=== PATIENT | female | born 1990 | race Caucasian/White ===

== ENCOUNTER 2018-03-27 13:14 | Emergency (ER) | payer SELFPAY ==
[2018-03-27 13:27] VITALS: BP 145/118
--- NOTE | 2018-03-27 14:13 | Emergency Department Report ---
Blank Doc - Documentation Documentation: Patient is a 27-year-old female who is presenting with chest pain. Patient states she has rheumatoid arthritis and she was on a local [employer] on a scooter and started getting some chest discomfort. Patient states is sharp pain. She does have some shortness of breath. Patient states she's had 3-4 days of cough that is productive of sputum. She denies any fever nausea vomiting. Patient states that she has no history of any cardiac issues. Patient states the pain is nonpleuritic. Patient's EKG is reviewed by me shows a sinus tachycardia but no other acute abdomen. Patient's other vital signs are within normal limits. Patient will have x-ray secondary to the productive sputum no be reassessed.
== END 2018-03-27 16:22 | disposition left against medical advice (07) ==
LOC: ED 13:14
DX: R07.9 Chest pain, unspecified (principal); R06.02 Shortness of breath; R05 Cough
CPT/HCPCS: 93005; 93010; 99281

== ENCOUNTER 2018-04-14 17:27 | Emergency (ER) | payer SELFPAY ==
[2018-04-14 17:50] VITALS: BP 155/103
--- NOTE | 2018-04-14 18:19 | Emergency Department Report ---
ED General Adult HPI - General Chief complaint: Medical Clearance Stated complaint: RA FLARE UP Time Seen by Provider: 04/14/18 18:17 Source: patient Mode of arrival: Ambulatory Limitations: No Limitations - History of Present Illness Initial comments: Patient is a 28-year-old black female who has rheumatoid arthritis who is complaining of pain all over. Patient states name of the Derek she is also prednisone pressure normally what helps with her flareups. Patient states the pain is diffuse aching and a 10 out of 10. Patient is resting comfortably in the room. - Related Data Previous Rx's Medication Instructions Recorded Last Taken Type Prednisone [predniSONE 10 mg 10 mg PO .TAPER #1 tab.ds.pk 04/14/18 Unknown Rx (6-Day Pack, 21 Tabs)] Allergies Allergy/AdvReac Type Severity Reaction Status Date / Time No Known Allergies Allergy Unverified 03/27/18 13:25 ED Review of Systems ROS: Stated complaint: RA FLARE UP Other details as noted in HPI Comment: All other systems reviewed and negative ED Past Medical Hx - Past Medical History Hx Arthritis: Yes - Social History Smoking Status: Never Smoker Substance Use Type: None - Medications Home Medications: Home Medications Medication Instructions Recorded Confirmed Last Taken Type Prednisone [predniSONE 10 mg 10 mg PO .TAPER #1 tab.ds.pk 04/14/18 Unknown Rx (6-Day Pack, 21 Tabs)] ED Physical Exam - General Limitations: No Limitations General appearance: alert, in no apparent distress - Head Head exam: Present: atraumatic, normocephalic - Eye Eye exam: Present: normal appearance - ENT ENT exam: Present: mucous membranes moist - Neck Neck exam: Present: normal inspection - Respiratory Respiratory exam: Present: normal lung sounds bilaterally. Absent: respiratory distress - Cardiovascular Cardiovascular Exam: Present: regular rate, normal rhythm. Absent: systolic murmur, diastolic murmur, rubs, gallop - GI/Abdominal GI/Abdominal exam: Present: soft, normal bowel sounds - Extremities Exam Extremities exam: Present: normal inspection - Back Exam Back exam: Present: normal inspection - Neurological Exam Neurological exam: Present: alert, oriented X3 - Psychiatric Psychiatric exam: Present: normal affect, normal mood - Skin Skin exam: Present: warm, dry, intact, normal color. Absent: rash ED Course Vital Signs 04/14/18 17:46 Temperature 99.5 F Pulse Rate 105 H Respiratory 18 Rate Blood Pressure 155/103 O2 Sat by Pulse 99 Oximetry ED Medical Decision Making - Medical Decision Making Patient was given a Decadron shot. Patient states that she is a she could be but has not had some light bleeding. Her last missed her period was exactly one month ago. Patient most likely starting her menses. Critical care attestation.: If time is entered above; I have spent that time in minutes in the direct care of this critically ill patient, excluding procedure time. ED Disposition Clinical Impression: Arthritis Disposition: DC- TO HOME OR SELFCARE Is pt being admited?: No Does the pt Need Aspirin: No Condition: Stable Prescriptions: Prednisone [predniSONE 10 mg (6-Day Pack, 21 Tabs)] 10 mg PO .TAPER #1 tab.ds.pk Referrals: PRIMARY CARE, [Primary Care Provider] - 3-5 Days
[2018-04-14] MEDS ORDERED: DECADRON IM ONE (18:20)
== END 2018-04-14 18:56 | disposition home or self-care (01) ==
LOC: ED 17:27
DX: M06.9 Rheumatoid arthritis, unspecified (principal)
CPT/HCPCS: 96372; 99282; J1100

== ENCOUNTER 2018-04-21 17:04 | Emergency (ER) | payer SELFPAY ==
[2018-04-21 17:17] VITALS: BP 175/96
[2018-04-21] MEDS ORDERED: ZOFRAN ODT PO ONE (18:32)
== END 2018-04-21 17:35 | disposition left against medical advice (07) ==
LOC: ED 17:04
DX: R05 Cough (principal); Z53.21 Procedure and treatment not carried out due to patient leaving prior to being seen by health care provider
CPT/HCPCS: Q0162

== ENCOUNTER 2018-05-09 15:09 | Emergency (ER) | payer OTHER ==
[2018-05-09 15:38] VITALS: BP 148/93
[2018-05-09] MEDS ORDERED: DECADRON IM ONE (18:02)
--- NOTE | 2018-05-09 18:06 | Emergency Department Report ---
HPI - General Chief Complaint: Pain General Time Seen by Provider: 05/09/18 17:54 - HPI HPI: 28-year-old AA female presents to the emergency department with complaint of a 2 day history of pain in the left knee, left wrist and bilateral ankles that she says is a flareup of her rheumatoid arthritis. She denies any skin color change but feels that the left knee is slightly swollen. She has tried some Aleve and some Tylenol for her symptoms without much relief. Patient does not currently have a primary care physician or delimer at her Medicaid lapsed. No recent travel or sick contacts at home. ED Past Medical Hx - Past Medical History Previous Medical History?: Yes Hx Arthritis: Yes (RA) Additional medical history: RA - Surgical History Past Surgical History?: No - Social History Smoking Status: Never Smoker Substance Use Type: None - Medications Home Medications: Home Medications Medication Instructions Recorded Confirmed Last Taken Type Prednisone [predniSONE 10 mg 10 mg PO .TAPER #1 tab.ds.pk 05/09/18 Unknown Rx (6-Day Pack, 21 Tabs)] ED Review of Systems ROS: Stated complaint: RHEUMATIOD ARTHRITIS FLARE UP Other details as noted in HPI Comment: All other systems reviewed and negative Constitutional: denies: chills, fever Eyes: denies: eye pain, eye discharge, vision change ENT: denies: ear pain, throat pain Respiratory: denies: cough, shortness of breath, wheezing Cardiovascular: denies: chest pain, palpitations Gastrointestinal: denies: abdominal pain, nausea, diarrhea Genitourinary: denies: urgency, dysuria, discharge Musculoskeletal: arthralgia, myalgia Skin: denies: rash, lesions Neurological: denies: headache, weakness, paresthesias Physical Exam - Physical Exam Vital Signs: Vital Signs 05/09/18 15:32 Temperature 98.4 F Pulse Rate 101 H Respiratory 18 Rate Blood Pressure 148/93 O2 Sat by Pulse 98 Oximetry Physical Exam: GENERAL: The patient is well-developed well-nourished. HENT: Normocephalic. Atraumatic. Patient has moist mucous membranes. EYES: Extraocular motions are intact. NECK: Supple. Trachea is midline. CHEST/LUNGS: Clear to auscultation. There is no respiratory distress noted. HEART/CARDIOVASCULAR: Regular. There is no tachycardia. There is no murmur. ABDOMEN: Abdomen is soft, nontender. Patient has normal bowel sounds. Morbidly obese habitus. SKIN: Skin is warm and dry. NEURO: The patient is awake, alert, and oriented. The patient is cooperative. The patient has no focal neurologic deficits. The patient has normal speech. MUSCULOSKELETAL: There is some reproducible tenderness to palpation to the left knee but no deformity. No laxity of the joint. There is no limitation range of motion. ED Course Vital Signs 05/09/18 15:32 Temperature 98.4 F Pulse Rate 101 H Respiratory 18 Rate Blood Pressure 148/93 O2 Sat by Pulse 98 Oximetry ED Medical Decision Making - Medical Decision Making Unable to reproduce the tenderness to the wrist, ankles but I was able to reproduce the tenderness to palpation of the left knee. It does appear to be a stable joint. Patient does have morbid obesity which may be adding to her arthralgia but does have a previous diagnosis of rheumatoid arthritis. Vital signs stable throughout her records including being afebrile. The joints appear to be red, warm or any concern for a septic joint. She was given a shot of Decadron here and will be sent home on a prednisone Dosepak. She has been given a referral for [place] until she is able to get her insurance back but has been encouraged to see a delimer as her "flareups " appear to be increasing. Vital signs stable throughout her ED course. She will return to the ER with any worsening of her symptoms or any acute distress. - Differential Diagnosis rheumatoid arthritis, osteoarthritis, gout Critical Care Time: No Critical care attestation.: If time is entered above; I have spent that time in minutes in the direct care of this critically ill patient, excluding procedure time. ED Disposition Clinical Impression: Rheumatoid arthritis flare Arthralgia Qualifiers: Joint pain location: unspecified Qualified Code(s): M25.50 - Pain in unspecified joint Disposition: DC-01 TO HOME OR SELFCARE Is pt being admited?: No Condition: Stable Instructions: Rheumatoid Arthritis (ED), Knee Pain (ED), Arthralgia (ED) Additional Instructions: Please follow up with a primary care physician and/or a delimer as soon as possible. Return to the emergency Department with any worsening of your symptoms are any acute distress. Prescriptions: Prednisone [predniSONE 10 mg (6-Day Pack, 21 Tabs)] 10 mg PO .TAPER #1 tab.ds.pk Referrals: [facility] [Outside] - 3-5 Days Time of Disposition: 18:05
== END 2018-05-09 18:17 | disposition home or self-care (01) ==
LOC: ED 15:09
DX: M06.9 Rheumatoid arthritis, unspecified (principal)
CPT/HCPCS: 96372; 99282; J1100

== ENCOUNTER 2018-05-21 17:54 | Emergency (ER) | payer SELFPAY | END 2018-05-21 19:21 | disposition left against medical advice (07) | LOC: ED 17:54 | DX: R07.9 Chest pain, unspecified (principal); Z53.21 Procedure and treatment not carried out due to patient leaving prior to being seen by health care provider ==

== ENCOUNTER 2018-06-02 19:28 | Emergency (ER) | payer SELFPAY ==
[2018-06-03] MEDS ORDERED: SOLU-Medrol IM ONE (03:21)
[2018-06-03] MEDS ORDERED: TORADOL IM ONE (03:21)
--- NOTE | 2018-06-03 03:44 | Emergency Department Report ---
ED General Adult HPI - General Chief complaint: Pain General Stated complaint: RHEUMATOID ARTHRITIS FLARE UP Time Seen by Provider: 06/03/18 03:20 Source: patient Mode of arrival: Wheelchair Limitations: No Limitations - History of Present Illness Initial comments: 28-year-old -[place] female with a past medical history of morbid obesity and rheumatoid arthritis comes in to the emergency room for complaint of chronic rheumatoid arthritis. Patient reports her pain is so bad that she is not able to move around and is now using adult diapers. Patient reports that she is uninsured and has followed up with [facility] but they did not have any rheumatology for her to follow. -: days(s) (3) Severity scale (0 -10): 10 Quality: aching, sharp Consistency: constant Improves with: none Worsens with: movement - Related Data Previous Rx's Medication Instructions Recorded Last Taken Type Cyclobenzaprine HCl [Flexeril 5 MG 5 mg PO TID PRN #18 tab 04/09/17 Unknown Rx TAB] Ondansetron [Zofran Odt] 4 mg PO TID #18 tab.rapdis 04/09/17 Unknown Rx traMADol [Ultram 50 MG tab] 50 mg PO Q4HR PRN #20 tablet 04/09/17 Unknown Rx Acyclovir [Zovirax Cap] 200 mg PO 5XD #25 cap 05/23/17 Unknown Rx Meloxicam [Mobic] 15 mg PO QDAY #30 tablet 05/23/17 Unknown Rx predniSONE [Deltasone] 10 mg PO QDAY #30 tab 05/23/17 Unknown Rx Acetaminophen/Codeine [Tylenol 2 tab PO Q12H PRN #12 tab 07/10/17 Unknown Rx /Codeine # 3 tab] Acyclovir [Zovirax Tab] 800 mg PO Q8H #21 tab 07/10/17 Unknown Rx Nitrofurantoin [place]/M-Cryst 100 mg PO Q12HR #14 capsule 10/09/17 Unknown Rx [Macrobid CAP] Vit Calc,Iron,Folic 1 each PO DAILY #30 tablet 10/09/17 Unknown Rx [ Vitamins] HYDROcodone/ACETAMINOPHEN [[place] 1 each PO Q4-6H PRN #12 tablet 11/21/17 Unknown Rx 7.5-325 Tablet] Prednisone [predniSONE 10 mg 10 mg PO .TAPER #1 tab.ds.pk 12/07/17 Unknown Rx (6-Day Pack, 21 Tabs)] traMADol [Ultram] 50 mg PO Q6HR PRN #12 tablet 12/07/17 Unknown Rx Ketorolac [Toradol] 10 mg PO Q6H PRN #20 tablet 12/09/17 Unknown Rx HYDROcodone/APAP 5-325 [[place] 1 each PO Q6HR PRN #10 tablet 12/15/17 Unknown Rx 5/325] Ibuprofen 800 mg PO Q9H PRN #30 tablet 12/31/17 Unknown Rx methylPREDNISolone [Medrol Dose 4 mg PO QAM #1 tab.ds.pk 12/31/17 Unknown Rx Juanito] Ibuprofen [Motrin 600 MG tab] 600 mg PO Q8H PRN #30 tablet 06/03/18 Unknown Rx predniSONE [Deltasone] 20 mg PO QDAY #5 tab 06/03/18 Unknown Rx Allergies Allergy/AdvReac Type Severity Reaction Status Date / Time No Known Allergies Allergy Verified 12/15/17 14:29 ED Review of Systems ROS: Stated complaint: RHEUMATOID ARTHRITIS FLARE UP Other details as noted in HPI Comment: All other systems reviewed and negative ED Past Medical Hx - Past Medical History Previous Medical History?: Yes Hx Arthritis: Yes (RA) Additional medical history: Obesity, lupus - Surgical History Past Surgical History?: Yes Additional Surgical History: Psoriasis - Social History Smoking Status: Never Smoker Substance Use Type: None - Medications Home Medications: Home Medications Medication Instructions Recorded Confirmed Last Taken Type Cyclobenzaprine HCl [Flexeril 5 MG 5 mg PO TID PRN #18 tab 04/09/17 Unknown Rx TAB] Ondansetron [Zofran Odt] 4 mg PO TID #18 tab.rapdis 04/09/17 Unknown Rx traMADol [Ultram 50 MG tab] 50 mg PO Q4HR PRN #20 tablet 04/09/17 Unknown Rx Acyclovir [Zovirax Cap] 200 mg PO 5XD #25 cap 05/23/17 Unknown Rx Meloxicam [Mobic] 15 mg PO QDAY #30 tablet 05/23/17 Unknown Rx predniSONE [Deltasone] 10 mg PO QDAY #30 tab 05/23/17 Unknown Rx Acetaminophen/Codeine [Tylenol 2 tab PO Q12H PRN #12 tab 07/10/17 Unknown Rx /Codeine # 3 tab] Acyclovir [Zovirax Tab] 800 mg PO Q8H #21 tab 07/10/17 Unknown Rx Nitrofurantoin [place]/M-Cryst 100 mg PO Q12HR #14 capsule 10/09/17 Unknown Rx [Macrobid CAP] Vit Calc,Iron,Folic 1 each PO DAILY #30 tablet 10/09/17 Unknown Rx [ Vitamins] HYDROcodone/ACETAMINOPHEN [[place] 1 each PO Q4-6H PRN #12 tablet 11/21/17 Unknown Rx 7.5-325 Tablet] Prednisone [predniSONE 10 mg 10 mg PO .TAPER #1 tab.ds.pk 12/07/17 Unknown Rx (6-Day Pack, 21 Tabs)] traMADol [Ultram] 50 mg PO Q6HR PRN #12 tablet 12/07/17 Unknown Rx Ketorolac [Toradol] 10 mg PO Q6H PRN #20 tablet 12/09/17 Unknown Rx HYDROcodone/APAP 5-325 [[place] 1 each PO Q6HR PRN #10 tablet 12/15/17 Unknown Rx 5/325] Ibuprofen 800 mg PO Q9H PRN #30 tablet 12/31/17 Unknown Rx methylPREDNISolone [Medrol Dose 4 mg PO QAM #1 tab.ds.pk 12/31/17 Unknown Rx Juanito] Ibuprofen [Motrin 600 MG tab] 600 mg PO Q8H PRN #30 tablet 06/03/18 Unknown Rx predniSONE [Deltasone] 20 mg PO QDAY #5 tab 06/03/18 Unknown Rx ED Physical Exam - General Limitations: No Limitations General appearance: alert, obese - Head Head exam: Present: atraumatic, normocephalic - Eye Eye exam: Present: EOMI - ENT ENT exam: Present: mucous membranes moist - Neck Neck exam: Present: normal inspection - Respiratory Respiratory exam: Present: normal lung sounds bilaterally. Absent: respiratory distress - Cardiovascular Cardiovascular Exam: Present: tachycardia - GI/Abdominal GI/Abdominal exam: Present: soft, normal bowel sounds - Extremities Exam Extremities exam: Present: tenderness - Back Exam Back exam: Present: tenderness - Neurological Exam Neurological exam: Present: alert, oriented X3 - Psychiatric Psychiatric exam: Present: normal affect, normal mood - Skin Skin exam: Present: warm, dry, intact, normal color. Absent: rash ED Course Vital Signs 06/02/18 19:47 Temperature 99.2 F Pulse Rate 120 H Respiratory 16 Rate Blood Pressure 145/94 O2 Sat by Pulse 99 Oximetry ED Medical Decision Making - Medical Decision Making Patient has been evaluated by this provider in fast track. Patient has been given Solu-Medrol 125 mg IM. Toradol 30 mg IM. Discharge patient on prednisone 20 mg by mouth daily for 5 days. As well as ibuprofen 600 mg by mouth daily. 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 Patient verbalizes understanding. Critical care attestation.: If time is entered above; I have spent that time in minutes in the direct care of this critically ill patient, excluding procedure time. ED Disposition Clinical Impression: Rheumatoid arthritis flare Chronic pain Qualifiers: Chronic pain type: other chronic pain Qualified Code(s): G89.29 - Other chronic pain Disposition: TO HOME OR SELFCARE Is pt being admited?: No Does the pt Need Aspirin: No Condition: Stable Instructions: Rheumatoid Arthritis (ED), Self-Care Measures with a Chronic Disease (ED) Additional Instructions: Take pain medication as prescribed. Take prednisone as prescribed. Follow up with [facility] for more resources to be followed by a evaporator operator. Prescriptions: Ibuprofen [Motrin 600 MG tab] 600 mg PO Q8H PRN #30 tablet PRN Reason: Pain predniSONE [Deltasone] 20 mg PO QDAY #5 tab Referrals: PRIMARY CARE, [Primary Care Provider] - 3-5 Days [facility] [Outside] - 3-5 Days
[2018-06-03 05:12] VITALS: BP 129/80
== END 2018-06-03 05:12 | disposition home or self-care (01) ==
LOC: ED 19:28 → MERGE 19:28 → ED 06-03 05:12
DX: M06.9 Rheumatoid arthritis, unspecified (principal); G89.29 Other chronic pain; M32.9 Systemic lupus erythematosus, unspecified
CPT/HCPCS: 93005; 93010; 96372; 99283; J1885; J2930

== ENCOUNTER 2018-06-16 09:14 | Emergency (ER) | payer SELFPAY ==
[2018-06-16 09:37] VITALS: BP 145/100
[2018-06-16] MEDS ORDERED: NORCO 5/325 PO ONE (10:52)
[2018-06-16] MEDS ORDERED: TORADOL IM ONE (10:52)
[2018-06-16] MEDS ORDERED: DECADRON IM STA (10:52)
--- NOTE | 2018-06-16 10:52 | Emergency Department Report ---
ED Extremity Problem HPI - General Chief complaint: Pain General Stated complaint: BODY PAIN Time Seen by Provider: 06/16/18 10:41 Source: patient, family Mode of arrival: Wheelchair Limitations: No Limitations - History of Present Illness Initial comments: This is a 28-year-old patient reports that she has a reported arthritis and she is having a flare. 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 Patient states she is having generalized aching to her joints with swelling to her knees which is always there. She reports pain is 10 out of 10 feels stiff and achy. Denies any nausea or vomiting. Denies any redness to joints. Denies any fever or chills. Denies any trauma. Pain is worse with walking and and better with resting. MD Complaint: joint swelling, joint paint Onset/Timin -: days(s) Location: left, right, upper extremity, lower extremity, elbow, knee History of Same: Yes -: No myalgia, Yes arthralgia, No fever, No associated dyspnea, No associated chest pain Radiation: none Severity scale (0 -10): 10 Quality: aching Consistency: constant Improves with: rest Worsens with: weight bearing, walking Associated Symptoms: arthralgias. denies: chest pain, shortness of breath, fever, myalgias, rash - Related Data Previous Rx's Medication Instructions Recorded Last Taken Type Cyclobenzaprine HCl [Flexeril 5 MG 5 mg PO TID PRN #18 tab 04/09/17 Unknown Rx TAB] Ondansetron [Zofran Odt] 4 mg PO TID #18 tab.rapdis 04/09/17 Unknown Rx traMADol [Ultram 50 MG tab] 50 mg PO Q4HR PRN #20 tablet 04/09/17 Unknown Rx Acyclovir [Zovirax Cap] 200 mg PO 5XD #25 cap 05/23/17 Unknown Rx Meloxicam [Mobic] 15 mg PO QDAY #30 tablet 05/23/17 Unknown Rx predniSONE [Deltasone] 10 mg PO QDAY #30 tab 05/23/17 Unknown Rx Acetaminophen/Codeine [Tylenol 2 tab PO Q12H PRN #12 tab 07/10/17 Unknown Rx /Codeine # 3 tab] Acyclovir [Zovirax Tab] 800 mg PO Q8H #21 tab 07/10/17 Unknown Rx Nitrofurantoin [place]/M-Cryst 100 mg PO Q12HR #14 capsule 10/09/17 Unknown Rx [Macrobid CAP] Vit Calc,Iron,Folic 1 each PO DAILY #30 tablet 10/09/17 Unknown Rx [ Vitamins] HYDROcodone/ACETAMINOPHEN [[place] 1 each PO Q4-6H PRN #12 tablet 11/21/17 Unknown Rx 7.5-325 Tablet] traMADol [Ultram] 50 mg PO Q6HR PRN #12 tablet 12/07/17 Unknown Rx Ketorolac [Toradol] 10 mg PO Q6H PRN #20 tablet 12/09/17 Unknown Rx HYDROcodone/APAP 5-325 [[place] 1 each PO Q6HR PRN #10 tablet 12/15/17 Unknown Rx 5/325] methylPREDNISolone [Medrol Dose 4 mg PO QAM #1 tab.ds.pk 12/31/17 Unknown Rx Juanito] Prednisone [predniSONE 10 mg 10 mg PO .TAPER #1 tab.ds.pk 05/09/18 Unknown Rx (6-Day Pack, 21 Tabs)] Ibuprofen [Motrin 600 MG tab] 600 mg PO Q8H PRN #30 tablet 06/03/18 Unknown Rx predniSONE [Deltasone] 20 mg PO QDAY #5 tab 06/03/18 Unknown Rx Ibuprofen 800 mg PO Q8H PRN #15 tablet 06/16/18 Unknown Rx Prednisone [predniSONE 10 mg 10 mg PO .TAPER #1 tab.ds.pk 06/16/18 Unknown Rx (6-Day Pack, 21 Tabs)] traMADol [Ultram 50 MG tab] 50 mg PO Q6HR PRN #20 tablet 06/16/18 Unknown Rx Allergies Allergy/AdvReac Type Severity Reaction Status Date / Time No Known Allergies Allergy Verified 06/16/18 09:34 ED Review of Systems ROS: Stated complaint: BODY PAIN Other details as noted in HPI Constitutional: denies: chills, fever Eyes: denies: eye discharge Respiratory: denies: cough, shortness of breath, SOB with exertion, SOB at rest , wheezing Cardiovascular: denies: chest pain, palpitations, edema, syncope Endocrine: no symptoms reported Gastrointestinal: denies: abdominal pain, nausea, vomiting, diarrhea Genitourinary: denies: urgency, dysuria, discharge Musculoskeletal: joint swelling, arthralgia. denies: back pain Skin: denies: rash, lesions Neurological: abnormal gait (she says she is in a wheelchair because of severe rheumatoid arthritis.). denies: headache, weakness, numbness, paresthesias, vertigo ED Past Medical Hx - Past Medical History Previous Medical History?: Yes Hx Arthritis: Yes (RA) Hx Seizures: Yes Additional medical history: RA. Psoriasis - Surgical History Past Surgical History?: No - Family History Family history: hypertension - Social History Smoking Status: Never Smoker Substance Use Type: None - Medications Home Medications: Home Medications Medication Instructions Recorded Confirmed Last Taken Type Cyclobenzaprine HCl [Flexeril 5 MG 5 mg PO TID PRN #18 tab 04/09/17 Unknown Rx TAB] Ondansetron [Zofran Odt] 4 mg PO TID #18 tab.rapdis 04/09/17 Unknown Rx traMADol [Ultram 50 MG tab] 50 mg PO Q4HR PRN #20 tablet 04/09/17 Unknown Rx Acyclovir [Zovirax Cap] 200 mg PO 5XD #25 cap 05/23/17 Unknown Rx Meloxicam [Mobic] 15 mg PO QDAY #30 tablet 05/23/17 Unknown Rx predniSONE [Deltasone] 10 mg PO QDAY #30 tab 05/23/17 Unknown Rx Acetaminophen/Codeine [Tylenol 2 tab PO Q12H PRN #12 tab 07/10/17 Unknown Rx /Codeine # 3 tab] Acyclovir [Zovirax Tab] 800 mg PO Q8H #21 tab 07/10/17 Unknown Rx Nitrofurantoin [place]/M-Cryst 100 mg PO Q12HR #14 capsule 10/09/17 Unknown Rx [Macrobid CAP] Vit Calc,Iron,Folic 1 each PO DAILY #30 tablet 10/09/17 Unknown Rx [ Vitamins] HYDROcodone/ACETAMINOPHEN [[place] 1 each PO Q4-6H PRN #12 tablet 11/21/17 Unknown Rx 7.5-325 Tablet] traMADol [Ultram] 50 mg PO Q6HR PRN #12 tablet 12/07/17 Unknown Rx Ketorolac [Toradol] 10 mg PO Q6H PRN #20 tablet 12/09/17 Unknown Rx HYDROcodone/APAP 5-325 [[place] 1 each PO Q6HR PRN #10 tablet 12/15/17 Unknown Rx 5/325] methylPREDNISolone [Medrol Dose 4 mg PO QAM #1 tab.ds.pk 12/31/17 Unknown Rx Juanito] Prednisone [predniSONE 10 mg 10 mg PO .TAPER #1 tab.ds.pk 05/09/18 Unknown Rx (6-Day Pack, 21 Tabs)] Ibuprofen [Motrin 600 MG tab] 600 mg PO Q8H PRN #30 tablet 06/03/18 Unknown Rx predniSONE [Deltasone] 20 mg PO QDAY #5 tab 06/03/18 Unknown Rx Ibuprofen 800 mg PO Q8H PRN #15 tablet 06/16/18 Unknown Rx Prednisone [predniSONE 10 mg 10 mg PO .TAPER #1 tab.ds.pk 06/16/18 Unknown Rx (6-Day Pack, 21 Tabs)] traMADol [Ultram 50 MG tab] 50 mg PO Q6HR PRN #20 tablet 06/16/18 Unknown Rx ED Physical Exam - General Limitations: No Limitations General appearance: alert, in no apparent distress - Head Head exam: Present: atraumatic, normocephalic, normal inspection - Eye Eye exam: Present: normal appearance, PERRL, EOMI Pupils: Present: normal accommodation - ENT ENT exam: Present: normal exam, normal orophraynx, mucous membranes moist, TM's normal bilaterally, normal external ear exam - Neck Neck exam: Present: normal inspection, full ROM. Absent: tenderness, lymphadenopathy - Respiratory Respiratory exam: Present: normal lung sounds bilaterally. Absent: respiratory distress, chest wall tenderness - Cardiovascular Cardiovascular Exam: Present: normal rhythm, tachycardia, normal heart sounds. Absent: systolic murmur, diastolic murmur - GI/Abdominal GI/Abdominal exam: Present: soft, normal bowel sounds. Absent: tenderness, rigid, organomegaly - Extremities Exam Extremities exam: Present: normal inspection, full ROM (patient has full range of motion to all her extremities but she reported pain to knee joints and elbow joints with flexion and extension. She has no restriction in movement to her joints. Patient is in a wheelchair because she said she has a flareup of her rheumatoid arthritis and it is difficult for her to walk.), tenderness (knee joints and elbow joints.), normal capillary refill, joint swelling (swelling to knee joints with some effusion.), other (my extremity physical exam except for knee joints and elbow joints with pain with range of motion and bilateral knee joint with effusion without any restriction in movement or change in color.). Absent: pedal edema, calf tenderness - Back Exam Back exam: Present: normal inspection, full ROM, other (patient able to ambulate but she says is very difficult and painful due to rheumatoid flare up.) . Absent: tenderness, paraspinal tenderness, vertebral tenderness, rash noted - Neurological Exam Neurological exam: Present: alert, oriented X3, abnormal gait (she has a normal gait she is unsteady because she said her knees are swollen and she is having a lot of pain), reflexes normal. Absent: motor sensory deficit - Psychiatric Psychiatric exam: Present: normal affect, normal mood - Skin Skin exam: Present: warm, dry, intact, normal color. Absent: rash ED Course Vital Signs 06/16/18 06/16/18 06/16/18 09:34 11:14 11:15 Temperature 97.9 F Pulse Rate 114 H Respiratory 18 20 20 Rate Blood Pressure 145/100 O2 Sat by Pulse 99 Oximetry Vital Signs 06/16/18 06/16/18 06/16/18 09:34 11:14 11:15 Temperature 97.9 F Pulse Rate 114 H Respiratory 18 20 20 Rate Blood Pressure 145/100 O2 Sat by Pulse 99 Oximetry 06/16/18 11:46 Temperature Pulse Rate 98 H Respiratory Rate Blood Pressure O2 Sat by Pulse Oximetry - Reevaluation(s) Reevaluation #1: 06/16/18 11:46 Patient was given Decadron 10 mg IM, Toradol 60 mg IM and estrogen 52 tablets by mouth for pain which she said helped her pain. ED Medical Decision Making - Medical Decision Making This is a 28-year-old female that has been here several times in the past less than was 06/03/2018 for rheumatoid flare up. She was given prednisone and ibuprofen upon discharge. She has been treated with tramadol prednisone and ibuprofen in the past also. Patient said that her insurance lapse and is to be activated in 90 days that she is not able to see a primary care or respiratory care program director and her rheumatoid arthritis as flare. Patient was seen and examined by myself and she has normal exam except bilateral knee and elbow with swelling and pain with range of motion. Bilateral knee with knee effusion left is greater than right but she is able to ambulate with limp in because she said she is having a lot of pain. Patient's urine wheelchair. Patient was given Toradol 60 mg IM, Decadron 10 mg IM and 5/ 52 tablets by mouth which relieved her pain. I discussed the patient that she needs to follow-up with outside [facility] for primary care and previous sliding scale fee until her [employer] insurance is activated and 90 days. She agrees. I discussed diagnosis and treatment plan with her and she voiced understanding. Patient surgical in stable condition, vital signs stable she is afebrile and her pain is controlled. She was given prescription for prednisone Dosepak, Motrin and tramadol and to follow-up with [facility] and orthopedic doctor in 3 days. Critical care attestation.: If time is entered above; I have spent that time in minutes in the direct care of this critically ill patient, excluding procedure time. ED Disposition Clinical Impression: Arthralgia of multiple sites, bilateral, Rheumatoid arthritis flare Knee effusion Qualifiers: Laterality: bilateral Qualified Code(s): M25.461 - Effusion, right knee; M25.462 - Effusion, left knee Disposition: DC- TO HOME OR SELFCARE Is pt being admited?: No Does the pt Need Aspirin: No Condition: Stable Instructions: Rheumatoid Arthritis (ED), Arthralgia (ED), Knee Exercises (GEN) , Knee Effusion (ED) Additional Instructions: Please follow up with [facility] primary care physician in 3 days to manage rheumatoid arthritis and also follow-up with orthopedic doctor Dr. Cintron for aspiration of joint effusion. Take prednisone Dosepak as instructed Take tramadol for moderate to severe pain the patient drive or operate heavy machinery while taking this medication If your condition worsens, return to the emergency room. Take Motrin for mild pain but please remember to take this medication with food as it can cause stomach upset Prescriptions: Ibuprofen 800 mg PO Q8H PRN #15 tablet PRN Reason: Pain, Mild (1-3) Prednisone [predniSONE 10 mg (6-Day Pack, 21 Tabs)] 10 mg PO .TAPER #1 tab.ds.pk traMADol [Ultram 50 MG tab] 50 mg PO Q6HR PRN #20 tablet PRN Reason: Pain Referrals: [facility] [Outside] - 06/19/18 MAURI CINTRON MD [Staff Physician] - 06/19/18 Forms: Work/School Release Form(ED)
== END 2018-06-16 12:08 | disposition home or self-care (01) ==
LOC: ED 09:14
DX: M25.462 Effusion, left knee (principal); M25.461 Effusion, right knee; M25.522 Pain in left elbow; M25.521 Pain in right elbow; M06.9 Rheumatoid arthritis, unspecified
CPT/HCPCS: 96372; 99282; J1100; J1885

== ENCOUNTER 2018-07-04 16:25 | Emergency (ER) | payer SELFPAY ==
[2018-07-04] MEDS ORDERED: ASPIRIN ONE (17:59)
--- NOTE | 2018-07-04 21:27 | Emergency Department Report ---
ED General Adult HPI - General Chief complaint: Pain General Stated complaint: RA FLARE Time Seen by Provider: 07/04/18 21:20 Source: patient Mode of arrival: Wheelchair Limitations: No Limitations - History of Present Illness Initial comments: This is 28-year-old female who reports that she is having rheumatoid arthritis flare. She is complaining of generalized pain to all her joints. Pain is 10/ 10 and achy all over. Patient says that she started a new job and her insurance will be kicking in July 2015. Patient said that she usually goes to [place] but she started a new job and has a new insurance that she is to wait. Patient was here on 06/24/2018 for similar problems. Pain is constant and worse with movement and no alleviating factors. She says she has not taken anything prior to coming to the emergency room. MD Complaint: rheumatoid arthritis flare Onset/Timin -: days(s) Location: back, left, right, upper extremity, lower extremity Radiation: non-radiation Severity scale (0 -10): 10 Quality: aching Consistency: constant Improves with: none Worsens with: movement Associated Symptoms: denies: confusion, chest pain, cough, diaphoresis, fever/ chills, headaches, loss of appetite, malaise, nausea/vomiting, rash, seizure, shortness of breath, syncope, weakness Treatments Prior to Arrival: none - Related Data Previous Rx's Medication Instructions Recorded Last Taken Type Cyclobenzaprine HCl [Flexeril 5 MG 5 mg PO TID PRN #18 tab 04/09/17 Unknown Rx TAB] Ondansetron [Zofran Odt] 4 mg PO TID #18 tab.rapdis 04/09/17 Unknown Rx traMADol [Ultram 50 MG tab] 50 mg PO Q4HR PRN #20 tablet 04/09/17 Unknown Rx Acyclovir [Zovirax Cap] 200 mg PO 5XD #25 cap 05/23/17 Unknown Rx Meloxicam [Mobic] 15 mg PO QDAY #30 tablet 05/23/17 Unknown Rx predniSONE [Deltasone] 10 mg PO QDAY #30 tab 05/23/17 Unknown Rx Acetaminophen/Codeine [Tylenol 2 tab PO Q12H PRN #12 tab 07/10/17 Unknown Rx /Codeine # 3 tab] Acyclovir [Zovirax Tab] 800 mg PO Q8H #21 tab 07/10/17 Unknown Rx Nitrofurantoin [place]/M-Cryst 100 mg PO Q12HR #14 capsule 10/09/17 Unknown Rx [Macrobid CAP] Vit Calc,Iron,Folic 1 each PO DAILY #30 tablet 10/09/17 Unknown Rx [ Vitamins] traMADol [Ultram] 50 mg PO Q6HR PRN #12 tablet 12/07/17 Unknown Rx Ketorolac [Toradol] 10 mg PO Q6H PRN #20 tablet 12/09/17 Unknown Rx HYDROcodone/APAP 5-325 [[place] 1 each PO Q6HR PRN #10 tablet 12/15/17 Unknown Rx 5/325] methylPREDNISolone [Medrol Dose 4 mg PO QAM #1 tab.ds.pk 12/31/17 Unknown Rx Juanito] Prednisone [predniSONE 10 mg 10 mg PO .TAPER #1 tab.ds.pk 05/09/18 Unknown Rx (6-Day Pack, 21 Tabs)] Ibuprofen [Motrin 600 MG tab] 600 mg PO Q8H PRN #30 tablet 06/03/18 Unknown Rx predniSONE [Deltasone] 20 mg PO QDAY #5 tab 06/03/18 Unknown Rx Ibuprofen 800 mg PO Q8H PRN #15 tablet 06/16/18 Unknown Rx Prednisone [predniSONE 10 mg 10 mg PO .TAPER #1 tab.ds.pk 06/16/18 Unknown Rx (6-Day Pack, 21 Tabs)] traMADol [Ultram 50 MG tab] 50 mg PO Q6HR PRN #20 tablet 06/16/18 Unknown Rx HYDROcodone/APAP 5-325 [[place] 1 each PO Q6HR PRN #15 tablet 06/24/18 Unknown Rx 5/325] Ibuprofen [Motrin] 800 mg PO Q8HR PRN #15 tablet 06/24/18 Unknown Rx Prednisone [predniSONE 10 mg 10 mg PO .TAPER #1 tab.ds.pk 06/24/18 Unknown Rx (6-Day Pack, 21 Tabs)] Ibuprofen [Motrin] 800 mg PO Q8HR PRN #21 tablet 07/04/18 Unknown Rx predniSONE [Prednisone] 10 mg PO QAM 6 Days #1 tab.ds.pk 07/04/18 Unknown Rx Allergies Allergy/AdvReac Type Severity Reaction Status Date / Time No Known Allergies Allergy Verified 06/16/18 09:34 ED Review of Systems ROS: Stated complaint: RA FLARE Other details as noted in HPI Constitutional: denies: chills, fever Eyes: denies: eye pain, eye discharge, vision change Respiratory: denies: cough, shortness of breath, SOB with exertion, SOB at rest , stridor, wheezing Cardiovascular: denies: chest pain, palpitations, edema, syncope Genitourinary: denies: discharge Musculoskeletal: back pain, joint swelling, arthralgia Skin: denies: rash, lesions Neurological: denies: headache, weakness, numbness, paresthesias, abnormal gait , vertigo ED Past Medical Hx - Past Medical History Previous Medical History?: Yes Hx Arthritis: Yes (RA) Hx Seizures: Yes Additional medical history: RA. Psoriasis - Surgical History Past Surgical History?: Yes Additional Surgical History: Psoriasis - Family History Family history: hypertension - Social History Smoking Status: Never Smoker Substance Use Type: None - Medications Home Medications: Home Medications Medication Instructions Recorded Confirmed Last Taken Type Cyclobenzaprine HCl [Flexeril 5 MG 5 mg PO TID PRN #18 tab 04/09/17 Unknown Rx TAB] Ondansetron [Zofran Odt] 4 mg PO TID #18 tab.rapdis 04/09/17 Unknown Rx traMADol [Ultram 50 MG tab] 50 mg PO Q4HR PRN #20 tablet 04/09/17 Unknown Rx Acyclovir [Zovirax Cap] 200 mg PO 5XD #25 cap 05/23/17 Unknown Rx Meloxicam [Mobic] 15 mg PO QDAY #30 tablet 05/23/17 Unknown Rx predniSONE [Deltasone] 10 mg PO QDAY #30 tab 05/23/17 Unknown Rx Acetaminophen/Codeine [Tylenol 2 tab PO Q12H PRN #12 tab 07/10/17 Unknown Rx /Codeine # 3 tab] Acyclovir [Zovirax Tab] 800 mg PO Q8H #21 tab 07/10/17 Unknown Rx Nitrofurantoin [place]/M-Cryst 100 mg PO Q12HR #14 capsule 10/09/17 Unknown Rx [Macrobid CAP] Vit Calc,Iron,Folic 1 each PO DAILY #30 tablet 10/09/17 Unknown Rx [ Vitamins] traMADol [Ultram] 50 mg PO Q6HR PRN #12 tablet 12/07/17 Unknown Rx Ketorolac [Toradol] 10 mg PO Q6H PRN #20 tablet 12/09/17 Unknown Rx HYDROcodone/APAP 5-325 [[place] 1 each PO Q6HR PRN #10 tablet 12/15/17 Unknown Rx 5/325] methylPREDNISolone [Medrol Dose 4 mg PO QAM #1 tab.ds.pk 12/31/17 Unknown Rx Juanito] Prednisone [predniSONE 10 mg 10 mg PO .TAPER #1 tab.ds.pk 05/09/18 Unknown Rx (6-Day Pack, 21 Tabs)] Ibuprofen [Motrin 600 MG tab] 600 mg PO Q8H PRN #30 tablet 06/03/18 Unknown Rx predniSONE [Deltasone] 20 mg PO QDAY #5 tab 06/03/18 Unknown Rx Ibuprofen 800 mg PO Q8H PRN #15 tablet 06/16/18 Unknown Rx Prednisone [predniSONE 10 mg 10 mg PO .TAPER #1 tab.ds.pk 06/16/18 Unknown Rx (6-Day Pack, 21 Tabs)] traMADol [Ultram 50 MG tab] 50 mg PO Q6HR PRN #20 tablet 06/16/18 Unknown Rx HYDROcodone/APAP 5-325 [[place] 1 each PO Q6HR PRN #15 tablet 06/24/18 Unknown Rx 5/325] Ibuprofen [Motrin] 800 mg PO Q8HR PRN #15 tablet 06/24/18 Unknown Rx Prednisone [predniSONE 10 mg 10 mg PO .TAPER #1 tab.ds.pk 06/24/18 Unknown Rx (6-Day Pack, 21 Tabs)] Ibuprofen [Motrin] 800 mg PO Q8HR PRN #21 tablet 07/04/18 Unknown Rx predniSONE [Prednisone] 10 mg PO QAM 6 Days #1 tab.ds.pk 07/04/18 Unknown Rx ED Physical Exam - General Limitations: No Limitations General appearance: alert, in no apparent distress - Head Head exam: Present: atraumatic, normocephalic, normal inspection - ENT ENT exam: Present: normal exam - Neck Neck exam: Present: normal inspection, full ROM, other (no C-spine tenderness). Absent: tenderness, lymphadenopathy - Respiratory Respiratory exam: Present: normal lung sounds bilaterally. Absent: respiratory distress - Cardiovascular Cardiovascular Exam: Present: regular rate, normal rhythm. Absent: systolic murmur, diastolic murmur, rubs, gallop - Extremities Exam Extremities exam: Present: normal inspection, normal capillary refill, other ( No cce. + 2 pulses in all extremities, no neurovascular compromise). Absent: full ROM (patient with limited range to major joints including shoulders, elbows , knees, hips due to her rheumatoid flare, pain.), tenderness, pedal edema, joint swelling, calf tenderness - Back Exam Back exam: Present: normal inspection, full ROM, other (patient able to ambulate but she limps due to rheumatoid arthritis.). Absent: tenderness, CVA tenderness (R), CVA tenderness (L), muscle spasm, paraspinal tenderness, vertebral tenderness, rash noted - Neurological Exam Neurological exam: Present: alert, oriented X3, abnormal gait (abnormal gait was his chronic due to her rheumatoid arthritis.), reflexes normal. Absent: motor sensory deficit - Psychiatric Psychiatric exam: Present: normal affect, normal mood - Skin Skin exam: Present: warm, dry, intact, normal color. Absent: rash ED Course Vital Signs 07/04/18 16:57 Pulse Rate 79 Respiratory 16 Rate Blood Pressure 168/100 O2 Sat by Pulse 98 Oximetry Vital Signs 07/04/18 07/04/18 07/04/18 16:57 22:37 22:46 Pulse Rate 79 77 Respiratory 16 18 Rate Blood Pressure 168/100 Blood Pressure 151/110 148/84 [Right] O2 Sat by Pulse 98 100 Oximetry - Reevaluation(s) Reevaluation #1: 07/04/18 21:35 Patient given Cruger 07/18/2025 one tablet, Toradol 60 mg IM and Decadron 10 mg IM for rheumatoid flare. After evaluation she said she was better and her pain was down to 4/10 from 07/25 ED Medical Decision Making - Medical Decision Making This is a 28-year-old female here report that she is having rheumatoid flareup and she does not have a doctor yet because her insurance kicks in 07/20/2018. She said that she is having increase in pain due to rheumatoid arthritis. Assessment/plan 1: Put arthritis flare-Decadron 10 mg IM, Toradol 60 mg IM and 10/325 mg by mouth with some relief of pain. Will be given prescription for steroids, Motrin and referral to photogrammetry airplane pilot and primary care physician. Discussed with patient that she needs to follow-up at [facility] to manage her chronic medical problem. I discussed with her that they will work with her monetary zeng until she gets her insurance and she needs to have someone to monitor her rheumatoid arthritis. She states that she will be getting a little photogrammetry airplane pilot 07/20/2018. Patient is stable she said her pain is better and discharged home with prescription for Motrin and prednisone Dosepak Critical care attestation.: If time is entered above; I have spent that time in minutes in the direct care of this critically ill patient, excluding procedure time. ED Disposition Clinical Impression: Rheumatoid arthritis flare Disposition: DC-01 TO HOME OR SELFCARE Is pt being admited?: No Does the pt Need Aspirin: No Condition: Stable Instructions: Rheumatoid Arthritis (ED) Additional Instructions: Please follow up with [facility] in 2 days for primary care visits for chronic medical problem. You will Also need to follow up with her photogrammetry airplane pilot. Please see referral and discharge instruction paperwork. Take Motrin and prednisone to manage her rheumatoid flare but please take these medications and food as Motrin can cause irritation to stomach lining. If your condition worsens, please return to the emergency room Prescriptions: Ibuprofen [Motrin] 800 mg PO Q8HR PRN #21 tablet PRN Reason: pain predniSONE [Prednisone] 10 mg PO QAM 6 Days #1 tab.ds.pk Referrals: PRIMARY CARE, [Primary Care Provider] - 07/06/18 follow-up , photogrammetry airplane pilot Dr. Ivory Butler MD [Other] - 07/06/18 [facility] [Outside] - 07/06/18 Forms: Work/School Release Form(ED)
[2018-07-04] MEDS ORDERED: DECADRON IM STA (21:52)
[2018-07-04] MEDS ORDERED: TORADOL IM ONE (21:52)
[2018-07-04] MEDS ORDERED: NORCO 10/325 PO ONE (21:53)
[2018-07-04 22:58] VITALS: BP 148/84
== END 2018-07-04 22:37 | disposition home or self-care (01) ==
LOC: ED 16:25
DX: M06.9 Rheumatoid arthritis, unspecified (principal); L40.9 Psoriasis, unspecified
CPT/HCPCS: 96372; 99282; J1100; J1885

== ENCOUNTER 2018-07-14 17:08 | Emergency (ER) | payer SELFPAY ==
[2018-07-14] MEDS ORDERED: ASPIRIN PO ONE (17:29)
[2018-07-14 18:24] LABS: Basophils # (Auto) 0.3 K/mm3 (0.0-0.1); Basophils % (Auto) 1.4 % (0.0-1.8); Eosinophils # (Auto) 0.1 K/mm3 (0.0-0.4); Eosinophils % (Auto) 0.4 % (0.0-4.3); Hemoglobin 10.7 gm/dl (10.1-14.3); Lymphocytes # (Auto) 4.5 K/mm3 (1.2-5.4); Lymphocytes % (Auto) 24.2 % (13.4-35.0); Mean Corpuscular HGB Conc 32 % (30-34); Mean Corpuscular Volume 75 fl (79-97); Monocytes # (Auto) 0.9 K/mm3 (0.0-0.8); Monocytes % (Auto) 4.7 % (0.0-7.3); Platelet Count 443 K/mm3 (140-440); Red Cell Distribution Width 18.5 % (13.2-15.2)
[2018-07-14 18:25] LABS: Mean Corpuscular Hemoglobin 24 pg (28-32)
[2018-07-14 18:33] LABS: INR 0.95 (0.87-1.13)
[2018-07-14 18:34] LABS: Partial Thromboplastin Time 23.8 Sec. (24.2-36.6)
[2018-07-14 18:44] LABS: BUN/Creatinine Ratio 26; Blood Urea Nitrogen 13 mg/dL (7-17); Calcium 9.1 mg/dL (8.4-10.2); Hemolysis Index 2
[2018-07-14] MEDS ORDERED: NACL 0.9% 1000 ML 1,000 ML IV ONE (21:04)
--- NOTE | 2018-07-14 21:08 | Emergency Department Report ---
ED Chest Pain HPI - General Chief Complaint: Chest Pain Stated Complaint: CHEST PAIN/GERD/RA FLARE UP Time Seen by Provider: 07/14/18 21:01 Source: patient Mode of arrival: Ambulatory Limitations: No Limitations - History of Present Illness Initial Comments: Henry is a 28 yo female who presents with squeezing chest pain for the past 2 weeks. She has had rapid heartbeat which has been fluctuating. No headache. Mild dyspnea. Has hx of RA. Has taken Prednisone for 2 years. Followed by [facility] Dr. Gutierrez. No longer has insurance. MD Complaint: chest pain -: Gradual, week(s) (2) Onset: during rest Pain Location: substernal Severity: mild Quality: squeezing Consistency: intermittent Improves With: nothing Worsens With: nothing - Related Data Previous Rx's Medication Instructions Recorded Last Taken Type Cyclobenzaprine HCl [Flexeril 5 MG 5 mg PO TID PRN #18 tab 04/09/17 Unknown Rx TAB] Ondansetron [Zofran Odt] 4 mg PO TID #18 tab.rapdis 04/09/17 Unknown Rx traMADol [Ultram 50 MG tab] 50 mg PO Q4HR PRN #20 tablet 04/09/17 Unknown Rx Acyclovir [Zovirax Cap] 200 mg PO 5XD #25 cap 05/23/17 Unknown Rx Meloxicam [Mobic] 15 mg PO QDAY #30 tablet 05/23/17 Unknown Rx predniSONE [Deltasone] 10 mg PO QDAY #30 tab 05/23/17 Unknown Rx Acetaminophen/Codeine [Tylenol 2 tab PO Q12H PRN #12 tab 07/10/17 Unknown Rx /Codeine # 3 tab] Acyclovir [Zovirax Tab] 800 mg PO Q8H #21 tab 07/10/17 Unknown Rx Nitrofurantoin [place]/M-Cryst 100 mg PO Q12HR #14 capsule 10/09/17 Unknown Rx [Macrobid CAP] Vit Calc,Iron,Folic 1 each PO DAILY #30 tablet 10/09/17 Unknown Rx [ Vitamins] traMADol [Ultram] 50 mg PO Q6HR PRN #12 tablet 12/07/17 Unknown Rx Ketorolac [Toradol] 10 mg PO Q6H PRN #20 tablet 12/09/17 Unknown Rx HYDROcodone/APAP 5-325 [[place] 1 each PO Q6HR PRN #10 tablet 12/15/17 Unknown Rx 5/325] methylPREDNISolone [Medrol Dose 4 mg PO QAM #1 tab.ds.pk 12/31/17 Unknown Rx Juanito] Prednisone [predniSONE 10 mg 10 mg PO .TAPER #1 tab.ds.pk 05/09/18 Unknown Rx (6-Day Pack, 21 Tabs)] Ibuprofen [Motrin 600 MG tab] 600 mg PO Q8H PRN #30 tablet 06/03/18 Unknown Rx predniSONE [Deltasone] 20 mg PO QDAY #5 tab 06/03/18 Unknown Rx Ibuprofen 800 mg PO Q8H PRN #15 tablet 06/16/18 Unknown Rx Prednisone [predniSONE 10 mg 10 mg PO .TAPER #1 tab.ds.pk 06/16/18 Unknown Rx (6-Day Pack, 21 Tabs)] traMADol [Ultram 50 MG tab] 50 mg PO Q6HR PRN #20 tablet 06/16/18 Unknown Rx HYDROcodone/APAP 5-325 [[place] 1 each PO Q6HR PRN #15 tablet 06/24/18 Unknown Rx 5/325] Ibuprofen [Motrin] 800 mg PO Q8HR PRN #15 tablet 06/24/18 Unknown Rx Prednisone [predniSONE 10 mg 10 mg PO .TAPER #1 tab.ds.pk 06/24/18 Unknown Rx (6-Day Pack, 21 Tabs)] Ibuprofen [Motrin] 800 mg PO Q8HR PRN #21 tablet 07/04/18 Unknown Rx predniSONE [Prednisone] 10 mg PO QAM 6 Days #1 tab.ds.pk 07/04/18 Unknown Rx Famotidine 20 mg PO BID 30 Days #60 tablet 07/14/18 Unknown Rx Allergies Allergy/AdvReac Type Severity Reaction Status Date / Time No Known Allergies Allergy Verified 06/16/18 09:34 Heart Score - HEART Score History: Slightly suspicious EKG: Normal Age: < 45 Risk factors: No known risk factors Troponin: < normal limit HEART Score: 0 ED Review of Systems ROS: Stated complaint: CHEST PAIN/GERD/RA FLARE UP Other details as noted in HPI Comment: All other systems reviewed and negative Constitutional: denies: fever, malaise Respiratory: denies: cough Cardiovascular: chest pain, palpitations ED Past Medical Hx - Past Medical History Hx Arthritis: Yes (RA) Hx Seizures: No Additional medical history: RA. Psoriasis - Surgical History Additional Surgical History: Psoriasis - Social History Smoking Status: Never Smoker - Medications Home Medications: Home Medications Medication Instructions Recorded Confirmed Last Taken Type Cyclobenzaprine HCl [Flexeril 5 MG 5 mg PO TID PRN #18 tab 04/09/17 Unknown Rx TAB] Ondansetron [Zofran Odt] 4 mg PO TID #18 tab.rapdis 04/09/17 Unknown Rx traMADol [Ultram 50 MG tab] 50 mg PO Q4HR PRN #20 tablet 04/09/17 Unknown Rx Acyclovir [Zovirax Cap] 200 mg PO 5XD #25 cap 05/23/17 Unknown Rx Meloxicam [Mobic] 15 mg PO QDAY #30 tablet 05/23/17 Unknown Rx predniSONE [Deltasone] 10 mg PO QDAY #30 tab 05/23/17 Unknown Rx Acetaminophen/Codeine [Tylenol 2 tab PO Q12H PRN #12 tab 07/10/17 Unknown Rx /Codeine # 3 tab] Acyclovir [Zovirax Tab] 800 mg PO Q8H #21 tab 07/10/17 Unknown Rx Nitrofurantoin [place]/M-Cryst 100 mg PO Q12HR #14 capsule 10/09/17 Unknown Rx [Macrobid CAP] Vit Calc,Iron,Folic 1 each PO DAILY #30 tablet 10/09/17 Unknown Rx [ Vitamins] traMADol [Ultram] 50 mg PO Q6HR PRN #12 tablet 12/07/17 Unknown Rx Ketorolac [Toradol] 10 mg PO Q6H PRN #20 tablet 12/09/17 Unknown Rx HYDROcodone/APAP 5-325 [[place] 1 each PO Q6HR PRN #10 tablet 12/15/17 Unknown Rx 5/325] methylPREDNISolone [Medrol Dose 4 mg PO QAM #1 tab.ds.pk 12/31/17 Unknown Rx Juanito] Prednisone [predniSONE 10 mg 10 mg PO .TAPER #1 tab.ds.pk 05/09/18 Unknown Rx (6-Day Pack, 21 Tabs)] Ibuprofen [Motrin 600 MG tab] 600 mg PO Q8H PRN #30 tablet 06/03/18 Unknown Rx predniSONE [Deltasone] 20 mg PO QDAY #5 tab 06/03/18 Unknown Rx Ibuprofen 800 mg PO Q8H PRN #15 tablet 06/16/18 Unknown Rx Prednisone [predniSONE 10 mg 10 mg PO .TAPER #1 tab.ds.pk 06/16/18 Unknown Rx (6-Day Pack, 21 Tabs)] traMADol [Ultram 50 MG tab] 50 mg PO Q6HR PRN #20 tablet 06/16/18 Unknown Rx HYDROcodone/APAP 5-325 [[place] 1 each PO Q6HR PRN #15 tablet 06/24/18 Unknown Rx 5/325] Ibuprofen [Motrin] 800 mg PO Q8HR PRN #15 tablet 06/24/18 Unknown Rx Prednisone [predniSONE 10 mg 10 mg PO .TAPER #1 tab.ds.pk 06/24/18 Unknown Rx (6-Day Pack, 21 Tabs)] Ibuprofen [Motrin] 800 mg PO Q8HR PRN #21 tablet 07/04/18 Unknown Rx predniSONE [Prednisone] 10 mg PO QAM 6 Days #1 tab.ds.pk 07/04/18 Unknown Rx Famotidine 20 mg PO BID 30 Days #60 tablet 07/14/18 Unknown Rx ED Physical Exam - General Limitations: No Limitations General appearance: alert, in no apparent distress - Head Head exam: Present: atraumatic, normocephalic - Eye Eye exam: Present: normal appearance - ENT ENT exam: Present: mucous membranes moist - Neck Neck exam: Present: normal inspection. Absent: tenderness, meningismus - Respiratory Respiratory exam: Present: normal lung sounds bilaterally. Absent: respiratory distress, wheezes, rales, rhonchi - Cardiovascular Cardiovascular Exam: Present: normal rhythm, tachycardia, normal heart sounds. Absent: systolic murmur, diastolic murmur, rubs, gallop - GI/Abdominal GI/Abdominal exam: Present: soft, normal bowel sounds. Absent: distended, tenderness, guarding, rebound - Extremities Exam Extremities exam: Present: normal inspection. Absent: pedal edema - Back Exam Back exam: Present: normal inspection. Absent: full ROM, tenderness - Neurological Exam Neurological exam: Present: alert, oriented X3 - Psychiatric Psychiatric exam: Present: normal affect, normal mood - Skin Skin exam: Present: warm, dry, intact, normal color. Absent: rash ED Course Vital Signs 07/14/18 17:25 Temperature 99.0 F Pulse Rate 135 H Blood Pressure 148/90 O2 Sat by Pulse 97 Oximetry ED Medical Decision Making - Lab Data Result diagrams: 07/14/18 18:12 07/14/18 18:12 Laboratory Results - last 24 hr 07/14/18 07/14/18 07/14/18 18:12 18:12 18:12 WBC 18.5 H RBC 4.50 Hgb 10.7 Hct 34.0 MCV 75 L MCH 24 L MCHC 32 RDW 18.5 H Plt Count 443 H Lymph % (Auto) 24.2 [place] % (Auto) 4.7 Eos % (Auto) 0.4 Baso % (Auto) 1.4 Lymph # 4.5 [place] # 0.9 H Eos # 0.1 Baso # 0.3 H Seg Neutrophils % 69.3 Seg Neutrophils # 12.9 H PT 13.1 INR 0.95 APTT 23.8 L Sodium 141 Potassium 3.8 Chloride 102.5 Carbon Dioxide 27 Anion Gap 15 BUN 13 Creatinine 0.5 L Estimated GFR > 60 BUN/Creatinine Ratio 26 Glucose 91 Calcium 9.1 Troponin T < 0.010 NT-Pro-B Natriuret Pep 07/14/18 18:12 WBC RBC Hgb Hct MCV MCH MCHC RDW Plt Count Lymph % (Auto) [place] % (Auto) Eos % (Auto) Baso % (Auto) Lymph # [place] # Eos # Baso # Seg Neutrophils % Seg Neutrophils # PT INR APTT Sodium Potassium Chloride Carbon Dioxide Anion Gap BUN Creatinine Estimated GFR BUN/Creatinine Ratio Glucose Calcium Troponin T NT-Pro-B Natriuret Pep 20.29 - EKG Data EKG shows normal: sinus rhythm, axis, intervals, QRS complexes, ST-T waves Rate: tachycardia - EKG Data 07/14/18 21:07 Time Obtained 1715 Sinus tachycardia rate 140 bpm, normal axis normal intervals no ST-T signs of ischemia no ST elevation - Medical Decision Making Ms. Byrnes presents with chest pain and tachycardia. Hx of GERD and anxiety. After observation without intervention, patient's repeat HR 88 bpm. Normal D- dimer. Do not suspect PE ACS pericarditis dissection. Recommended famotidine. She requested refill of prednisone which I explained was unsafe considering she is not followed by a PCP. Referred to clinic. Critical care attestation.: If time is entered above; I have spent that time in minutes in the direct care of this critically ill patient, excluding procedure time. ED Disposition Clinical Impression: Chest pain, GERD (gastroesophageal reflux disease) Disposition: DC-01 TO HOME OR SELFCARE Is pt being admited?: No Does the pt Need Aspirin: No Condition: Stable Instructions: Chest Pain (ED), Gastroesophageal Reflux in Children (ED) Prescriptions: Famotidine 20 mg PO BID 30 Days #60 tablet Referrals: [facility] [Outside] - 3-5 Days
[2018-07-14 22:09] VITALS: BP 150/98
== END 2018-07-14 22:33 | disposition home or self-care (01) ==
LOC: ED 17:08
DX: K21.9 Gastro-esophageal reflux disease without esophagitis (principal); M19.90 Unspecified osteoarthritis, unspecified site
CPT/HCPCS: 36415; 80048; 83880; 84443; 84484; 85025; 85379; 85610; 85730; 93005; 93010; 99284

== ENCOUNTER 2018-07-26 20:56 | Emergency (ER) | payer SELFPAY ==
[2018-07-27] MEDS ORDERED: DECADRON IM STA (00:37)
[2018-07-27] MEDS ORDERED: PERCOCET 5/325 PO ONE (00:42)
--- NOTE | 2018-07-27 01:08 | Emergency Department Report ---
ED Extremity Problem HPI - General Chief complaint: Extremity Problem,Nontraumatic Stated complaint: JOINT PAIN Time Seen by Provider: 07/27/18 00:37 Source: patient Mode of arrival: Ambulatory Limitations: No Limitations - History of Present Illness MD Complaint: joint paint (reports general lower extremity joint pain to her knees and ankles secondary to her rheumatoid arthritis. Reports being4. Bilateral knee replacement. However, the pain gets more severe rheumatoid arthritis flares up. She's been experiencing aching stiff joints due to being out of her current medications) Location: left, right History of Same: No -: Yes arthralgia Radiation: none Severity scale (0 -10): 10 Quality: aching Consistency: constant Improves with: medication Worsens with: weight bearing, walking Associated Symptoms: denies other symptoms. denies: chest pain, shortness of breath, fever, rash - Related Data Previous Rx's Medication Instructions Recorded Last Taken Type Cyclobenzaprine HCl [Flexeril 5 MG 5 mg PO TID PRN #18 tab 04/09/17 Unknown Rx TAB] Ondansetron [Zofran Odt] 4 mg PO TID #18 tab.rapdis 04/09/17 Unknown Rx traMADol [Ultram 50 MG tab] 50 mg PO Q4HR PRN #20 tablet 04/09/17 Unknown Rx Acyclovir [Zovirax Cap] 200 mg PO 5XD #25 cap 05/23/17 Unknown Rx Meloxicam [Mobic] 15 mg PO QDAY #30 tablet 05/23/17 Unknown Rx predniSONE [Deltasone] 10 mg PO QDAY #30 tab 05/23/17 Unknown Rx Acetaminophen/Codeine [Tylenol 2 tab PO Q12H PRN #12 tab 07/10/17 Unknown Rx /Codeine # 3 tab] Acyclovir [Zovirax Tab] 800 mg PO Q8H #21 tab 07/10/17 Unknown Rx Nitrofurantoin [place]/M-Cryst 100 mg PO Q12HR #14 capsule 10/09/17 Unknown Rx [Macrobid CAP] Vit Calc,Iron,Folic 1 each PO DAILY #30 tablet 10/09/17 Unknown Rx [ Vitamins] traMADol [Ultram] 50 mg PO Q6HR PRN #12 tablet 12/07/17 Unknown Rx Ketorolac [Toradol] 10 mg PO Q6H PRN #20 tablet 12/09/17 Unknown Rx HYDROcodone/APAP 5-325 [[place] 1 each PO Q6HR PRN #10 tablet 12/15/17 Unknown Rx 5/325] methylPREDNISolone [Medrol Dose 4 mg PO QAM #1 tab.ds.pk 12/31/17 Unknown Rx Juanito] Prednisone [predniSONE 10 mg 10 mg PO .TAPER #1 tab.ds.pk 05/09/18 Unknown Rx (6-Day Pack, 21 Tabs)] Ibuprofen [Motrin 600 MG tab] 600 mg PO Q8H PRN #30 tablet 06/03/18 Unknown Rx predniSONE [Deltasone] 20 mg PO QDAY #5 tab 06/03/18 Unknown Rx Ibuprofen 800 mg PO Q8H PRN #15 tablet 06/16/18 Unknown Rx Prednisone [predniSONE 10 mg 10 mg PO .TAPER #1 tab.ds.pk 06/16/18 Unknown Rx (6-Day Pack, 21 Tabs)] traMADol [Ultram 50 MG tab] 50 mg PO Q6HR PRN #20 tablet 06/16/18 Unknown Rx HYDROcodone/APAP 5-325 [[place] 1 each PO Q6HR PRN #15 tablet 06/24/18 Unknown Rx 5/325] Ibuprofen [Motrin] 800 mg PO Q8HR PRN #15 tablet 06/24/18 Unknown Rx Prednisone [predniSONE 10 mg 10 mg PO .TAPER #1 tab.ds.pk 06/24/18 Unknown Rx (6-Day Pack, 21 Tabs)] Ibuprofen [Motrin] 800 mg PO Q8HR PRN #21 tablet 07/04/18 Unknown Rx predniSONE [Prednisone] 10 mg PO QAM 6 Days #1 tab.ds.pk 07/04/18 Unknown Rx Famotidine 20 mg PO BID 30 Days #60 tablet 07/14/18 Unknown Rx predniSONE [Deltasone] 20 mg PO BID #12 tab 07/27/18 Unknown Rx Allergies Allergy/AdvReac Type Severity Reaction Status Date / Time No Known Allergies Allergy Verified 06/16/18 09:34 ED Review of Systems ROS: Stated complaint: JOINT PAIN Other details as noted in HPI Constitutional: denies: chills, fever Eyes: denies: eye pain, eye discharge, vision change ENT: denies: ear pain, throat pain Respiratory: denies: cough, shortness of breath, wheezing Cardiovascular: denies: chest pain, palpitations Endocrine: no symptoms reported Gastrointestinal: denies: abdominal pain, nausea, diarrhea Genitourinary: denies: urgency, dysuria, discharge Musculoskeletal: arthralgia. denies: back pain, joint swelling Skin: denies: rash, lesions Neurological: denies: headache, weakness, paresthesias Psychiatric: denies: anxiety, depression Hematological/Lymphatic: denies: easy bleeding, easy bruising ED Past Medical Hx - Past Medical History Hx Arthritis: Yes (RA) Hx Seizures: No Additional medical history: RA. Psoriasis - Surgical History Additional Surgical History: Psoriasis - Social History Smoking Status: Never Smoker Substance Use Type: None - Medications Home Medications: Home Medications Medication Instructions Recorded Confirmed Last Taken Type Cyclobenzaprine HCl [Flexeril 5 MG 5 mg PO TID PRN #18 tab 04/09/17 Unknown Rx TAB] Ondansetron [Zofran Odt] 4 mg PO TID #18 tab.rapdis 04/09/17 Unknown Rx traMADol [Ultram 50 MG tab] 50 mg PO Q4HR PRN #20 tablet 04/09/17 Unknown Rx Acyclovir [Zovirax Cap] 200 mg PO 5XD #25 cap 05/23/17 Unknown Rx Meloxicam [Mobic] 15 mg PO QDAY #30 tablet 05/23/17 Unknown Rx predniSONE [Deltasone] 10 mg PO QDAY #30 tab 05/23/17 Unknown Rx Acetaminophen/Codeine [Tylenol 2 tab PO Q12H PRN #12 tab 07/10/17 Unknown Rx /Codeine # 3 tab] Acyclovir [Zovirax Tab] 800 mg PO Q8H #21 tab 07/10/17 Unknown Rx Nitrofurantoin [place]/M-Cryst 100 mg PO Q12HR #14 capsule 10/09/17 Unknown Rx [Macrobid CAP] Vit Calc,Iron,Folic 1 each PO DAILY #30 tablet 10/09/17 Unknown Rx [ Vitamins] traMADol [Ultram] 50 mg PO Q6HR PRN #12 tablet 12/07/17 Unknown Rx Ketorolac [Toradol] 10 mg PO Q6H PRN #20 tablet 12/09/17 Unknown Rx HYDROcodone/APAP 5-325 [[place] 1 each PO Q6HR PRN #10 tablet 12/15/17 Unknown Rx 5/325] methylPREDNISolone [Medrol Dose 4 mg PO QAM #1 tab.ds.pk 12/31/17 Unknown Rx Juanito] Prednisone [predniSONE 10 mg 10 mg PO .TAPER #1 tab.ds.pk 05/09/18 Unknown Rx (6-Day Pack, 21 Tabs)] Ibuprofen [Motrin 600 MG tab] 600 mg PO Q8H PRN #30 tablet 06/03/18 Unknown Rx predniSONE [Deltasone] 20 mg PO QDAY #5 tab 06/03/18 Unknown Rx Ibuprofen 800 mg PO Q8H PRN #15 tablet 06/16/18 Unknown Rx Prednisone [predniSONE 10 mg 10 mg PO .TAPER #1 tab.ds.pk 06/16/18 Unknown Rx (6-Day Pack, 21 Tabs)] traMADol [Ultram 50 MG tab] 50 mg PO Q6HR PRN #20 tablet 06/16/18 Unknown Rx HYDROcodone/APAP 5-325 [[place] 1 each PO Q6HR PRN #15 tablet 06/24/18 Unknown Rx 5/325] Ibuprofen [Motrin] 800 mg PO Q8HR PRN #15 tablet 06/24/18 Unknown Rx Prednisone [predniSONE 10 mg 10 mg PO .TAPER #1 tab.ds.pk 06/24/18 Unknown Rx (6-Day Pack, 21 Tabs)] Ibuprofen [Motrin] 800 mg PO Q8HR PRN #21 tablet 07/04/18 Unknown Rx predniSONE [Prednisone] 10 mg PO QAM 6 Days #1 tab.ds.pk 07/04/18 Unknown Rx Famotidine 20 mg PO BID 30 Days #60 tablet 07/14/18 Unknown Rx predniSONE [Deltasone] 20 mg PO BID #12 tab 07/27/18 Unknown Rx ED Physical Exam - General Limitations: No Limitations General appearance: alert, in no apparent distress, other (morbidly obese) - Head Head exam: Present: atraumatic, normocephalic - Eye Eye exam: Present: normal appearance, PERRL Pupils: Present: normal accommodation - ENT ENT exam: Present: normal exam, mucous membranes moist - Neck Neck exam: Present: normal inspection, full ROM. Absent: meningismus, lymphadenopathy - Respiratory Respiratory exam: Present: normal lung sounds bilaterally. Absent: respiratory distress, wheezes, accessory muscle use, decreased breath sounds - Cardiovascular Cardiovascular Exam: Present: regular rate, normal rhythm. Absent: systolic murmur, diastolic murmur, rubs, gallop - GI/Abdominal GI/Abdominal exam: Present: soft, normal bowel sounds - Extremities Exam Extremities exam: Present: normal inspection, full ROM, tenderness (bilateral ankles and knees), normal capillary refill, other (pain to bilateral knees and ankle.negdrawer test , normal varus and valgus. ). Absent: pedal edema, joint swelling, calf tenderness - Back Exam Back exam: Present: normal inspection - Neurological Exam Neurological exam: Present: alert, oriented X3, CN II-XII intact - Psychiatric Psychiatric exam: Present: normal affect, normal mood - Skin Skin exam: Present: warm, dry, intact, normal color. Absent: rash ED Course Vital Signs 07/26/18 07/27/18 21:13 01:44 Temperature 98.9 F 98.3 F Pulse Rate 109 H 96 H Respiratory 16 20 Rate Blood Pressure 140/94 Blood Pressure 141/89 [Left] O2 Sat by Pulse 98 99 Oximetry ED Medical Decision Making - Medical Decision Making Reports significant improvement in pain after medication was provided Critical care attestation.: If time is entered above; I have spent that time in minutes in the direct care of this critically ill patient, excluding procedure time. ED Disposition Clinical Impression: Arthralgia Disposition: DC-01 TO HOME OR SELFCARE Is pt being admited?: No Does the pt Need Aspirin: No Condition: Stable Instructions: Osteoarthritis (ED) Prescriptions: predniSONE [Deltasone] 20 mg PO BID #12 tab Referrals: PRIMARY CARE, [Primary Care Provider] - 3-5 Days
[2018-07-27 01:46] VITALS: BP 141/89
== END 2018-07-27 01:44 | disposition home or self-care (01) ==
LOC: ED 20:56
DX: M25.50 Pain in unspecified joint (principal); M19.90 Unspecified osteoarthritis, unspecified site; L40.9 Psoriasis, unspecified; Z79.899 Other long term (current) drug therapy
CPT/HCPCS: 96372; 99282; J1100

== ENCOUNTER 2018-11-04 04:22 | Inpatient (IN) | payer SELFPAY ==
[2018-11-04 05:31] LABS: Basophils % (Auto) 0.2 % (0.0-1.8); Eosinophils % (Auto) 0.1 % (0.0-4.3); Hematocrit 31.4 % (30.3-42.9); Hemoglobin 9.6 gm/dl (10.1-14.3); Lymphocytes # (Auto) 2.6 K/mm3 (1.2-5.4); Lymphocytes % (Auto) 14.5 % (13.4-35.0); Mean Corpuscular HGB Conc 31 % (30-34); Mean Corpuscular Volume 75 fl (79-97); Monocytes # (Auto) 0.8 K/mm3 (0.0-0.8); Monocytes % (Auto) 4.6 % (0.0-7.3); Platelet Count 424 K/mm3 (140-440); Red Cell Distribution Width 17.8 % (13.2-15.2)
[2018-11-04 05:49] LABS: BUN/Creatinine Ratio 35; Blood Urea Nitrogen 14 mg/dL (7-17); Calcium 8.7 mg/dL (8.4-10.2); Hemolysis Index 1
--- NOTE | 2018-11-04 06:12 | Emergency Department Report ---
ED Chest Pain HPI - General Chief Complaint: Chest Pain Stated Complaint: CHEST PAIN Time Seen by Provider: 11/04/18 06:08 Source: patient, EMS Mode of arrival: Ambulatory Limitations: No Limitations - History of Present Illness Initial Comments: A 8-year-old female who I saw and admitted on 10/21/2018. She completed a workup which included a CTA and a stress test both of which negative. She returns with recurrent chest pain which she's had for more than a month. She describes it as a dull ache and sometimes a pressure in her substernal area and towards the right occasionally it does not radiate. It is not pleuritic. Last night she said she had an episode which was associated with her heart racing and rapid breathing but no paresthesias. Her previous CTA was negative but not the best technique. Her Lexiscan showed irrigated EF of 56% and no evidence of ischemia or wall motion abnormality. Patient states that she has chronic knee pain on the left. She states that she is finally obtained [employer] insurance but has not seen a primary care physician yet. She has been to this facility at least 4 times prior for chest pain at least since August. Patient has a history of persistent leukocytosis attributed to prednisone which she takes chronically. MD Complaint: chest pain -: month(s) Onset: during rest Pain Location: substernal Pain Radiation: none Severity: moderate Quality: dull, pressure Consistency: now resolved Improves With: nothing Worsens With: nothing re: dyspnea, other (anxiety). denies: nausea, vomting, diaphoresis Other Symptoms: palpitations (rapid heart rate). denies: cough, fever, syncope Treatments Prior to Arrival: none Aspirin use within the Past 7 Days: (0) No - Related Data Home Medications Medication Instructions Recorded Confirmed Last Taken Aspirin [Aspirin BABY CHEW TAB] 81 mg PO QDAY 10/21/18 10/21/18 Unknown Previous Rx's Medication Instructions Recorded Last Taken Type predniSONE [Deltasone] 50 mg PO QDAY #5 tab 09/11/18 Unknown Rx Famotidine [Pepcid] 20 mg PO BID #60 tablet 10/22/18 Unknown Rx Allergies Allergy/AdvReac Type Severity Reaction Status Date / Time No Known Allergies Allergy Verified 10/11/18 16:53 Heart Score - HEART Score History: Moderately suspicious EKG: Normal Age: < 45 Risk factors: No known risk factors Troponin: < normal limit HEART Score: 1 ED Review of Systems ROS: Stated complaint: CHEST PAIN Other details as noted in HPI Constitutional: denies: chills, fever Eyes: denies: eye pain, eye discharge, vision change ENT: denies: ear pain, throat pain Respiratory: shortness of breath. denies: cough, wheezing Cardiovascular: chest pain. denies: palpitations Endocrine: no symptoms reported Gastrointestinal: denies: abdominal pain, nausea, diarrhea Genitourinary: denies: urgency, dysuria, discharge Musculoskeletal: denies: back pain, joint swelling, arthralgia Skin: denies: rash, lesions Neurological: denies: headache, weakness, paresthesias Psychiatric: denies: anxiety, depression Hematological/Lymphatic: denies: easy bleeding, easy bruising ED Past Medical Hx - Past Medical History Hx Congestive Heart Failure: No Hx Diabetes: No Hx Arthritis: Yes Hx Seizures: No Hx Asthma: No Hx COPD: No Additional medical history: RA, Lupus. Psoriasis - Surgical History Past Surgical History?: No Additional Surgical History: Psoriasis - Social History Smoking Status: Never Smoker - Medications Home Medications: Home Medications Medication Instructions Recorded Confirmed Last Taken Type predniSONE [Deltasone] 50 mg PO QDAY #5 tab 09/11/18 10/21/18 Unknown Rx Aspirin [Aspirin BABY CHEW TAB] 81 mg PO QDAY 10/21/18 10/21/18 Unknown History Famotidine [Pepcid] 20 mg PO BID #60 tablet 10/22/18 Unknown Rx ED Physical Exam - General Limitations: No Limitations General appearance: alert, in no apparent distress - Head Head exam: Present: atraumatic, normocephalic - Eye Eye exam: Present: normal appearance. Absent: scleral icterus - ENT ENT exam: Present: mucous membranes moist - Neck Neck exam: Present: normal inspection. Absent: tenderness, meningismus - Respiratory Respiratory exam: Present: normal lung sounds bilaterally. Absent: respiratory distress - Cardiovascular Cardiovascular Exam: Present: regular rate, normal rhythm. Absent: systolic murmur, diastolic murmur, rubs, gallop - GI/Abdominal GI/Abdominal exam: Present: soft, normal bowel sounds. Absent: distended, tenderness, guarding, rebound, rigid - Extremities Exam Extremities exam: Present: normal capillary refill, other (some discomfort on range of motion of her left knee. Some crepitus.). Absent: pedal edema, calf tenderness - Back Exam Back exam: Present: normal inspection - Neurological Exam Neurological exam: Present: alert, oriented X3, CN II-XII intact. Absent: motor sensory deficit - Psychiatric Psychiatric exam: Present: normal affect, normal mood - Skin Skin exam: Present: warm, dry, intact, normal color. Absent: rash ED Course Vital Signs 11/04/18 11/04/18 11/04/18 04:36 04:42 06:11 Temperature 98.2 F 98.2 F Pulse Rate 92 H 86 80 Respiratory 18 18 16 Rate Blood Pressure 164/90 164/90 O2 Sat by Pulse 98 98 98 Oximetry 11/04/18 11/04/18 06:23 07:00 Temperature Pulse Rate Respiratory 18 Rate Blood Pressure 121/81 O2 Sat by Pulse 98 Oximetry - Reevaluation(s) Reevaluation #1: Discussed the patient with [facility] physician. I'll refer her for transfer for further care and evaluation. 11/04/18 06:35 Reevaluation #2: Apparently the patient did not tell us the truth about her [employer] insurance. [facility] has been called. The patient does not have [employer] insurance. The patient will not get out of the [facility] to get an accurate weight. I have ordered additional testing on this patient. I don't think she can be discharged under these current circumstances. She is morbidly obese with a personal hip history of lupus. Positive family history for coronary artery disease. Recurrent chest pain with shortness of breath. She did have a negative CTA within the last 2 weeks. 11/04/18 07:34 Reevaluation #3: Spoke with hospitalist Dr. Hercules. The patient will be admitted for further evaluation. 11/04/18 07:39 MARLYS score - Marlys Score Age > 65: (0) No Aspirin use within the Past 7 Days: (0) No 3 or more CAD Risk Factors: (0) No 2 or more Angina events in past 24 hrs: (0) No Known CAD with more than 50% Stenosis: (0) No Elevated Cardiac Markers: (0) No ST Deviation Greater than 0.5mm: (0) No MARLYS Score: 0 ED Medical Decision Making - Lab Data Result diagrams: 11/04/18 05:10 11/04/18 05:10 Laboratory Results - last 24 hr 11/04/18 11/04/18 11/04/18 05:10 05:10 05:10 WBC 18.0 H RBC 4.20 Hgb 9.6 L Hct 31.4 MCV 75 L MCH 23 L MCHC 31 RDW 17.8 H Plt Count 424 Lymph % (Auto) 14.5 [place] % (Auto) 4.6 Eos % (Auto) 0.1 Baso % (Auto) 0.2 Lymph # 2.6 [place] # 0.8 Eos # 0.0 Baso # 0.0 Seg Neutrophils % 80.6 H Seg Neutrophils # 14.5 H Sodium 141 Potassium 4.5 Chloride 103.6 Carbon Dioxide 26 Anion Gap 16 BUN 14 Creatinine 0.4 L Estimated GFR > 60 BUN/Creatinine Ratio 35 Glucose 88 Calcium 8.7 Troponin T < 0.010 HCG, Qual Negative Laboratory Results - last 24 hr 11/04/18 11/04/18 11/04/18 05:10 05:10 05:10 WBC 18.0 H RBC 4.20 Hgb 9.6 L Hct 31.4 MCV 75 L MCH 23 L MCHC 31 RDW 17.8 H Plt Count 424 Lymph % (Auto) 14.5 [place] % (Auto) 4.6 Eos % (Auto) 0.1 Baso % (Auto) 0.2 Lymph # 2.6 [place] # 0.8 Eos # 0.0 Baso # 0.0 Seg Neutrophils % 80.6 H Seg Neutrophils # 14.5 H Sodium 141 Potassium 4.5 Chloride 103.6 Carbon Dioxide 26 Anion Gap 16 BUN 14 Creatinine 0.4 L Estimated GFR > 60 BUN/Creatinine Ratio 35 Glucose 88 Calcium 8.7 Troponin T < 0.010 HCG, Qual Negative Laboratory Results - last 24 hr 11/04/18 11/04/18 11/04/18 05:10 05:10 05:10 WBC 18.0 H RBC 4.20 Hgb 9.6 L Hct 31.4 MCV 75 L MCH 23 L MCHC 31 RDW 17.8 H Plt Count 424 Lymph % (Auto) 14.5 [place] % (Auto) 4.6 Eos % (Auto) 0.1 Baso % (Auto) 0.2 Lymph # 2.6 [place] # 0.8 Eos # 0.0 Baso # 0.0 Seg Neutrophils % 80.6 H Seg Neutrophils # 14.5 H Sodium 141 Potassium 4.5 Chloride 103.6 Carbon Dioxide 26 Anion Gap 16 BUN 14 Creatinine 0.4 L Estimated GFR > 60 BUN/Creatinine Ratio 35 Glucose 88 Calcium 8.7 Troponin T < 0.010 HCG, Qual Negative - EKG Data -: EKG Interpreted by Me EKG shows normal: sinus rhythm, axis, intervals, QRS complexes, ST-T waves Rate: normal - EKG Data Interpretation: no acute changes - Radiology Data Radiology results: report reviewed (chest x-ray no acute process) Critical care attestation.: If time is entered above; I have spent that time in minutes in the direct care of this critically ill patient, excluding procedure time. ED Disposition Clinical Impression: History of leukocytosis, Chronic use of steroids Chest pain Qualifiers: Chest pain type: unspecified Qualified Code(s): R07.9 - Chest pain, unspecified Leukocytosis Qualifiers: Leukocytosis type: other Qualified Code(s): D72.828 - Other elevated white blood cell count Rheumatoid arthritis Qualifiers: Rheumatoid arthritis location: knee Rheumatoid factor presence: unspecified presence Laterality: left Qualified Code(s): M06.9 - Rheumatoid arthritis, unspecified Disposition: -09 OP ADMIT IP TO THIS HOSP Is pt being admited?: Yes Does the pt Need Aspirin: Yes Condition: Stable Instructions: Chest Pain (ED) Referrals: JOLENE QIU MD [Primary Care Provider] - 3-5 Days Time of Disposition: 07:38
--- NOTE | 2018-11-04 07:18 | XRay Report ---
FINAL REPORT EXAM: XR CHEST 1V AP HISTORY: cp TECHNIQUE: AP portable view(s) of the chest obtained. PRIORS: 10/21/2018 FINDINGS: No mediastinal shift. Cardiac silhouette is not enlarged. No pneumothorax, effusion, or focal pulmona ry opacity identified. No acute skeletal findings. IMPRESSION: No acute pulmonary finding identified.
[2018-11-04] MEDS ORDERED: TORADOL IM ONE (07:38)
[2018-11-04 07:58] LABS: Creatine Kinase MB 1.3 ng/mL (0.0-4.0)
[2018-11-04 08:01] LABS: Alanine Aminotransferase 12 units/L (7-56); Albumin 3.7 g/dL (3.9-5)
[2018-11-04 08:18] LABS: Bilirubin,Direct < 0.2 mg/dL (0-0.2)
[2018-11-04 08:35] LABS: Bilirubin,Urine NEG (Negative); Blood,Urine SM (Negative); Color,Urine Straw (Yellow); Mucus,Urine FEW /HPF; Protein,Urine <15 mg/dL mg/dL (Negative); Urobilinogen,Urine < 2.0 mg/dL (<2.0); WBC,Urine < 1.0 /HPF (0.0-6.0)
[2018-11-04 08:45] LABS: Amphetamine Screen,Urine PRESUMPTIVE NEGATIVE; Benzodiazepines Screen,Urine PRESUMPTIVE NEGATIVE; Cocaine Screen,Urine PRESUMPTIVE NEGATIVE; Methadone Screen,Urine PRESUMPTIVE NEGATIVE; Opiate Screen,Urine PRESUMPTIVE NEGATIVE
[2018-11-04 08:57] LABS: INR 1.02 (0.87-1.13)
[2018-11-04 08:58] LABS: Partial Thromboplastin Time 25.7 Sec. (24.2-36.6)
[2018-11-04 09:28] LABS: Cannabinoid Screen,Urine PRESUMPTIVE POSITIVE
[2018-11-04 09:57] VITALS: BP 120/74
--- NOTE | 2018-11-04 11:49 | Event Note ---
Date: 11/04/18 I was called to [facility] ED to admit Ms. Byrnes for chest pains. I introducted myself, then Dr. Munguia came to bedside to inform Ms. Byrnes that [facility] did not have her listed as a patient, so she could be admitted her. He left and then she started yelling and cursing, "I hate [facility], this shit don't make no sense, I know I got [employer] insurance, give me my papers, I'm leaving!" Then she left AMA.
--- NOTE | 2018-11-05 19:05 | Event Note ---
Date: 11/05/18 Comes in for chest pain
== END 2018-11-04 13:31 | disposition left against medical advice (07) | DRG 313 ==
LOC: ED 04:22 → 4A 08:58
PROVIDERS: ADMIT Internal Medicine; ATTEND Internal Medicine
DX: R07.9 Chest pain, unspecified (principal); Z68.43 Body mass index [BMI] 50.0-59.9, adult; M06.9 Rheumatoid arthritis, unspecified; D72.829 Elevated white blood cell count, unspecified; L40.9 Psoriasis, unspecified; M19.90 Unspecified osteoarthritis, unspecified site; E66.01 Morbid (severe) obesity due to excess calories; Z79.82 Long term (current) use of aspirin; Z79.899 Other long term (current) drug therapy; Z82.49 Family history of ischemic heart disease and other diseases of the circulatory system; Z79.52 Long term (current) use of systemic steroids
CPT/HCPCS: 36415; 71045; 80048; 80076; 80307; 80320; 81001; 82550; 82553; 83735; 83880; 84484; 84703; 85025; 85379; 85610; 85652; 85730; 86140; 93005; 93010; G0378; G0480; J1885

== ENCOUNTER 2018-11-05 16:55 | Emergency (ER) | payer SELFPAY ==
[2018-11-05] MEDS ORDERED: ASPIRIN PO ONE (17:18)
[2018-11-05 17:46] LABS: Basophils # (Auto) 0.1 K/mm3 (0.0-0.1); Basophils % (Auto) 0.7 % (0.0-1.8); Eosinophils # (Auto) 0.1 K/mm3 (0.0-0.4); Eosinophils % (Auto) 0.5 % (0.0-4.3); Hemoglobin 9.8 gm/dl (10.1-14.3); Lymphocytes # (Auto) 4.4 K/mm3 (1.2-5.4); Lymphocytes % (Auto) 23.5 % (13.4-35.0); Mean Corpuscular HGB Conc 32 % (30-34); Mean Corpuscular Volume 74 fl (79-97); Monocytes # (Auto) 0.9 K/mm3 (0.0-0.8); Platelet Count 417 K/mm3 (140-440); Red Blood Count 4.19 M/mm3 (3.65-5.03); Red Cell Distribution Width 17.3 % (13.2-15.2)
[2018-11-05 18:04] LABS: BUN/Creatinine Ratio 26; Blood Urea Nitrogen 13 mg/dL (7-17); Calcium 8.5 mg/dL (8.4-10.2); Hemolysis Index 3
--- NOTE | 2018-11-05 18:30 | Emergency Department Report ---
ED Chest Pain HPI - General Chief Complaint: Chest Pain Stated Complaint: CHEST PAIN Time Seen by Provider: 11/05/18 17:59 Source: patient Mode of arrival: Ambulatory Limitations: No Limitations - History of Present Illness Initial Comments: 28-year-old female presents to the emergency department with a recurrence of some midsternal to left-sided chest pain. The patient has been seen at this hospital multiple times for this in the past. The patient was admitted in early October for a chest workup and had a negative stress test done at that time. She came back yesterday for a recurrence of the chest pain and it appears that the patient was going to get admitted for further evaluation but something caused her to become very upset and the patient left AGAINST MEDICAL ADVICE and/or left prior to admission by the hospitalist. The patient says that she was told that she was going to have a heart cath done and that this scared her so she left. However the patient says that she was walking around her home just prior to presentation when she started having the chest pain again, felt like she was going to pass out, and decided that she needed to return to the hospital to get the procedure done. She has a past medical history of lupus, rheumatoid arthritis and is a tobacco smoker. She also has a significant family history for coronary artery disease. - Related Data Home Medications Medication Instructions Recorded Confirmed Last Taken RX: Aspirin [Aspirin BABY CHEW TAB] 81 mg PO QDAY 10/21/18 10/21/18 Unknown Previous Rx's Medication Instructions Recorded Last Taken Type RX: predniSONE [Deltasone] 50 mg PO QDAY #5 tab 09/11/18 Unknown Rx RX: Famotidine [Pepcid] 20 mg PO BID #60 tablet 10/22/18 Unknown Rx RX: Meloxicam 15 mg PO QDAY #15 tablet 11/05/18 Unknown Rx Allergies Allergy/AdvReac Type Severity Reaction Status Date / Time No Known Allergies Allergy Verified 10/11/18 16:53 Heart Score - HEART Score History: Slightly suspicious EKG: Normal Age: < 45 Risk factors: 1-2 risk factors Troponin: < normal limit HEART Score: 1 - Critical Actions Critical Actions: 0-3 pts:0.9-1.7%risk of adverse cardiac event.Candidate for discharge ED Review of Systems ROS: Stated complaint: CHEST PAIN Other details as noted in HPI Comment: All other systems reviewed and negative Constitutional: denies: chills, fever Eyes: denies: eye pain, eye discharge, vision change ENT: denies: ear pain, throat pain Respiratory: shortness of breath. denies: cough Cardiovascular: chest pain. denies: palpitations Gastrointestinal: denies: abdominal pain, vomiting Genitourinary: denies: dysuria, discharge Musculoskeletal: denies: back pain, arthralgia Skin: denies: rash, lesions Neurological: denies: headache, weakness ED Past Medical Hx - Past Medical History Hx Congestive Heart Failure: No Hx Diabetes: No Hx Arthritis: Yes Hx Seizures: No Hx Asthma: No Hx COPD: No Additional medical history: RA, Lupus. Psoriasis - Surgical History Additional Surgical History: Psoriasis - Social History Smoking Status: Current Some Day Smoker Substance Use Type: None - Medications Home Medications: Home Medications Medication Instructions Recorded Confirmed Last Taken Type RX: predniSONE [Deltasone] 50 mg PO QDAY #5 tab 09/11/18 10/21/18 Unknown Rx RX: Aspirin [Aspirin BABY CHEW TAB] 81 mg PO QDAY 10/21/18 10/21/18 Unknown History RX: Famotidine [Pepcid] 20 mg PO BID #60 tablet 10/22/18 Unknown Rx RX: Meloxicam 15 mg PO QDAY #15 tablet 11/05/18 Unknown Rx ED Physical Exam - General Limitations: No Limitations - Other Other exam information: GENERAL: The patient is well-developed well-nourished. HEENT: Normocephalic. Atraumatic. Patient has moist mucous membranes. EYES: Extraocular motions are intact. Pupils are equal and reactive to light bilaterally. NECK: Supple. Trachea is midline. CHEST/LUNGS: Clear to auscultation. There is no respiratory distress noted. HEART/CARDIOVASCULAR: Regular. There is no tachycardia. There is no obvious murmur. ABDOMEN: Abdomen is soft, nontender. Patient has normal bowel sounds. Morbidly obese habitus. SKIN: Skin is warm and dry. NEURO: The patient is awake, alert, and oriented. The patient is cooperative. The patient has no focal neurologic deficits. The patient has normal speech. MUSCULOSKELETAL: There is no tenderness or deformity. There is no limitation range of motion. There is no evidence of acute injury. ED Course Vital Signs 11/05/18 11/05/18 11/05/18 17:02 20:35 21:21 Temperature 98.2 F 98.5 F Pulse Rate 106 H 98 H Respiratory 18 20 20 Rate Blood Pressure 161/85 Blood Pressure 167/85 [Right] O2 Sat by Pulse 98 80 L Oximetry MARLYS score - Marlys Score Age > 65: (0) No Aspirin use within the Past 7 Days: (0) No 3 or more CAD Risk Factors: (0) No 2 or more Angina events in past 24 hrs: (1) Yes Known CAD with more than 50% Stenosis: (0) No Elevated Cardiac Markers: (0) No ST Deviation Greater than 0.5mm: (0) No MARLYS Score: 1 ED Medical Decision Making - Lab Data Result diagrams: 11/05/18 17:24 11/05/18 17:24 - EKG Data -: EKG Interpreted by Me EKG shows normal: sinus rhythm, axis, intervals, QRS complexes, ST-T waves Rate: tachycardia (108 bpm) - EKG Data When compared to previous EKG there are: no significant change Interpretation: unchanged when compared t (11/04/18) - Radiology Data Radiology results: image reviewed interpreted by me: Chest x-ray does not show any pneumothorax, pleural effusion, pneumonia or obvious focal consolidation. - Medical Decision Making Patient returns for an admission as she allegedly was supposed to have a heart cath done but left AGAINST MEDICAL ADVICE yesterday. EKG does not show any signs of ST elevation [place], ischemia or dysrhythmia. Labs thus far have been unremarkable including a negative troponin. Chest x-ray did not show any acute process. The patient has had a negative CTA about 2 weeks ago. The patient and case will be presented to the admitting hospitalist, Dr. Simpson, for admission and/or disposition. - Differential Diagnosis [place], costochondritis, GERD, rheumatoid arthritis, lupus Critical Care Time: No Critical care attestation.: If time is entered above; I have spent that time in minutes in the direct care of this critically ill patient, excluding procedure time. ED Disposition Clinical Impression: Chronic use of steroids, History of leukocytosis Chest pain Qualifiers: Chest pain type: unspecified Qualified Code(s): R07.9 - Chest pain, unspecified Rheumatoid arthritis Qualifiers: Rheumatoid arthritis location: unspecified site Rheumatoid factor presence: unspecified presence Qualified Code(s): M06.9 - Rheumatoid arthritis, unspecified Disposition: OP ADMIT IP TO THIS HOSP Is pt being admited?: Yes Condition: Stable Instructions: Chest Pain (ED) Referrals: PRIMARY CARE, [Primary Care Provider] - 3-5 Days Time of Disposition: 19:39
[2018-11-05] MEDS ORDERED: MORPHINE IV ONE (19:02)
[2018-11-05] MEDS ORDERED: TORADOL IV ONE (19:02)
[2018-11-05] MEDS ORDERED: DELTASONE PO ONE (19:33)
--- NOTE | 2018-11-05 20:28 | Event Note ---
Date: 11/05/18 Comes in for chest pain of 3 months duration Has Hx of RA and Lupus Family history of CAD Was admitted a few days ago and had a stress test which was normal O/e Costochondral tenderness.at L 3rd 4th and 5th costochondral junctions Dis diagnosis Costochondritis
--- NOTE | 2018-11-05 20:57 | XRay Report ---
FINAL REPORT PROCEDURE: XR CHEST 1V AP TECHNIQUE: Chest radiograph anteroposterior view. CPT 58293 HISTORY: CP COMPARISON: 11/04/2018 FINDINGS: Heart: Normal. Mediastinum/Vessels: Normal. Lungs/Pleural space: Normal. Bony thorax: No acute osseous abnormality. Life support devices: None. IMPRESSION: No acute cardiopulmonary abnormality.
[2018-11-05 21:23] VITALS: BP 167/85
== END 2018-11-05 21:21 | disposition admitted as inpatient to this hospital (09) ==
LOC: ED 16:55
DX: R07.89 Other chest pain (principal); M06.9 Rheumatoid arthritis, unspecified; F17.200 Nicotine dependence, unspecified, uncomplicated; L40.9 Psoriasis, unspecified
CPT/HCPCS: 36415; 71045; 80048; 84484; 85025; 93005; 93010; 96374; 96375; 99284; J1885; J2270; J7512

== ENCOUNTER 2018-11-17 10:15 | Emergency (ER) | payer MEDICAID, OTHER ==
[2018-11-17] MEDS ORDERED: TESSALON PERLES PO ONE (10:32)
[2018-11-17] MEDS ORDERED: NORCO 5/325 PO ONE (10:32)
[2018-11-17] MEDS ORDERED: TORADOL IM ONE (10:32)
--- NOTE | 2018-11-17 10:46 | Emergency Department Report ---
- General Chief Complaint: Upper Respiratory Infection Stated Complaint: FLU LIKE/ARTHRITIS FLARE Time Seen by Provider: 11/17/18 10:32 Source: patient, old records reviewed Mode of arrival: Ambulatory Limitations: No Limitations - History of Present Illness Initial Comments: 28-year-old female with a past medical history Lupus, rheumatoid arthritis, psoriasis, and obesity presents to the hospital complaints of cough and cold symptoms 4 days and body pain secondary to rheumatoid arthritis. Patient obtains a cough that is primarily dry and occasionally productive of yellow s putum. No complaints of fever or shortness of breath. Patient has had multiple ER visits in the last couple months for pain-related complaints. Admitted to chest pain workup in October. Patient states he still having pain secondary to rheumatoid arthritis she does not like taking meloxicam or tramadol is requesting something stronger for pain. She does not currently have a primary care doctor due to lack of insurance. - Related Data Home Medications Medication Instructions Recorded Confirmed Last Taken Aspirin [Aspirin BABY CHEW TAB] 81 mg PO QDAY 10/21/18 10/21/18 Unknown Previous Rx's Medication Instructions Recorded Last Taken Type predniSONE [Deltasone] 50 mg PO QDAY #5 tab 09/11/18 Unknown Rx Famotidine [Pepcid] 20 mg PO BID #60 tablet 10/22/18 Unknown Rx Meloxicam 15 mg PO QDAY #15 tablet 11/05/18 Unknown Rx predniSONE [Prednisone] 50 mg PO DAILY #5 tablet 11/08/18 Unknown Rx traMADol [Ultram] 50 mg PO Q6HR PRN #20 tablet 11/08/18 Unknown Rx Azithromycin [Zithromax Z-VIDA] 1 dose PO DAILY 5 Days tab 11/17/18 Unknown Rx Benzonatate [Tessalon Perles] 100 mg PO Q8HR PRN #20 capsule 11/17/18 Unknown Rx HYDROcodone/APAP 5-325 [[place] 1 each PO Q6HR PRN #10 tablet 11/17/18 Unknown Rx 5/325] Allergies Allergy/AdvReac Type Severity Reaction Status Date / Time No Known Allergies Allergy Verified 11/08/18 15:13 ED Review of Systems ROS: Stated complaint: FLU LIKE/ARTHRITIS FLARE Other details as noted in HPI Comment: All other systems reviewed and negative ED Past Medical Hx - Past Medical History Previous Medical History?: Yes Hx Congestive Heart Failure: No Hx Diabetes: No Hx Arthritis: Yes Hx Seizures: No Hx Asthma: No Hx COPD: No Additional medical history: RA, Lupus. Psoriasis - Surgical History Past Surgical History?: Yes Additional Surgical History: Psoriasis - Social History Smoking Status: Current Every Day Smoker Substance Use Type: Alcohol, Marijuana, Prescribed - Medications Home Medications: Home Medications Medication Instructions Recorded Confirmed Last Taken Type predniSONE [Deltasone] 50 mg PO QDAY #5 tab 09/11/18 10/21/18 Unknown Rx Aspirin [Aspirin BABY CHEW TAB] 81 mg PO QDAY 10/21/18 10/21/18 Unknown History Famotidine [Pepcid] 20 mg PO BID #60 tablet 10/22/18 Unknown Rx Meloxicam 15 mg PO QDAY #15 tablet 11/05/18 Unknown Rx predniSONE [Prednisone] 50 mg PO DAILY #5 tablet 11/08/18 Unknown Rx traMADol [Ultram] 50 mg PO Q6HR PRN #20 tablet 11/08/18 Unknown Rx Azithromycin [Zithromax Z-VIDA] 1 dose PO DAILY 5 Days tab 11/17/18 Unknown Rx Benzonatate [Tessalon Perles] 100 mg PO Q8HR PRN #20 capsule 11/17/18 Unknown Rx HYDROcodone/APAP 5-325 [[place] 1 each PO Q6HR PRN #10 tablet 11/17/18 Unknown Rx 5/325] ED Physical Exam - General Limitations: No Limitations - Other Other exam information: General: No limitations, patient is alert in no acute distress Head exam: Atraumatic, normocephalic Eyes exam: Normal appearance ENT: Moist mucous membrane Neck exam: Normal inspection, full range of motion, no meningismus nontender Respiratory exam: Clear to auscultation bilateral, no wheezes, rales, crackles Cardiovascular: Normal rate and rhythm, normal heart sounds Abdomen: Soft, nondistended, and nontender, with normal bowel sounds, no rebound, or guarding Extremity: Full range of motion normal inspection no deformity Back: Normal Inspection, full range of motion, no tenderness Neurologic: Alert, oriented x3, cranial nerves intact, no motor or sensory deficit Psychiatric: normal affect, normal mood Skin: Warm, dry, intact ED Course Vital Signs 11/17/18 10:21 Temperature 98.9 F Pulse Rate 102 H Respiratory 22 Rate Blood Pressure 180/104 O2 Sat by Pulse 99 Oximetry ED Medical Decision Making - Radiology Data Radiology results: report reviewed FINAL REPORT EXAM: XR CHEST ROUTINE 2V HISTORY: cough COMPARISON: Chest radiograph performed on 11/05/2018 TECHNIQUE: Frontal and lateral views of the chest. FINDINGS: The cardiomediastinal silhouette is normal in appearance. The lungs are clear without focal consolidation. There is no pleural effusion or pneumothorax. There is no acute soft tissue or osseous abnormality. IMPRESSION: No acute cardiopulmonary disease. - Medical Decision Making She'll be treated empirically with Z-Vida for bronchitis due to cough and body aches. No signs of infiltrate or x-ray. Patient has chronic pain. A couple tablets of [place] will be prescribed with outpatient follow-up with PMD will be encouraged - Differential Diagnosis chronic pain, pneumonia, bronchitis, URI Critical Care Time: No Critical care attestation.: If time is entered above; I have spent that time in minutes in the direct care of this critically ill patient, excluding procedure time. ED Disposition Clinical Impression: Chronic pain, Cough, Acute bronchitis Disposition: TO HOME OR SELFCARE Is pt being admited?: No Does the pt Need Aspirin: No Condition: Stable Instructions: Acute Bronchitis (ED), Chronic Pain (ED) Additional Instructions: Take the medication as prescribed. Follow up with your doctor or the doctor/clinic provided. Return if symptoms worsen as indicated by your discharge instructions Prescriptions: Azithromycin [Zithromax Z-VIDA] 1 dose PO DAILY 5 Days tab Benzonatate [Tessalon Perles] 100 mg PO Q8HR PRN #20 capsule PRN Reason: Cough HYDROcodone/APAP 5-325 [[place] 5/325] 1 each PO Q6HR PRN #10 tablet PRN Reason: Pain Referrals: JOLENE QIU MD [Primary Care Provider] - 3-5 Days [facility] [Provider Group] - 3-5 Days Time of Disposition: 11:48
--- NOTE | 2018-11-17 11:41 | XRay Report ---
FINAL REPORT EXAM: XR CHEST ROUTINE 2V HISTORY: cough COMPARISON: Chest radiograph performed on 11/05/2018 TECHNIQUE: Frontal and lateral views of the chest. FINDINGS: The cardiomediastinal silhouette is normal in appearance. The lungs are clear without focal consolidation. There is no pleural effusion or pneumothorax. There is no acute soft tissue or osseous abnormality. IMPRESSION: No acute cardiopulmonary disease.
[2018-11-17] MEDS ORDERED: DECADRON IM ONE (12:03)
[2018-11-18 13:53] VITALS: BP 148/93
== END 2018-11-17 13:32 | disposition home or self-care (01) ==
LOC: ED 10:15
DX: J20.9 Acute bronchitis, unspecified (principal); G89.29 Other chronic pain
CPT/HCPCS: 71046; 96372; 99283; J1100; J1885

== ENCOUNTER 2018-11-18 07:28 | Emergency (ER) | payer MEDICAID, OTHER ==
[2018-11-18 08:14] LABS: Mean Corpuscular HGB Conc 30 % (30-34); Mean Corpuscular Volume 76 fl (79-97); Platelet Count 433 K/mm3 (140-440); Red Blood Count 4.61 M/mm3 (3.65-5.03); Red Cell Distribution Width 17.5 % (13.2-15.2)
[2018-11-18 08:22] LABS: Hematocrit 35.2 % (30.3-42.9); Hemoglobin 10.5 gm/dl (10.1-14.3)
[2018-11-18 08:27] LABS: BUN/Creatinine Ratio 38; Blood Urea Nitrogen 15 mg/dL (7-17); Calcium 8.8 mg/dL (8.4-10.2); Hemolysis Index 5
[2018-11-18] MEDS ORDERED: NACL 0.9% 1000 ML IV ONE (08:29)
[2018-11-18] MEDS ORDERED: ZOFRAN IV ONE (08:35)
--- NOTE | 2018-11-18 08:35 | Emergency Department Report ---
Blank Doc - Documentation Documentation: Patient is 28 years old female with history of rheumatoid arthritis. Patient was multiple visits to the ER for different complaints. Patient was seen here yesterday for left-sided chest pain, diagnosis acute bronchitis started on Z- [place]ito. Patient presented to the ER today complaining of left-sided chest pain, cough productive with sputum associated with chills. Patient also stated that she's been nauseous but no vomiting. Patient found to have a white count of 26,000, sepsis protocol initiated. The patient stated that she's been taking prednisone 25 mg daily but there is significantly increased white blood cells and I don't think this is just related to steroid given source of infection which is most likely lung sources are not excluded. Labs, I repeated the chest x-ray, Zosyn and Zofran Is ordered.
[2018-11-18] MEDS ORDERED: ZOFRAN ONE (08:58)
[2018-11-18] MEDS ORDERED: NACL 0.9% 1000 ML 2,000 ML ONE (08:59)
[2018-11-18] MEDS ORDERED: ZOSYN/NS 3.375GM/50ML 3.375 GM/50 ML BAG IV ONE (09:00)
[2018-11-18 10:12] LABS: Band Neutrophils # (Manual) 2.1 K/mm3; Basophils % (Manual) 0 % (0.0-1.8); Eosinophils % (Manual) 0 % (0.0-4.3); Total Cells Counted 100
[2018-11-18 10:13] LABS: Anisocytosis 1+
[2018-11-18 12:59] LABS: Alanine Aminotransferase 20 units/L (7-56); Albumin 3.6 g/dL (3.9-5); BUN/Creatinine Ratio 40; Blood Urea Nitrogen 16 mg/dL (7-17); Calcium 8.6 mg/dL (8.4-10.2); Hemolysis Index 1
[2018-11-18 15:20] VITALS: BP 138/81
== END 2018-11-18 10:16 | disposition left against medical advice (07) ==
LOC: ED 07:28
DX: R07.89 Other chest pain (principal); Z53.21 Procedure and treatment not carried out due to patient leaving prior to being seen by health care provider
CPT/HCPCS: 36415; 80048; 80053; 82140; 84484; 84703; 85007; 85025; 87040; J2543; 93005; 93010; 96361; 96374; 96375; J2405; J7030

== ENCOUNTER 2018-12-03 06:45 | Inpatient (IN) | payer MEDICAID, OTHER ==
[2018-12-03] MEDS ORDERED: ASPIRIN PO ONE (07:02)
[2018-12-03 07:49] LABS: Basophils % (Auto) 0.1 % (0.0-1.8); Eosinophils % (Auto) 0.1 % (0.0-4.3); Hematocrit 36.1 % (30.3-42.9); Hemoglobin 11.1 gm/dl (10.1-14.3); Lymphocytes # (Auto) 1.7 K/mm3 (1.2-5.4); Lymphocytes % (Auto) 10.8 % (13.4-35.0); Mean Corpuscular HGB Conc 31 % (30-34); Mean Corpuscular Volume 75 fl (79-97); Monocytes # (Auto) 0.8 K/mm3 (0.0-0.8); Monocytes % (Auto) 4.8 % (0.0-7.3); Platelet Count 446 K/mm3 (140-440); Red Blood Count 4.81 M/mm3 (3.65-5.03); Red Cell Distribution Width 18.2 % (13.2-15.2)
[2018-12-03] MEDS ORDERED: SUBLIMAZE IV ONE (08:03)
[2018-12-03] MEDS ORDERED: ZOFRAN IV ONE (08:03)
[2018-12-03] MEDS ORDERED: PEPCID IV ONE (08:03)
[2018-12-03 08:06] LABS: BUN/Creatinine Ratio 26; Blood Urea Nitrogen 13 mg/dL (7-17); Hemolysis Index 3
--- NOTE | 2018-12-03 08:08 | Emergency Department Report ---
HPI - General Chief Complaint: Chest Pain Time Seen by Provider: 12/03/18 07:56 - HPI HPI: Room 25 The patient is a 28-year-old female presenting with a chief complaint of chest pain. Patient states this morning when she awakened she has substernal chest pain described as a pressure/tightness and sharpness. Patient states she had an episode of nausea and vomiting. The patient has a picture of her emesis on her phone and it is a mauve colored fluid. Patient admits to shortness of breath but denies diaphoresis, pleurisy or fever. The patient currently gets her pain score of 9/10. The patient states she has an aunt that in her 20s from an [place] Location: Chest Duration: Onset this morning Quality: Pressure, tightness, sharpness Severity: 9/10 Modifying factors: [see above] Context: [see above] Mode of transportation: [not driving] ED Past Medical Hx - Past Medical History Hx Arthritis: Yes (Rheumatoid) Additional medical history: RA, Lupus, Morbid Obesity. Psoriasis - Surgical History Past Surgical History?: No Additional Surgical History: Psoriasis - Family History Family history: no significant - Social History Smoking Status: Never Smoker Substance Use Type: Marijuana - Medications Home Medications: Home Medications Medication Instructions Recorded Confirmed Last Taken Type predniSONE [Deltasone] 50 mg PO QDAY #5 tab 09/11/18 10/21/18 Unknown Rx Aspirin [Aspirin BABY CHEW TAB] 81 mg PO QDAY 10/21/18 10/21/18 Unknown History Famotidine [Pepcid] 20 mg PO BID #60 tablet 10/22/18 Unknown Rx Meloxicam 15 mg PO QDAY #15 tablet 11/05/18 Unknown Rx predniSONE [Prednisone] 50 mg PO DAILY #5 tablet 11/08/18 Unknown Rx traMADol [Ultram] 50 mg PO Q6HR PRN #20 tablet 11/08/18 Unknown Rx Azithromycin [Zithromax Z-VIDA] 1 dose PO DAILY 5 Days tab 11/17/18 Unknown Rx Benzonatate [Tessalon Perles] 100 mg PO Q8HR PRN #20 capsule 11/17/18 Unknown Rx HYDROcodone/APAP 5-325 [[place] 1 each PO Q6HR PRN #10 tablet 11/24/18 Unknown Rx 5-325 mg TAB] Prednisone [predniSONE 10 mg 10 mg PO .TAPER #1 tab.ds.pk 11/24/18 Unknown Rx (6-Day Pack, 21 Tabs)] ED Review of Systems ROS: Stated complaint: EMESIS/CHEST PAIN Other details as noted in HPI Constitutional: denies: diaphoresis Eyes: denies: eye pain ENT: denies: throat pain Respiratory: shortness of breath Cardiovascular: chest pain Endocrine: no symptoms reported Gastrointestinal: nausea, vomiting Genitourinary: denies: dysuria Musculoskeletal: denies: back pain Neurological: denies: headache Physical Exam - Physical Exam Vital Signs: Vital Signs 12/03/18 06:58 Temperature 98.5 F Pulse Rate 103 H Respiratory 20 Rate Blood Pressure 165/100 O2 Sat by Pulse 97 Oximetry Physical Exam: GENERAL: The patient is well-developed well-nourished female lying on stretcher not appearing to be in acute distress. [] HEENT: Normocephalic. Atraumatic. Extraocular motions are intact. Patient has moist mucous membranes. NECK: Supple. Trachea midline CHEST/LUNGS: Clear to auscultation. There is no respiratory distress noted. HEART/CARDIOVASCULAR: Regular. There is no tachycardia. There is no gallop rub or murmur. ABDOMEN: Abdomen is soft, nontender. Patient has normal bowel sounds. There is no abdominal distention. SKIN: There is no rash. There is no edema. There is no diaphoresis. NEURO: The patient is awake, alert, and oriented. The patient is cooperative. The patient has normal speech MUSCULOSKELETAL: There is no evidence of acute injury. ED Course Vital Signs 12/03/18 06:58 Temperature 98.5 F Pulse Rate 103 H Respiratory 20 Rate Blood Pressure 165/100 O2 Sat by Pulse 97 Oximetry ED Medical Decision Making - Lab Data Result diagrams: 12/03/18 07:23 12/03/18 07:23 Laboratory Tests 12/03/18 12/03/18 12/03/18 07:23 07:23 07:23 WBC 16.1 H RBC 4.81 Hgb 11.1 Hct 36.1 MCV 75 L MCH 23 L MCHC 31 RDW 18.2 H Plt Count 446 H Lymph % (Auto) 10.8 L [place] % (Auto) 4.8 Eos % (Auto) 0.1 Baso % (Auto) 0.1 Lymph # 1.7 [place] # 0.8 Eos # 0.0 Baso # 0.0 Seg Neutrophils % 84.2 H Seg Neutrophils # 13.5 H D-Dimer Sodium 140 Potassium 4.6 Chloride 102.1 Carbon Dioxide 24 Anion Gap 19 BUN 13 Creatinine 0.5 L Estimated GFR > 60 BUN/Creatinine Ratio 26 Glucose 104 H Calcium 9.0 Troponin T < 0.010 HCG, Qual Negative 12/03/18 08:08 WBC RBC Hgb Hct MCV MCH MCHC RDW Plt Count Lymph % (Auto) [place] % (Auto) Eos % (Auto) Baso % (Auto) Lymph # [place] # Eos # Baso # Seg Neutrophils % Seg Neutrophils # D-Dimer 198.56 Sodium Potassium Chloride Carbon Dioxide Anion Gap BUN Creatinine Estimated GFR BUN/Creatinine Ratio Glucose Calcium Troponin T HCG, Qual - EKG Data -: EKG Interpreted by Me EKG shows normal: sinus rhythm Rate: tachycardia (108 bpm) - EKG Data When compared to previous EKG there are: previous EKG unavailable Interpretation: other (no ischemic changes seen) - Radiology Data Radiology results: image reviewed (chest x-ray) interpreted by me: Chest x-ray-no focal infiltrates, no pneumothorax - Differential Diagnosis gastritis, GERD, ACS, pericarditis, PE Critical care attestation.: If time is entered above; I have spent that time in minutes in the direct care of this critically ill patient, excluding procedure time. ED Disposition Clinical Impression: Chest pain Disposition: 09 OP ADMIT IP TO THIS HOSP Is pt being admited?: Yes Does the pt Need Aspirin: Yes Condition: Fair Instructions: Chest Pain (ED) Time of Disposition: 09:27 (hospitalist paged)
--- NOTE | 2018-12-03 09:26 | XRay Report ---
AP CHEST: HISTORY: chest pain AP view of the chest demonstrates a normal mediastinal and cardiac contour with clear lungs and normal bony and soft tissue structures. IMPRESSION: No acute cardiopulmonary process. No change since 11/17/18.
--- NOTE | 2018-12-03 10:04 | History and Physical Report ---
History of Present Illness Date of examination: 12/03/18 Date of admission: 12/03/18 09:30 Chief complaint: Chest pain Vomited blood History of present illness: patient is 28 yo with lupus, Rheumatoid arthritis.. She presents with chest pain and vomited blood 3 times. She has had many admissions for chest pain, had neg stress here last month on 10/22/18. Today also c/o chest pain, mid sternal and left part of chest , 8/10, no radiation. No shortness of breath. She also complained of hematemesis said she vomited 3 times and showed me picture on her phone. She was evaluated in ED, given Aspirin. Will admit. Past History Past Medical History: other (lupus, rheumatoid arthritis) Past Surgical History: No surgical history Social history: , lives with family, smoking, full code, other (Alcohol 3 times a week) Family history: no significant family history Medications and Allergies Allergies Allergy/AdvReac Type Severity Reaction Status Date / Time No Known Allergies Allergy Verified 11/08/18 15:13 Home Medications Medication Instructions Recorded Confirmed Last Taken Type Aspirin [Aspirin BABY CHEW TAB] 81 mg PO QDAY 10/21/18 12/03/18 12/03/18 History Meloxicam 15 mg PO QDAY #15 tablet 11/05/18 12/03/18 Unknown Rx traMADol [Ultram] 50 mg PO Q6HR PRN #20 tablet 11/08/18 12/03/18 Unknown Rx HYDROcodone/APAP 5-325 [[place] 1 each PO Q6HR PRN #10 tablet 11/24/18 12/03/18 11/30/18 Rx 5-325 mg TAB] Prednisone [predniSONE 10 mg 10 mg PO .TAPER #1 tab.ds.pk 11/24/18 12/03/18 12/02/18 Rx (6-Day Pack, 21 Tabs)] predniSONE [Deltasone] 20 mg PO QDAY 12/03/18 12/03/18 Unknown History predniSONE [Prednisone] 20 mg PO DAILY 12/03/18 12/03/18 12/02/18 History Review of Systems All systems: negative (No fever, no headache, no cough. All other systems reviewed and are negative) Exam - Physical Exam Narrative exam: GEN: Not in acute distress,morbidly obese HEENT: Normocephalic, atraumatic, Neck: supple, No JVD Lungs: Clear to auscultation, no wheeze Heart:S1 and S2 regular, no murmurs, rubs or gallop, tender sternal area Abd:soft, non tender, non distended, normal bowel sounds,tender upper epigastric Ext: No edema, no clubbing or cyanosis Neuro: Awake,alert, oriented x 3, No focal signs - Constitutional Vitals: Temp Pulse Resp BP Pulse Ox 98.5 F 103 H 17 165/100 97 12/03/18 06:58 12/03/18 06:58 12/03/18 09:15 12/03/18 06:58 12/03/18 06:58 Results - Labs CBC & Chem 7: 12/04/18 01:17 12/04/18 03:15 Labs: Abnormal lab results 12/03/18 12/03/18 Range/Units 07:23 07:23 WBC 16.1 H (4.5-11.0) K/mm3 MCV 75 L (79-97) fl MCH 23 L (28-32) pg RDW 18.2 H (13.2-15.2) % Plt Count 446 H (140-440) K/mm3 Lymph % (Auto) 10.8 L (13.4-35.0) % Seg Neutrophils % 84.2 H (40.0-70.0) % Seg Neutrophils # 13.5 H (1.8-7.7) K/mm3 Creatinine 0.5 L (0.7-1.2) mg/dL Glucose 104 H (65-100) mg/dL Assessment and Plan Chest pain. Admit to tele Will not contnue aspirin because also vomited blood Normal stress test last month Consult Cardiology Hematenmesis Patient stated had 3 episodes Check serial H/H Protonix Consult GI Lupus Rheumatoid arthritis Morbid obesity
[2018-12-03] MEDS ORDERED: PROTONIX IV ONE (16:24)
[2018-12-03] MEDS: PROTONIX IV SCH ×2 (16:30→22:31)
[2018-12-03] MEDS ORDERED: ZOFRAN IV PRN (18:01)
[2018-12-03] MEDS ORDERED: SODIUM CHLORIDE FLUSH SYRINGE 10 ML IV PRN (18:01)
[2018-12-03] MEDS ORDERED: TYLENOL PO PRN (18:01)
[2018-12-03] MEDS: MORPHINE IV PRN ×2 (18:12→22:30)
[2018-12-03 18:55] LABS: Hematocrit 33.6 % (30.3-42.9); Hemoglobin 10.4 gm/dl (10.1-14.3)
[2018-12-04 01:44] LABS: Basophils % (Auto) 0.1 % (0.0-1.8); Eosinophils # (Auto) 0.1 K/mm3 (0.0-0.4); Eosinophils % (Auto) 0.8 % (0.0-4.3); Hematocrit 32.1 % (30.3-42.9); Hemoglobin 9.9 gm/dl (10.1-14.3); Lymphocytes # (Auto) 3.2 K/mm3 (1.2-5.4); Lymphocytes % (Auto) 22.2 % (13.4-35.0); Mean Corpuscular HGB Conc 31 % (30-34); Mean Corpuscular Volume 76 fl (79-97); Monocytes # (Auto) 0.7 K/mm3 (0.0-0.8); Platelet Count 347 K/mm3 (140-440); Red Blood Count 4.21 M/mm3 (3.65-5.03); Red Cell Distribution Width 17.8 % (13.2-15.2)
[2018-12-04] MEDS: MORPHINE IV PRN ×4 (02:58→21:02)
[2018-12-04 04:23] LABS: BUN/Creatinine Ratio 27; Blood Urea Nitrogen 16 mg/dL (7-17); Calcium 8.5 mg/dL (8.4-10.2); Hemolysis Index 0
[2018-12-04] MEDS ORDERED: ULTRAM PO PRN (06:09)
[2018-12-04] MEDS: PROTONIX IV SCH ×2 (09:28→21:03)
[2018-12-04] MEDS: DELTASONE PO SCH (09:28)
[2018-12-04] MEDS: SODIUM CHLORIDE FLUSH SYRINGE 10 ML IV SCH ×2 (09:31→21:04)
[2018-12-04 10:46] LABS: Hemoglobin 10.7 gm/dl (10.1-14.3)
--- NOTE | 2018-12-04 11:11 | Event Note ---
Date: 12/04/18 Cardiology consultation dictated. AMI ruled out. No plans for additional cardiac w/u at this time. GI w/u in progress. No apparent immediate cardiac contraindication to endoscopy at this time. Delano AUSTIN NP / DR. PICKARD
--- NOTE | 2018-12-04 11:23 | Progress Note ---
Assessment and Plan Assessment and plan: Hematemesis. GI consultation pending. No apparent immediate cardiac contraindication to endoscopy at this time. Chest pain. Patient normal stress thallium a month ago. Cardiology with no plans for additional cardiac w/u at this time. Lupus. Rheumatoid arthritis. Morbid obesity. History Interval history: Patient reportedly with an episode of tachycardia this morning. EKG however reveals normal sinus rhythm. Hospitalist Physical - Constitutional Vitals: Temp Pulse Resp BP Pulse Ox 98.5 F 93 H 20 117/78 98 12/04/18 09:25 12/04/18 09:25 12/04/18 09:25 12/04/18 09:25 12/04/18 04:37 General appearance: Present: no acute distress, well-nourished - EENT Eyes: Present: PERRL, EOM intact ENT: hearing intact, clear oral mucosa, dentition normal - Neck Neck: Present: supple, normal ROM - Respiratory Respiratory effort: normal Respiratory: bilateral: CTA - Cardiovascular Rhythm: regular Heart Sounds: Present: S1 & S2. Absent: gallop, rub - Extremities Extremities: no ischemia, No edema, Full ROM - Abdominal General gastrointestinal: soft, non-tender, non-distended, normal bowel sounds - Integumentary Integumentary: Present: clear, warm, dry - Neurologic Neurologic: CNII-XII intact, moves all extremities Results - Labs CBC & Chem 7: 12/04/18 09:58 12/04/18 03:15 Labs: Laboratory Last Values WBC 14.3 K/mm3 (4.5-11.0) H 12/04/18 01:17 RBC 4.21 M/mm3 (3.65-5.03) 12/04/18 01:17 Hgb 10.7 gm/dl (10.1-14.3) 12/04/18 09:58 Hct 34.0 % (30.3-42.9) 12/04/18 09:58 MCV 76 fl (79-97) L 12/04/18 01:17 MCH 24 pg (28-32) L 12/04/18 01:17 MCHC 31 % (30-34) 12/04/18 01:17 RDW 17.8 % (13.2-15.2) H 12/04/18 01:17 Plt Count 347 K/mm3 (140-440) 12/04/18 01:17 Lymph % (Auto) 22.2 % (13.4-35.0) 12/04/18 01:17 [place] % (Auto) 5.0 % (0.0-7.3) 12/04/18 01:17 Eos % (Auto) 0.8 % (0.0-4.3) 12/04/18 01:17 Baso % (Auto) 0.1 % (0.0-1.8) 12/04/18 01:17 Lymph # 3.2 K/mm3 (1.2-5.4) 12/04/18 01:17 [place] # 0.7 K/mm3 (0.0-0.8) 12/04/18 01:17 Eos # 0.1 K/mm3 (0.0-0.4) 12/04/18 01:17 Baso # 0.0 K/mm3 (0.0-0.1) 12/04/18 01:17 Seg Neutrophils % 71.9 % (40.0-70.0) H 12/04/18 01:17 Seg Neutrophils # 10.3 K/mm3 (1.8-7.7) H 12/04/18 01:17 D-Dimer 198.56 ng/mlDDU (0-234) 12/03/18 08:08 Sodium 144 mmol/L (137-145) 12/04/18 03:15 Potassium 4.4 mmol/L (3.6-5.0) 12/04/18 03:15 Chloride 106.8 mmol/L (98-107) 12/04/18 03:15 Carbon Dioxide 27 mmol/L (22-30) 12/04/18 03:15 Anion Gap 15 mmol/L 12/04/18 03:15 BUN 16 mg/dL (7-17) 12/04/18 03:15 Creatinine 0.6 mg/dL (0.7-1.2) L 12/04/18 03:15 Estimated GFR > 60 ml/min 12/04/18 03:15 BUN/Creatinine Ratio 27 % 12/04/18 03:15 Glucose 91 mg/dL (65-100) 12/04/18 03:15 Calcium 8.5 mg/dL (8.4-10.2) 12/04/18 03:15 Troponin T < 0.010 ng/mL (0.00-0.029) 12/03/18 13:33 HCG, Qual Negative (Negative) 12/03/18 07:23
--- NOTE | 2018-12-04 11:40 | Gastroenterology Consultation ---
Addendum entered and electronically signed by WILLIAM LARSON MD 12/04/18 15:38: Patient seen and examined on 12/04/2018. Agree with A/P and recommendations as stated. EGD today without any findings of GI bleed. Follow up outpatient clinic in 2 weeks. Will sign off. Original Note: History of Present Illness - Reason for Consult Consult date: 12/04/18 vomiting blood Requesting physician: TERRA PALACIOS - History of Present Illness Patient is a 28 y/o female with PMH of lupus, rheumatoid arthritis, and morbid obesity who presented to ED with c/o chest pain (has been evaluated multiple times in the past with negative workup; stress test normal a month ago) and N/V with bloody emesis to which GI has been consulted. This morning patient was resting in bed w/o acute distress. Reports vomiting dark red blood yesterday x 4 episodes. N/V now improved. No episodes of vomiting or active signs of bleeding today. States stools have been dark but not black. Occasionally seeing scant amount of BRBPR following BMs but none currently. Admits to continued mild chest pain and some lower abd discomfort but no pain. Denies fever, SOB, dizziness, wt loss, diarrhea, or constipation. No hx of PUD or liver disease. Takes daily ASA. No previous EGD. Past History Past Medical History: other (lupus, rheumatoid arthritis, morbid obesity) Past Surgical History: No surgical history Social history: , lives with family, smoking, full code, other (Alcohol 3 times a week) Family history: no significant family history Medications and Allergies Allergies Allergy/AdvReac Type Severity Reaction Status Date / Time No Known Allergies Allergy Verified 11/08/18 15:13 Home Medications Medication Instructions Recorded Confirmed Last Taken Type Aspirin [Aspirin BABY CHEW TAB] 81 mg PO QDAY 10/21/18 12/03/18 12/03/18 History Meloxicam 15 mg PO QDAY #15 tablet 11/05/18 12/03/18 Unknown Rx traMADol [Ultram] 50 mg PO Q6HR PRN #20 tablet 11/08/18 12/03/18 Unknown Rx HYDROcodone/APAP 5-325 [[place] 1 each PO Q6HR PRN #10 tablet 11/24/18 12/03/18 11/30/18 Rx 5-325 mg TAB] Prednisone [predniSONE 10 mg 10 mg PO .TAPER #1 tab.ds.pk 11/24/18 12/03/18 12/02/18 Rx (6-Day Pack, 21 Tabs)] predniSONE [Deltasone] 20 mg PO QDAY 12/03/18 12/03/18 Unknown History predniSONE [Prednisone] 20 mg PO DAILY 12/03/18 12/03/18 12/02/18 History Active Meds: Active Medications Acetaminophen (Tylenol) 650 mg PO Q4H PRN PRN Reason: Pain MILD(1-3)/Fever >100.5/[place] Morphine Sulfate (Morphine) 2 mg IV Q4H PRN PRN Reason: Pain, Moderate (4-6) Last Admin: 12/04/18 08:05 Dose: 2 mg Documented by: Ondansetron HCl (Zofran) 4 mg IV Q8H PRN PRN Reason: Nausea And Vomiting Pantoprazole Sodium (Protonix) 40 mg IV BID [facility] Last Admin: 12/04/18 09:28 Dose: 40 mg Documented by: Prednisone (Deltasone) 20 mg PO DAILY [facility] Last Admin: 12/04/18 09:28 Dose: 20 mg Documented by: Sodium Chloride (Sodium Chloride Flush Syringe 10 Ml) 10 ml IV BID [facility] Last Admin: 12/04/18 09:31 Dose: 10 ml Documented by: Sodium Chloride (Sodium Chloride Flush Syringe 10 Ml) 10 ml IV PRN PRN PRN Reason: LINE FLUSH Tramadol HCl (Ultram) 50 mg PO Q6HR PRN PRN Reason: Pain medications reviewed/updated as required Review of Systems - Review of Systems All systems: negative Cardiovascular: chest pain Gastrointestinal: hematemesis Exam - Constitutional Vital Signs: Temp Pulse Resp BP Pulse Ox 98.5 F 93 H 20 117/78 98 12/04/18 09:25 12/04/18 09:25 12/04/18 09:25 12/04/18 09:25 12/04/18 04:37 General appearance: no acute distress, obese (morbidity) - EENT Eyes: PERRL, EOM intact ENT: hearing intact - Respiratory Respiratory: bilateral: CTA - Cardiovascular Rhythm: regular Heart Sounds: Present: S1 & S2 - Gastrointestinal General gastrointestinal: Present: soft, non-tender, non-distended, normal bowel sounds - Neurologic Neurological: alert and oriented x3 - Labs CBC & Chem 7: 12/04/18 09:58 12/04/18 03:15 Lab Results: Laboratory Results - last 24 hr 12/03/18 12/03/18 12/04/18 13:33 17:48 01:17 WBC 14.3 H RBC 4.21 Hgb 10.4 9.9 L Hct 33.6 32.1 MCV 76 L MCH 24 L MCHC 31 RDW 17.8 H Plt Count 347 Lymph % (Auto) 22.2 [place] % (Auto) 5.0 Eos % (Auto) 0.8 Baso % (Auto) 0.1 Lymph # 3.2 [place] # 0.7 Eos # 0.1 Baso # 0.0 Seg Neutrophils % 71.9 H Seg Neutrophils # 10.3 H Sodium Potassium Chloride Carbon Dioxide Anion Gap BUN Creatinine Estimated GFR BUN/Creatinine Ratio Glucose Calcium Troponin T < 0.010 12/04/18 12/04/18 03:15 09:58 WBC RBC Hgb 10.7 Hct 34.0 MCV MCH MCHC RDW Plt Count Lymph % (Auto) [place] % (Auto) Eos % (Auto) Baso % (Auto) Lymph # [place] # Eos # Baso # Seg Neutrophils % Seg Neutrophils # Sodium 144 Potassium 4.4 Chloride 106.8 Carbon Dioxide 27 Anion Gap 15 BUN 16 Creatinine 0.6 L Estimated GFR > 60 BUN/Creatinine Ratio 27 Glucose 91 Calcium 8.5 Troponin T Assessment and Plan 1.hematemesis 2.CP -H/H 10.7/34.0 -continue to monitor H/H and transfuse as needed -hold blood thinning medications -patient reports vomiting dark red blood x 4 episodes yesterday -currently HD stable- no active signs of bleeding this am -etiology unclear -will schedule for EGD today for further evaluation (AMI r/o by cardiology with clearance for EGD given) -Keep NPO -continue PPI and supportive care -will follow 3.lupus 4.rheumatoid arthritis (on daily prednisone) 5.morbid obesity
[2018-12-04] MEDS ORDERED: DIPRIVAN 10 MG/ML IV ONE ×2 (13:52)
--- NOTE | 2018-12-04 13:58 | Anesthesia Consultation ---
Anesthesia Consult and Med Hx Date of service: 12/04/18 - Airway Anesthetic Teeth Evaluation: Good ROM Head & Neck: Adequate Mental/Hyoid Distance: Adequate Mallampati Class: Class II Intubation Access Assessment: Probably Good - Pre-Operative Health Status ASA Pre-Surgery Classification: ASA2 Proposed Anesthetic Plan: MAC (Pt admitted to hospital with chest pain and hematemesis. No apparent immediate cardiac contraindication to endoscopy at this time per Dr. Manolo Schmidt.) - Pulmonary Hx Smoking: Yes (marijuana) Hx Pneumonia: No - Central Nervous System Hx Seizures: No - Endocrine Hx End Stage Renal Disease: No
--- NOTE | 2018-12-04 13:58 | Anesthesia Day of Surgery ---
Anesthesia Day of Surgery - Day of Surgery Patient Examined: Yes Patient H&P Reviewed: Yes Patient is NPO: Yes
[2018-12-04] MEDS ORDERED: WATER FOR IRRIG STERILE IR ONE (14:08)
[2018-12-04] MEDS: NACL 0.9% 1000 ML 1,000 ML IV SCH ×2 (14:19→18:40)
--- NOTE | 2018-12-04 14:28 | Operative Report ---
Operative Report Operative Report: Date: 12/04/18 Surgeon: Raphael Thacker M.D. Procedure: EGD Preop and post op diagnosis: chest pain and hematemesis Complications - none EBL - none Description of procedure: the EGD scope was passed with ease to the second portion of the duodenum, retroflexion performed in the stomach as the scope was carefully withdrawn. At the end of the test the scope was cleaned using normal techniques Medication - per anesthesia Findings - normal duodenum, stomach, esophagus; Z line regular at 39cm from the incisors Recommendations - resume previous diet. May follow up as outpatient. No source for upper GI bleeding nor pain.
--- NOTE | 2018-12-04 23:47 | Consultation ---
The patient was seen in the office on 12/04/2018. HISTORY OF PRESENT ILLNESS: This is a 28-year-old -[place] female, who is now admitted to the hospital with complaints of chest pain and vomiting and hematemesis for further evaluation and management. CONSULTATION IS REQUESTED BY: Manolo Schmidt MD CONSULTING PHYSICIAN: Nazia Sloan MD The patient states that she was doing well until the day of admission when she started having chest pain, which was across the anterior chest and more to the left side of the chest as well as upper abdominal pain followed by nausea and vomiting. She noticed blood in the vomitus. So, she came to the Emergency Room and was hospitalized. Cardiac consult requested because of her complaints of chest pain. The patient was actually seen by us a month ago when she was admitted with chest pain. At that time, she had a stress thallium test done, which was negative for any ischemia. The patient stated that she was recently diagnosed to have lupus and rheumatoid arthritis and is on medication. The patient denied any history of hypertension, hyperlipidemia, diabetes mellitus. She is a smoker. Prior to admission, the patient was on prednisone and she was also taking meloxicam and tramadol. It was prescribed when she was discharged from the hospital. The patient denied any history of orthopnea, PND, edema of feet, palpitations, claudication, dizziness or syncope. No respiratory symptoms like wheezing or asthma. PAST MEDICAL HISTORY: Positive for lupus and rheumatoid arthritis. PAST SURGICAL HISTORY: No prior surgical history. SOCIAL HISTORY: The patient is . She is a smoker. Nonalcoholic. FAMILY HISTORY: Unremarkable. ALLERGIES: None known to medications. MEDICATIONS: At admission, the patient was on aspirin 81 mg p.o. once daily, meloxicam 15 mg daily, tramadol 50 mg b.i.d. p.r.n., hydrocodone 5/325 one q. 6 hours p.r.n., prednisone 10 mg p.o. daily. REVIEW OF SYSTEMS: CARDIOVASCULAR: As described above. RESPIRATORY: No history of wheezing or asthma. GASTROINTESTINAL: No GI complaints except for history of vomiting blood on the day of admission. GENITOURINARY: Unremarkable. NEUROLOGIC: Unremarkable. PHYSICAL EXAMINATION: GENERAL: This is a 28-year-old female, well built and very obese and in no acute distress at the present time. The patient is conscious, alert, oriented, afebrile. VITAL SIGNS: Showed a blood pressure of 117/78 and heart rate is 93 per minute and regular today. SKIN: Warm and dry. HEENT: Pupils are reactive. NECK: Supple. Both carotids well palpable without any bruit. No JVD. CHEST AND LUNGS: Clear. HEART: S1, S2 heard well. No significant murmur or gallop. ABDOMEN: Soft, obese and nontender. Bowel sounds are normal. EXTREMITIES: No edema, no calf tenderness. Good pedal pulses. NEUROLOGIC: Evaluation was grossly within normal limits. Clinical examination was not done at this time. EKG done showed sinus tachycardia, otherwise within normal limits. LABORATORY DATA: The patient's hemoglobin was 9.9 and hematocrit 32.1 today. WBC count was elevated at 14,300. Platelet count was normal. The patient's glucose was 91 and creatinine is 0.6. ASSESSMENT AND PLAN: 1. Chest pain, atypical for cardiac etiology. The patient had a negative stress test a month ago. So, I do not see the need for any further cardiac workup at the present time. EKG showed sinus tachycardia, but no ST-T abnormalities. 2. Hematemesis. ? cause. GI consulted. I do not see any definite contraindication for endoscopy at this time. Her cardiac status is stable. 3. Lupus. 4. Rheumatoid arthritis. 5. Morbid obesity. At this time, the patient's cardiovascular status is stable. No definite contraindication for the contemplated procedure. I agree with present management. We will see the patient as needed. JOB# [id number] TYSHAWN/RANDAL
[2018-12-05] MEDS: MORPHINE IV PRN (01:38)
[2018-12-05 08:54] VITALS: BP 118/95
[2018-12-05] MEDS: PROTONIX IV SCH ×2 (09:55→09:57)
[2018-12-05] MEDS: DELTASONE PO SCH (09:55)
--- NOTE | 2018-12-05 10:04 | Discharge Summary ---
Providers - Providers Date of Admission: 12/03/18 09:30 Date of discharge: 12/05/18 Attending physician: HERMILA LA 12/04/18 06:09 Consult to Physician [CONS] Routine Comment: Consulting Provider: WILLIAM LARSON Physician Instructions: Reason For Exam: Vomited blood 12/04/18 06:21 Consult to Physician [CONS] Routine Comment: Consulting Provider: JADON PETIT Physician Instructions: Reason For Exam: Chest pain Primary care [facility]: [facility] Hospital[facility] Reason for admission: hematemesis Condition: Fair Hospital course: 28-year-old female with past medical history of recent diagnosis of lupus, rheumatoid arthritis who presented to the emergency Department with complaints of anterior chest pain and hematemesis. The patient was seen by cardiology in consultation who reported a stress thallium test done one month ago which was negative for any ischemia. AMI ruled out. Cardiology had no plans for additional cardiac w/u at this time. Prior to admission, the patient was on prednisone as well as meloxicam and tramadol. GI saw the patient in consult ation and performed endoscopy. Findings - normal duodenum, stomach, esophagus; Z line regular at 39cm from the incisors. GI felt the patient could be discharged home and can follow up as an outpatient. Hemoglobin was stable at the time of discharge is 9.9. Etiology of chest pain likely GERD. Patient will discharge with Protonix. The dictated discharge time 32 minutes. Disposition: DC-01 TO HOME OR SELFCARE Time spent for discharge: 32 - Discharge Diagnoses (1) GERD (gastroesophageal reflux disease) Status: Acute (2) Chest pain Status: Acute (3) Chronic pain Status: Acute (4) Chronic use of steroids Status: Acute (5) Lupus Status: Acute (6) Rheumatoid arthritis Status: Acute Core Measure Documentation - Palliative Care Palliative Care/ Comfort Measures: Not Applicable - Core Measures Any of the following diagnoses?: none Exam - Constitutional Vitals: Temp Pulse Resp BP Pulse Ox 98.1 F 123 H 20 118/95 91 12/05/18 08:53 12/05/18 08:52 12/05/18 08:52 12/05/18 08:52 12/05/18 08:52 General appearance: Present: no acute distress, well-nourished - EENT Eyes: Present: PERRL ENT: hearing intact, clear oral mucosa - Neck Neck: Present: supple, normal ROM - Respiratory Respiratory effort: normal Respiratory: bilateral: CTA - Cardiovascular Heart Sounds: Present: S1 & S2. Absent: rub, click - Extremities Extremities: pulses symmetrical, No edema Peripheral Pulses: within normal limits - Abdominal General gastrointestinal: Present: soft, non-tender, non-distended, normal bowel sounds Female genitourinary: Present: normal - Integumentary Integumentary: Present: clear, warm, dry - Musculoskeletal Musculoskeletal: gait normal, strength equal bilaterally - Psychiatric Psychiatric: appropriate mood/affect, intact judgment & insight - Neurologic Neurologic: CNII-XII intact, moves all extremities Plan Activity: no restrictions Weight Bearing Status: Full Weight Bearing Diet: regular Follow up with: SHELLY BLAND MD [Primary Care Provider] - 3-5 Days JOSE M MICHEL MD [Staff Physician] - 7 Days Prescriptions: HYDROcodone/APAP 5-325 [[place] 5-325 mg TAB] 1 each PO Q6HR PRN #10 tablet PRN Reason: Pain Pantoprazole [Protonix] 40 mg PO QDAY #30 tablet
--- NOTE | 2018-12-05 10:09 | Progress Note ---
Assessment and Plan Currently stable cardiac status. Chest pain resolved. S/p EGD yesterday which was normal. Pt may discharge home from cardiology standpoint. Recommend pt follow up in our office with Dr. Sloan within 1-2 weeks of hospital discharge ([phone]). The patient has been seen in conjunction with Dr. Sloan who agrees with the assessment and plan of care. - Patient Problems (1) Chest pain Current Visit: Yes Status: Resolved (2) Hematemesis Current Visit: Yes Status: Acute (3) Lupus Current Visit: Yes Status: Chronic (4) Rheumatoid arthritis Current Visit: Yes Status: Chronic (5) Morbid obesity Current Visit: Yes Status: Chronic Subjective Date of service: 12/05/18 Principal diagnosis: cp Interval history: pt resting in bed, states she is feeling better today. Objective Last Vital Signs Temp 98.1 F 12/05/18 08:53 Pulse 123 H 12/05/18 08:52 Resp 20 12/05/18 08:52 BP 118/95 12/05/18 08:52 Pulse Ox 91 12/05/18 08:52 - Physical Examination General: No Apparent Distress HEENT: Positive: PERRL, Normocephaly, Mucus Membranes Moist Neck: Positive: neck supple, trachea midline Cardiac: Positive: Reg Rate and Rhythm, S1/S2 Lungs: Positive: clear to auscultation Neuro: Positive: Grossly Intact Abdomen: Positive: Soft. Negative: Tender Skin: Negative: Rash, Wound Musculoskeletal: No Pain Extremities: Absent: edema - Labs and Meds CBC 12/04/18 Range/Units 09:58 Hgb 10.7 (10.1-14.3) gm/dl Hct 34.0 (30.3-42.9) % - Telemetry EKG Rhythm: Sinus Rhythm
[2018-12-05] MEDS ORDERED: PROTONIX PO SCH (13:00)
== END 2018-12-05 17:28 | disposition home or self-care (01) | DRG 378 ==
LOC: ED 06:45 → 4A 09:30
PROVIDERS: ADMIT Internal Medicine; ATTEND Hospitalist
PROC: 0DJ08ZZ Inspection of Upper Intestinal Tract, Via Natural or Artificial Opening Endoscopic (ICD-10-PCS; principal; 2018-12-04)
DX: K92.0 Hematemesis (principal); Z68.43 Body mass index [BMI] 50.0-59.9, adult; K21.9 Gastro-esophageal reflux disease without esophagitis; M06.9 Rheumatoid arthritis, unspecified; E66.01 Morbid (severe) obesity due to excess calories; M32.9 Systemic lupus erythematosus, unspecified; E78.5 Hyperlipidemia, unspecified; E11.9 Type 2 diabetes mellitus without complications; I10 Essential (primary) hypertension; F17.210 Nicotine dependence, cigarettes, uncomplicated; Z79.82 Long term (current) use of aspirin
CPT/HCPCS: 36415; 71045; 80048; 84439; 84443; 84484; 84703; 85014; 85018; 85025; 85379; 93005; 93010; 96374; 96375; 99285; G0378; C9113; J2270; J2405; J2704; J3010; J7030; J7512

== ENCOUNTER 2018-12-10 19:18 | Emergency (ER) | payer MEDICAID ==
--- NOTE | 2018-12-10 19:57 | Emergency Department Report ---
Blank Doc - Documentation Documentation: This is a 28-year-old female that presents with generalized pain. She believes it is RA flareup. Denies any other symptoms or concerns. This initial assessment diagnostic orders/clinical plan/treatment(s) is/are subject to change based on patient's health status, clinical progression and re- assessment by fellow clinical providers in the ED. Further treatment and workup at subsequent clinical providers discretion. Patient/guardians urged not to elope from ED s their condition may be serious if not clinically assessed and managed. Initial orders include: 1-Patient sent to [facility] for further evaluation and treatment 2- labs
[2018-12-10 20:01] VITALS: BP 144/97
[2018-12-10 20:33] LABS: Basophils # (Auto) 0.1 K/mm3 (0.0-0.1); Basophils % (Auto) 0.5 % (0.0-1.8); Eosinophils # (Auto) 0.2 K/mm3 (0.0-0.4); Eosinophils % (Auto) 1.1 % (0.0-4.3); Hematocrit 33.6 % (30.3-42.9); Hemoglobin 10.6 gm/dl (10.1-14.3); Lymphocytes # (Auto) 3.2 K/mm3 (1.2-5.4); Lymphocytes % (Auto) 21.1 % (13.4-35.0); Mean Corpuscular HGB Conc 31 % (30-34); Mean Corpuscular Volume 76 fl (79-97); Monocytes # (Auto) 0.8 K/mm3 (0.0-0.8); Monocytes % (Auto) 5.6 % (0.0-7.3); Platelet Count 425 K/mm3 (140-440); Red Blood Count 4.44 M/mm3 (3.65-5.03); Red Cell Distribution Width 18.1 % (13.2-15.2)
[2018-12-10 20:56] LABS: BUN/Creatinine Ratio 20; Blood Urea Nitrogen 14 mg/dL (7-17); Calcium 8.9 mg/dL (8.4-10.2); Hemolysis Index 2
[2018-12-11] MEDS ORDERED: IBUPROFEN PO ONE (01:00)
[2018-12-11] MEDS ORDERED: DELTASONE PO ONE (01:01)
[2018-12-11] MEDS ORDERED: DECADRON IM ONE (01:05)
--- NOTE | 2018-12-11 01:45 | Emergency Department Report ---
ED General Adult HPI - General Chief complaint: Pain General Stated complaint: LUPUS/RA FLARE UP Time Seen by Provider: 12/10/18 19:56 Source: patient Mode of arrival: Ambulatory Limitations: No Limitations - History of Present Illness Initial comments: 28-year-old -[place] female with a past medical history of lupus and rheumatoid arthritis comes in today for flareup. Patient reports all her joints and pain. She says she thinks her rheumatoid arthritis is flaring up. Patient reports most of her pain is to her left knee. Patient requesting steroids. -: Last night Location: lower extremity Severity scale (0 -10): 10 Quality: aching Consistency: constant Improves with: none Worsens with: movement Treatments Prior to Arrival: none - Related Data Home Medications Medication Instructions Recorded Confirmed Last Taken Aspirin [Aspirin BABY CHEW TAB] 81 mg PO QDAY 10/21/18 12/03/18 12/03/18 predniSONE [Deltasone] 20 mg PO QDAY 12/03/18 12/03/18 Unknown predniSONE [Prednisone] 20 mg PO DAILY 12/03/18 12/03/18 12/02/18 Previous Rx's Medication Instructions Recorded Last Taken Type traMADol [Ultram 50 MG tab] 50 mg PO Q6HR PRN #20 tablet 11/08/18 Unknown Rx HYDROcodone/APAP 5-325 [[place] 1 each PO Q6HR PRN #10 tablet 12/05/18 Unknown Rx 5-325 mg TAB] Pantoprazole [Protonix] 40 mg PO QDAY #30 tablet 12/05/18 Unknown Rx Meloxicam 15 mg PO QDAY #15 tablet 12/11/18 Unknown Rx Prednisone [predniSONE 10 mg 10 mg PO .TAPER #1 tab.ds.pk 12/11/18 Unknown Rx (6-Day Pack, 21 Tabs)] Allergies Allergy/AdvReac Type Severity Reaction Status Date / Time No Known Allergies Allergy Verified 11/08/18 15:13 ED Review of Systems ROS: Stated complaint: LUPUS/RA FLARE UP Other details as noted in HPI ED Past Medical Hx - Past Medical History Hx Congestive Heart Failure: No Hx Diabetes: No Hx Arthritis: Yes (Rheumatoid) Hx Seizures: No Hx Asthma: No Hx COPD: No Additional medical history: RA, Lupus, Morbid Obesity. Psoriasis - Surgical History Additional Surgical History: Psoriasis - Social History Smoking Status: Never Smoker Substance Use Type: None - Medications Home Medications: Home Medications Medication Instructions Recorded Confirmed Last Taken Type Aspirin [Aspirin BABY CHEW TAB] 81 mg PO QDAY 10/21/18 12/03/18 12/03/18 History traMADol [Ultram 50 MG tab] 50 mg PO Q6HR PRN #20 tablet 11/08/18 12/03/18 Unknown Rx predniSONE [Deltasone] 20 mg PO QDAY 12/03/18 12/03/18 Unknown History predniSONE [Prednisone] 20 mg PO DAILY 12/03/18 12/03/18 12/02/18 History HYDROcodone/APAP 5-325 [[place] 1 each PO Q6HR PRN #10 tablet 12/05/18 Unknown Rx 5-325 mg TAB] Pantoprazole [Protonix] 40 mg PO QDAY #30 tablet 12/05/18 Unknown Rx Meloxicam 15 mg PO QDAY #15 tablet 12/11/18 Unknown Rx Prednisone [predniSONE 10 mg 10 mg PO .TAPER #1 tab.ds.pk 12/11/18 Unknown Rx (6-Day Pack, 21 Tabs)] ED Physical Exam - General Limitations: No Limitations General appearance: alert, in no apparent distress, obese - Head Head exam: Present: atraumatic, normocephalic - Eye Eye exam: Present: EOMI - ENT ENT exam: Present: mucous membranes moist - Respiratory Respiratory exam: Present: normal lung sounds bilaterally. Absent: respiratory distress - Cardiovascular Cardiovascular Exam: Present: regular rate, normal rhythm. Absent: systolic murmur, diastolic murmur, rubs, gallop - GI/Abdominal GI/Abdominal exam: Present: soft, normal bowel sounds - Expanded Lower Extremity Exam Left Knee exam: Present: full ROM, tenderness, swelling Neuro vascular tendon exam: Present: no vascular compromise - Neurological Exam Neurological exam: Present: alert, oriented X3 - Psychiatric Psychiatric exam: Present: normal affect, normal mood - Skin Skin exam: Present: warm, dry, intact, normal color. Absent: rash ED Course Vital Signs 12/10/18 19:58 Temperature 98.7 F Pulse Rate 115 H Respiratory 18 Rate Blood Pressure 144/97 O2 Sat by Pulse 98 Oximetry ED Medical Decision Making - Lab Data Result diagrams: 12/10/18 20:18 12/10/18 20:18 Critical care attestation.: If time is entered above; I have spent that time in minutes in the direct care of this critically ill patient, excluding procedure time. ED Disposition Clinical Impression: Lupus Disposition: DC-01 TO HOME OR SELFCARE Is pt being admited?: No Does the pt Need Aspirin: No Condition: Stable Instructions: Rheumatoid Arthritis (ED) Additional Instructions: Please take medication as needed. 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 Prescriptions: Meloxicam 15 mg PO QDAY #15 tablet Prednisone [predniSONE 10 mg (6-Day Pack, 21 Tabs)] 10 mg PO .TAPER #1 tab.ds.pk Referrals: [facility] MD TORRIE [Primary Care Provider] - 3-5 Days
== END 2018-12-11 02:20 | disposition home or self-care (01) ==
LOC: ED 19:18
DX: M32.9 Systemic lupus erythematosus, unspecified (principal); M19.90 Unspecified osteoarthritis, unspecified site; Z79.899 Other long term (current) drug therapy
CPT/HCPCS: 36415; 80048; 84703; 85025; 96372; 99283; J1100

== ENCOUNTER 2018-12-25 08:56 | Emergency (ER) | payer MEDICAID ==
[2018-12-25] MEDS ORDERED: MORPHINE IV ONE (10:15)
[2018-12-25] MEDS ORDERED: ZOFRAN IV ONE (10:15)
--- NOTE | 2018-12-25 10:55 | Emergency Department Report ---
ED General Adult HPI - General Chief complaint: Abdominal Pain Stated complaint: ABD PAIN Time Seen by Provider: 12/25/18 09:51 Source: patient Mode of arrival: Ambulatory Limitations: No Limitations - History of Present Illness Initial comments: Patient presents to emergency Department chief complaint of abdominal pain 7 days. Patient describes the pain as sharp in nature and emphysema; develop worse. Patient states initially she had nausea, vomiting, diarrhea that started 8 days ago. Patient denies fever, physical, headache. -: Sudden Location: abdomen Radiation: non-radiation Severity scale (0 -10): 7 Consistency: constant Improves with: none Worsens with: none Associated Symptoms: denies other symptoms Treatments Prior to Arrival: none - Related Data Home Medications Medication Instructions Recorded Confirmed Last Taken Aspirin [Aspirin BABY CHEW TAB] 81 mg PO QDAY 10/21/18 12/03/18 12/03/18 predniSONE [Deltasone] 20 mg PO QDAY 12/03/18 12/03/18 Unknown predniSONE [Prednisone] 20 mg PO DAILY 12/03/18 12/03/18 12/02/18 Previous Rx's Medication Instructions Recorded Last Taken Type traMADol [Ultram 50 MG tab] 50 mg PO Q6HR PRN #20 tablet 11/08/18 Unknown Rx HYDROcodone/APAP 5-325 [[place] 1 each PO Q6HR PRN #10 tablet 12/05/18 Unknown Rx 5-325 mg TAB] Pantoprazole [Protonix] 40 mg PO QDAY #30 tablet 12/05/18 Unknown Rx Meloxicam 15 mg PO QDAY #15 tablet 12/11/18 Unknown Rx Prednisone [predniSONE 10 mg 10 mg PO .TAPER #1 tab.ds.pk 12/11/18 Unknown Rx (6-Day Pack, 21 Tabs)] Ibuprofen [Motrin] 800 mg PO Q8HR PRN #30 tablet 12/25/18 Unknown Rx traMADol [Ultram] 50 mg PO Q6HR PRN #24 tablet 12/25/18 Unknown Rx Allergies Allergy/AdvReac Type Severity Reaction Status Date / Time No Known Allergies Allergy Verified 12/25/18 08:57 ED Review of Systems ROS: Stated complaint: ABD PAIN Other details as noted in HPI Comment: All other systems reviewed and negative Constitutional: denies: chills, fever Eyes: denies: eye pain, eye discharge, vision change ENT: denies: ear pain, throat pain Respiratory: denies: cough, shortness of breath, wheezing Cardiovascular: denies: chest pain, palpitations Endocrine: no symptoms reported Gastrointestinal: abdominal pain. denies: nausea, diarrhea Genitourinary: denies: urgency, dysuria, discharge Musculoskeletal: denies: back pain, joint swelling, arthralgia Skin: denies: rash, lesions Neurological: denies: headache, weakness, paresthesias Psychiatric: denies: anxiety, depression Hematological/Lymphatic: denies: easy bleeding, easy bruising ED Past Medical Hx - Past Medical History Hx Congestive Heart Failure: No Hx Diabetes: No Hx Arthritis: Yes (Rheumatoid) Hx Seizures: No Hx Asthma: No Hx COPD: No Additional medical history: RA, Lupus, Morbid Obesity. Psoriasis - Surgical History Additional Surgical History: Psoriasis - Social History Smoking Status: Never Smoker Substance Use Type: Marijuana - Medications Home Medications: Home Medications Medication Instructions Recorded Confirmed Last Taken Type Aspirin [Aspirin BABY CHEW TAB] 81 mg PO QDAY 10/21/18 12/03/18 12/03/18 History traMADol [Ultram 50 MG tab] 50 mg PO Q6HR PRN #20 tablet 11/08/18 12/03/18 Unknown Rx predniSONE [Deltasone] 20 mg PO QDAY 12/03/18 12/03/18 Unknown History predniSONE [Prednisone] 20 mg PO DAILY 12/03/18 12/03/18 12/02/18 History HYDROcodone/APAP 5-325 [[place] 1 each PO Q6HR PRN #10 tablet 12/05/18 Unknown Rx 5-325 mg TAB] Pantoprazole [Protonix] 40 mg PO QDAY #30 tablet 12/05/18 Unknown Rx Meloxicam 15 mg PO QDAY #15 tablet 12/11/18 Unknown Rx Prednisone [predniSONE 10 mg 10 mg PO .TAPER #1 tab.ds.pk 12/11/18 Unknown Rx (6-Day Pack, 21 Tabs)] Ibuprofen [Motrin] 800 mg PO Q8HR PRN #30 tablet 12/25/18 Unknown Rx traMADol [Ultram] 50 mg PO Q6HR PRN #24 tablet 12/25/18 Unknown Rx ED Physical Exam - General Limitations: No Limitations General appearance: alert, in no apparent distress - Head Head exam: Present: atraumatic, normocephalic - Eye Eye exam: Present: normal appearance, PERRL, EOMI - ENT ENT exam: Present: mucous membranes moist - Neck Neck exam: Present: normal inspection - Respiratory Respiratory exam: Present: normal lung sounds bilaterally. Absent: respiratory distress, wheezes, rales - Cardiovascular Cardiovascular Exam: Present: regular rate, normal rhythm. Absent: systolic murmur, diastolic murmur, rubs, gallop - GI/Abdominal GI/Abdominal exam: Present: soft, tenderness (RUQ TTP), normal bowel sounds. Absent: distended - Extremities Exam Extremities exam: Present: normal inspection - Back Exam Back exam: Present: normal inspection - Neurological Exam Neurological exam: Present: alert, oriented X3, CN II-XII intact. Absent: motor sensory deficit - Psychiatric Psychiatric exam: Present: normal affect, normal mood - Skin Skin exam: Present: warm, dry, intact, normal color. Absent: rash ED Course Vital Signs 12/25/18 12/25/18 12/25/18 09:01 10:00 10:15 Temperature 97.7 F Pulse Rate 70 87 Respiratory 16 16 11 L Rate Blood Pressure 146/100 142/97 O2 Sat by Pulse 94 98 99 Oximetry 12/25/18 12/25/18 10:49 11:01 Temperature Pulse Rate 79 83 Respiratory 13 10 L Rate Blood Pressure 142/97 142/97 O2 Sat by Pulse 98 99 Oximetry ED Medical Decision Making - Lab Data Result diagrams: 12/25/18 10:49 12/25/18 10:49 Lab Results 12/25/18 12/25/18 12/25/18 Range/Units 10:49 10:49 13:45 WBC 15.6 H (4.5-11.0) K/mm3 RBC 4.27 (3.65-5.03) M/mm3 Hgb 9.8 L (10.1-14.3) gm/dl Hct 32.8 (30.3-42.9) % MCV 77 L (79-97) fl MCH 23 L (28-32) pg MCHC 30 (30-34) % RDW 17.8 H (13.2-15.2) % Plt Count 387 (140-440) K/mm3 Lymph % (Auto) 20.4 (13.4-35.0) % [place] % (Auto) 4.4 (0.0-7.3) % Eos % (Auto) 0.6 (0.0-4.3) % Baso % (Auto) 0.3 (0.0-1.8) % Lymph # 3.2 (1.2-5.4) K/mm3 [place] # 0.7 (0.0-0.8) K/mm3 Eos # 0.1 (0.0-0.4) K/mm3 Baso # 0.0 (0.0-0.1) K/mm3 Seg Neutrophils % 74.3 H (40.0-70.0) % Seg Neutrophils # 11.6 H (1.8-7.7) K/mm3 Sodium 142 (137-145) mmol/L Potassium 3.6 (3.6-5.0) mmol/L Chloride 106.4 (98-107) mmol/L Carbon Dioxide 24 (22-30) mmol/L Anion Gap 15 mmol/L BUN 8 (7-17) mg/dL Creatinine 0.3 L (0.7-1.2) mg/dL Estimated GFR > 60 ml/min BUN/Creatinine Ratio 27 % Glucose 75 (65-100) mg/dL Calcium 8.2 L (8.4-10.2) mg/dL Total Bilirubin 0.20 (0.1-1.2) mg/dL AST 10 (5-40) units/L ALT 15 (7-56) units/L Alkaline Phosphatase 69 (35-129) units/L Total Protein 6.6 (6.3-8.2) g/dL Albumin 3.4 L (3.9-5) g/dL Albumin/Globulin Ratio 1.1 % Lipase 18 (13-60) units/L Urine Color Yellow (Yellow) Urine Turbidity Clear (Clear) Urine pH 5.0 (5.0-7.0) Ur Specific [place] 1.029 (1.003-1.030) Urine Protein 30 mg/dl (Negative) mg/dL Urine Glucose (UA) Neg (Negative) mg/dL Urine Ketones Neg (Negative) mg/dL Urine Blood Sm (Negative) Urine Nitrite Neg (Negative) Urine Bilirubin Neg (Negative) Urine Urobilinogen < 2.0 (<2.0) mg/dL Ur Leukocyte Esterase Neg (Negative) Urine WBC (Auto) 2.0 (0.0-6.0) /HPF Urine RBC (Auto) 3.0 (0.0-6.0) /HPF U Epithel Cells (Auto) 2.0 (0-13.0) /HPF Hyaline Casts 1 /LPF Urine Mucus 3+ /HPF Urine HCG, Qual Negative (Negative) - Radiology Data Radiology results: report reviewed - Medical Decision Making Results discussed with patient The white count likely secondary to acute stress reaction Critical care attestation.: If time is entered above; I have spent that time in minutes in the direct care of this critically ill patient, excluding procedure time. ED Disposition Clinical Impression: Ovarian cyst Disposition: - TO HOME OR SELFCARE Is pt being admited?: No Does the pt Need Aspirin: No Condition: Stable Instructions: Abdominal Pain (ED), Ovarian Cyst (ED) Referrals: SHELLY BLAND MD [Primary Care Provider] - 3-5 Days [facility] [Provider Group] - 3-5 Days [facility] [Provider Group] - 3-5 Days [facility] [Provider Group] - 3-5 Days Time of Disposition: 15:43
[2018-12-25 11:03] LABS: Basophils % (Auto) 0.3 % (0.0-1.8); Eosinophils # (Auto) 0.1 K/mm3 (0.0-0.4); Eosinophils % (Auto) 0.6 % (0.0-4.3); Lymphocytes # (Auto) 3.2 K/mm3 (1.2-5.4); Lymphocytes % (Auto) 20.4 % (13.4-35.0); Mean Corpuscular HGB Conc 30 % (30-34); Mean Corpuscular Volume 77 fl (79-97); Monocytes # (Auto) 0.7 K/mm3 (0.0-0.8); Monocytes % (Auto) 4.4 % (0.0-7.3); Platelet Count 387 K/mm3 (140-440); Red Blood Count 4.27 M/mm3 (3.65-5.03); Red Cell Distribution Width 17.8 % (13.2-15.2)
[2018-12-25 11:04] LABS: Hematocrit 32.8 % (30.3-42.9); Hemoglobin 9.8 gm/dl (10.1-14.3)
--- NOTE | 2018-12-25 11:09 | Ultrasound Report ---
ULTRASOUND ABDOMEN LIMITED: TECHNIQUE: Transabdominal ultrasound with color Doppler interrogation. HISTORY: right upper quadrant abdominal pain. COMPARISON: none. FINDINGS: LIVER: Normal. BILIARY SYSTEM: Normal. PANCREAS: Normal. RIGHT KIDNEY: Normal. PROXIMAL AORTA: Normal. ASCITES: None. IMPRESSION: Unremarkable exam.
[2018-12-25 11:23] LABS: Alanine Aminotransferase 15 units/L (7-56); Albumin 3.4 g/dL (3.9-5); BUN/Creatinine Ratio 27; Blood Urea Nitrogen 8 mg/dL (7-17); Calcium 8.2 mg/dL (8.4-10.2); Hemolysis Index 2
[2018-12-25 14:21] LABS: Bilirubin,Urine NEG (Negative); Blood,Urine SM (Negative); Color,Urine Yellow (Yellow); Hyaline Casts,Urine 1 /LPF; Mucus,Urine 3+ /HPF; Urobilinogen,Urine < 2.0 mg/dL (<2.0)
[2018-12-25 14:24] LABS: HCG Qualitative,Urine Negative (Negative)
--- NOTE | 2018-12-25 15:18 | Cat Scan Report ---
CT ABDOMEN PELVIS WITH CONTRAST: HISTORY: abdominal pain. COMPARISON: none. TECHNIQUE: Helical CT in 1.25mm intervals following IV contrast. Sagittal and coronal reconstructions. FINDINGS: Lung bases: Normal. Liver: Normal. Biliary system: Normal. Pancreas: Normal. Spleen: Normal. Kidneys/ureters/bladder: Normal. Adrenal glands: Normal. Aorta: Normal. Intestines: Normal. Appendix: Normal. Pelvic viscera: A 2.8 x 2.0 cm left ovarian cyst is identified. The uterus and right ovary are unremarkable. Ascites: None. Adenopathy: None. Musculoskeletal: Normal. IMPRESSION: 2.8 x 2.0 cm left ovarian cyst.
[2018-12-25 16:11] VITALS: BP 127/70
== END 2018-12-25 16:10 | disposition home or self-care (01) ==
LOC: ED 08:56
DX: N83.202 Unspecified ovarian cyst, left side (principal); F12.10 Cannabis abuse, uncomplicated; M06.9 Rheumatoid arthritis, unspecified; E66.01 Morbid (severe) obesity due to excess calories; Z68.43 Body mass index [BMI] 50.0-59.9, adult; Z79.899 Other long term (current) drug therapy
CPT/HCPCS: 36415; 74177; 76705; 80053; 81001; 81025; 83690; 85025; 99284; Q9967

== ENCOUNTER 2019-01-15 05:22 | Emergency (ER) | payer MEDICAID ==
[2019-01-15] MEDS ORDERED: TYLENOL PO ONE (05:39)
--- NOTE | 2019-01-15 06:30 | XRay Report ---
PROCEDURE: XR CHEST ROUTINE 2V TECHNIQUE: PA and lateral chest radiographs were obtained. HISTORY: Chest Pain COMPARISONS: 12/03/2018. FINDINGS: Heart: Normal. Mediastinum/Vessels: Normal. Lungs/Pleural space: Lungs are expanded. There are no infiltrates, effusions or pneumothoraces.. Bony thorax: No acute osseous abnormality. IMPRESSION: There is no acute cardiopulmonary abnormality.. This document is electronically signed by Josep Santos MD., January 15 2019 06:28:04 AM ET
[2019-01-15] MEDS ORDERED: ANTIVERT PO ONE (10:06)
[2019-01-15] MEDS ORDERED: ZOFRAN ODT PO ONE (10:06)
[2019-01-15 10:09] VITALS: BP 132/84
--- NOTE | 2019-01-15 10:27 | Emergency Department Report ---
ED General Adult HPI - General Chief complaint: Chest Pain Stated complaint: HEADACHE/CHEST PAIN WITH N/V Time Seen by Provider: 01/15/19 09:56 Source: patient Mode of arrival: Wheelchair Limitations: No Limitations - History of Present Illness Initial comments: Patient is a 28-year-old female who has had a cough productive of yellow sputum for the past 2-3 days. Patient states this morning she began also having some sinus discomfort as well as a spinning sensation with 2-3 episodes of nausea vomiting. Patient denies fever diarrhea next stiffness at this time. Location: head Severity scale (0 -10): 7 Quality: aching Consistency: constant Associated Symptoms: cough, fever/chills (subjective), headaches. denies: confusion, diaphoresis, nausea/vomiting, rash, seizure, shortness of breath, syncope - Related Data Home Medications Medication Instructions Recorded Confirmed Last Taken Aspirin [Aspirin BABY CHEW TAB] 81 mg PO QDAY 10/21/18 12/03/18 12/03/18 predniSONE [Deltasone] 20 mg PO QDAY 12/03/18 12/03/18 Unknown predniSONE [Prednisone] 20 mg PO DAILY 12/03/18 12/03/18 12/02/18 Previous Rx's Medication Instructions Recorded Last Taken Type traMADol [Ultram 50 MG tab] 50 mg PO Q6HR PRN #20 tablet 11/08/18 Unknown Rx HYDROcodone/APAP 5-325 [[place] 1 each PO Q6HR PRN #10 tablet 12/05/18 Unknown Rx 5-325 mg TAB] Pantoprazole [Protonix] 40 mg PO QDAY #30 tablet 12/05/18 Unknown Rx Meloxicam 15 mg PO QDAY #15 tablet 12/11/18 Unknown Rx Prednisone [predniSONE 10 mg 10 mg PO .TAPER #1 tab.ds.pk 12/11/18 Unknown Rx (6-Day Pack, 21 Tabs)] Ibuprofen [Motrin] 800 mg PO Q8HR PRN #30 tablet 12/25/18 Unknown Rx predniSONE [Prednisone] 10 mg PO DAILY #7 tab.ds.pk 12/25/18 Unknown Rx traMADol [Ultram] 50 mg PO Q6HR PRN #24 tablet 12/25/18 Unknown Rx ALBUTEROL Inhaler(NF) [VENTOLIN 1 puff IH Q4HRT PRN #1 inha 01/15/19 Unknown Rx Inhaler(NF)] HYDROcodone/ACETAMINOPHEN 1 each PO Q6HR PRN #12 tablet 01/15/19 Unknown Rx [Hydrocodone-Acetamin 5-325 mg] Ibuprofen [Ibu] 600 mg PO Q6HR PRN #20 tablet 01/15/19 Unknown Rx Meclizine [Antivert] 25 mg PO TID PRN #12 tablet 01/15/19 Unknown Rx Ondansetron [Zofran Odt] 4 mg PO Q8HR #10 tab.rapdis 01/15/19 Unknown Rx Allergies Allergy/AdvReac Type Severity Reaction Status Date / Time No Known Allergies Allergy Verified 12/25/18 08:57 ED Review of Systems ROS: Stated complaint: HEADACHE/CHEST PAIN WITH N/V Other details as noted in HPI Comment: All other systems reviewed and negative ED Past Medical Hx - Past Medical History Previous Medical History?: Yes Hx Congestive Heart Failure: No Hx Diabetes: No Hx Arthritis: Yes (Rheumatoid) Hx Seizures: No Hx Asthma: No Hx COPD: No Additional medical history: RA, Lupus, Morbid Obesity. Psoriasis - Surgical History Past Surgical History?: No Additional Surgical History: Psoriasis - Social History Smoking Status: Never Smoker Substance Use Type: Marijuana - Medications Home Medications: Home Medications Medication Instructions Recorded Confirmed Last Taken Type Aspirin [Aspirin BABY CHEW TAB] 81 mg PO QDAY 10/21/18 12/03/18 12/03/18 History traMADol [Ultram 50 MG tab] 50 mg PO Q6HR PRN #20 tablet 11/08/18 12/03/18 Unknown Rx predniSONE [Deltasone] 20 mg PO QDAY 12/03/18 12/03/18 Unknown History predniSONE [Prednisone] 20 mg PO DAILY 12/03/18 12/03/18 12/02/18 History HYDROcodone/APAP 5-325 [[place] 1 each PO Q6HR PRN #10 tablet 12/05/18 Unknown Rx 5-325 mg TAB] Pantoprazole [Protonix] 40 mg PO QDAY #30 tablet 12/05/18 Unknown Rx Meloxicam 15 mg PO QDAY #15 tablet 12/11/18 Unknown Rx Prednisone [predniSONE 10 mg 10 mg PO .TAPER #1 tab.ds.pk 12/11/18 Unknown Rx (6-Day Pack, 21 Tabs)] Ibuprofen [Motrin] 800 mg PO Q8HR PRN #30 tablet 12/25/18 Unknown Rx predniSONE [Prednisone] 10 mg PO DAILY #7 tab.ds.pk 12/25/18 Unknown Rx traMADol [Ultram] 50 mg PO Q6HR PRN #24 tablet 12/25/18 Unknown Rx ALBUTEROL Inhaler(NF) [VENTOLIN 1 puff IH Q4HRT PRN #1 inha 01/15/19 Unknown Rx Inhaler(NF)] HYDROcodone/ACETAMINOPHEN 1 each PO Q6HR PRN #12 tablet 01/15/19 Unknown Rx [Hydrocodone-Acetamin 5-325 mg] Ibuprofen [Ibu] 600 mg PO Q6HR PRN #20 tablet 01/15/19 Unknown Rx Meclizine [Antivert] 25 mg PO TID PRN #12 tablet 01/15/19 Unknown Rx Ondansetron [Zofran Odt] 4 mg PO Q8HR #10 tab.rapdis 01/15/19 Unknown Rx ED Physical Exam - General Limitations: No Limitations General appearance: alert, in no apparent distress - Head Head exam: Present: atraumatic, normocephalic - Eye Eye exam: Present: normal appearance, PERRL, EOMI - ENT ENT exam: Present: mucous membranes moist, other (maxillary sinus pain) - Neck Neck exam: Present: normal inspection - Respiratory Respiratory exam: Present: normal lung sounds bilaterally. Absent: respiratory distress, wheezes, rales, rhonchi - Cardiovascular Cardiovascular Exam: Present: regular rate, normal rhythm. Absent: systolic murmur, diastolic murmur, rubs, gallop - GI/Abdominal GI/Abdominal exam: Present: soft, normal bowel sounds. Absent: distended, tenderness, guarding, rebound - Extremities Exam Extremities exam: Present: normal inspection - Back Exam Back exam: Present: normal inspection - Neurological Exam Neurological exam: Present: alert, oriented X3 - Psychiatric Psychiatric exam: Present: normal affect, normal mood - Skin Skin exam: Present: warm, dry, intact, normal color. Absent: rash ED Course Vital Signs 01/15/19 01/15/19 01/15/19 05:25 05:45 09:40 Temperature 99.1 F 98.5 F Pulse Rate 87 96 H Respiratory 20 18 16 Rate Blood Pressure 173/112 152/105 Blood Pressure [Right] O2 Sat by Pulse 98 98 Oximetry 01/15/19 10:08 Temperature Pulse Rate 75 Respiratory 20 Rate Blood Pressure Blood Pressure 132/84 [Right] O2 Sat by Pulse Oximetry ED Medical Decision Making - Radiology Data Radiology results: report reviewed (CXR WNL) - Medical Decision Making Patient with upper respiratory infection/sinusitis. Patient also with some vertigo type symptoms and was given meds for symptomatic relief. Patient to be discharged home. Critical care attestation.: If time is entered above; I have spent that time in minutes in the direct care of this critically ill patient, excluding procedure time. ED Disposition Clinical Impression: Vertigo Upper respiratory infection Qualifiers: URI type: unspecified URI Qualified Code(s): J06.9 - Acute upper respiratory infection, unspecified Acute sinusitis Qualifiers: Sinusitis location: maxillary Recurrence: non-recurrent Qualified Code(s): J01.00 - Acute maxillary sinusitis, unspecified Disposition: DC-01 TO HOME OR SELFCARE Is pt being admited?: No Does the pt Need Aspirin: No Condition: Stable Instructions: Sinusitis (ED), Vertigo (ED) Referrals: AMNA BURGOS MD [Primary Care Provider] - 3-5 Days Time of Disposition: 10:32
== END 2019-01-15 10:41 | disposition home or self-care (01) ==
LOC: ED 05:22
DX: J01.00 Acute maxillary sinusitis, unspecified (principal); R42 Dizziness and giddiness; M10.9 Gout, unspecified; M32.9 Systemic lupus erythematosus, unspecified; E66.01 Morbid (severe) obesity due to excess calories; Z68.41 Body mass index [BMI] 40.0-44.9, adult; Z79.82 Long term (current) use of aspirin
CPT/HCPCS: 71046; 93005; 93010; 99283; Q0162

== ENCOUNTER 2019-01-28 22:37 | Emergency (ER) | payer MEDICAID ==
[2019-01-28 23:21] LABS: Basophils # (Auto) 0.1 K/mm3 (0.0-0.1); Basophils % (Auto) 0.5 % (0.0-1.8); Eosinophils % (Auto) 0.2 % (0.0-4.3); Hematocrit 33.1 % (30.3-42.9); Hemoglobin 10.2 gm/dl (10.1-14.3); Lymphocytes % (Auto) 11.5 % (13.4-35.0); Mean Corpuscular HGB Conc 31 % (30-34); Mean Corpuscular Volume 76 fl (79-97); Monocytes # (Auto) 0.8 K/mm3 (0.0-0.8); Monocytes % (Auto) 4.4 % (0.0-7.3); Platelet Count 366 K/mm3 (140-440); Red Blood Count 4.38 M/mm3 (3.65-5.03); Red Cell Distribution Width 17.5 % (13.2-15.2)
[2019-01-28 23:32] LABS: BUN/Creatinine Ratio 27; Blood Urea Nitrogen 16 mg/dL (7-17); Calcium 8.4 mg/dL (8.4-10.2); Hemolysis Index 7
--- NOTE | 2019-01-29 00:43 | XRay Report ---
PROCEDURE: XR CHEST ROUTINE 2V TECHNIQUE: PA and lateral views the chest were obtained. HISTORY: Chest Pain COMPARISONS: 01/15/2019 FINDINGS: The heart size and mediastinum appear normal. The lungs are clear. Pleural fluid is not seen. The bon es and soft tissues do not show any acute changes. IMPRESSION: No acute cardiopulmonary process.. This document is electronically signed by Austin Hatfield MD., January 29 2019 12:41:22 AM ET
--- NOTE | 2019-01-29 01:22 | Emergency Department Report ---
ED General Adult HPI - General Chief complaint: Chest Pain Stated complaint: CHEST PAIN Time Seen by Provider: 01/29/19 01:15 Source: patient Mode of arrival: Ambulatory Limitations: No Limitations - History of Present Illness Initial comments: 28 y/o female here for cough 2 weeks. Patient reports that phlegm was coming up and now it's a dry cough. 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 She currently is on enbrel and prednisone. -: week(s) (2) Severity scale (0 -10): 10 Quality: aching Consistency: intermittent Associated Symptoms: chest pain - Related Data Home Medications Medication Instructions Recorded Confirmed Last Taken Aspirin [Aspirin BABY CHEW TAB] 81 mg PO QDAY 10/21/18 12/03/18 12/03/18 predniSONE [Deltasone] 20 mg PO QDAY 12/03/18 12/03/18 Unknown predniSONE [Prednisone] 20 mg PO DAILY 12/03/18 12/03/18 12/02/18 Previous Rx's Medication Instructions Recorded Last Taken Type traMADol [Ultram 50 MG tab] 50 mg PO Q6HR PRN #20 tablet 11/08/18 Unknown Rx HYDROcodone/APAP 5-325 [[place] 1 each PO Q6HR PRN #10 tablet 12/05/18 Unknown Rx 5-325 mg TAB] Pantoprazole [Protonix] 40 mg PO QDAY #30 tablet 12/05/18 Unknown Rx Meloxicam 15 mg PO QDAY #15 tablet 12/11/18 Unknown Rx Prednisone [predniSONE 10 mg 10 mg PO .TAPER #1 tab.ds.pk 12/11/18 Unknown Rx (6-Day Pack, 21 Tabs)] Ibuprofen [Motrin] 800 mg PO Q8HR PRN #30 tablet 12/25/18 Unknown Rx predniSONE [Prednisone] 10 mg PO DAILY #7 tab.ds.pk 12/25/18 Unknown Rx traMADol [Ultram] 50 mg PO Q6HR PRN #24 tablet 12/25/18 Unknown Rx ALBUTEROL Inhaler(NF) [VENTOLIN 1 puff IH Q4HRT PRN #1 inha 01/15/19 Unknown Rx Inhaler(NF)] HYDROcodone/ACETAMINOPHEN 1 each PO Q6HR PRN #12 tablet 01/15/19 Unknown Rx [Hydrocodone-Acetamin 5-325 mg] Ibuprofen [Ibu] 600 mg PO Q6HR PRN #20 tablet 01/15/19 Unknown Rx Meclizine [Antivert] 25 mg PO TID PRN #12 tablet 01/15/19 Unknown Rx Ondansetron [Zofran Odt] 4 mg PO Q8HR #10 tab.rapdis 01/15/19 Unknown Rx Benzonatate [Tessalon Perle] 100 mg PO TID #12 capsule 01/29/19 Unknown Rx Allergies Allergy/AdvReac Type Severity Reaction Status Date / Time No Known Allergies Allergy Verified 12/25/18 08:57 ED Review of Systems ROS: Stated complaint: CHEST PAIN Other details as noted in HPI Comment: All other systems reviewed and negative ED Past Medical Hx - Past Medical History Hx Congestive Heart Failure: No Hx Diabetes: No Hx Arthritis: Yes (Rheumatoid) Hx Seizures: No Hx Asthma: No Hx COPD: No Additional medical history: RA, Lupus, Morbid Obesity. Psoriasis - Surgical History Additional Surgical History: Psoriasis - Social History Smoking Status: Never Smoker Substance Use Type: None - Medications Home Medications: Home Medications Medication Instructions Recorded Confirmed Last Taken Type Aspirin [Aspirin BABY CHEW TAB] 81 mg PO QDAY 10/21/18 12/03/18 12/03/18 History traMADol [Ultram 50 MG tab] 50 mg PO Q6HR PRN #20 tablet 11/08/18 12/03/18 Unknown Rx predniSONE [Deltasone] 20 mg PO QDAY 12/03/18 12/03/18 Unknown History predniSONE [Prednisone] 20 mg PO DAILY 12/03/18 12/03/18 12/02/18 History HYDROcodone/APAP 5-325 [[place] 1 each PO Q6HR PRN #10 tablet 12/05/18 Unknown Rx 5-325 mg TAB] Pantoprazole [Protonix] 40 mg PO QDAY #30 tablet 12/05/18 Unknown Rx Meloxicam 15 mg PO QDAY #15 tablet 12/11/18 Unknown Rx Prednisone [predniSONE 10 mg 10 mg PO .TAPER #1 tab.ds.pk 12/11/18 Unknown Rx (6-Day Pack, 21 Tabs)] Ibuprofen [Motrin] 800 mg PO Q8HR PRN #30 tablet 12/25/18 Unknown Rx predniSONE [Prednisone] 10 mg PO DAILY #7 tab.ds.pk 12/25/18 Unknown Rx traMADol [Ultram] 50 mg PO Q6HR PRN #24 tablet 12/25/18 Unknown Rx ALBUTEROL Inhaler(NF) [VENTOLIN 1 puff IH Q4HRT PRN #1 inha 01/15/19 Unknown Rx Inhaler(NF)] HYDROcodone/ACETAMINOPHEN 1 each PO Q6HR PRN #12 tablet 01/15/19 Unknown Rx [Hydrocodone-Acetamin 5-325 mg] Ibuprofen [Ibu] 600 mg PO Q6HR PRN #20 tablet 01/15/19 Unknown Rx Meclizine [Antivert] 25 mg PO TID PRN #12 tablet 01/15/19 Unknown Rx Ondansetron [Zofran Odt] 4 mg PO Q8HR #10 tab.rapdis 01/15/19 Unknown Rx Benzonatate [Tessalon Perle] 100 mg PO TID #12 capsule 01/29/19 Unknown Rx ED Physical Exam - General Limitations: No Limitations General appearance: alert, in no apparent distress - Head Head exam: Present: atraumatic, normocephalic - Eye Eye exam: Present: normal appearance - ENT ENT exam: Present: mucous membranes moist - Neck Neck exam: Present: normal inspection - Respiratory Respiratory exam: Present: normal lung sounds bilaterally, chest wall tenderness. Absent: respiratory distress - Cardiovascular Cardiovascular Exam: Present: regular rate, normal rhythm. Absent: systolic murmur, diastolic murmur, rubs, gallop - GI/Abdominal GI/Abdominal exam: Present: soft, normal bowel sounds - Extremities Exam Extremities exam: Present: normal inspection - Back Exam Back exam: Present: normal inspection - Neurological Exam Neurological exam: Present: alert, oriented X3 - Psychiatric Psychiatric exam: Present: normal affect, normal mood - Skin Skin exam: Present: warm, dry, intact, normal color. Absent: rash ED Course Vital Signs 01/28/19 01/28/19 01/29/19 22:40 22:57 02:22 Temperature 98.3 F 98.3 F Pulse Rate 97 H 93 H 84 Respiratory 18 18 17 Rate Blood Pressure 140/99 140/99 O2 Sat by Pulse 98 99 99 Oximetry ED Medical Decision Making - Lab Data Result diagrams: 01/28/19 23:05 01/28/19 23:05 - Radiology Data Radiology results: report reviewed Patient: GILDA FRYE MR#: [id number] : 1990 Acct:[id number] Age/Sex: 28 / F ADM Date: 01/28/19 Loc: ED Attending Dr: Ordering Physician: ROMAN LAWSON MD Date of Service: 01/28/19 Procedure(s): XR chest routine 2V Accession Number(s): [id number] cc: ROMAN LAWSON MD Fluoro Time In Minutes: PROCEDURE: XR CHEST ROUTINE 2V TECHNIQUE: PA and lateral views the chest were obtained. HISTORY: Chest Pain COMPARISONS: 01/15/2019 FINDINGS: The heart size and mediastinum appear normal. The lungs are clear. Pleural fluid is not seen. The bones and soft tissues do not show any acute changes. IMPRESSION: No acute cardiopulmonary process.. This document is electronically signed by Austin Hatfield MD., January 29 2019 12 :41:22 AM ET Transcribed By: RB Dictated By: AUSTIN HATFIELD MD Electronically Authenticated By: AUSTIN HATFIELD MD Signed Date/Time: 01/29/1941 DD/ 43 TD/TT: 01/28/192343 - Medical Decision Making Patient has been evaluated by this provider in [facility]. Patient be discharged home with diagnosis of cough Recently discharged home for Tessalon Perles. Critical care attestation.: If time is entered above; I have spent that time in minutes in the direct care of this critically ill patient, excluding procedure time. ED Disposition Clinical Impression: Cough, Morbid obesity, Musculoskeletal chest pain Disposition: DC-01 TO HOME OR SELFCARE Is pt being admited?: No Does the pt Need Aspirin: No Condition: Stable Instructions: Chest Pain (ED) Additional Instructions: Take cough medication as prescribed. Follow up with her primary care provider if symptoms persist or gets worse. Prescriptions: Benzonatate [Tessalon Perle] 100 mg PO TID #12 capsule Referrals: Your, primary care provider [Other] - 3-5 Days
[2019-01-29] MEDS ORDERED: TESSALON PERLES PO ONE ×2 (02:17→02:21)
[2019-01-29 19:52] VITALS: BP 140/99
== END 2019-01-29 02:22 | disposition home or self-care (01) ==
LOC: ED 22:37
DX: E66.01 Morbid (severe) obesity due to excess calories (principal); R05 Cough; R07.89 Other chest pain; R42 Dizziness and giddiness; M19.90 Unspecified osteoarthritis, unspecified site; Z79.82 Long term (current) use of aspirin
CPT/HCPCS: 36415; 71046; 80048; 84484; 85025; 93005; 93010; 99284

== ENCOUNTER 2019-02-06 06:07 | Emergency (ER) | payer MEDICAID ==
--- NOTE | 2019-02-06 06:42 | XRay Report ---
PROCEDURE: XR CHEST 1V AP TECHNIQUE: Chest radiograph single view. HISTORY: Chest Pain COMPARISONS: January 28, 2019 . FINDINGS: Heart: Normal. Mediastinum/Vessels: Normal. Lungs/Pleural space: Normal. Bony thorax: No acute osseous abnormality. Life support devices: None. IMPRESSION: No acute cardiopulmonary abnormality. This document is electronically signed by Yeny Parikh DO., February 06 2019 06:40:35 AM ET
[2019-02-06] MEDS ORDERED: DELTASONE PO ONE (07:46)
--- NOTE | 2019-02-06 07:48 | Emergency Department Report ---
Minor Respiratory - HPI Chief Complaint: Chest Pain Stated Complaint: COUGH, CHEST PAIN Time Seen by Provider: 02/06/19 07:19 Duration: 2 weeks Pain Location: Throat Severity: moderate Minor Respiratory: Yes Sore Throat (mild), Yes Able to Tolerate Fluids, Yes Cough, Yes Chest Pain ( after prolonged coughing episodes), No Rhinorrhea, No Ear Pain, No Sick Contacts, No Hemoptysis, No Shortness of Breath, No Fever Other History: Extremities reveals no presents worsening cough and sore throat in the past 2 weeks. Patient states that she does smoke. She denies any history of asthma. Patient states that she was sick and Tessalon Perles with no relief. Patient describes intermittent, productive tract coughing causing her some chest discomfort. ED Review of Systems ROS: Stated complaint: COUGH, CHEST PAIN Other details as noted in HPI Comment: All other systems reviewed and negative ED Past Medical Hx - Past Medical History Previous Medical History?: Yes Hx Congestive Heart Failure: No Hx Diabetes: No Hx Arthritis: Yes (Rheumatoid) Hx Seizures: No Hx Asthma: No Hx COPD: No Additional medical history: RA, Lupus, Morbid Obesity. Psoriasis - Surgical History Past Surgical History?: No Additional Surgical History: Psoriasis - Social History Smoking Status: Current Every Day Smoker Substance Use Type: None - Medications Home Medications: Home Medications Medication Instructions Recorded Confirmed Last Taken Type Aspirin [Aspirin BABY CHEW TAB] 81 mg PO QDAY 10/21/18 12/03/18 12/03/18 History traMADol [Ultram 50 MG tab] 50 mg PO Q6HR PRN #20 tablet 11/08/18 12/03/18 Unknown Rx predniSONE [Deltasone] 20 mg PO QDAY 12/03/18 12/03/18 Unknown History predniSONE [Prednisone] 20 mg PO DAILY 12/03/18 12/03/18 12/02/18 History HYDROcodone/APAP 5-325 [[place] 1 each PO Q6HR PRN #10 tablet 12/05/18 Unknown Rx 5-325 mg TAB] Pantoprazole [Protonix] 40 mg PO QDAY #30 tablet 12/05/18 Unknown Rx Meloxicam 15 mg PO QDAY #15 tablet 12/11/18 Unknown Rx Prednisone [predniSONE 10 mg 10 mg PO .TAPER #1 tab.ds.pk 12/11/18 Unknown Rx (6-Day Pack, 21 Tabs)] Ibuprofen [Motrin] 800 mg PO Q8HR PRN #30 tablet 12/25/18 Unknown Rx predniSONE [Prednisone] 10 mg PO DAILY #7 tab.ds.pk 12/25/18 Unknown Rx traMADol [Ultram] 50 mg PO Q6HR PRN #24 tablet 12/25/18 Unknown Rx HYDROcodone/ACETAMINOPHEN 1 each PO Q6HR PRN #12 tablet 01/15/19 Unknown Rx [Hydrocodone-Acetamin 5-325 mg] Ibuprofen [Ibu] 600 mg PO Q6HR PRN #20 tablet 01/15/19 Unknown Rx Meclizine [Antivert] 25 mg PO TID PRN #12 tablet 01/15/19 Unknown Rx Ondansetron [Zofran Odt] 4 mg PO Q8HR #10 tab.rapdis 01/15/19 Unknown Rx Benzonatate [Tessalon Perle] 100 mg PO TID #12 capsule 01/29/19 Unknown Rx ALBUTEROL Inhaler(NF) [VENTOLIN 1 puff IH Q4HRT PRN #1 inha 02/06/19 Unknown Rx Inhaler(NF)] guaiFENesin [Mucinex] 600 mg PO BID #10 tab.er.12h 02/06/19 Unknown Rx guaiFENesin/CODEINE [Robitussin AC] 5 ml PO TID #80 ml 02/06/19 Unknown Rx Minor Respiratory Exam - Exam General: Vital signs noted. No distress. Alert and acting appropriately. HEENT: Yes Moist Mucous Membranes, No Pharyngeal Erythema, No Pharyngeal Exudates, No Rhinorrhea, No Conjuctival Injection, No Frontal Tenderness, No Maxillary Tenderness Ear: Neither TM Bulge, Neither TM Erythema, Neither EAC Pain, Neither EAC Discharge Neck: Yes Supple, No Adenopathy Lungs: Yes Good Air Exchange, No Wheezes, No Ronchi, No Stridor, No Cough, No Labored Respirations, No Retractions, No Use of Accessory Muscles, No Other Abnormal Lung Sounds Heart: Yes Regular, No Murmur Abdomen: Yes Normal Bowel Sounds, No Tenderness, No Peritoneal Signs Skin: No Rash, No Edema Neurologic: Alert and oriented, no deficits. Musculoskeletal: Unremarkable. ED Course Vital Signs 02/06/19 06:08 Temperature 97.8 F Pulse Rate 81 Respiratory 18 Rate Blood Pressure 160/102 O2 Sat by Pulse 99 Oximetry ED Medical Decision Making - Radiology Data Radiology results: report reviewed, image reviewed FINDINGS: Heart: Normal. Mediastinum/Vessels: Normal. Lungs/Pleural space: Normal. Bony thorax: No acute osseous abnormality. Life support devices: None. IMPRESSION: No acute cardiopulmonary abnormality. This document is electronically signed by Gloria Parikh DO., February 06 2019 06:40:35 AM ET Transcribed By: [facility] Dictated By: GLORIA PARIKH MD Electronically Authenticated By: GLORIA PARIKH MD Signed Date/Time: 02/06/19 0642 - Medical Decision Making 28-year-old female presents with bronchitis. Chest x-ray shows no acute cardiopulmonary process. Discussed findings with the patient. Patient does admit that she is a smoker of marijuana Discussed the patient smoking could be making symptoms worse and not better. Discussed the patient to stop smoking Discussed to follow up with primary care physician. Vital signs normal patient is in no acute distress. Critical care attestation.: If time is entered above; I have spent that time in minutes in the direct care of this critically ill patient, excluding procedure time. ED Disposition Clinical Impression: Bronchitis Disposition: DC-01 TO HOME OR SELFCARE Is pt being admited?: No Does the pt Need Aspirin: No Condition: Stable Instructions: Chronic Bronchitis (ED) Additional Instructions: Make sure to follow up with the primary care physician as discussed. Take all your medications as you've been prescribed. If you have any worsening symptoms or develop new symptoms please return to ED immediately. Prescriptions: guaiFENesin [Mucinex] 600 mg PO BID #10 tab.er.12h guaiFENesin/CODEINE [Robitussin AC] 5 ml PO TID #80 ml ALBUTEROL Inhaler(NF) [VENTOLIN Inhaler(NF)] 1 puff IH Q4HRT PRN #1 inha PRN Reason: wheeze [facility] [Primary Care Provider] - 3-5 Days [facility] [Provider Group] - 3-5 Days [facility] [Provider Group] - 3-5 Days ART SULLIVAN MD [Staff Physician] - 3-5 Days Forms: Work/School Release Form(ED) Time of Disposition: 07:50
[2019-02-06 08:12] VITALS: BP 132/88
== END 2019-02-06 08:11 | disposition home or self-care (01) ==
LOC: ED 06:07
DX: J40 Bronchitis, not specified as acute or chronic (principal); F17.200 Nicotine dependence, unspecified, uncomplicated; L40.9 Psoriasis, unspecified; M06.9 Rheumatoid arthritis, unspecified; E66.01 Morbid (severe) obesity due to excess calories; Z68.43 Body mass index [BMI] 50.0-59.9, adult
CPT/HCPCS: 71045; 93005; 93010; 99283; J7512

== ENCOUNTER 2019-03-16 00:20 | Emergency (ER) | payer MEDICAID ==
[2019-03-16 00:58] VITALS: BP 149/82
[2019-03-16 01:49] LABS: Basophils % (Auto) 0.2 % (0.0-1.8); Eosinophils % (Auto) 0.4 % (0.0-4.3); Hematocrit 32.2 % (30.3-42.9); Hemoglobin 10.1 gm/dl (10.1-14.3); Lymphocytes % (Auto) 9.1 % (13.4-35.0); Mean Corpuscular HGB Conc 31 % (30-34); Mean Corpuscular Volume 76 fl (79-97); Monocytes # (Auto) 0.6 K/mm3 (0.0-0.8); Monocytes % (Auto) 5.7 % (0.0-7.3); Platelet Count 367 K/mm3 (140-440); Red Blood Count 4.22 M/mm3 (3.65-5.03); Red Cell Distribution Width 18.2 % (13.2-15.2)
[2019-03-16 02:03] LABS: BUN/Creatinine Ratio 24; Blood Urea Nitrogen 12 mg/dL (7-17); Calcium 8.6 mg/dL (8.4-10.2); Hemolysis Index 4
--- NOTE | 2019-03-16 02:30 | XRay Report ---
PROCEDURE: XR CHEST 1V AP TECHNIQUE: Chest radiograph single view. HISTORY: Chest Pain COMPARISONS: None . FINDINGS: Single frontal view of the chest was acquired and compared to the prior examination of Apri l 2018. The heart is normal in size. The lungs appear clear. The pleura and mediastinum are within normal marquez its. IMPRESSION: No active disease in the chest This document is electronically signed by David Newsome MD., March 16 2019 03:27:56 AM ET
--- NOTE | 2019-03-16 03:02 | Emergency Department Report ---
ED General Adult HPI - General Chief complaint: Chest Pain Stated complaint: CHEST PAIN SOB ABD PAIN Time Seen by Provider: 03/16/19 02:56 Source: patient Mode of arrival: Ambulatory Limitations: No Limitations - History of Present Illness Initial comments: 28-year-old obese female with a past medical history rheumatoid arthritis comes in complaining of intermittent chest pain shortness of breathing and mild abdominal pain. Patient reports that she was swimming 1 week ago when she was under water for about 45 seconds and thinks she may have Fluid in her lungs. Patient denies any fever or chills no nausea no vomiting. Patient reports she took an ibuprofen for pain. Onset/Timin -: week(s) Location: chest Radiation: non-radiation Consistency: intermittent Worsens with: none Associated Symptoms: chest pain, shortness of breath. denies: cough, diaphoresis, headaches - Related Data Home Medications Medication Instructions Recorded Confirmed Last Taken Aspirin [Aspirin BABY CHEW TAB] 81 mg PO QDAY 10/21/18 12/03/18 12/03/18 predniSONE [Deltasone] 20 mg PO QDAY 12/03/18 12/03/18 Unknown predniSONE [Prednisone] 20 mg PO DAILY 12/03/18 12/03/18 12/02/18 Previous Rx's Medication Instructions Recorded Last Taken Type traMADol [Ultram 50 MG tab] 50 mg PO Q6HR PRN #20 tablet 11/08/18 Unknown Rx HYDROcodone/APAP 5-325 [[place] 1 each PO Q6HR PRN #10 tablet 12/05/18 Unknown Rx 5-325 mg TAB] Pantoprazole [Protonix] 40 mg PO QDAY #30 tablet 12/05/18 Unknown Rx Meloxicam 15 mg PO QDAY #15 tablet 12/11/18 Unknown Rx Prednisone [predniSONE 10 mg 10 mg PO .TAPER #1 tab.ds.pk 12/11/18 Unknown Rx (6-Day Pack, 21 Tabs)] Ibuprofen [Motrin] 800 mg PO Q8HR PRN #30 tablet 12/25/18 Unknown Rx predniSONE [Prednisone] 10 mg PO DAILY #7 tab.ds.pk 12/25/18 Unknown Rx traMADol [Ultram] 50 mg PO Q6HR PRN #24 tablet 12/25/18 Unknown Rx HYDROcodone/ACETAMINOPHEN 1 each PO Q6HR PRN #12 tablet 01/15/19 Unknown Rx [Hydrocodone-Acetamin 5-325 mg] Ibuprofen [Ibu] 600 mg PO Q6HR PRN #20 tablet 01/15/19 Unknown Rx Meclizine [Antivert] 25 mg PO TID PRN #12 tablet 01/15/19 Unknown Rx Ondansetron [Zofran Odt] 4 mg PO Q8HR #10 tab.rapdis 01/15/19 Unknown Rx Benzonatate [Tessalon Perle] 100 mg PO TID #12 capsule 01/29/19 Unknown Rx ALBUTEROL Inhaler(NF) [VENTOLIN 1 puff IH Q4HRT PRN #1 inha 02/06/19 Unknown Rx Inhaler(NF)] Azithromycin [Zithromax] 250 mg PO DAILY #1 pack 02/06/19 Unknown Rx guaiFENesin [Mucinex] 600 mg PO BID #10 tab.er.12h 02/06/19 Unknown Rx guaiFENesin/CODEINE [Robitussin AC] 5 ml PO TID #80 ml 02/06/19 Unknown Rx Allergies Allergy/AdvReac Type Severity Reaction Status Date / Time No Known Allergies Allergy Verified 12/25/18 08:57 ED Review of Systems ROS: Stated complaint: CHEST PAIN SOB ABD PAIN Other details as noted in HPI Comment: All other systems reviewed and negative Constitutional: denies: chills, fever Eyes: denies: eye pain, eye discharge, vision change ENT: denies: ear pain, throat pain Respiratory: shortness of breath. denies: cough, wheezing Cardiovascular: chest pain Endocrine: no symptoms reported Gastrointestinal: denies: abdominal pain, nausea, diarrhea Genitourinary: denies: urgency, dysuria, discharge Musculoskeletal: denies: back pain, joint swelling, arthralgia Skin: denies: rash, lesions Neurological: denies: headache, weakness, paresthesias Psychiatric: denies: anxiety, depression Hematological/Lymphatic: denies: easy bleeding, easy bruising ED Past Medical Hx - Past Medical History Previous Medical History?: Yes Hx Congestive Heart Failure: No Hx Diabetes: No Hx Arthritis: Yes (Rheumatoid) Hx Seizures: No Hx Asthma: No Hx COPD: No Additional medical history: RA, Lupus, Morbid Obesity. Psoriasis - Surgical History Past Surgical History?: Yes Additional Surgical History: Psoriasis - Social History Smoking Status: Never Smoker Substance Use Type: Marijuana - Medications Home Medications: Home Medications Medication Instructions Recorded Confirmed Last Taken Type Aspirin [Aspirin BABY CHEW TAB] 81 mg PO QDAY 10/21/18 12/03/18 12/03/18 History traMADol [Ultram 50 MG tab] 50 mg PO Q6HR PRN #20 tablet 11/08/18 12/03/18 Unknown Rx predniSONE [Deltasone] 20 mg PO QDAY 12/03/18 12/03/18 Unknown History predniSONE [Prednisone] 20 mg PO DAILY 12/03/18 12/03/18 12/02/18 History HYDROcodone/APAP 5-325 [[place] 1 each PO Q6HR PRN #10 tablet 12/05/18 Unknown Rx 5-325 mg TAB] Pantoprazole [Protonix] 40 mg PO QDAY #30 tablet 12/05/18 Unknown Rx Meloxicam 15 mg PO QDAY #15 tablet 12/11/18 Unknown Rx Prednisone [predniSONE 10 mg 10 mg PO .TAPER #1 tab.ds.pk 12/11/18 Unknown Rx (6-Day Pack, 21 Tabs)] Ibuprofen [Motrin] 800 mg PO Q8HR PRN #30 tablet 12/25/18 Unknown Rx predniSONE [Prednisone] 10 mg PO DAILY #7 tab.ds.pk 12/25/18 Unknown Rx traMADol [Ultram] 50 mg PO Q6HR PRN #24 tablet 12/25/18 Unknown Rx HYDROcodone/ACETAMINOPHEN 1 each PO Q6HR PRN #12 tablet 01/15/19 Unknown Rx [Hydrocodone-Acetamin 5-325 mg] Ibuprofen [Ibu] 600 mg PO Q6HR PRN #20 tablet 01/15/19 Unknown Rx Meclizine [Antivert] 25 mg PO TID PRN #12 tablet 01/15/19 Unknown Rx Ondansetron [Zofran Odt] 4 mg PO Q8HR #10 tab.rapdis 01/15/19 Unknown Rx Benzonatate [Tessalon Perle] 100 mg PO TID #12 capsule 01/29/19 Unknown Rx ALBUTEROL Inhaler(NF) [VENTOLIN 1 puff IH Q4HRT PRN #1 inha 02/06/19 Unknown Rx Inhaler(NF)] Azithromycin [Zithromax] 250 mg PO DAILY #1 pack 02/06/19 Unknown Rx guaiFENesin [Mucinex] 600 mg PO BID #10 tab.er.12h 02/06/19 Unknown Rx guaiFENesin/CODEINE [Robitussin AC] 5 ml PO TID #80 ml 02/06/19 Unknown Rx ED Physical Exam - General Limitations: No Limitations General appearance: alert, in no apparent distress - Head Head exam: Present: atraumatic, normocephalic - Eye Eye exam: Present: normal appearance - ENT ENT exam: Present: mucous membranes moist - Neck Neck exam: Present: normal inspection - Respiratory Respiratory exam: Present: normal lung sounds bilaterally. Absent: respiratory distress, wheezes, chest wall tenderness - Cardiovascular Cardiovascular Exam: Present: regular rate, normal rhythm. Absent: systolic murmur, diastolic murmur, rubs, gallop - GI/Abdominal GI/Abdominal exam: Present: soft, normal bowel sounds. Absent: tenderness, guarding - Extremities Exam Extremities exam: Present: normal inspection - Back Exam Back exam: Present: normal inspection - Neurological Exam Neurological exam: Present: alert, oriented X3 - Psychiatric Psychiatric exam: Present: normal affect, normal mood - Skin Skin exam: Present: warm, dry, intact, normal color. Absent: rash ED Course Vital Signs 03/16/19 00:55 Temperature 98.0 F Pulse Rate 100 H Respiratory 16 Rate Blood Pressure 149/82 O2 Sat by Pulse 99 Oximetry ED Medical Decision Making - Lab Data Result diagrams: 03/16/19 01:24 03/16/19 01:24 - Radiology Data Radiology results: report reviewed Patient: GILDA FRYE MR#: [id number] : 1990 Acct:[id number] Age/Sex: 28 / F ADM Date: 03/16/19 Loc: ED Attending Dr: Ordering Physician: ROMAN LAWSON MD Date of Service: 03/16/19 Procedure(s): XR chest 1V ap Accession Number(s): [id number] cc: ED MD LULU Fluoro Time In Minutes: PROCEDURE: XR CHEST 1V AP TECHNIQUE: Chest radiograph single view. HISTORY: Chest Pain COMPARISONS: None . FINDINGS: Single frontal view of the chest was acquired and compared to the prior examination of February 06, 2019. The heart is normal in size. The lungs appear clear. The pleura and mediastinum are within normal limits. IMPRESSION: No active disease in the chest This document is electronically signed by David Newsome MD., March 16 2019 03:27:56 AM ET Transcribed By: [facility] Dictated By: DAVID NEWSOME MD Electronically Authenticated By: DAVID NEWSOME MD Signed Date/Time: 03/16/19229 DD/ 2 TD/TT: 03/16/19143 - Medical Decision Making 28-year-old obese female with a history of rheumatoid arthritis comes in for intermittent chest pain 2 weeks no fever no chills. Patient has a normal physical examination. Patient was sleeping very comfortably in the room and this provider initially came in. Patient chest x-ray was within normal limits vital signs are stable. Patient is stable to be discharged home for follow-up with her primary care provider. Critical care attestation.: If time is entered above; I have spent that time in minutes in the direct care of this critically ill patient, excluding procedure time. ED Disposition Clinical Impression: SOB (shortness of breath), Morbid obesity Disposition: - TO HOME OR SELFCARE Is pt being admited?: No Does the pt Need Aspirin: No Condition: Stable Instructions: Dyspnea (ED), Obesity (ED) Additional Instructions: Please follow up with her primary care provider if his symptoms persist or gets worse. Referrals: SHELLY BLAND MD [Primary Care Provider] - 3-5 Days
== END 2019-03-16 04:00 | disposition home or self-care (01) ==
LOC: ED 00:20
DX: R06.02 Shortness of breath (principal); R07.89 Other chest pain; E66.01 Morbid (severe) obesity due to excess calories; M19.90 Unspecified osteoarthritis, unspecified site; F12.90 Cannabis use, unspecified, uncomplicated; Z79.82 Long term (current) use of aspirin; Z79.899 Other long term (current) drug therapy
CPT/HCPCS: 36415; 71045; 80048; 84703; 85025; 93005; 93010; 99284

== ENCOUNTER 2019-04-14 13:29 | Emergency (ER) | payer MEDICAID, OTHER ==
--- NOTE | 2019-04-14 13:56 | Event Note ---
ED Screening Note Date of service: 04/14/19 Time: 13:52 ED Screening Note: 29 y/o female comes in for chest pain on left side . 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 This initial assessment/diagnostic orders/clinical plan/treatment(s) is/are subject to change based on patients health status, clinical progression and re- assessment by fellow clinical providers in the ED. Further treatment and workup at subsequent clinical providers discretion. Patient/guardian urged not to elope from the ED as their condition may be serious if not clinically assessed and managed. Initial orders include:
--- NOTE | 2019-04-14 14:44 | XRay Report ---
PROCEDURE: XR CHEST ROUTINE 2V TECHNIQUE: Frontal and lateral chest radiographs. HISTORY: chest pain COMPARISONS: 03/16/2019. FINDINGS: The cardiomediastinal silhouette is normal. No consolidation. No pleural effusion. No pneumothorax. No acute osseous abnormality. IMPRESSION: No acute process in the chest. This document is electronically signed by Greer Stallworth., April 14 2019 02:41:37 PM ET
--- NOTE | 2019-04-14 15:37 | Emergency Department Report ---
ED Chest Pain HPI - General Chief Complaint: Chest Pain Stated Complaint: CHEST PAIN Time Seen by Provider: 04/14/19 15:16 Source: patient Mode of arrival: Wheelchair Limitations: No Limitations - History of Present Illness Initial Comments: Reports history of chest pain. Reports she has had numerous evaluations for chest pain including echo, stress test, and test where they shoot dye in her vein. Reports all testing has returned normal. 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 Reports hx lupus and RA. Reports hx of bronchitis and that she only came in for an Xray to make sure she was not having a bad bronchitis. Reports chest pain at rest today while riding in the car. Reports marijuana use today. Denies IVDA. Complaint: chest pain -: hour(s) Onset: during rest Pain Location: substernal Pain Radiation: none Severity: mild Severity scale (0 -10): 1 Quality: aching Consistency: intermittent Improves With: nothing Worsens With: nothing re: denies: nausea, vomting, diaphoresis, dyspnea, sense of impending doom Other Symptoms: denies: cough, fever, syncope, rash, acid taste in mouth, leg swelling, palpitations, burping - Related Data Home Medications Medication Instructions Recorded Confirmed Last Taken Aspirin [Aspirin BABY CHEW TAB] 81 mg PO QDAY 10/21/18 12/03/18 12/03/18 predniSONE [Deltasone] 20 mg PO QDAY 12/03/18 12/03/18 Unknown predniSONE [Prednisone] 20 mg PO DAILY 12/03/18 12/03/18 12/02/18 Previous Rx's Medication Instructions Recorded Last Taken Type traMADol [Ultram 50 MG tab] 50 mg PO Q6HR PRN #20 tablet 11/08/18 Unknown Rx HYDROcodone/APAP 5-325 [[place] 1 each PO Q6HR PRN #10 tablet 12/05/18 Unknown Rx 5-325 mg TAB] Pantoprazole [Protonix] 40 mg PO QDAY #30 tablet 12/05/18 Unknown Rx Meloxicam 15 mg PO QDAY #15 tablet 12/11/18 Unknown Rx Prednisone [predniSONE 10 mg 10 mg PO .TAPER #1 tab.ds.pk 12/11/18 Unknown Rx (6-Day Pack, 21 Tabs)] Ibuprofen [Motrin] 800 mg PO Q8HR PRN #30 tablet 12/25/18 Unknown Rx predniSONE [Prednisone] 10 mg PO DAILY #7 tab.ds.pk 12/25/18 Unknown Rx traMADol [Ultram] 50 mg PO Q6HR PRN #24 tablet 12/25/18 Unknown Rx HYDROcodone/ACETAMINOPHEN 1 each PO Q6HR PRN #12 tablet 01/15/19 Unknown Rx [Hydrocodone-Acetamin 5-325 mg] Ibuprofen [Ibu] 600 mg PO Q6HR PRN #20 tablet 01/15/19 Unknown Rx Meclizine [Antivert] 25 mg PO TID PRN #12 tablet 01/15/19 Unknown Rx Ondansetron [Zofran Odt] 4 mg PO Q8HR #10 tab.rapdis 01/15/19 Unknown Rx Benzonatate [Tessalon Perle] 100 mg PO TID #12 capsule 01/29/19 Unknown Rx ALBUTEROL Inhaler(NF) [VENTOLIN 1 puff IH Q4HRT PRN #1 inha 02/06/19 Unknown Rx Inhaler(NF)] Azithromycin [Zithromax] 250 mg PO DAILY #1 pack 02/06/19 Unknown Rx guaiFENesin [Mucinex] 600 mg PO BID #10 tab.er.12h 02/06/19 Unknown Rx guaiFENesin/CODEINE [Robitussin AC] 5 ml PO TID #80 ml 02/06/19 Unknown Rx Allergies Allergy/AdvReac Type Severity Reaction Status Date / Time No Known Allergies Allergy Verified 12/25/18 08:57 Heart Score - HEART Score History: Slightly suspicious EKG: Normal Age: < 45 Risk factors: No known risk factors Troponin: < normal limit (Heart score is inaccurate on this patient as patient left AMA. The heart score is required for signing a chest pain chart and this score was picked randomly so that the chart could be completed.) HEART Score: 0 ED Review of Systems ROS: Stated complaint: CHEST PAIN Other details as noted in HPI Other: GENERAL: No weight change, fatigue, weakness, fever, chills, or night sweats SKIN: No changes in skin or hair, no itching, no rashes, no jaundice HEAD: No trauma, headache, or visual changes EYES: No blurriness, tearing, itching, acute visual loss, conjunctival discoloration, or scleral icterus EARS: No hearing loss, tinnitus, vertigo, or earache NOSE: No rhinorrhea, stuffiness, sneezing, itching, or epistaxis MOUTH: No bleeding gums, hoarseness, sore throat, or swelling CARDIAC: Chest pain. No new murmur, palpitations, dyspnea on exertion, orthopnea, PND, or edema RESPIRATORY: No shortness of breath, wheeze, cough, sputum production, hemoptysis, pneumonia, asthma, bronchitis, or emphysema GI: No change in appetite, nausea, vomiting, dysphagia, change in bowel frequency, diarrhea, constipation, bleeding, hematemesis, melena, hematochezia, or abdominal pain URINARY: No frequency, urgency, polyuria, dysuria, hematuria, or incontinence MUSCULOSKELETAL: No muscle weakness, joint stiffness, decrease in range of motion, redness, swelling NEUROLOGIC: No loss of sensation, numbness, tingling, tremors, weakness, paralysis, seizures HEMATOLOGIC: No anemia, easy bruising, bleeding, petechiae, or purpura ENDOCRINE: No hot or cold intolerance, sweating, polyuria, polydipsia or, polyphagia no thyroid problems PSYCHIATRIC: No change in mood, no anxiety, no depression ED Past Medical Hx - Past Medical History Previous Medical History?: Yes Hx Congestive Heart Failure: No Hx Diabetes: No Hx Arthritis: Yes (Rheumatoid) Hx Seizures: No Hx Asthma: No Hx COPD: No Additional medical history: RA, Lupus, Morbid Obesity. Psoriasis - Surgical History Past Surgical History?: No Additional Surgical History: Psoriasis - Social History Smoking Status: Never Smoker Substance Use Type: Marijuana - Medications Home Medications: Home Medications Medication Instructions Recorded Confirmed Last Taken Type Aspirin [Aspirin BABY CHEW TAB] 81 mg PO QDAY 10/21/18 12/03/18 12/03/18 History traMADol [Ultram 50 MG tab] 50 mg PO Q6HR PRN #20 tablet 11/08/18 12/03/18 Unknown Rx predniSONE [Deltasone] 20 mg PO QDAY 12/03/18 12/03/18 Unknown History predniSONE [Prednisone] 20 mg PO DAILY 12/03/18 12/03/18 12/02/18 History HYDROcodone/APAP 5-325 [[place] 1 each PO Q6HR PRN #10 tablet 12/05/18 Unknown Rx 5-325 mg TAB] Pantoprazole [Protonix] 40 mg PO QDAY #30 tablet 12/05/18 Unknown Rx Meloxicam 15 mg PO QDAY #15 tablet 12/11/18 Unknown Rx Prednisone [predniSONE 10 mg 10 mg PO .TAPER #1 tab.ds.pk 12/11/18 Unknown Rx (6-Day Pack, 21 Tabs)] Ibuprofen [Motrin] 800 mg PO Q8HR PRN #30 tablet 12/25/18 Unknown Rx predniSONE [Prednisone] 10 mg PO DAILY #7 tab.ds.pk 12/25/18 Unknown Rx traMADol [Ultram] 50 mg PO Q6HR PRN #24 tablet 12/25/18 Unknown Rx HYDROcodone/ACETAMINOPHEN 1 each PO Q6HR PRN #12 tablet 01/15/19 Unknown Rx [Hydrocodone-Acetamin 5-325 mg] Ibuprofen [Ibu] 600 mg PO Q6HR PRN #20 tablet 01/15/19 Unknown Rx Meclizine [Antivert] 25 mg PO TID PRN #12 tablet 01/15/19 Unknown Rx Ondansetron [Zofran Odt] 4 mg PO Q8HR #10 tab.rapdis 01/15/19 Unknown Rx Benzonatate [Tessalon Perle] 100 mg PO TID #12 capsule 01/29/19 Unknown Rx ALBUTEROL Inhaler(NF) [VENTOLIN 1 puff IH Q4HRT PRN #1 inha 02/06/19 Unknown Rx Inhaler(NF)] Azithromycin [Zithromax] 250 mg PO DAILY #1 pack 02/06/19 Unknown Rx guaiFENesin [Mucinex] 600 mg PO BID #10 tab.er.12h 02/06/19 Unknown Rx guaiFENesin/CODEINE [Robitussin AC] 5 ml PO TID #80 ml 02/06/19 Unknown Rx ED Physical Exam - General Limitations: No Limitations - Other Other exam information: GENERAL: Patient in no acute distress HEAD: Normocephalic, atraumatic EYES: PERRLA, EOM intact, no scleral icterus, no papilledema, no conjunctival hemorrhage, visual loera and acuity wnl, NOSE: No tenderness, discharge, sinus tenderness MOUTH: No erythema, bleeding, exudate HEART: Regular rate and rhythm, no murmur, S1-S2 are auscultated, pulses are symmetric LUNGS: No wheezing, rales, rhonchi, bilateral breath sounds ABDOMEN: Normal bowel sounds, no tenderness, no rebound, no guarding, no masses, no CVA tenderness MUSCULOSKELETAL: Normal joint range of motion, no redness, no swelling, no tenderness NEUROLOGIC: GCS 15, Alert and Oriented x3, Cranial nerves intact, normal sensation, normal strength, normal gait, no cerebellar deficit PSYCHIATRIC: No homicidal or suicidal ideation, no anxiety, no depression, no hallucinations SKIN: Skin is warm and dry, no wounds, no rashes TONY score - Tony Score Age > 65: (0) No Aspirin use within the Past 7 Days: (0) No 3 or more CAD Risk Factors: (0) No 2 or more Angina events in past 24 hrs: (1) Yes Known CAD with more than 50% Stenosis: (0) No Elevated Cardiac Markers: (0) No ST Deviation Greater than 0.5mm: (0) No TONY Score: 1 ED Medical Decision Making - Radiology Data Radiology results: report reviewed - Medical Decision Making Patient updated with results. Recommended admission for further evaluation. Patient request discharge. Risks/benefits/alternatives discussed including . Patient expressed understanding and request discharge. Agrees return if symptoms worsen. Critical care attestation.: If time is entered above; I have spent that time in minutes in the direct care of this critically ill patient, excluding procedure time. ED Disposition Clinical Impression: Left against medical advice Chest pain Qualifiers: Chest pain type: unspecified Qualified Code(s): R07.9 - Chest pain, unspecified Disposition: LEFT AGAINST MED ADVICE Is pt being admited?: No Condition: Stable Instructions: Chest Pain (ED) Referrals: [facility] TORRIE [Primary Care Provider] - 2-3 Days OSCAR MILLER MD [Staff Physician] - 2-3 Days Time of Disposition: 15:32
== END 2019-04-14 16:28 | disposition left against medical advice (07) ==
LOC: ED 13:29
DX: R07.2 Precordial pain (principal); M32.9 Systemic lupus erythematosus, unspecified; M06.9 Rheumatoid arthritis, unspecified; J40 Bronchitis, not specified as acute or chronic; F12.10 Cannabis abuse, uncomplicated; Z79.82 Long term (current) use of aspirin; Z79.1 Long term (current) use of non-steroidal anti-inflammatories (NSAID); Z79.899 Other long term (current) drug therapy
CPT/HCPCS: 71046; 99283

== ENCOUNTER 2019-05-08 19:05 | Emergency (ER) | payer MEDICAID ==
[2019-05-08] MEDS ORDERED: TYLENOL PO ONE (20:16)
--- NOTE | 2019-05-08 20:17 | Emergency Department Report ---
ED General Adult HPI - General Chief complaint: Urogenital-Female Stated complaint: CHEST PAIN/ Time Seen by Provider: 05/08/19 20:02 Source: patient, RN notes reviewed, old records reviewed Mode of arrival: Ambulatory Limitations: No Limitations - History of Present Illness Initial comments: This is a 29-year-old female. The patient has a history of morbid obesity, lupus, rheumatoid arthritis, chronic chest pain, her primary care doctor is Dr. Butler. As per prior documentation, patient reportedly is followed by sticker hand, and has had extensive cardiac risk stratification. The patient presents to the ER today with multiple complaints. Her first complaint is left-sided abdominal pain. The abdominal pain has been present for the past 4 days. It is left flank and radiates to the left lower quadrant. it does not have exacerbating or relieving factors. Patient believes that she is . She states that she is 5, para 0. She reports 3 spontaneous miscarriage, and one elective termination She denies other abdominal surgeries. She believes her last menstrual period is March 11. So far, no care. Patient indicates she follows with [facility] She has a documented history of marijuana consumption. She endorses a secondary complaint of chest pain. The chest pain is intermittent. It is sometimes present on the left side of the chest, and then on the right side of the chest. It is not ready to the back, arms and neck. There is no vomiting. There is no diaphoresis. There is no recent aspirin consumption. The patient has shortness of breath. She states this is chronic. She denies other symptoms at this time. She declines a pelvic exam. She indicates that she does not want "strong pain medicine." -: Gradual, days(s) Location: chest, abdomen Radiation: other Quality: other Consistency: other Improves with: other Worsens with: other - Related Data Home Medications Medication Instructions Recorded Confirmed Last Taken Aspirin [Aspirin BABY CHEW TAB] 81 mg PO QDAY 10/21/18 12/03/18 12/03/18 predniSONE [Deltasone] 20 mg PO QDAY 12/03/18 12/03/18 Unknown predniSONE [Prednisone] 20 mg PO DAILY 12/03/18 12/03/18 12/02/18 Previous Rx's Medication Instructions Recorded Last Taken Type traMADol [Ultram 50 MG tab] 50 mg PO Q6HR PRN #20 tablet 11/08/18 Unknown Rx HYDROcodone/APAP 5-325 [[place] 1 each PO Q6HR PRN #10 tablet 12/05/18 Unknown Rx 5-325 mg TAB] Pantoprazole [Protonix] 40 mg PO QDAY #30 tablet 12/05/18 Unknown Rx Meloxicam 15 mg PO QDAY #15 tablet 12/11/18 Unknown Rx Prednisone [predniSONE 10 mg 10 mg PO .TAPER #1 tab.ds.pk 12/11/18 Unknown Rx (6-Day Pack, 21 Tabs)] Ibuprofen [Motrin] 800 mg PO Q8HR PRN #30 tablet 12/25/18 Unknown Rx predniSONE [Prednisone] 10 mg PO DAILY #7 tab.ds.pk 12/25/18 Unknown Rx traMADol [Ultram] 50 mg PO Q6HR PRN #24 tablet 12/25/18 Unknown Rx HYDROcodone/ACETAMINOPHEN 1 each PO Q6HR PRN #12 tablet 01/15/19 Unknown Rx [Hydrocodone-Acetamin 5-325 mg] Ibuprofen [Ibu] 600 mg PO Q6HR PRN #20 tablet 01/15/19 Unknown Rx Meclizine [Antivert] 25 mg PO TID PRN #12 tablet 01/15/19 Unknown Rx Ondansetron [Zofran Odt] 4 mg PO Q8HR #10 tab.rapdis 01/15/19 Unknown Rx Benzonatate [Tessalon Perle] 100 mg PO TID #12 capsule 01/29/19 Unknown Rx ALBUTEROL Inhaler(NF) [VENTOLIN 1 puff IH Q4HRT PRN #1 inha 02/06/19 Unknown Rx Inhaler(NF)] Azithromycin [Zithromax] 250 mg PO DAILY #1 pack 02/06/19 Unknown Rx guaiFENesin [Mucinex] 600 mg PO BID #10 tab.er.12h 02/06/19 Unknown Rx guaiFENesin/CODEINE [Robitussin AC] 5 ml PO TID #80 ml 02/06/19 Unknown Rx Allergies Allergy/AdvReac Type Severity Reaction Status Date / Time No Known Allergies Allergy Verified 12/25/18 08:57 ED Review of Systems ROS: Stated complaint: CHEST PAIN/ Other details as noted in HPI Constitutional: denies: fever, weakness Eyes: denies: eye discharge ENT: denies: epistaxis Respiratory: shortness of breath Cardiovascular: chest pain Gastrointestinal: abdominal pain Genitourinary: denies: dysuria Musculoskeletal: back pain Skin: denies: lesions Neurological: denies: weakness Psychiatric: anxiety Hematological/Lymphatic: denies: easy bleeding ED Past Medical Hx - Past Medical History Hx Congestive Heart Failure: No Hx Diabetes: No Hx Arthritis: Yes (Rheumatoid) Hx Seizures: No Hx Asthma: No Hx COPD: No Additional medical history: RA, Lupus, Morbid Obesity. Psoriasis - Surgical History Past Surgical History?: No Additional Surgical History: Psoriasis - Social History Smoking Status: Never Smoker Substance Use Type: Marijuana - Medications Home Medications: Home Medications Medication Instructions Recorded Confirmed Last Taken Type Aspirin [Aspirin BABY CHEW TAB] 81 mg PO QDAY 10/21/18 12/03/18 12/03/18 History traMADol [Ultram 50 MG tab] 50 mg PO Q6HR PRN #20 tablet 11/08/18 12/03/18 Unknown Rx predniSONE [Deltasone] 20 mg PO QDAY 12/03/18 12/03/18 Unknown History predniSONE [Prednisone] 20 mg PO DAILY 12/03/18 12/03/18 12/02/18 History HYDROcodone/APAP 5-325 [[place] 1 each PO Q6HR PRN #10 tablet 12/05/18 Unknown Rx 5-325 mg TAB] Pantoprazole [Protonix] 40 mg PO QDAY #30 tablet 12/05/18 Unknown Rx Meloxicam 15 mg PO QDAY #15 tablet 12/11/18 Unknown Rx Prednisone [predniSONE 10 mg 10 mg PO .TAPER #1 tab.ds.pk 12/11/18 Unknown Rx (6-Day Pack, 21 Tabs)] Ibuprofen [Motrin] 800 mg PO Q8HR PRN #30 tablet 12/25/18 Unknown Rx predniSONE [Prednisone] 10 mg PO DAILY #7 tab.ds.pk 12/25/18 Unknown Rx traMADol [Ultram] 50 mg PO Q6HR PRN #24 tablet 12/25/18 Unknown Rx HYDROcodone/ACETAMINOPHEN 1 each PO Q6HR PRN #12 tablet 01/15/19 Unknown Rx [Hydrocodone-Acetamin 5-325 mg] Ibuprofen [Ibu] 600 mg PO Q6HR PRN #20 tablet 01/15/19 Unknown Rx Meclizine [Antivert] 25 mg PO TID PRN #12 tablet 01/15/19 Unknown Rx Ondansetron [Zofran Odt] 4 mg PO Q8HR #10 tab.rapdis 01/15/19 Unknown Rx Benzonatate [Tessalon Perle] 100 mg PO TID #12 capsule 01/29/19 Unknown Rx ALBUTEROL Inhaler(NF) [VENTOLIN 1 puff IH Q4HRT PRN #1 inha 02/06/19 Unknown Rx Inhaler(NF)] Azithromycin [Zithromax] 250 mg PO DAILY #1 pack 02/06/19 Unknown Rx guaiFENesin [Mucinex] 600 mg PO BID #10 tab.er.12h 02/06/19 Unknown Rx guaiFENesin/CODEINE [Robitussin AC] 5 ml PO TID #80 ml 02/06/19 Unknown Rx ED Physical Exam - General Limitations: No Limitations General appearance: alert, anxious, obese - Head Head exam: Present: atraumatic, normocephalic - Eye Eye exam: Present: normal appearance, EOMI - ENT ENT exam: Present: normal exam, normal orophraynx, mucous membranes moist, normal external ear exam - Neck Neck exam: Present: normal inspection, full ROM. Absent: tenderness - Respiratory Respiratory exam: Present: normal lung sounds bilaterally, chest wall tenderness, other (chaperoned by nurse Krissy Zambrano). Absent: respiratory distress, wheezes, rales, rhonchi, stridor - Cardiovascular Cardiovascular Exam: Present: regular rate, normal rhythm, normal heart sounds. Absent: bradycardia, tachycardia, irregular rhythm, systolic murmur, diastolic murmur, rubs, gallop - GI/Abdominal GI/Abdominal exam: Present: soft. Absent: distended, tenderness, guarding, rebound, rigid, pulsatile mass - Extremities Exam Extremities exam: Present: normal inspection, full ROM, other (2+ pulses noted in the bilateral upper, lower extremities. Compartments soft. No long bony tenderness. The pelvis is stable.). Absent: pedal edema, joint swelling, calf tenderness - Back Exam Back exam: Present: normal inspection, full ROM. Absent: tenderness, CVA tenderness (R), CVA tenderness (L), paraspinal tenderness, vertebral tenderness - Neurological Exam Neurological exam: Present: alert, normal gait, other (Extraocular movements intact. Tongue midline. No facial droop. Facial sensation intact to light touch in the V1, V2, V3 distribution bilaterally. 5 and 5 strength in 4 extremities.. Sensation is intact to light touch in 4 extremities.). Absent: motor sensory deficit - Psychiatric Psychiatric exam: Present: anxious - Skin Skin exam: Present: warm, dry, intact, normal color. Absent: rash ED Course Vital Signs 05/08/19 19:38 Temperature 98.4 F Pulse Rate 83 Respiratory 16 Rate Blood Pressure 127/79 O2 Sat by Pulse 97 Oximetry - Reevaluation(s) Reevaluation #1: 05/08/19 21:11 Differential diagnosis, including but not limited to: Miscarriage, urinary tract infection, constipation, renal colic, ovarian cyst, hernia, costochondritis, GERD, gastritis, hiatal hernia, pneumonia, acute coronary syndrome, pulmonary embolism Assessment and plan: 29-year-old morbidly obese female, numerous chronic medical conditions, with 2 complaints. Complaint #1, left lower quadrant abdominal pain. The patient is afebrile with reassuring vital signs. Leukocytosis is reviewed and appreciated. She is nontender. She appears quite comfortable. This may be secondary to chronic steroid use, stress reaction, secondary to pain. Laboratory studies indicate that she is not . She does not want anything potent for pain. An obstructive ultrasound was obtained before her quantitative hCG resulted, as for this institution's current protocols. We will obtain CT scan of the abdomen and pelvis. Complaint #2, acute on chronic chest pain. Patient at low risk for major adverse cardiac event as for the heart score. Patient has presented to this hospital multiple times in the past for chest pain. Her EKG today appears to be unchanged from prior EKG. She is low risk by well's criteria, although her morbid obesity and lupus to place her at risk for pulmonary embolus. However, I consider her low risk, and therefore we'll send a d-dimer to risk stratify the patient. We will reassess after her initial data points have resulted. Reevaluation #2: 05/08/19 22:40 Patient reevaluated multiple times. Resting comfortably in stretcher, speaking on a cellular phone. I have recommended a CT scan of the abdomen and pelvis and urinalysis. Patient initially amenable to these diagnostics, and now refusing. Patient is going to sign out AGAINST MEDICAL ADVICE. The patient is alert and oriented 3, clinically sober, and exhibits decision-making capacity. The patient is free from distracting injury. Risks of leaving without a complete evaluation were explained to the patient, she understands that she risks of , disability, paralysis, permanent loss of quality of life. She understands that she may return to the emergency room right away if and when she changes her mind. This conversation is witnessed by nursing staff, David Krissy Zambrano ED Medical Decision Making - Lab Data Result diagrams: 05/08/19 20:01 05/08/19 20:01 Vital Signs 05/08/19 19:38 Temperature 98.4 F Pulse Rate 83 Respiratory 16 Rate Blood Pressure 127/79 O2 Sat by Pulse 97 Oximetry Lab Results 05/08/19 05/08/19 05/08/19 Range/Units 20:01 20:01 20:01 WBC 17.0 H (4.5-11.0) K/mm3 RBC 4.35 (3.65-5.03) M/mm3 Hgb 10.4 (10.1-14.3) gm/dl Hct 33.5 (30.3-42.9) % MCV 77 L (79-97) fl MCH 24 L (28-32) pg MCHC 31 (30-34) % RDW 17.9 H (13.2-15.2) % Plt Count 363 (140-440) K/mm3 Lymph % (Auto) 21.7 (13.4-35.0) % [place] % (Auto) 5.0 (0.0-7.3) % Eos % (Auto) 0.3 (0.0-4.3) % Baso % (Auto) 1.2 (0.0-1.8) % Lymph # 3.7 (1.2-5.4) K/mm3 [place] # 0.9 H (0.0-0.8) K/mm3 Eos # 0.1 (0.0-0.4) K/mm3 Baso # 0.2 H (0.0-0.1) K/mm3 Seg Neutrophils % 71.8 H (40.0-70.0) % Seg Neutrophils # 12.2 H (1.8-7.7) K/mm3 PT (12.2-14.9) Sec. INR (0.87-1.13) Sodium (137-145) mmol/L Potassium (3.6-5.0) mmol/L Chloride (98-107) mmol/L Carbon Dioxide (22-30) mmol/L Anion Gap mmol/L BUN (7-17) mg/dL Creatinine (0.7-1.2) mg/dL Estimated GFR ml/min BUN/Creatinine Ratio % Glucose (65-100) mg/dL Calcium (8.4-10.2) mg/dL Magnesium (1.7-2.3) mg/dL Total Creatine Kinase (30-135) units/L Troponin T (0.00-0.029) ng/mL HCG, Quant < 2 (0-4) mIU/mL Blood Type A POSITIVE 05/08/19 05/08/19 Range/Units 20:01 20:24 WBC (4.5-11.0) K/mm3 RBC (3.65-5.03) M/mm3 Hgb (10.1-14.3) gm/dl Hct (30.3-42.9) % MCV (79-97) fl MCH (28-32) pg MCHC (30-34) % RDW (13.2-15.2) % Plt Count (140-440) K/mm3 Lymph % (Auto) (13.4-35.0) % [place] % (Auto) (0.0-7.3) % Eos % (Auto) (0.0-4.3) % Baso % (Auto) (0.0-1.8) % Lymph # (1.2-5.4) K/mm3 [place] # (0.0-0.8) K/mm3 Eos # (0.0-0.4) K/mm3 Baso # (0.0-0.1) K/mm3 Seg Neutrophils % (40.0-70.0) % Seg Neutrophils # (1.8-7.7) K/mm3 PT 13.4 (12.2-14.9) Sec. INR 1.05 (0.87-1.13) Sodium 141 (137-145) mmol/L Potassium 4.4 (3.6-5.0) mmol/L Chloride 106.9 (98-107) mmol/L Carbon Dioxide 22 (22-30) mmol/L Anion Gap 17 mmol/L BUN 16 (7-17) mg/dL Creatinine 0.4 L (0.7-1.2) mg/dL Estimated GFR > 60 ml/min BUN/Creatinine Ratio 40 % Glucose 82 (65-100) mg/dL Calcium 8.5 (8.4-10.2) mg/dL Magnesium 2.20 (1.7-2.3) mg/dL Total Creatine Kinase 74 (30-135) units/L Troponin T < 0.010 (0.00-0.029) ng/mL HCG, Quant (0-4) mIU/mL Blood Type - EKG Data -: EKG Interpreted by Me EKG shows normal: sinus rhythm Rate: normal - EKG Data When compared to previous EKG there are: no significant change 05/08/19 21:14 Sinus rhythm, 83 bpm, normal axis, QTC 423 ms, borderline high left ventricular voltage, this EKG is abnormal, there are T wave inversions in lead 3, the EKG is unchanged from prior EKG from March 2019. The EKG is not consistent with ST elevation myocardial infarction. - Radiology Data Radiology results: pending, report reviewed, image reviewed X-ray of the chest is negative for acute disease. Pelvic ultrasound negative, no intrauterine identified Critical care attestation.: If time is entered above; I have spent that time in minutes in the direct care of this critically ill patient, excluding procedure time. ED Disposition Clinical Impression: Chest wall pain, Leukocytosis, Left lower quadrant abdominal pain Disposition: LEFT AGAINST MED ADVICE Is pt being admited?: No Does the pt Need Aspirin: No Condition: Undetermined Instructions: Chest Pain (ED) Additional Instructions: As we discussed, you have left the hospital/emergency room AGAINST MEDICAL ADVICE. By leaving, you risked , disability, paralysis, permanent loss of quality of life. The ER is open 24 hours a day, 7 days a week. It never closes. Please return to the emergency room right away if and when you change your mind. If you decide not to return to the emergency room, please follow-up with the listed physician referrals as soon as possible. Referrals: [facility] [Provider Group] - 3-5 Days [facility] [Provider Group] - 3-5 Days Forms: AMA Form
[2019-05-08 20:23] LABS: Basophils # (Auto) 0.2 K/mm3 (0.0-0.1); Basophils % (Auto) 1.2 % (0.0-1.8); Eosinophils # (Auto) 0.1 K/mm3 (0.0-0.4); Eosinophils % (Auto) 0.3 % (0.0-4.3); Hematocrit 33.5 % (30.3-42.9); Hemoglobin 10.4 gm/dl (10.1-14.3); Lymphocytes # (Auto) 3.7 K/mm3 (1.2-5.4); Lymphocytes % (Auto) 21.7 % (13.4-35.0); Mean Corpuscular HGB Conc 31 % (30-34); Mean Corpuscular Volume 77 fl (79-97); Monocytes # (Auto) 0.9 K/mm3 (0.0-0.8); Platelet Count 363 K/mm3 (140-440); Red Blood Count 4.35 M/mm3 (3.65-5.03); Red Cell Distribution Width 17.9 % (13.2-15.2)
[2019-05-08 20:56] LABS: INR 1.05 (0.87-1.13)
[2019-05-08 20:56] LABS: BUN/Creatinine Ratio 40; Blood Urea Nitrogen 16 mg/dL (7-17); Calcium 8.5 mg/dL (8.4-10.2); Hemolysis Index 32
--- NOTE | 2019-05-08 21:22 | Ultrasound Report ---
ULTRASOUND OBSTETRIC INDICATION / CLINICAL INFORMATION: abd pain + bleed + hcg. Clinical Gestational Age (GA): 8 weeks 2 days TECHNIQUE: Transabdominal. Patient declined transvaginal scan. COMPARISON: None available. FINDINGS: GESTATIONAL SAC: No intrauterine gestational sac. YOLK SAC: None visualized. EMBRYO/FETUS: None visualized. Uterus measures 7.1 x 4.5 x 4.9 cm. Endometrial thickness is 9.7 mm. ADNEXA: No significant abnormality. FREE FLUID: None. ADDITIONAL FINDINGS: None. IMPRESSION: 1. No intrauterine identified. Clinical and laboratory correlation is recommended. Signer Name: Rommel Bradley MD Signed: 05/08/2019 9:18 PM Workstation Name: [id number]
--- NOTE | 2019-05-08 21:50 | XRay Report ---
CHEST 2 VIEWS INDICATION / CLINICAL INFORMATION: cp sob. Symptoms for 2 months. COMPARISON: 04/14/19 FINDINGS: SUPPORT DEVICES: None. HEART / MEDIASTINUM: No significant abnormality. LUNGS / PLEURA: No significant pulmonary or pleural abnormality. No pneumothorax. ADDITIONAL FINDINGS: No significant additional findings. IMPRESSION: 1. No acute findings. No significant change. Signer Name: Rommel Bradley MD Signed: 05/08/2019 9:45 PM Workstation Name: [id number]
[2019-05-09 01:15] VITALS: BP 124/78
== END 2019-05-08 22:40 | disposition left against medical advice (07) ==
LOC: ED 19:05
DX: D72.829 Elevated white blood cell count, unspecified (principal); R07.89 Other chest pain; R10.32 Left lower quadrant pain; M06.9 Rheumatoid arthritis, unspecified; E66.01 Morbid (severe) obesity due to excess calories; M32.9 Systemic lupus erythematosus, unspecified; F12.10 Cannabis abuse, uncomplicated; Z79.899 Other long term (current) drug therapy
CPT/HCPCS: 36415; 71046; 76801; 80048; 82550; 83735; 84484; 84702; 85025; 85379; 85610; 86900; 86901; 93005; 93010

== ENCOUNTER 2019-06-15 01:13 | Emergency (ER) | payer MEDICAID, OTHER ==
[2019-06-15 01:23] VITALS: BP 144/106
[2019-06-15 02:29] LABS: HCG Qualitative,Urine Negative (Negative)
[2019-06-15 02:30] LABS: Bilirubin,Urine NEG (Negative); Blood,Urine NEG (Negative); Color,Urine Amber (Yellow); Mucus,Urine 2+ /HPF
--- NOTE | 2019-06-15 03:14 | XRay Report ---
CHEST 2 VIEWS INDICATION / CLINICAL INFORMATION: chestpain. COMPARISON: Chest x-ray 05/08/2019 FINDINGS: SUPPORT DEVICES: None. HEART / MEDIASTINUM: No significant abnormality. LUNGS / PLEURA: No significant pulmonary or pleural abnormality. No pneumothorax. ADDITIONAL FINDINGS: No significant additional findings. IMPRESSION: 1. No acute findings. Signer Name: Devyn Bill MD Signed: 06/15/2019 3:10 AM Workstation Name: [id number]
[2019-06-15] MEDS ORDERED: IBUPROFEN PO ONE (03:31)
--- NOTE | 2019-06-15 03:32 | Emergency Department Report ---
ED General Adult HPI - General Chief complaint: Chest Pain Stated complaint: CHEST PAIN,SOB,ABD PAIN,CONSTIPATION Time Seen by Provider: 06/15/19 03:22 Source: patient Mode of arrival: Ambulatory Limitations: No Limitations - History of Present Illness Initial comments: This is 29 year old female This patient has a history of morbid obesity, rheumatoid arthritis, lupus, chronic chest pain. Patient presents to the emergency room for multiple complaints. She complains of chest pain, shortness of breathing, abdominal pain, constipation. Patient is 4 para 0. Last menstrual period was 05/24/2019. Patient reports that she has chest pain as intermittent. It is sometimes present on the left side of the chest and then on the right side of the chest. Patient reports that she was having some pain in her left arm. Patient has a chronic history of shortness of breath. She is requesting pain medication. -: This evening Location: chest, abdomen Radiation: non-radiation Severity scale (0 -10): 10 Quality: aching Consistency: intermittent Associated Symptoms: shortness of breath. denies: confusion, cough, diaphoresis, headaches, nausea/vomiting Treatments Prior to Arrival: none - Related Data Home Medications Medication Instructions Recorded Confirmed Last Taken Aspirin [Aspirin BABY CHEW TAB] 81 mg PO QDAY 10/21/18 12/03/18 12/03/18 predniSONE [Deltasone] 20 mg PO QDAY 12/03/18 12/03/18 Unknown predniSONE [Prednisone] 20 mg PO DAILY 12/03/18 12/03/18 12/02/18 Previous Rx's Medication Instructions Recorded Last Taken Type traMADol [Ultram 50 MG tab] 50 mg PO Q6HR PRN #20 tablet 11/08/18 Unknown Rx Pantoprazole [Protonix] 40 mg PO QDAY #30 tablet 12/05/18 Unknown Rx Meloxicam 15 mg PO QDAY #15 tablet 12/11/18 Unknown Rx Prednisone [predniSONE 10 mg 10 mg PO .TAPER #1 tab.ds.pk 12/11/18 Unknown Rx (6-Day Pack, 21 Tabs)] predniSONE [Prednisone] 10 mg PO DAILY #7 tab.ds.pk 12/25/18 Unknown Rx traMADol [Ultram] 50 mg PO Q6HR PRN #24 tablet 12/25/18 Unknown Rx HYDROcodone/ACETAMINOPHEN 1 each PO Q6HR PRN #12 tablet 01/15/19 Unknown Rx [Hydrocodone-Acetamin 5-325 mg] Ibuprofen [Ibu] 600 mg PO Q6HR PRN #20 tablet 01/15/19 Unknown Rx Meclizine [Antivert] 25 mg PO TID PRN #12 tablet 01/15/19 Unknown Rx Ondansetron [Zofran Odt] 4 mg PO Q8HR #10 tab.rapdis 01/15/19 Unknown Rx Benzonatate [Tessalon Perle] 100 mg PO TID #12 capsule 01/29/19 Unknown Rx ALBUTEROL Inhaler(NF) [VENTOLIN 1 puff IH Q4HRT PRN #1 inha 02/06/19 Unknown Rx Inhaler(NF)] Azithromycin [Zithromax] 250 mg PO DAILY #1 pack 02/06/19 Unknown Rx guaiFENesin [Mucinex] 600 mg PO BID #10 tab.er.12h 02/06/19 Unknown Rx guaiFENesin/CODEINE [Robitussin AC] 5 ml PO TID #80 ml 02/06/19 Unknown Rx HYDROcodone/APAP 5-325 [[place] 1 each PO Q6HR PRN #15 tablet 05/13/19 Unknown Rx 5-325 mg TAB] Ibuprofen [Motrin 800 MG tab] 800 mg PO Q8HR PRN #30 tablet 05/13/19 Unknown Rx Omeprazole Magnesium [PriLOSEC Otc] 20 mg PO QDAY #14 tablet. 05/13/19 Unknown Rx Sulfamethoxazole/Trimethoprim 1 each PO BID #20 tablet 05/13/19 Unknown Rx [Bactrim DS TAB] Allergies Allergy/AdvReac Type Severity Reaction Status Date / Time No Known Allergies Allergy Verified 12/25/18 08:57 ED Review of Systems ROS: Stated complaint: CHEST PAIN,SOB,ABD PAIN,CONSTIPATION Other details as noted in HPI Constitutional: denies: chills, fever Eyes: denies: eye pain, eye discharge, vision change ENT: denies: ear pain, throat pain Respiratory: shortness of breath Cardiovascular: chest pain Endocrine: no symptoms reported Gastrointestinal: abdominal pain, constipation Genitourinary: denies: urgency, dysuria, discharge Musculoskeletal: denies: back pain, joint swelling, arthralgia Skin: denies: rash, lesions Neurological: denies: headache, weakness, paresthesias Psychiatric: denies: anxiety, depression Hematological/Lymphatic: denies: easy bleeding, easy bruising ED Past Medical Hx - Past Medical History Previous Medical History?: Yes Hx Congestive Heart Failure: No Hx Diabetes: No Hx Arthritis: Yes (Rheumatoid) Hx Seizures: No Hx Asthma: No Hx COPD: No Additional medical history: RA, Lupus, Morbid Obesity. Psoriasis - Surgical History Past Surgical History?: Yes Additional Surgical History: Psoriasis - Social History Smoking Status: Never Smoker Substance Use Type: Marijuana - Medications Home Medications: Home Medications Medication Instructions Recorded Confirmed Last Taken Type Aspirin [Aspirin BABY CHEW TAB] 81 mg PO QDAY 10/21/18 12/03/18 12/03/18 History traMADol [Ultram 50 MG tab] 50 mg PO Q6HR PRN #20 tablet 11/08/18 12/03/18 Unknown Rx predniSONE [Deltasone] 20 mg PO QDAY 12/03/18 12/03/18 Unknown History predniSONE [Prednisone] 20 mg PO DAILY 12/03/18 12/03/18 12/02/18 History Pantoprazole [Protonix] 40 mg PO QDAY #30 tablet 12/05/18 Unknown Rx Meloxicam 15 mg PO QDAY #15 tablet 12/11/18 Unknown Rx Prednisone [predniSONE 10 mg 10 mg PO .TAPER #1 tab.ds.pk 12/11/18 Unknown Rx (6-Day Pack, 21 Tabs)] predniSONE [Prednisone] 10 mg PO DAILY #7 tab.ds.pk 12/25/18 Unknown Rx traMADol [Ultram] 50 mg PO Q6HR PRN #24 tablet 12/25/18 Unknown Rx HYDROcodone/ACETAMINOPHEN 1 each PO Q6HR PRN #12 tablet 01/15/19 Unknown Rx [Hydrocodone-Acetamin 5-325 mg] Ibuprofen [Ibu] 600 mg PO Q6HR PRN #20 tablet 01/15/19 Unknown Rx Meclizine [Antivert] 25 mg PO TID PRN #12 tablet 01/15/19 Unknown Rx Ondansetron [Zofran Odt] 4 mg PO Q8HR #10 tab.rapdis 01/15/19 Unknown Rx Benzonatate [Tessalon Perle] 100 mg PO TID #12 capsule 01/29/19 Unknown Rx ALBUTEROL Inhaler(NF) [VENTOLIN 1 puff IH Q4HRT PRN #1 inha 02/06/19 Unknown Rx Inhaler(NF)] Azithromycin [Zithromax] 250 mg PO DAILY #1 pack 02/06/19 Unknown Rx guaiFENesin [Mucinex] 600 mg PO BID #10 tab.er.12h 02/06/19 Unknown Rx guaiFENesin/CODEINE [Robitussin AC] 5 ml PO TID #80 ml 02/06/19 Unknown Rx HYDROcodone/APAP 5-325 [[place] 1 each PO Q6HR PRN #15 tablet 05/13/19 Unknown Rx 5-325 mg TAB] Ibuprofen [Motrin 800 MG tab] 800 mg PO Q8HR PRN #30 tablet 05/13/19 Unknown Rx Omeprazole Magnesium [PriLOSEC Otc] 20 mg PO QDAY #14 tablet.dr 05/13/19 Unknown Rx Sulfamethoxazole/Trimethoprim 1 each PO BID #20 tablet 05/13/19 Unknown Rx [Bactrim DS TAB] ED Physical Exam - General Limitations: No Limitations General appearance: alert, in no apparent distress, obese, other (lying in the bed sleeping comfortably) - Head Head exam: Present: atraumatic, normocephalic, normal inspection - Eye Eye exam: Present: normal appearance, PERRL. Absent: scleral icterus - ENT ENT exam: Present: normal exam, mucous membranes moist, normal external ear exam - Neck Neck exam: Present: normal inspection, full ROM. Absent: tenderness, lymphadenopathy - Respiratory Respiratory exam: Present: normal lung sounds bilaterally. Absent: respiratory distress, wheezes, rales, rhonchi, chest wall tenderness - Cardiovascular Cardiovascular Exam: Present: regular rate, normal rhythm. Absent: systolic murmur, diastolic murmur, rubs, gallop - GI/Abdominal GI/Abdominal exam: Present: soft, normal bowel sounds. Absent: distended, tenderness, guarding, rebound, organomegaly, mass - Extremities Exam Extremities exam: Present: normal inspection, full ROM - Back Exam Back exam: Present: normal inspection, full ROM. Absent: tenderness, muscle spasm, paraspinal tenderness, vertebral tenderness, rash noted - Neurological Exam Neurological exam: Present: alert, oriented X3 - Psychiatric Psychiatric exam: Present: normal affect, normal mood. Absent: depressed, agitated - Skin Skin exam: Present: warm, dry, intact, normal color. Absent: rash ED Course Vital Signs 06/15/19 01:19 Temperature 98.3 F Pulse Rate 118 H Respiratory 18 Rate Blood Pressure 144/106 O2 Sat by Pulse 96 Oximetry ED Medical Decision Making - Lab Data Laboratory Tests 06/15/19 Unknown Urine Color Chantel Urine Turbidity Cloudy Urine pH 5.0 Ur Specific [place] 1.040 H Urine Protein 30 mg/dl Urine Glucose (UA) Neg Urine Ketones Tr Urine Blood Neg Urine Nitrite Neg Ur Reducing Substances Not Reportable Urine Bilirubin Neg Urine Ictotest Not Reportable Urine Urobilinogen 2.0 Ur Leukocyte Esterase Neg Urine WBC (Auto) 1.0 Urine RBC (Auto) 9.0 U Epithel Cells (Auto) 40.0 H Urine Mucus 2+ Urine HCG, Qual Negative - Radiology Data Radiology results: report reviewed Patient: GILDA FRYE MR#: [id number] : 1990 Acct:[id number] Age/Sex: 29 / F ADM Date: 06/15/19 Loc: ED Attending Dr: Ordering Physician: ROMAN LAWSON MD Date of Service: 06/15/19 Procedure(s): XR chest routine 2V Accession Number(s): [id number] cc: ED MD LULU Fluoro Time In Minutes: CHEST 2 VIEWS INDICATION / CLINICAL INFORMATION: chestpain. COMPARISON: Chest x-ray 05/08/2019 FINDINGS: SUPPORT DEVICES: None. HEART / MEDIASTINUM: No significant abnormality. LUNGS / PLEURA: No significant pulmonary or pleural abnormality. No pneumothorax. ADDITIONAL FINDINGS: No significant additional findings. IMPRESSION: 1. No acute findings. Signer Name: Devyn Bill MD Signed: 06/15/2019 3:10 AM Workstation Name: [id number] Transcribed By: TL Dictated By: Devyn Bill MD Electronically Authenticated By: Devyn Bill MD Signed Date/Time: 06/15/19309 DD/ 9 TD/TT: - Medical Decision Making This is 29 year old female This patient has a history of morbid obesity, rheumatoid arthritis, lupus, chronic chest pain. Patient presents to the emergency room for multiple complaints. She complains of chest pain, shortness of breathing, abdominal pain, constipation. Patient is 4 para 0. Last menstrual period was 05/24/2019. Patient reports that she has chest pain as intermittent. It is sometimes present on the left side of the chest and then on the right side of the chest. Patient reports that she was having some pain in her left arm. Patient has a chronic history of shortness of breath. She is requesting pain medication. Patient's chest x-ray shows no acute cardiopulmonary abnormalities. EKG shows sinus tachycardia otherwise normal EKG no concerns for acute STEMI. Patient's urinalysis is negative for any acute infection. Patient has a negative test. Patient has a negative abdominal exam. Tissue was ordered ibuprofen 600 mg for pain management. Patient is referred to her primary care provider Dr. Butler. Critical care attestation.: If time is entered above; I have spent that time in minutes in the direct care of this critically ill patient, excluding procedure time. ED Disposition Clinical Impression: Morbid obesity, Chronic chest pain, Abdominal pain, Constipation Disposition: - TO HOME OR SELFCARE Is pt being admited?: No Does the pt Need Aspirin: No Condition: Stable Instructions: Chest Pain (ED), High Fiber Diet (ED), Constipation (ED), Obesity (ED) Additional Instructions: Take Tylenol or ibuprofen for pain management. Please take MiraLAX as needed for constipation. Follow up with her primary care provider and your online trader for further evaluation. X-ray and EKG and labs are within normal limits. Referrals: MALLIKA BUTLER MD [Referring] - 3-5 Days [facility] [Provider Group] - 3-5 Days
== END 2019-06-15 04:10 | disposition home or self-care (01) ==
LOC: ED 01:13
DX: R07.89 Other chest pain (principal); R06.02 Shortness of breath; R10.9 Unspecified abdominal pain; K59.00 Constipation, unspecified; E66.01 Morbid (severe) obesity due to excess calories; M06.9 Rheumatoid arthritis, unspecified; F12.10 Cannabis abuse, uncomplicated; Z79.899 Other long term (current) drug therapy; Z68.42 Body mass index [BMI] 45.0-49.9, adult
CPT/HCPCS: 71046; 81001; 81025; 93005; 93010

== ENCOUNTER 2019-07-12 23:10 | Emergency (ER) | payer MEDICAID ==
--- NOTE | 2019-07-13 00:48 | XRay Report ---
CHEST 1 VIEW 07/13/2019 12:23 AM INDICATION / CLINICAL INFORMATION: Chest pain for one week. COMPARISON: 06/15/19 FINDINGS: SUPPORT DEVICES: None. HEART / MEDIASTINUM: No significant abnormality. LUNGS / PLEURA: No significant pulmonary or pleural abnormality. No pneumothorax. ADDITIONAL FINDINGS: No significant additional findings. IMPRESSION: 1. No acute findings. No change. Signer Name: Rommel Bradley MD Signed: 07/13/2019 12:43 AM Workstation Name: [id number]
--- NOTE | 2019-07-13 02:34 | Emergency Department Report ---
HPI - General Chief Complaint: Chest Pain Time Seen by Provider: 07/13/19 02:09 - HPI HPI: Room 7 The patient is a 29-year-old female presenting with chief complaint headache cough and chest pain. The patient presents with several complaints. The joy ent first states she is having cough is productive of clear sputum for approximate 6 months. Patient says she has not sought medical attention for this. The patient states for approximately 5 days she's had intermittent tingling and had pain to the right side of her head described as a pressure. Patient also complains of pain in the right ear. Patient complains of intermittent dizziness but denies nausea or vomiting. For the same amount time the patient states she has intermittent chest pain described as sharp and dull as well as pain under her right breast Location: [See above] Duration: [See above] Quality: [See above] Severity: [See above] Timing: [See above] Context: [See above] Modifying factors: [See above] Associated signs and symptoms: [see above] ED Past Medical Hx - Past Medical History Previous Medical History?: Yes Hx Arthritis: Yes (Rheumatoid) Additional medical history: RA, Morbid Obesity. Psoriasis - Surgical History Past Surgical History?: No Additional Surgical History: Psoriasis - Family History Family history: no significant - Social History Smoking Status: Never Smoker Substance Use Type: Alcohol (occasional), Marijuana - Medications Home Medications: Home Medications Medication Instructions Recorded Confirmed Last Taken Type Aspirin [Aspirin BABY CHEW TAB] 81 mg PO QDAY 10/21/18 12/03/18 12/03/18 History traMADol [Ultram 50 MG tab] 50 mg PO Q6HR PRN #20 tablet 11/08/18 12/03/18 Unknown Rx predniSONE [Deltasone] 20 mg PO QDAY 12/03/18 12/03/18 Unknown History predniSONE [Prednisone] 20 mg PO DAILY 12/03/18 12/03/18 12/02/18 History Pantoprazole [Protonix] 40 mg PO QDAY #30 tablet 12/05/18 Unknown Rx Meloxicam 15 mg PO QDAY #15 tablet 12/11/18 Unknown Rx Prednisone [predniSONE 10 mg 10 mg PO .TAPER #1 tab.ds.pk 12/11/18 Unknown Rx (6-Day Pack, 21 Tabs)] predniSONE [Prednisone] 10 mg PO DAILY #7 tab.ds.pk 12/25/18 Unknown Rx traMADol [Ultram] 50 mg PO Q6HR PRN #24 tablet 12/25/18 Unknown Rx HYDROcodone/ACETAMINOPHEN 1 each PO Q6HR PRN #12 tablet 01/15/19 Unknown Rx [Hydrocodone-Acetamin 5-325 mg] Ibuprofen [Ibu] 600 mg PO Q6HR PRN #20 tablet 01/15/19 Unknown Rx Meclizine [Antivert] 25 mg PO TID PRN #12 tablet 01/15/19 Unknown Rx Ondansetron [Zofran Odt] 4 mg PO Q8HR #10 tab.rapdis 01/15/19 Unknown Rx Benzonatate [Tessalon Perle] 100 mg PO TID #12 capsule 01/29/19 Unknown Rx ALBUTEROL Inhaler(NF) [VENTOLIN 1 puff IH Q4HRT PRN #1 inha 02/06/19 Unknown Rx Inhaler(NF)] Azithromycin [Zithromax] 250 mg PO DAILY #1 pack 02/06/19 Unknown Rx guaiFENesin [Mucinex] 600 mg PO BID #10 tab.er.12h 02/06/19 Unknown Rx guaiFENesin/CODEINE [Robitussin AC] 5 ml PO TID #80 ml 02/06/19 Unknown Rx HYDROcodone/APAP 5-325 [[place] 1 each PO Q6HR PRN #15 tablet 05/13/19 Unknown Rx 5-325 mg TAB] Ibuprofen [Motrin 800 MG tab] 800 mg PO Q8HR PRN #30 tablet 05/13/19 Unknown Rx Omeprazole Magnesium [PriLOSEC Otc] 20 mg PO QDAY #14 tablet. 05/13/19 Unknown Rx Sulfamethoxazole/Trimethoprim 1 each PO BID #20 tablet 05/13/19 Unknown Rx [Bactrim DS TAB] Benzonatate [Tessalon Perles] 100 mg PO Q8HR #30 capsule 07/13/19 Unknown Rx Ciprofloxacin/Hydrocortisone 0.25 ml OT BID #1 bottle 07/13/19 Unknown Rx [Ciprofloxacin HC OTIC] Ibuprofen [Motrin 800 MG tab] 800 mg PO Q8HR PRN #20 tablet 07/13/19 Unknown Rx traMADol [Ultram] 50 mg PO Q6HR PRN #14 tablet 07/13/19 Unknown Rx ED Review of Systems ROS: Stated complaint: WEAKNESS,SOB,CHEST PAIN,HEAD AND EAR PAIN Other details as noted in HPI Constitutional: no symptoms reported Eyes: denies: eye pain ENT: ear pain Respiratory: cough Cardiovascular: chest pain Endocrine: no symptoms reported Gastrointestinal: denies: nausea, vomiting Genitourinary: denies: dysuria Musculoskeletal: denies: back pain Neurological: headache Physical Exam - Physical Exam Vital Signs: Vital Signs 07/12/19 07/13/19 23:16 01:58 Temperature 98.3 F Pulse Rate 115 H 93 H Respiratory 20 19 Rate Blood Pressure 144/101 Blood Pressure 150/101 [Left] O2 Sat by Pulse 96 97 Oximetry Physical Exam: GENERAL: The patient is well-developed well-nourished female lying on stretcher not appearing to be in acute distress. [] HEENT: Normocephalic. Atraumatic. Extraocular motions are intact. Patient has moist mucous membranes. NECK: Supple. Trachea midline CHEST/LUNGS: Clear to auscultation. There is no respiratory distress noted. HEART/CARDIOVASCULAR: Regular. There is no tachycardia. There is no gallop rub or murmur. ABDOMEN: Abdomen is soft, nontender. Patient has normal bowel sounds. There is no abdominal distention. SKIN: There is no rash. There is no edema. There is no diaphoresis. NEURO: The patient is awake, alert, and oriented. The patient is cooperative. The patient has no focal neurologic deficits. The patient has normal speech. C ranial nerves II through XII grossly intact, no drift MUSCULOSKELETAL: There is no evidence of acute injury. ED Course Vital Signs 07/12/19 07/13/19 23:16 01:58 Temperature 98.3 F Pulse Rate 115 H 93 H Respiratory 20 19 Rate Blood Pressure 144/101 Blood Pressure 150/101 [Left] O2 Sat by Pulse 96 97 Oximetry ED Medical Decision Making - Lab Data Result diagrams: 07/13/19 02:49 07/13/19 02:49 Laboratory Tests 07/13/19 07/13/19 07/13/19 02:49 02:49 02:49 WBC 13.8 H RBC 4.52 Hgb 10.6 Hct 34.4 MCV 76 L MCH 24 L MCHC 31 RDW 18.0 H Plt Count 362 Lymph % (Auto) 24.7 [place] % (Auto) 5.8 Eos % (Auto) 1.2 Baso % (Auto) 0.2 Lymph # 3.4 [place] # 0.8 Eos # 0.2 Baso # 0.0 Seg Neutrophils % 68.1 Seg Neutrophils # 9.4 H D-Dimer 361.57 H Sodium 142 Potassium 3.7 Chloride 106.7 Carbon Dioxide 24 Anion Gap 15 BUN 15 Creatinine 0.5 L Estimated GFR > 60 BUN/Creatinine Ratio 30 Glucose 85 Calcium 8.6 Total Creatine Kinase 61 CK-MB (CK-2) 1.1 CK-MB (CK-2) Rel Index 1.8 Troponin T < 0.010 HCG, Qual 07/13/19 02:49 WBC RBC Hgb Hct MCV MCH MCHC RDW Plt Count Lymph % (Auto) [place] % (Auto) Eos % (Auto) Baso % (Auto) Lymph # [place] # Eos # Baso # Seg Neutrophils % Seg Neutrophils # D-Dimer Sodium Potassium Chloride Carbon Dioxide Anion Gap BUN Creatinine Estimated GFR BUN/Creatinine Ratio Glucose Calcium Total Creatine Kinase CK-MB (CK-2) CK-MB (CK-2) Rel Index Troponin T HCG, Qual Negative - EKG Data -: EKG Interpreted by Me EKG shows normal: sinus rhythm Rate: tachycardia - EKG Data Interpretation: nonspecific ST-T wave karen (lead 3) - Radiology Data Radiology results: report reviewed (chest x-ray), image reviewed (chest x-ray, CT Chest) interpreted by me: Chest x-ray-no focal infiltrate, no pneumothorax [facility] [address] [place] [address] XRay Report Signed Patient: GILDA FRYE MR#: [id number] : 1990 Acct:[id number] Age/Sex: 29 / F ADM Date: 07/12/19 Loc: ED Attending Dr: Ordering Physician: PATRICIA GHOSH MD Date of Service: 07/13/19 Procedure(s): XR chest 1V ap Accession Number(s): [id number] cc: PATRICIA GHOSH MD Fluoro Time In Minutes: CHEST 1 VIEW 07/13/2019 12:23 AM INDICATION / CLINICAL INFORMATION: Chest pain for one week. COMPARISON: 06/15/19 FINDINGS: SUPPORT DEVICES: None. HEART / MEDIASTINUM: No significant abnormality. LUNGS / PLEURA: No significant pulmonary or pleural abnormality. No pneumothorax. ADDITIONAL FINDINGS: No significant additional findings. IMPRESSION: 1. No acute findings. No change. Signer Name: Rommel Bradley MD Signed: 07/13/2019 12:43 AM Workstation Name: [id number] Transcribed By: DT Dictated By: Raphael Bradley MD Electronically Authenticated By: Raphael Bradley MD Signed Date/Time: 07/13/1942 DD/ TD/TT: [place] [address] Cat Scan Report Signed Patient: GILDA FRYE MR#: [id number] : 1990 Acct:[id number] Age/Sex: 29 / F ADM Date: 07/12/19 Loc: ED Attending Dr: Ordering Physician: TONY IBRAHIM MD Date of Service: 07/13/19 Procedure(s): CT angio chest Accession Number(s): [id number] cc: TONY IBRAHIM MD CTA CHEST WITH CONTRAST INDICATION / CLINICAL INFORMATION: chest pain. TECHNIQUE: Axial CT images were obtained through the chest after injection of 100 mL Omnipaque 350 IV contrast. 3 plane MIP and/or 3D reconstructions were produced. All CT scans at this location are performed using CT dose reduction for ALARA by means of automated exposure control. COMPARISON: Images from CT dated 10/21/18 are not immediately available. Report from that study was negritae d. FINDINGS: PULMONARY ARTERIES: No pulmonary emboli. THORACIC AORTA: No significant abnormality. HEART: No significant abnormality. CORONARY ARTERIES: No significant calcification. MEDIASTINUM / ERIS: Persistent left-sided superior vena cava draining into the right-sided superior vena cava posterior to the ascending aorta. No significant adenopathy. PLEURA: No pleural effusion. No pneumothorax. LUNGS: No acute air space or interstitial disease. ADDITIONAL FINDINGS: None. UPPER ABDOMEN: No acute findings. SKELETAL STRUCTURES: No significant osseous abnormality. IMPRESSION: 1. No CT evidence for pulmonary embolism. 2. No acute findings. Signer Name: Rommel Bradley MD Signed: 07/13/2019 4:17 AM Workstation Name: [id number] Transcribed By: RABIA Dictated By: Raphael Bradley MD Electronically Authenticated By: Raphael Bradley MD Signed Date/Time: 07/13/19416 DD/ 9 TD/TT: - Differential Diagnosis headache, fibromyalgia, PE, ACS, pericarditis Critical care attestation.: If time is entered above; I have spent that time in minutes in the direct care of this critically ill patient, excluding procedure time. ED Disposition Clinical Impression: Right ear pain, Cough, Pleurisy Disposition: TO HOME OR SELFCARE Is pt being admited?: No Does the pt Need Aspirin: No Condition: Stable Instructions: Chronic Cough (ED) Prescriptions: Ciprofloxacin/Hydrocortisone [Ciprofloxacin HC OTIC] 0.25 ml OT BID #1 bottle Ibuprofen [Motrin 800 MG tab] 800 mg PO Q8HR PRN #20 tablet PRN Reason: Pain, Moderate (4-6) Benzonatate [Tessalon Perles] 100 mg PO Q8HR #30 capsule traMADol [Ultram] 50 mg PO Q6HR PRN #14 tablet PRN Reason: Pain Referrals: [facility] [Outside] - 3-5 Days RANJAN SIMMONS MD [Staff Physician] - 3-5 Days (Dr. Simmons is a regional geodetic advisor. Please follow with him for further evaluation) Time of Disposition: 04:44
[2019-07-13] MEDS ORDERED: SODIUM CHLORIDE 0.9% 1000 ML 1,000 ML IV ONE (02:36)
[2019-07-13] MEDS ORDERED: fentaNYL 100 MCG/2 ML INJ IV ONE ×2 (02:38→04:05)
[2019-07-13] MEDS ORDERED: ONDANSETRON 4 MG/2 ML INJ IV ONE (02:38)
[2019-07-13 02:53] LABS: Basophils % (Auto) 0.2 % (0.0-1.8); Eosinophils # (Auto) 0.2 K/mm3 (0.0-0.4); Eosinophils % (Auto) 1.2 % (0.0-4.3); Hematocrit 34.4 % (30.3-42.9); Hemoglobin 10.6 gm/dl (10.1-14.3); Lymphocytes # (Auto) 3.4 K/mm3 (1.2-5.4); Lymphocytes % (Auto) 24.7 % (13.4-35.0); Mean Corpuscular HGB Conc 31 % (30-34); Mean Corpuscular Volume 76 fl (79-97); Monocytes # (Auto) 0.8 K/mm3 (0.0-0.8); Monocytes % (Auto) 5.8 % (0.0-7.3); Platelet Count 362 K/mm3 (140-440); Red Blood Count 4.52 M/mm3 (3.65-5.03)
[2019-07-13 03:16] LABS: Creatine Kinase MB 1.1 ng/mL (0.0-4.0)
[2019-07-13 03:17] LABS: BUN/Creatinine Ratio 30; Blood Urea Nitrogen 15 mg/dL (7-17); Calcium 8.6 mg/dL (8.4-10.2); Hemolysis Index 9
[2019-07-13 04:12] VITALS: BP 142/93
--- NOTE | 2019-07-13 04:21 | Cat Scan Report ---
CTA CHEST WITH CONTRAST INDICATION / CLINICAL INFORMATION: chest pain. TECHNIQUE: Axial CT images were obtained through the chest after injection of 100 mL Omnipaque 350 IV contrast. 3 plane MIP and/or 3D reconstructions were produced. All CT scans at this location are performed usin g CT dose reduction for ALARA by means of automated exposure control. COMPARISON: Images from CT dated 10/21/18 are not immediately available. Report from that study was reviewed. FINDINGS: PULMONARY ARTERIES: No pulmonary emboli. THORACIC AORTA: No significant abnormality. HEART: No significant abnormality. CORONARY ARTERIES: No significant calcification. MEDIASTINUM / ERIS: Persistent left-sided superior vena cava draining into the right-sided superior v bety cava posterior to the ascending aorta. No significant adenopathy. PLEURA: No pleural effusion. No pneumothorax. LUNGS: No acute air space or interstitial disease. ADDITIONAL FINDINGS: None. UPPER ABDOMEN: No acute findings. SKELETAL STRUCTURES: No significant osseous abnormality. IMPRESSION: 1. No CT evidence for pulmonary embolism. 2. No acute findings. Signer Name: Rommel Bradley MD Signed: 07/13/2019 4:17 AM Workstation Name: [id number]
[2019-07-13] MEDS ORDERED: traMADol 50 MG TAB PO ONE (04:45)
[2019-07-13] MEDS ORDERED: traMADol 50 MG TAB ONE (04:50)
== END 2019-07-13 05:14 | disposition home or self-care (01) ==
LOC: ED 23:10
DX: R09.1 Pleurisy (principal); H92.01 Otalgia, right ear; M06.9 Rheumatoid arthritis, unspecified; F12.10 Cannabis abuse, uncomplicated; R42 Dizziness and giddiness; E66.01 Morbid (severe) obesity due to excess calories; Z68.42 Body mass index [BMI] 45.0-49.9, adult
CPT/HCPCS: 36415; 71045; 71275; 80048; 82550; 82553; 84484; 84703; 85025; 85379; 93005; 93010; 96361; 96374; 96375; 96376; 99284; J2405; J3010; J7030; Q9967

== ENCOUNTER 2019-09-01 21:45 | Emergency (ER) | payer MEDICAID ==
--- NOTE | 2019-09-01 22:04 | Emergency Department Report ---
Blank Doc - Documentation Documentation: 29-year-old female that presents with URI symptoms, right side headache, and b rocío aches. Denies any head injuries, worst headache, or stiff neck. Denies any visual changes. This initial assessment/diagnostic orders/clinical plan/treatment(s) is/are subject to change based on patient's health status, clinical progression and re- assessment by fellow clinical providers in the ED. Further treatment and workup at subsequent clinical providers discretion. Patient/guardians urged not to elope from the ED as their condition may be serious if not clinically assessed and managed. Initial orders include: 1- Patient sent to [facility] for further evaluation and treatment 2- labs 3- CXR 4- UA
[2019-09-01 23:11] LABS: Basophils % (Auto) 0.2 % (0.0-1.8); Eosinophils # (Auto) 0.5 K/mm3 (0.0-0.4); Eosinophils % (Auto) 3.3 % (0.0-4.3); Lymphocytes # (Auto) 3.2 K/mm3 (1.2-5.4); Lymphocytes % (Auto) 20.2 % (13.4-35.0); Mean Corpuscular HGB Conc 31 % (30-34); Mean Corpuscular Volume 76 fl (79-97); Monocytes # (Auto) 0.8 K/mm3 (0.0-0.8); Monocytes % (Auto) 4.9 % (0.0-7.3); Platelet Count 383 K/mm3 (140-440); Red Blood Count 4.22 M/mm3 (3.65-5.03); Red Cell Distribution Width 17.7 % (13.2-15.2)
[2019-09-01 23:20] LABS: BUN/Creatinine Ratio 18; Blood Urea Nitrogen 11 mg/dL (7-17); Calcium 8.6 mg/dL (8.4-10.2); Hemolysis Index 1
--- NOTE | 2019-09-02 00:02 | XRay Report ---
CHEST 2 VIEWS INDICATION: cough. COMPARISON: 07/13/2019. FINDINGS: Support devices: None. Heart: Within normal limits. Lungs/Pleura: No acute air space or interstitial disease. No significant pleural effusion. IMPRESSION: No acute findings. Signer Name: Jamir Wells MD Signed: 09/01/2019 11:57 PM Workstation Name: [id number]
[2019-09-02] MEDS ORDERED: BENZONATATE 100 MG CAP PO ONE (00:43)
[2019-09-02] MEDS ORDERED: FAMOTIDINE 20 MG/2 ML INJ IV ONE (00:43)
[2019-09-02] MEDS ORDERED: POTASSIUM CHLORIDE ER 20 MEQ TAB PO ONE (00:43)
[2019-09-02] MEDS ORDERED: HYDROmorphone 1 MG/1 ML INJ IV ONE ×2 (00:43→02:49)
[2019-09-02] MEDS ORDERED: ONDANSETRON 4 MG/2 ML INJ IV ONE (00:43)
[2019-09-02] MEDS ORDERED: methylPREDNISolone Sod Succinate 125 MG/2 ML INJ IV ONE (00:44)
[2019-09-02] MEDS ORDERED: ACETAMINOPHEN 500 MG TAB PO ONE (00:44)
--- NOTE | 2019-09-02 01:24 | Emergency Department Report ---
- General Chief Complaint: Chest Pain Stated Complaint: FLU SX/CP Time Seen by Provider: 09/01/19 22:02 Source: patient Mode of arrival: Ambulatory Limitations: No Limitations - History of Present Illness Initial Comments: 29-year-old female with past medical history of morbid obesity, psoriasis, and rheumatoid arthritis with chronic steroid use presents to the hospital complains of continued infectious and URI symptoms. Patient states for the last 2 weeks she's had a cough, intermittent shortness of breath, inetrmittent wheezing, hot and cold flashes, and generalized body aches. The last 3 weeks she's had a right sided headache radiating to her ear. No neck stiffness reported. Patient was seen 2 weeks ago at [facility] and finish a course of antibiotics and does not feel any better. She c/o body aches which she feels is due to rheumatoid arthritis flare. She did not receive a flu shot this year. 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 - Related Data Previous Rx's Medication Instructions Recorded Last Taken Type predniSONE [Prednisone] 10 mg PO DAILY #7 tab.ds.pk 12/25/18 09/01/19 Rx ALBUTEROL Inhaler(NF) [VENTOLIN 1 puff IH Q4HRT PRN #1 inha 02/06/19 09/01/19 Rx Inhaler(NF)] Amoxicillin/K Clav Tab [Augmentin 1 tab PO Q12HR #14 tab 09/02/19 Unknown Rx 875 mg] Benzonatate [Tessalon Perles] 100 mg PO Q8HR PRN #20 capsule 09/02/19 Unknown Rx HYDROcodone/APAP 5-325 [[place] 1 each PO Q6HR PRN #15 tablet 09/02/19 Unknown Rx 5/325] Potassium Chloride [K-Dur] 20 meq PO BID #4 tab 09/02/19 Unknown Rx Prednisone [predniSONE 10 mg 10 mg PO .TAPER #1 tab.ds.pk 09/02/19 Unknown Rx (6-Day Pack, 21 Tabs)] Allergies Allergy/AdvReac Type Severity Reaction Status Date / Time No Known Allergies Allergy Verified 12/25/18 08:57 ED Review of Systems ROS: Stated complaint: FLU SX/CP Other details as noted in HPI Comment: All other systems reviewed and negative ED Past Medical Hx - Past Medical History Hx Congestive Heart Failure: No Hx Diabetes: No Hx Arthritis: Yes (Rheumatoid) Hx Seizures: No Hx Asthma: No Hx COPD: No Additional medical history: RA, Morbid Obesity. Psoriasis, Pneumonia - Surgical History Past Surgical History?: Yes Additional Surgical History: Psoriasis - Social History Smoking Status: Never Smoker - Medications Home Medications: Home Medications Medication Instructions Recorded Confirmed Last Taken Type predniSONE [Prednisone] 10 mg PO DAILY #7 tab.ds.pk 12/25/18 09/02/19 09/01/19 Rx ALBUTEROL Inhaler(NF) [VENTOLIN 1 puff IH Q4HRT PRN #1 inha 02/06/19 09/02/19 09/01/19 Rx Inhaler(NF)] Amoxicillin/K Clav Tab [Augmentin 1 tab PO Q12HR #14 tab 09/02/19 Unknown Rx 875 mg] Benzonatate [Tessalon Perles] 100 mg PO Q8HR PRN #20 capsule 09/02/19 Unknown Rx HYDROcodone/APAP 5-325 [[place] 1 each PO Q6HR PRN #15 tablet 09/02/19 Unknown Rx 5/325] Potassium Chloride [K-Dur] 20 meq PO BID #4 tab 09/02/19 Unknown Rx Prednisone [predniSONE 10 mg 10 mg PO .TAPER #1 tab.ds.pk 09/02/19 Unknown Rx (6-Day Pack, 21 Tabs)] ED Physical Exam - General Limitations: No Limitations - Other Other exam information: General: No acute distress Head: Atraumatic Eyes: normal appearance ENT: Moist mucous membranes Neck: Normal appearance, no midline tenderness Chest: Clear to auscultation bilaterally, anterior chest wall tenderness, she could dry cough during exam, no wheezing, or radial CV: Regular rate and rhythm Abdomen: Soft, normal bowel sounds, nontender, nondistended, no rebound or guarding Back: Normal inspection Extremity: Normal inspection infection, full range of motion and no edema Neuro: Alert O x 3, no facial asymmetry, speech clear, no gross motor sensory deficit Psych: Appropriate behavior Skin: No rash ED Course Vital Signs 09/01/19 09/01/19 09/02/19 21:50 21:57 00:57 Temperature 99.8 F H 98.4 F Pulse Rate 128 H 104 H Respiratory 18 20 Rate Blood Pressure 197/123 Blood Pressure 128/70 [Left] O2 Sat by Pulse 97 100 Oximetry 09/02/19 09/02/19 02:00 03:43 Temperature Pulse Rate 110 H 94 H Respiratory 18 18 Rate Blood Pressure Blood Pressure 131/78 123/76 [Left] O2 Sat by Pulse 100 94 Oximetry ED Medical Decision Making - Lab Data Result diagrams: 09/01/19 22:30 09/01/19 22:30 Lab Results 09/01/19 09/01/19 09/01/19 Range/Units 22:30 22:30 22:30 WBC 15.7 H (4.5-11.0) K/mm3 RBC 4.22 (3.65-5.03) M/mm3 Hgb 10.0 L (10.1-14.3) gm/dl Hct 32.0 (30.3-42.9) % MCV 76 L (79-97) fl MCH 24 L (28-32) pg MCHC 31 (30-34) % RDW 17.7 H (13.2-15.2) % Plt Count 383 (140-440) K/mm3 Lymph % (Auto) 20.2 (13.4-35.0) % Kay % (Auto) 4.9 (0.0-7.3) % Eos % (Auto) 3.3 (0.0-4.3) % Baso % (Auto) 0.2 (0.0-1.8) % Lymph # 3.2 (1.2-5.4) K/mm3 Kay # 0.8 (0.0-0.8) K/mm3 Eos # 0.5 H (0.0-0.4) K/mm3 Baso # 0.0 (0.0-0.1) K/mm3 Seg Neutrophils % 71.4 H (40.0-70.0) % Seg Neutrophils # 11.2 H (1.8-7.7) K/mm3 Sodium 140 (137-145) mmol/L Potassium 3.2 L (3.6-5.0) mmol/L Chloride 102.9 (98-107) mmol/L Carbon Dioxide 24 (22-30) mmol/L Anion Gap 16 mmol/L BUN 11 (7-17) mg/dL Creatinine 0.6 L (0.7-1.2) mg/dL Estimated GFR > 60 ml/min BUN/Creatinine Ratio 18 % Glucose 101 H (65-100) mg/dL Calcium 8.6 (8.4-10.2) mg/dL HCG, Qual Negative (Negative) Urine Color (Yellow) Urine Turbidity (Clear) Urine pH (5.0-7.0) Ur Specific [place]idden (1.003-1.030) Urine Protein (Negative) mg/dL Urine Glucose (UA) (Negative) mg/dL Urine Ketones (Negative) mg/dL Urine Blood (Negative) Urine Nitrite (Negative) Urine Bilirubin (Negative) Urine Urobilinogen (<2.0) mg/dL Ur Leukocyte Esterase (Negative) Urine WBC (Auto) (0.0-6.0) /HPF Urine RBC (Auto) (0.0-6.0) /HPF U Epithel Cells (Auto) (0-13.0) /HPF Urine Mucus /HPF Influenza A (Rapid) (Negative) Influenza B (Rapid) (Negative) 09/02/19 09/02/19 Range/Units 01:23 03:50 WBC (4.5-11.0) K/mm3 RBC (3.65-5.03) M/mm3 Hgb (10.1-14.3) gm/dl Hct (30.3-42.9) % MCV (79-97) fl MCH (28-32) pg MCHC (30-34) % RDW (13.2-15.2) % Plt Count (140-440) K/mm3 Lymph % (Auto) (13.4-35.0) % Kay % (Auto) (0.0-7.3) % Eos % (Auto) (0.0-4.3) % Baso % (Auto) (0.0-1.8) % Lymph # (1.2-5.4) K/mm3 Kay # (0.0-0.8) K/mm3 Eos # (0.0-0.4) K/mm3 Baso # (0.0-0.1) K/mm3 Seg Neutrophils % (40.0-70.0) % Seg Neutrophils # (1.8-7.7) K/mm3 Sodium (137-145) mmol/L Potassium (3.6-5.0) mmol/L Chloride (98-107) mmol/L Carbon Dioxide (22-30) mmol/L Anion Gap mmol/L BUN (7-17) mg/dL Creatinine (0.7-1.2) mg/dL Estimated GFR ml/min BUN/Creatinine Ratio % Glucose (65-100) mg/dL Calcium (8.4-10.2) mg/dL HCG, Qual (Negative) Urine Color Chantel (Yellow) Urine Turbidity Hazy (Clear) Urine pH 5.0 (5.0-7.0) Ur Specific [place] 1.029 (1.003-1.030) Urine Protein 30 mg/dl (Negative) mg/dL Urine Glucose (UA) Neg (Negative) mg/dL Urine Ketones Tr (Negative) mg/dL Urine Blood Neg (Negative) Urine Nitrite Neg (Negative) Urine Bilirubin Neg (Negative) Urine Urobilinogen 2.0 (<2.0) mg/dL Ur Leukocyte Esterase Neg (Negative) Urine WBC (Auto) 1.0 (0.0-6.0) /HPF Urine RBC (Auto) 2.0 (0.0-6.0) /HPF U Epithel Cells (Auto) 4.0 (0-13.0) /HPF Urine Mucus 2+ /HPF Influenza A (Rapid) Negative (Negative) Influenza B (Rapid) Negative (Negative) - Radiology Data Radiology results: report reviewed CHEST 2 VIEWS INDICATION: cough. COMPARISON: 07/13/2019. FINDINGS: Support devices: None. Heart: Within normal limits. Lungs/Pleura: No acute air space or interstitial disease. No significant pleural effusion. IMPRESSION: No acute findings. - Medical Decision Making Rate improved the pain reduction. Patient received a dose of Dilaudid and Toradol for pain relief. She does have a persistent infectious symptoms despite recent antibiotic treatment and has chronic leukocytosis. She will be covered with Augmentin steroid taper, and pain medication. Outpatient follow-up advised. pt given po kcl for mild hypokalemia - Differential Diagnosis viral syndrome, URI, pneumonia, rheumatoid arthritis flare Critical Care Time: No Critical care attestation.: If time is entered above; I have spent that time in minutes in the direct care of this critically ill patient, excluding procedure time. ED Disposition Clinical Impression: Leukocytosis, Chronic use of steroids, Lupus, Musculoskeletal chest pain, Morbid obesity, Acute bronchitis, Hypokalemia Disposition: - TO HOME OR SELFCARE Is pt being admited?: No Does the pt Need Aspirin: No Condition: Stable Instructions: Acute Bronchitis (ED), Musculoskeletal Pain (ED) Additional Instructions: Take the medication as prescribed. Follow-up with your doctor or doctor/clinic provided. Return if symptoms worsen as indicated by your discharge instructions. Prescriptions: Amoxicillin/K Clav Tab [Augmentin 875 mg] 1 tab PO Q12HR #14 tab Potassium Chloride [K-Dur] 20 meq PO BID #4 tab HYDROcodone/APAP 5-325 [[place] 5/325] 1 each PO Q6HR PRN #15 tablet PRN Reason: Pain Prednisone [predniSONE 10 mg (6-Day Pack, 21 Tabs)] 10 mg PO .TAPER #1 tab.ds.pk Benzonatate [Tessalon Perles] 100 mg PO Q8HR PRN #20 capsule PRN Reason: Cough Referrals: CARLOS PALENCIA MD [Primary Care Provider] - 3-5 Days Time of Disposition: 04:40
[2019-09-02] MEDS ORDERED: SODIUM CHLORIDE 0.9% 1000 ML 1,000 ML IV ONE (02:26)
[2019-09-02 03:44] VITALS: BP 123/76
[2019-09-02 04:16] LABS: Bilirubin,Urine NEG (Negative); Blood,Urine NEG (Negative); Color,Urine Amber (Yellow); Mucus,Urine 2+ /HPF
== END 2019-09-02 05:17 | disposition home or self-care (01) ==
LOC: ED 21:45
DX: M32.9 Systemic lupus erythematosus, unspecified (principal); D72.829 Elevated white blood cell count, unspecified; R07.89 Other chest pain; J20.9 Acute bronchitis, unspecified; M06.9 Rheumatoid arthritis, unspecified; E87.6 Hypokalemia; F15.10 Other stimulant abuse, uncomplicated; E66.01 Morbid (severe) obesity due to excess calories; Z68.42 Body mass index [BMI] 45.0-49.9, adult; Z79.899 Other long term (current) drug therapy
CPT/HCPCS: 36415; 71046; 80048; 81001; 84703; 85025; 87400; 96374; 96375; 96376; 99284; J1170; J2405; J2930; J7030

== ENCOUNTER 2019-09-18 16:09 | Emergency (ER) | payer MEDICAID ==
[2019-09-18 16:47] VITALS: BP 167/103
--- NOTE | 2019-09-18 16:47 | Emergency Department Report ---
Blank Doc - Documentation Documentation: 29-year-old female that presents with acute onset of headache with blurry vision and tingling sensation to tosin upper and lower exterminates. Uncontrolled HTN. This initial assessment/diagnostic orders/clinical plan/treatment(s) is/are subject to change based on patient's health status, clinical progression and re- assessment by fellow clinical providers in the ED. Further treatment and workup at subsequent clinical providers discretion. Patient/guardians urged not to amanuel pe from the ED as their condition may be serious if not clinically assessed and managed. Initial orders include: 1- Patient sent to [facility] for further evaluation and treatment 2- CT head
--- NOTE | 2019-09-18 19:04 | Cat Scan Report ---
[address] SCAN OF THE HEAD: CT head/brain wo con INDICATION / CLINICAL INFORMATION: 29 years Female; headache. TECHNIQUE: Routine CT head without contrast. All CT scans at this location are performed using CT dos e reduction for ALARA by means of automated exposure control. COMPARISON: None. FINDINGS: BRAIN / INTRACRANIAL CONTENTS: No acute hemorrhage, mass effect, midline shift, hydrocephalus, or ac tenzin, large territorial infarct. No chronic infarct or focal atrophy. Normal brain volume and ventricu lar/sulcal size for age. No significant white matter abnormality. CRANIOCERVICAL JUNCTION: No significant abnormality. ORBITS: No significant abnormality of visualized orbits. SINUSES / MASTOIDS: No significant abnormality of the visualized paranasal sinuses or mastoid air sandrine ls. ADDITIONAL FINDINGS: None. IMPRESSION: Normal nonenhanced CT scan of the brain. Signer Name: John Powell MD Signed: 09/18/2019 6:59 PM Workstation Name: [id number]
[2019-09-18] MEDS ORDERED: diphenhydrAMINE 50 MG/ML VIAL IV ONE (19:20)
[2019-09-18] MEDS ORDERED: KETOROLAC 30 MG/1 ML INJ IV ONE (19:20)
[2019-09-18] MEDS ORDERED: BUTALB/ACETAMINOPHEN/CAFFEINE TAB PO ONE (19:20)
[2019-09-18] MEDS ORDERED: ONDANSETRON 4 MG/2 ML INJ IV ONE (19:24)
[2019-09-18] MEDS ORDERED: dexAMETHasone 20 MG/5 ML VIAL IV ONE (19:34)
[2019-09-18 20:43] LABS: Basophils # (Auto) 0.2 K/mm3 (0.0-0.1); Basophils % (Auto) 1.2 % (0.0-1.8); Eosinophils # (Auto) 0.5 K/mm3 (0.0-0.4); Hematocrit 31.1 % (30.3-42.9); Hemoglobin 9.8 gm/dl (10.1-14.3); Lymphocytes # (Auto) 3.2 K/mm3 (1.2-5.4); Lymphocytes % (Auto) 22.8 % (13.4-35.0); Mean Corpuscular HGB Conc 32 % (30-34); Mean Corpuscular Volume 75 fl (79-97); Monocytes # (Auto) 0.4 K/mm3 (0.0-0.8); Monocytes % (Auto) 3.1 % (0.0-7.3); Platelet Count 355 K/mm3 (140-440); Red Blood Count 4.14 M/mm3 (3.65-5.03); Red Cell Distribution Width 18.1 % (13.2-15.2)
[2019-09-18] MEDS ORDERED: METOCLOPRAMIDE 10 MG/2 ML INJ IV ONE (20:46)
[2019-09-18] MEDS ORDERED: METOCLOPRAMIDE 10 MG/2 ML INJ ONE (20:48)
--- NOTE | 2019-09-18 21:22 | Emergency Department Report ---
ED General Adult HPI - General Chief complaint: Neuro Symptoms/Deficit Stated complaint: HEADACHE/N/V/DIARRHEA Time Seen by Provider: 09/18/19 16:45 Source: patient Mode of arrival: Ambulatory Limitations: No Limitations - History of Present Illness Initial comments: Patient is a 29-year-old female with a history of chronic pain due to chronic rheumatoid arthritis presents to the ED with complaint of acute onset persistent severe headache with nausea and vomiting and worsening diffuse joint pains and aches for the last 4 days. Patient also complains of facial tingling as well as numbness and tingling of hands and feet bilaterally. Patient states that she has been taking [id number] medications with no relief. Patient denies loss of consciousness, syncope, seizures, change in vision, neck pain, chest pain, shortness of breath, abdominal pain, fever, chills, cough, sore throat, traumatic injury or heavy lifting, fall, bilateral lower and upper extremity weakness or changes in speech. MD Complaint: HEADACHE; Diffuse body aches and apin -: Sudden, days(s) (4) Location: head, back, upper extremity, lower extremity Radiation: non-radiation Severity scale (0 -10): 10 Quality: aching, sharp Consistency: constant Improves with: none Worsens with: none Associated Symptoms: denies other symptoms, headaches, nausea/vomiting. denies: confusion, chest pain, cough, diaphoresis, fever/chills, loss of appetite, malaise, rash, seizure, shortness of breath, syncope, weakness, other Treatments Prior to Arrival: none - Related Data Previous Rx's Medication Instructions Recorded Last Taken Type predniSONE [Prednisone] 10 mg PO DAILY #7 tab.ds.pk 12/25/18 09/01/19 Rx ALBUTEROL Inhaler(NF) [VENTOLIN 1 puff IH Q4HRT PRN #1 inha 02/06/19 09/01/19 Rx Inhaler(NF)] Amoxicillin/K Clav Tab [Augmentin 1 tab PO Q12HR #14 tab 09/02/19 Unknown Rx 875 mg] Benzonatate [Tessalon Perles] 100 mg PO Q8HR PRN #20 capsule 09/02/19 Unknown Rx HYDROcodone/APAP 5-325 [[place] 1 each PO Q6HR PRN #15 tablet 09/02/19 Unknown Rx 5/325] Potassium Chloride [K-Dur] 20 meq PO BID #4 tab 09/02/19 Unknown Rx Prednisone [predniSONE 10 mg 10 mg PO .TAPER #1 tab.ds.pk 09/02/19 Unknown Rx (6-Day Pack, 21 Tabs)] Allergies Allergy/AdvReac Type Severity Reaction Status Date / Time No Known Allergies Allergy Verified 12/25/18 08:57 ED Review of Systems ROS: Stated complaint: HEADACHE/N/V/DIARRHEA Other details as noted in HPI Constitutional: denies: chills, fever Eyes: denies: eye pain, eye discharge, vision change ENT: denies: ear pain, throat pain Respiratory: denies: cough, shortness of breath, wheezing Cardiovascular: denies: chest pain, palpitations Endocrine: no symptoms reported Gastrointestinal: denies: abdominal pain, nausea, diarrhea Genitourinary: denies: urgency, dysuria, discharge Musculoskeletal: back pain, arthralgia (diffuse body aches and pains and joint pains), myalgia. denies: joint swelling Skin: denies: rash, lesions Neurological: headache. denies: weakness, paresthesias Psychiatric: denies: anxiety, depression Hematological/Lymphatic: denies: easy bleeding, easy bruising ED Past Medical Hx - Past Medical History Previous Medical History?: Yes Hx Congestive Heart Failure: No Hx Diabetes: No Hx Arthritis: Yes (Rheumatoid) Hx Seizures: No Hx Asthma: No Hx COPD: No Additional medical history: RA, Morbid Obesity. Psoriasis, Pneumonia - Surgical History Past Surgical History?: Yes Additional Surgical History: Psoriasis - Social History Smoking Status: Never Smoker Substance Use Type: None - Medications Home Medications: Home Medications Medication Instructions Recorded Confirmed Last Taken Type predniSONE [Prednisone] 10 mg PO DAILY #7 tab.ds.pk 12/25/18 09/02/19 09/01/19 Rx ALBUTEROL Inhaler(NF) [VENTOLIN 1 puff IH Q4HRT PRN #1 inha 02/06/19 09/02/19 09/01/19 Rx Inhaler(NF)] Amoxicillin/K Clav Tab [Augmentin 1 tab PO Q12HR #14 tab 09/02/19 Unknown Rx 875 mg] Benzonatate [Tessalon Perles] 100 mg PO Q8HR PRN #20 capsule 09/02/19 Unknown Rx HYDROcodone/APAP 5-325 [[place] 1 each PO Q6HR PRN #15 tablet 09/02/19 Unknown Rx 5/325] Potassium Chloride [K-Dur] 20 meq PO BID #4 tab 09/02/19 Unknown Rx Prednisone [predniSONE 10 mg 10 mg PO .TAPER #1 tab.ds.pk 09/02/19 Unknown Rx (6-Day Pack, 21 Tabs)] ED Physical Exam - General Limitations: No Limitations General appearance: alert, in no apparent distress - Head Head exam: Present: atraumatic, normocephalic, normal inspection - Eye Eye exam: Present: normal appearance, PERRL, EOMI Pupils: Present: normal accommodation - ENT ENT exam: Present: normal exam, normal orophraynx, mucous membranes moist, TM's normal bilaterally, normal external ear exam - Neck Neck exam: Present: normal inspection, full ROM - Respiratory Respiratory exam: Present: normal lung sounds bilaterally. Absent: respiratory distress, wheezes, rales, rhonchi, accessory muscle use, decreased breath sounds - Cardiovascular Cardiovascular Exam: Present: normal rhythm, tachycardia, normal heart sounds. Absent: systolic murmur, diastolic murmur, rubs, gallop - GI/Abdominal GI/Abdominal exam: Present: soft, normal bowel sounds. Absent: tenderness, guarding, rebound, hyperactive bowel sounds, hypoactive bowel sounds, organomegaly - Extremities Exam Extremities exam: Present: normal inspection, full ROM, tenderness (diffuse joint pains and aches), normal capillary refill - Back Exam Back exam: Present: normal inspection, tenderness (diffuse palpable lumbosacral paraspinal musculoskeletal tenderness), muscle spasm, paraspinal tenderness - Neurological Exam Neurological exam: Present: alert, oriented X3, CN II-XII intact, normal gait, reflexes normal - Psychiatric Psychiatric exam: Present: normal affect, normal mood - Skin Skin exam: Present: warm, dry, intact, normal color. Absent: rash ED Course Vital Signs 09/18/19 09/18/19 09/18/19 16:45 19:40 19:51 Temperature 98.4 F Pulse Rate 112 H Respiratory 22 18 18 Rate Blood Pressure 167/103 O2 Sat by Pulse 98 Oximetry 09/18/19 09/18/19 20:21 20:40 Temperature Pulse Rate Respiratory 18 18 Rate Blood Pressure O2 Sat by Pulse Oximetry ED Medical Decision Making - Lab Data Result diagrams: 09/18/19 19:55 - Radiology Data Radiology results: report reviewed, image reviewed Head CT scan without contrast shows no acute intracranial abnormalities or hemorrhage. - Medical Decision Making This is a 29-year-old -[place] female with a history of chronic pain due to chronic rheumatoid arthritis presented to the ED with severe headache with nausea and vomiting and bilateral hand and feet tingling sensations. In the ED, patient is alert and oriented 3 and is not in distress but tachycardic in triage. Head CT scan without contrast shows no acute intracranial abnormalities or hemorrhage. Lab test results were reviewed and shows acute leukocytosis of 13,800 basically from chronic steroid use. Patient was treated for pain and also treated for nausea and vomiting. Patient decided to leave the ED AGAINST MEDICAL ADVICE after her request for narcotic pain medication was declined. Patient signed out AGAINST MEDICAL ADVICE and left the ED. - Differential Diagnosis chronic pain syndrome; migraine headache; nausea and vomiting Critical care attestation.: If time is entered above; I have spent that time in minutes in the direct care of this critically ill patient, excluding procedure time. ED Disposition Clinical Impression: Nausea and vomiting in adult, Chronic pain syndrome Migraine headache Qualifiers: Migraine type: with aura Status migrainosus presence: without status migrainosus Intractability: not intractable Qualified Code(s): G43.109 - Migraine with aura, not intractable, without status migrainosus Disposition: DC-07 LEFT AGAINST MED ADVICE Is pt being admited?: No Does the pt Need Aspirin: No Condition: Stable Referrals: PRIMARY CARE, [Primary Care Provider] - 3-5 Days Forms: AMA Form Time of Disposition: 21:10 Print Language: PUERT[place] R[place]
[2019-09-18 21:27] LABS: Erythrocyte Sedimentation Rate 38 mm/Hr (0-20)
[2019-09-18 22:27] LABS: Alanine Aminotransferase 20 units/L (7-56); Albumin 3.5 g/dL (3.9-5); BUN/Creatinine Ratio 26; Blood Urea Nitrogen 13 mg/dL (7-17); Calcium 8.6 mg/dL (8.4-10.2); Hemolysis Index 5
== END 2019-09-18 21:08 | disposition left against medical advice (07) ==
LOC: ED 16:09
DX: G43.109 Migraine with aura, not intractable, without status migrainosus (principal); M06.80 Other specified rheumatoid arthritis, unspecified site; E66.01 Morbid (severe) obesity due to excess calories; Z68.25 Body mass index [BMI] 25.0-25.9, adult; Z79.899 Other long term (current) drug therapy
CPT/HCPCS: 36415; 70450; 80053; 84484; 85025; 85652; 86140; 96374; 96375; 99284; J1100; J1200; J1885; J2405; J2765

== ENCOUNTER 2020-12-25 22:48 | Emergency (ER) | payer MEDICAID, OTHER ==
[2020-12-26 00:34] LABS: Basophils # (Auto) 0.1 K/mm3 (0.0-0.1); Basophils % (Auto) 0.5 % (0.0-1.8); Eosinophils # (Auto) 0.1 K/mm3 (0.0-0.4); Eosinophils % (Auto) 0.3 % (0.0-4.3); Hematocrit 34.3 % (30.3-42.9); Hemoglobin 11.2 gm/dl (10.1-14.3); Lymphocytes # (Auto) 2.2 K/mm3 (1.2-5.4); Lymphocytes % (Auto) 11.4 % (13.4-35.0); Mean Corpuscular HGB Conc 33 % (30-34); Mean Corpuscular Volume 83 fl (79-97); Monocytes # (Auto) 1.1 K/mm3 (0.0-0.8); Monocytes % (Auto) 5.8 % (0.0-7.3); Platelet Count 320 K/mm3 (140-440); Red Blood Count 4.15 M/mm3 (3.65-5.03); Red Cell Distribution Width 16.5 % (13.2-15.2)
[2020-12-26 00:52] LABS: Blood Urea Nitrogen 15 mg/dL (7-17); Calcium 8.3 mg/dL (8.4-10.2); Hemolysis Index 4
[2020-12-26 00:54] LABS: BUN/Creatinine Ratio 30
[2020-12-26 01:03] LABS: HCG Qualitative,Urine Negative (Negative)
[2020-12-26] MEDS ORDERED: oxyCODONE /ACETAMINOPHEN 5-325MG TAB PO ONE (01:04)
[2020-12-26] MEDS ORDERED: IBUPROFEN 600 MG TAB PO ONE (01:05)
--- NOTE | 2020-12-26 01:09 | Emergency Department Report ---
ED General Adult HPI - General Chief complaint: Pain General Stated complaint: LUPUS,RHEUMATOID ARTHRITIS PUI?: No Time Seen by Provider: 12/26/20 00:49 Source: patient, RN notes reviewed, old records reviewed Mode of arrival: Ambulatory Limitations: No Limitations - History of Present Illness Initial comments: The patient was evaluated in the emergency department for symptoms described in the history of present illness. He/she was evaluated in the context of the global COVID-19 pandemic, which necessitated consideration that the patient might be at risk for infection with the virus that causes COVID-19. Institutional protocols and algorithms that pertain to the evaluation of patients at risk for COVID-19 are in a state of rapid change based on information released by regulatory bodies including the CDC and federal and state organizations. These policies and algorithms were followed during the patient's care in the emergency department. Please note that these policies, procedures and recommendations changed on a rapid basis. During the history and physical examination, I am chaperoned and escorted by Ms Georgina Hoffman Patient is a 30-year-old female. I have evaluated this patient in the past. She has a history of morbid obesity, lupus, rheumatoid arthritis, is chronically steroid-dependent, typically takes prednisone, 20 mg daily for the past few years, maintained on methotrexate as well. The patient presents to the ER with a complaint of bilateral ankle pain, bilateral knee pain, bilateral hip pain, bilateral paralumbar lower back pain, bilateral wrist and hand pain. This pain has been present for the past 2 to 3 days. The pain is aching and throbbing. It increases with palpation. It decreases with rest. No fever. No cough. No dysuria. No nausea, vomiting or diarrhea. Patient believes that her lupus and rheumatoid arthritis are being triggered by warm weather and change of seasons. No sore throat. No loss of taste or smell. Patient reports that she is supposed to follow-up with her outpatient database security administrator, Dr. Butler, and is currently awaiting a telemedicine visit. She ran out of her prednisone 2 days ago, 20 mg, and requests a refill on that. She took Tylenol and ibuprofen [id number] yesterday, with minimal improvement of symptoms. -: Gradual, days(s) Location: back, left, right, upper extremity, lower extremity Quality: aching Consistency: intermittent Improves with: rest Worsens with: movement - Related Data Previous Rx's Medication Instructions Recorded Last Taken Type predniSONE [Prednisone] 10 mg PO DAILY #7 tab.ds.pk 12/25/18 09/01/19 Rx ALBUTEROL Inhaler(NF) [VENTOLIN 1 puff IH Q4HRT PRN #1 inha 02/06/19 09/01/19 Rx Inhaler(NF)] Benzonatate [Tessalon Perles] 100 mg PO Q8HR PRN #20 capsule 09/02/19 Unknown Rx Prednisone [predniSONE 10 mg 10 mg PO .TAPER #1 tab.ds.pk 09/02/19 Unknown Rx (6-Day Pack, 21 Tabs)] Acetaminophen [Non-Aspirin Extra 500 mg PO Q6HR PRN #30 tablet 12/26/20 Unknown Rx Strength] Ibuprofen [Motrin] 600 mg PO Q8H PRN #30 tablet 12/26/20 Unknown Rx Morphine Sulfate [Morphine Sulfate 7.5 mg PO Q6HR PRN #10 tablet 12/26/20 Unknown Rx IR] Ondansetron [Zofran Odt] 4 mg PO Q8HR PRN #20 tab.rapdis 12/26/20 Unknown Rx predniSONE [Deltasone] 20 mg PO QDAY #30 tab 12/26/20 Unknown Rx Allergies Allergy/AdvReac Type Severity Reaction Status Date / Time No Known Allergies Allergy Verified 12/25/18 08:57 ED Review of Systems ROS: Stated complaint: LUPUS,RHEUMATOID ARTHRITIS Other details as noted in HPI Constitutional: other (Denies loss of taste and smell). denies: fever, malaise, weakness Eyes: denies: vision change ENT: denies: epistaxis Respiratory: denies: cough Cardiovascular: denies: chest pain Gastrointestinal: denies: abdominal pain, vomiting, diarrhea Genitourinary: denies: dysuria Musculoskeletal: back pain, joint swelling, arthralgia, myalgia Skin: denies: lesions Neurological: denies: weakness Hematological/Lymphatic: denies: easy bleeding ED Past Medical Hx - Past Medical History Previous Medical History?: Yes Hx Congestive Heart Failure: No Hx Diabetes: No Hx Arthritis: Yes (Rheumatoid) Hx Seizures: No Hx Asthma: No Hx COPD: No Additional medical history: RA, Morbid Obesity. Psoriasis, Pneumonia - Surgical History Past Surgical History?: Yes Additional Surgical History: Psoriasis - Social History Smoking Status: Never Smoker Substance Use Type: Marijuana - Medications Home Medications: Home Medications Medication Instructions Recorded Confirmed Last Taken Type predniSONE [Prednisone] 10 mg PO DAILY #7 tab.ds.pk 12/25/18 09/02/19 09/01/19 Rx ALBUTEROL Inhaler(NF) [VENTOLIN 1 puff IH Q4HRT PRN #1 inha 02/06/19 09/02/19 09/01/19 Rx Inhaler(NF)] Benzonatate [Tessalon Perles] 100 mg PO Q8HR PRN #20 capsule 09/02/19 Unknown Rx Prednisone [predniSONE 10 mg 10 mg PO .TAPER #1 tab.ds.pk 09/02/19 Unknown Rx (6-Day Pack, 21 Tabs)] Acetaminophen [Non-Aspirin Extra 500 mg PO Q6HR PRN #30 tablet 12/26/20 Unknown Rx Strength] Ibuprofen [Motrin] 600 mg PO Q8H PRN #30 tablet 12/26/20 Unknown Rx Morphine Sulfate [Morphine Sulfate 7.5 mg PO Q6HR PRN #10 tablet 12/26/20 Unknown Rx IR] Ondansetron [Zofran Odt] 4 mg PO Q8HR PRN #20 tab.rapdis 12/26/20 Unknown Rx predniSONE [Deltasone] 20 mg PO QDAY #30 tab 12/26/20 Unknown Rx ED Physical Exam - General Limitations: No Limitations General appearance: alert, in no apparent distress, obese - Head Head exam: Present: atraumatic, normocephalic - Eye Eye exam: Present: normal appearance, EOMI. Absent: nystagmus - ENT ENT exam: Present: normal exam, normal orophraynx, mucous membranes moist, normal external ear exam - Neck Neck exam: Present: normal inspection, full ROM. Absent: tenderness, meningismus - Respiratory Respiratory exam: Present: normal lung sounds bilaterally. Absent: respiratory distress, wheezes, rales, rhonchi, stridor, decreased breath sounds - Cardiovascular Cardiovascular Exam: Present: regular rate, normal rhythm, normal heart sounds. Absent: bradycardia, tachycardia, irregular rhythm, systolic murmur, diastolic murmur, rubs, gallop - GI/Abdominal GI/Abdominal exam: Present: soft, normal bowel sounds. Absent: distended, tenderness, guarding, rebound, rigid, pulsatile mass - Extremities Exam Extremities exam: Present: normal inspection, full ROM, tenderness (There is mild bilateral knee, ankle, wrist tenderness. There is no redness, pus or streaking. Full active and passive range of motion noted in the bilateral upper and lower extremities.), other (Long bones are nontender. 2+ pulses noted in the bilateral upper and lower extremities. The pelvis is stable. There is no palpable cord.) - Back Exam Back exam: Present: normal inspection, full ROM. Absent: tenderness, CVA tenderness (R), CVA tenderness (L), paraspinal tenderness, vertebral tenderness - Neurological Exam Neurological exam: Present: alert, oriented X3, normal gait, other (No facial droop. Tongue midline. Extraocular movements intact bilaterally. Facial sensation intact to light touch in V1, V2, V3 distribution bilaterally. 5 and a 5 strength in 4 extremities. Sensation intact to light touch in 4 extremities.). Absent: motor sensory deficit - Psychiatric Psychiatric exam: Present: normal affect, normal mood - Skin Skin exam: Present: warm, dry, intact, normal color. Absent: rash ED Course Vital Signs 12/26/20 12/26/20 00:09 01:48 Temperature 98.1 F Pulse Rate 82 76 Respiratory 18 16 Rate Blood Pressure 124/80 Blood Pressure 129/66 [Right] O2 Sat by Pulse 98 98 Oximetry - Reevaluation(s) Reevaluation #1: 12/26/20 01:07 [place] [employer] faculty member aware 09/25/2020 1 09/23/2020 TRAMADOL HCL 50 MG TABLET 12.0 3 MICAH NUT [id number] [facility] ([id number]) 0 20.0 MME Comm Ins [place] 08/16/2020 1 08/16/2020 DIAZEPAM 10 MG TABLET 10.0 5 BA PABLITO [id number] [facility] ([id number]) 0 Comm Ins [place] 08/04/2020 1 08/04/2020 ACETAMINOPHEN-COD #3 TABLET 15.0 3 DE ATK [id number] [facility] ([id number]) 0 22.5 [place]ME [place] 07/07/2020 1 07/07/2020 HYDROCODONE-ACETAMIN 10-325 MG 12.0 3 KA GLEN [id number] [facility] ([id number]) 0 40.0 [place] 06/15/2020 1 06/14/2020 OXYCODONE-ACETAMINOPHEN 5-325 12.0 3 [place] MAUREEN [id number] [facility] ([id number]) 0 30.0 MME Private Pay [place] 04/30/2020 2 04/29/2020 TRAMADOL HCL 50 MG TABLET 15.0 3 RO JOEY [id number] [facility] ([id number]) 0 25.0 [place]ME [place] 03/18/2020 2 03/18/2020 HYDROCODONE-ACETAMIN 5-325 MG 20.0 2 WO FRA [id number] [facility] ([id number]) 0 50.0 [place]ME Comm Ins [place] 02/02/2020 2 02/02/2020 HYDROCODONE-ACETAMIN 5-325 MG 20.0 2 WO FRA [id number] [facility] ([id number]) 0 50.0 [place] Reevaluation #2: 12/26/20 01:11 Differential diagnosis, including but not limited to: Polyarthritis, rheumatoid arthritis flare, lupus flare, steroid dependence, medication refill Assessment and plan: 30-year-old female, who was afebrile, with reassuring vital signs, ambulatory with a steady gait, with no obvious redness, pus or streaking over her large joints, with appropriate active and passive range of motion over her large joints, with probable lupus/rheumatoid arthritis flare. Leukocytosis is likely secondary to chronic steroid dependence. I will refill the patient's steroids. We will treat her pain appropriately. Do not see indication for advanced imaging at this time. Rest, ice, compression, elevation, steroid refill, complementary outpatient therapy, such as acupuncture, massage therapy, physical therapy, patient fairly obese, however, I suspect that this is secondary to her steroid dependence, I will also give the patient a small course of morphine sulfate for breakthrough pain, in addition to ibupro fen/acetaminophen. We will also refill her steroids. Patient is not at this time. Return precautions are reviewed. At the moment, patient noted to be looking at [employer] on her cellular phone, and does not appear to be in any acute distress. ED Medical Decision Making - Lab Data Result diagrams: 12/26/20 00:16 12/26/20 00:16 Vital Signs 12/26/20 00:09 Temperature 98.1 F Pulse Rate 82 Respiratory 18 Rate Blood Pressure 124/80 O2 Sat by Pulse 98 Oximetry Lab Results 12/26/20 12/26/20 12/26/20 Range/Units 00:16 00:16 Unknown WBC 19.2 H (4.5-11.0) K/mm3 RBC 4.15 (3.65-5.03) M/mm3 Hgb 11.2 (10.1-14.3) gm/dl Hct 34.3 (30.3-42.9) % MCV 83 (79-97) fl MCH 27 L (28-32) pg MCHC 33 (30-34) % RDW 16.5 H (13.2-15.2) % Plt Count 320 (140-440) K/mm3 Lymph % (Auto) 11.4 L (13.4-35.0) % [place] % (Auto) 5.8 (0.0-7.3) % Eos % (Auto) 0.3 (0.0-4.3) % Baso % (Auto) 0.5 (0.0-1.8) % Lymph # (Auto) 2.2 (1.2-5.4) K/mm3 [place] # (Auto) 1.1 H (0.0-0.8) K/mm3 Eos # (Auto) 0.1 (0.0-0.4) K/mm3 Baso # (Auto) 0.1 (0.0-0.1) K/mm3 Seg Neutrophils % 82.0 H (40.0-70.0) % Seg Neutrophils # 15.7 H (1.8-7.7) K/mm3 Sodium 137 (137-145) mmol/L Potassium 4.3 (3.6-5.0) mmol/L Chloride 104.3 (98-107) mmol/L Carbon Dioxide 24 (22-30) mmol/L Anion Gap 13 mmol/L BUN 15 (7-17) mg/dL Creatinine 0.5 L (0.6-1.2) mg/dL Estimated GFR > 60 ml/min BUN/Creatinine Ratio 30 % Glucose 91 (65-100) mg/dL Calcium 8.3 L (8.4-10.2) mg/dL Urine HCG, Qual Negative (Negative) Critical care attestation.: If time is entered above; I have spent that time in minutes in the direct care of this critically ill patient, excluding procedure time. ED Disposition Clinical Impression: Polyarthritis, Chronic use of steroids, Medication refill Disposition: TO HOME OR SELFCARE Is pt being admited?: No Does the pt Need Aspirin: No Condition: Good Instructions: Arthritis Additional Instructions: Rest, avoid heavy lifting, strenuous physical activities. Take the medications as needed and directed. If taking the morphine sulfate, do not drive, consume alcohol, or make important decisions. Recommend the patient follow-up with her primary care doctor or database security administrator within the next week. Patient may also find relief from physical pain by participating in complementary therapy, such as acupuncture, massage, rest, ice, compression, elevation therapy, and/or physical therapy. Please return to the emergency room right away with new pain, worsened pain, migration of pain, projectile vomiting, change in mental status, confusion, inability to tolerate liquid feeds, new, worsened or different symptoms not present on the initial emergency room evaluation. Prescriptions: predniSONE [Deltasone] 20 mg PO QDAY #30 tab Morphine Sulfate [Morphine Sulfate IR] 7.5 mg PO Q6HR PRN #10 tablet PRN Reason: Pain , Severe (7-10) Ibuprofen [Motrin] 600 mg PO Q8H PRN #30 tablet PRN Reason: Pain Acetaminophen [Non-Aspirin Extra Strength] 500 mg PO Q6HR PRN #30 tablet PRN Reason: Pain , Severe (7-10) Ondansetron [Zofran Odt] 4 mg PO Q8HR PRN #20 tab.rapdis PRN Reason: Nausea Referrals: [facility] [Provider Group] - 3-5 Days MALLIKA BUTLER MD [Referring] - 3-5 Days Forms: Work/School Release Form(ED)
[2020-12-26] MEDS ORDERED: predniSONE 20 MG TAB PO ONE (01:19)
[2020-12-26 01:49] VITALS: BP 129/66
== END 2020-12-26 01:49 | disposition home or self-care (01) ==
LOC: ED 22:48
DX: M13.0 Polyarthritis, unspecified (principal); Z76.0 Encounter for issue of repeat prescription; Z79.52 Long term (current) use of systemic steroids; F12.10 Cannabis abuse, uncomplicated; Z98.890 Other specified postprocedural states; Z79.1 Long term (current) use of non-steroidal anti-inflammatories (NSAID); Z79.899 Other long term (current) drug therapy
CPT/HCPCS: 36415; 80048; 81025; 82550; 83735; 85025; 99283; J7512

== ENCOUNTER 2021-01-08 22:18 | Emergency (ER) | payer OTHER | END 2021-01-08 22:52 | disposition left against medical advice (07) | LOC: ED 22:18 | DX: R10.9 Unspecified abdominal pain (principal); Z53.21 Procedure and treatment not carried out due to patient leaving prior to being seen by health care provider ==

== ENCOUNTER 2021-01-27 10:10 | Emergency (ER) | payer OTHER ==
[2021-01-27] MEDS ORDERED: KETOROLAC 60 MG/2 ML INJ IM ONE (10:24)
[2021-01-27] MEDS ORDERED: dexAMETHasone 20 MG/5 ML VIAL IM ONE (10:24)
--- NOTE | 2021-01-27 10:51 | Emergency Department Report ---
ED General Adult HPI - General Chief complaint: Pain General Stated complaint: LUPUS FLARE UP Time Seen by Provider: 01/27/21 10:23 Source: patient Mode of arrival: Ambulatory Limitations: No Limitations - History of Present Illness Initial comments: Patient is a 30-year-old female presents emergency room with complaints of a rheumatoid arthritis flare that began this morning. She states that she has generalized joint pain. She states that this is typical of her previous flares. She states that she last had a flare approximately 1 month ago. She states that Toradol and dexamethasone typically help her flares. She states that she takes 20 mg of prednisone daily but ran out and is requesting a refill. She denies any fever, redness of the joints, numbness, weakness, vomiting, diarrhea. She denies any other past medical history. She states that she does see a access developer. No allergies to medications. She denies any possibility of pr egnancy. - Related Data Previous Rx's Medication Instructions Recorded Last Taken Type predniSONE [Prednisone] 10 mg PO DAILY #7 tab.ds.pk 12/25/18 09/01/19 Rx ALBUTEROL Inhaler(NF) [VENTOLIN 1 puff IH Q4HRT PRN #1 inha 02/06/19 09/01/19 Rx Inhaler(NF)] Benzonatate [Tessalon Perles] 100 mg PO Q8HR PRN #20 capsule 09/02/19 Unknown Rx Prednisone [predniSONE 10 mg 10 mg PO .TAPER #1 tab.ds.pk 09/02/19 Unknown Rx (6-Day Pack, 21 Tabs)] Acetaminophen [Non-Aspirin Extra 500 mg PO Q6HR PRN #30 tablet 12/26/20 Unknown Rx Strength] Ibuprofen [Motrin] 600 mg PO Q8H PRN #30 tablet 12/26/20 Unknown Rx Morphine Sulfate [Morphine Sulfate 7.5 mg PO Q6HR PRN #10 tablet 12/26/20 Unknown Rx IR] Ondansetron [Zofran Odt] 4 mg PO Q8HR PRN #20 tab.rapdis 12/26/20 Unknown Rx Naproxen [EC-Naprosyn] 500 mg PO BID PRN #20 tablet. 01/27/21 Unknown Rx predniSONE [Deltasone] 20 mg PO QDAY #30 tab 01/27/21 Unknown Rx Allergies Allergy/AdvReac Type Severity Reaction Status Date / Time No Known Allergies Allergy Verified 01/27/21 10:16 ED Review of Systems ROS: Stated complaint: LUPUS FLARE UP Other details as noted in HPI Comment: All other systems reviewed and negative ED Past Medical Hx - Past Medical History Hx Congestive Heart Failure: No Hx Diabetes: No Hx Arthritis: Yes (Rheumatoid) Hx Seizures: No Hx Asthma: No Hx COPD: No Additional medical history: RA, Morbid Obesity. Psoriasis, Pneumonia - Surgical History Additional Surgical History: Psoriasis - Social History Smoking Status: Never Smoker Substance Use Type: None - Medications Home Medications: Home Medications Medication Instructions Recorded Confirmed Last Taken Type predniSONE [Prednisone] 10 mg PO DAILY #7 tab.ds.pk 12/25/18 09/02/19 09/01/19 Rx ALBUTEROL Inhaler(NF) [VENTOLIN 1 puff IH Q4HRT PRN #1 inha 02/06/19 09/02/19 09/01/19 Rx Inhaler(NF)] Benzonatate [Tessalon Perles] 100 mg PO Q8HR PRN #20 capsule 09/02/19 Unknown Rx Prednisone [predniSONE 10 mg 10 mg PO .TAPER #1 tab.ds.pk 09/02/19 Unknown Rx (6-Day Pack, 21 Tabs)] Acetaminophen [Non-Aspirin Extra 500 mg PO Q6HR PRN #30 tablet 12/26/20 Unknown Rx Strength] Ibuprofen [Motrin] 600 mg PO Q8H PRN #30 tablet 12/26/20 Unknown Rx Morphine Sulfate [Morphine Sulfate 7.5 mg PO Q6HR PRN #10 tablet 12/26/20 Unknown Rx IR] Ondansetron [Zofran Odt] 4 mg PO Q8HR PRN #20 tab.rapdis 12/26/20 Unknown Rx Naproxen [EC-Naprosyn] 500 mg PO BID PRN #20 tablet.dr 01/27/21 Unknown Rx predniSONE [Deltasone] 20 mg PO QDAY #30 tab 01/27/21 Unknown Rx ED Physical Exam - General Limitations: No Limitations General appearance: alert, in no apparent distress - Head Head exam: Present: atraumatic, normocephalic - Eye Eye exam: Present: normal appearance - ENT ENT exam: Present: mucous membranes moist - Respiratory Respiratory exam: Present: normal lung sounds bilaterally. Absent: respiratory distress, wheezes, rales, rhonchi, stridor, chest wall tenderness, accessory muscle use, decreased breath sounds, prolonged expiratory - Cardiovascular Cardiovascular Exam: Present: regular rate, normal rhythm, normal heart sounds. Absent: systolic murmur, diastolic murmur, rubs, gallop - Extremities Exam Extremities exam: Present: other (generalized ttp to the bilateral shoulders and ankles, FROM of the BUE/BLE, no erythema, no increased warmth, no deformity, neurovascularly intact throughout with strong distal pulses) - Neurological Exam Neurological exam: Present: alert, oriented X3 - Psychiatric Psychiatric exam: Present: normal affect, normal mood - Skin Skin exam: Present: warm, dry, intact ED Course Vital Signs 01/27/21 01/27/21 01/27/21 10:20 12:23 12:30 Temperature 98.9 F Pulse Rate 93 H 89 Respiratory 18 18 18 Rate Blood Pressure 157/105 Blood Pressure 138/94 [Right] O2 Sat by Pulse 98 96 Oximetry 01/27/21 12:31 Temperature Pulse Rate Respiratory 18 Rate Blood Pressure Blood Pressure [Right] O2 Sat by Pulse Oximetry ED Medical Decision Making - Lab Data Vital Signs 01/27/21 01/27/21 01/27/21 10:20 12:23 12:30 Temperature 98.9 F Pulse Rate 93 H 89 Respiratory 18 18 18 Rate Blood Pressure 157/105 Blood Pressure 138/94 [Right] O2 Sat by Pulse 98 96 Oximetry 01/27/21 12:31 Temperature Pulse Rate Respiratory 18 Rate Blood Pressure Blood Pressure [Right] O2 Sat by Pulse Oximetry - Medical Decision Making Patient is a 30-year-old female presents emergency room with complaints of a rheumatoid arthritis flare that began this morning. She states that she has generalized joint pain. She states that this is typical of her previous flares. She states that she last had a flare approximately 1 month ago. She states that Toradol and dexamethasone typically help her flares. She states that she takes 20 mg of prednisone daily but ran out and is requesting a refill. She denies any fever, redness of the joints, numbness, weakness, vomiting, diarrhea. She denies any other past medical history. She states that she does see a access developer. No allergies to medications. She denies any possibility of . Initial vitals with elevated blood pressure which improved upon repeat. On exam: generalized ttp to the bilateral shoulders and ankles, FROM of the BUE/BLE, no erythema, no increased warmth, no deformity, neurovascularly intact throughout with strong distal pulses. No signs of gout, septic joint, patient has had no trauma, she has no constitutional symptoms. Symptoms could be related to her rheumatoid arthritis flare. Patient given dexamethasone and Toradol IM while in the emergency department and symptoms improved and she is feeling much better and ready to go home. Patient given refill of her home medication and naproxen. Advised patient Please take medication as prescribed. Increase your water intake. Follow-up with your access developer. Return to emergency room for new or worsening symptoms. Critical care attestation.: If time is entered above; I have spent that time in minutes in the direct care of this critically ill patient, excluding procedure time. ED Disposition Clinical Impression: Rheumatoid arthritis flare Disposition: DC- TO HOME OR SELFCARE Is pt being admited?: No Does the pt Need Aspirin: No Condition: Stable Instructions: Arthritis, [id number] Additional Instructions: Please take medication as prescribed. Increase your water intake. Follow-up with your access developer. Return to emergency room for new or worsening symptoms. Prescriptions: predniSONE [Deltasone] 20 mg PO QDAY #30 tab Naproxen [EC-Naprosyn] 500 mg PO BID PRN #20 tablet.dr TAPIA Reason: pain Referrals: your, access developer [Other] - 3-5 Days Time of Disposition: 10:50 Print Language: BULGARIAN
[2021-01-27 12:31] VITALS: BP 138/94
== END 2021-01-27 12:30 | disposition home or self-care (01) ==
LOC: ED 10:10
DX: M06.9 Rheumatoid arthritis, unspecified (principal); E66.01 Morbid (severe) obesity due to excess calories; Z98.890 Other specified postprocedural states; Z79.899 Other long term (current) drug therapy
CPT/HCPCS: 96372; 99282; J1100; J1885

== ENCOUNTER 2021-05-26 15:14 | Emergency (ER) | payer SELFPAY ==
[2021-05-26 15:48] VITALS: BP 189/129
[2021-05-26] MEDS ORDERED: traMADol 50 MG TAB PO ONE (17:31)
[2021-05-26] MEDS ORDERED: KETOROLAC 60 MG/2 ML INJ IM ONE (17:31)
[2021-05-26] MEDS ORDERED: dexAMETHasone 20 MG/5 ML VIAL IM ONE (17:31)
--- NOTE | 2021-05-26 17:40 | Emergency Department Report ---
ED General Adult HPI - General Chief complaint: Pain General Stated complaint: PAIN IN THE JOINTS PUI?: No Source: patient Mode of arrival: Ambulatory Limitations: No Limitations - History of Present Illness Initial comments: Patient is a 31-year-old female with a history of chronic pain due to chronic rheumatoid arthritis who presents to the ED with complaint of acute exacerbation of her chronic pain characterized by severe bilateral wrist, hand and knee joint pains for the last 1 week, worse in the last 3 days. Patient states that she usually takes prednisone 20 mg daily at home but ran out of the medication about 2 months ago. Patient states that whenever she gets exacerbation of her chronic rheumatoid arthritis flare, she usually comes to the ED for treatment with anti-inflammatory medications as well as steroid and gets prescription for the same to take at home. Patient denies loss of consciousness, syncope, seizures, change in vision, neck pain, chest pain, shortness of breath, abdominal pain, fever, chills, cough, sore throat, traumatic injury or heavy lifting, fall, bilateral lower and upper extremity weakness or changes in speech. MD Complaint: Multiple joint pains; chronic pain exacerbation -: Sudden, week(s) (1) Location: upper extremity (bilateral hands and wrists), lower extremity (Bilateral knee joint pains) Radiation: non-radiation Severity scale (0 -10): 8 Quality: aching, sharp Consistency: constant Improves with: none Worsens with: none Associated Symptoms: denies other symptoms. denies: confusion, chest pain, cough, fever/chills, headaches, loss of appetite, malaise, nausea/vomiting, rash, seizure, shortness of breath, syncope, weakness, other Treatments Prior to Arrival: none - Related Data Previous Rx's Medication Instructions Recorded Last Taken Type predniSONE [Prednisone] 10 mg PO DAILY #7 tab.ds.pk 12/25/18 09/01/19 Rx ALBUTEROL Inhaler(NF) [VENTOLIN 1 puff IH Q4HRT PRN #1 inha 02/06/19 09/01/19 Rx Inhaler(NF)] Benzonatate [Tessalon Perles] 100 mg PO Q8HR PRN #20 capsule 09/02/19 Unknown Rx Prednisone [predniSONE 10 mg 10 mg PO .TAPER #1 tab.ds.pk 09/02/19 Unknown Rx (6-Day Pack, 21 Tabs)] Acetaminophen [Non-Aspirin Extra 500 mg PO Q6HR PRN #30 tablet 12/26/20 Unknown Rx Strength] Ibuprofen [Motrin] 600 mg PO Q8H PRN #30 tablet 12/26/20 Unknown Rx Morphine Sulfate [Morphine Sulfate 7.5 mg PO Q6HR PRN #10 tablet 12/26/20 Unknown Rx IR] Ondansetron [Zofran Odt] 4 mg PO Q8HR PRN #20 tab.alverto 12/26/20 Unknown Rx Naproxen [EC-Naprosyn] 500 mg PO Q12H PRN #30 tablet. 05/26/21 Unknown Rx hydrOXYzine PAMOATE [Vistaril] 50 mg PO Q8HR PRN #30 capsule 05/26/21 Unknown Rx predniSONE [Deltasone] 20 mg PO QDAY #30 tab 05/26/21 Unknown Rx traMADoL [Ultram] 50 mg PO Q6HR PRN #12 tablet 05/26/21 Unknown Rx Allergies Allergy/AdvReac Type Severity Reaction Status Date / Time No Known Allergies Allergy Verified 01/27/21 10:16 ED Review of Systems ROS: Stated complaint: PAIN IN THE JOINTS Other details as noted in HPI Constitutional: denies: chills, fever Eyes: denies: eye pain, eye discharge, vision change ENT: denies: ear pain, throat pain Respiratory: denies: cough, shortness of breath, wheezing Cardiovascular: denies: chest pain, palpitations Endocrine: no symptoms reported Gastrointestinal: denies: abdominal pain, nausea, diarrhea Genitourinary: denies: urgency, dysuria, discharge Musculoskeletal: arthralgia (Bilateral hands, wrists and knee pain), myalgia. denies: back pain, joint swelling Skin: denies: rash, lesions Neurological: denies: headache, weakness, paresthesias Psychiatric: denies: anxiety, depression Hematological/Lymphatic: denies: easy bleeding, easy bruising ED Past Medical Hx - Past Medical History Hx Congestive Heart Failure: No Hx Diabetes: No Hx Arthritis: Yes (Rheumatoid) Hx Seizures: No Hx Asthma: No Hx COPD: No Additional medical history: RA, Morbid Obesity. Psoriasis, Pneumonia - Surgical History Additional Surgical History: Psoriasis - Social History Smoking Status: Never Smoker Substance Use Type: None - Medications Home Medications: Home Medications Medication Instructions Recorded Confirmed Last Taken Type predniSONE [Prednisone] 10 mg PO DAILY #7 tab.ds.pk 12/25/18 09/02/19 09/01/19 Rx ALBUTEROL Inhaler(NF) [VENTOLIN 1 puff IH Q4HRT PRN #1 inha 02/06/19 09/02/19 09/01/19 Rx Inhaler(NF)] Benzonatate [Tessalon Perles] 100 mg PO Q8HR PRN #20 capsule 09/02/19 Unknown Rx Prednisone [predniSONE 10 mg 10 mg PO .TAPER #1 tab.ds.pk 09/02/19 Unknown Rx (6-Day Pack, 21 Tabs)] Acetaminophen [Non-Aspirin Extra 500 mg PO Q6HR PRN #30 tablet 12/26/20 Unknown Rx Strength] Ibuprofen [Motrin] 600 mg PO Q8H PRN #30 tablet 12/26/20 Unknown Rx Morphine Sulfate [Morphine Sulfate 7.5 mg PO Q6HR PRN #10 tablet 12/26/20 Unknown Rx IR] Ondansetron [Zofran Odt] 4 mg PO Q8HR PRN #20 tab.rapdis 12/26/20 Unknown Rx Naproxen [EC-Naprosyn] 500 mg PO Q12H PRN #30 tablet. 05/26/21 Unknown Rx hydrOXYzine PAMOATE [Vistaril] 50 mg PO Q8HR PRN #30 capsule 05/26/21 Unknown Rx predniSONE [Deltasone] 20 mg PO QDAY #30 tab 05/26/21 Unknown Rx traMADoL [Ultram] 50 mg PO Q6HR PRN #12 tablet 05/26/21 Unknown Rx ED Physical Exam - General Limitations: No Limitations General appearance: alert, in no apparent distress - Head Head exam: Present: atraumatic, normocephalic, normal inspection - Eye Eye exam: Present: normal appearance, PERRL, EOMI Pupils: Present: normal accommodation - ENT ENT exam: Present: normal exam, normal orophraynx, mucous membranes moist, TM's normal bilaterally, normal external ear exam - Neck Neck exam: Present: normal inspection, full ROM - Respiratory Respiratory exam: Present: normal lung sounds bilaterally. Absent: respiratory distress, wheezes, rales, rhonchi, stridor, chest wall tenderness, accessory muscle use, decreased breath sounds, prolonged expiratory - Cardiovascular Cardiovascular Exam: Present: normal rhythm, tachycardia, normal heart sounds. Absent: systolic murmur, diastolic murmur, rubs, gallop - GI/Abdominal GI/Abdominal exam: Present: soft, normal bowel sounds. Absent: distended, tenderness, guarding, hyperactive bowel sounds - Extremities Exam Extremities exam: Present: normal inspection, full ROM, tenderness (Palpable reproducible bilateral wrist, hand and knee joint tenderness), normal capillary refill. Absent: pedal edema, joint swelling, calf tenderness, other - Back Exam Back exam: Present: normal inspection, full ROM. Absent: tenderness, CVA tenderness (L), muscle spasm, paraspinal tenderness, vertebral tenderness - Neurological Exam Neurological exam: Present: alert, oriented X3, CN II-XII intact, normal gait, reflexes normal - Psychiatric Psychiatric exam: Present: normal affect, normal mood - Skin Skin exam: Present: warm, dry, intact, normal color. Absent: rash ED Course Vital Signs 05/26/21 05/26/21 15:47 18:52 Temperature 99.1 F Pulse Rate 125 H 114 H Respiratory 16 16 Rate Blood Pressure 189/129 [Right] O2 Sat by Pulse 98 100 Oximetry ED Medical Decision Making - Medical Decision Making This is a 31-year-old female with a history of morbid obesity and chronic pain due to chronic rheumatoid arthritis who presents to the ED with complaint of acute exacerbation of her chronic pain characterized by severe bilateral wrist, hand and knee joint pains for the last 1 week, worse in the last 3 days. Patient states that she usually takes prednisone 20 mg daily at home but ran out of the medication about 2 months ago. Patient states that whenever she gets exacerbation of her chronic rheumatoid arthritis flare, she usually comes to the ED for treatment with anti-inflammatory medications as well as steroid and gets prescription for the same to take at home. In the ED, patient is alert and oriented x3 and is not in any distress but appears to be in significant pain. Patient is tachycardic but afebrile in triage. Patient was treated for pain in the ED with Toradol, Decadron and Ultram medications. On reevaluation, patient's pain is well controlled medications. The vital signs were rechecked and tachycardia resolved, and patient was discharged home on pain medications and advised to follow-up with her primary care physician in 7 to 10 days for reevaluation or return to the ED immediately if symptoms get worse. - Differential Diagnosis Rheumatoid arthritis; chronic pain syndrome; osteoarthritis; muscle strain Critical care attestation.: If time is entered above; I have spent that time in minutes in the direct care of this critically ill patient, excluding procedure time. ED Disposition Clinical Impression: Flare of rheumatoid arthritis, Chronic pain syndrome, Dehydration symptoms, Anxiety as acute reaction to exceptional stress Disposition: - TO HOME OR SELFCARE Is pt being admited?: No Does the pt Need Aspirin: No Condition: Stable Instructions: Arthritis, [id number], Chronic Pain, Adult, Generalized Anxiety Disorder, Adult Additional Instructions: Take medication with food, drink plenty of fluids and follow-up with your primary care physician in 7 to 10 days for reevaluation. Return to the ED immediately if symptoms get worse. Prescriptions: predniSONE [Deltasone] 20 mg PO QDAY #30 tab Naproxen [EC-Naprosyn] 500 mg PO Q12H PRN #30 tablet. PRN Reason: Pain , Severe (7-10) traMADoL [Ultram] 50 mg PO Q6HR PRN #12 tablet PRN Reason: Pain hydrOXYzine PAMOATE [Vistaril] 50 mg PO Q8HR PRN #30 capsule PRN Reason: Anxiety Referrals: [facility] [Provider Group] - 7-10 days Time of Disposition: 17:43 Print Language: LAO
[2021-05-26] MEDS ORDERED: SODIUM CHLORIDE 0.9% 1000 ML 1,000 ML IV ONE (18:38)
[2021-05-26] MEDS ORDERED: LORazepam 1 MG TAB PO ONE (18:39)
== END 2021-05-26 21:20 | disposition home or self-care (01) ==
LOC: ED 15:14
DX: M06.9 Rheumatoid arthritis, unspecified (principal); G89.4 Chronic pain syndrome; R63.8 Other symptoms and signs concerning food and fluid intake; F41.1 Generalized anxiety disorder; F43.0 Acute stress reaction; E66.01 Morbid (severe) obesity due to excess calories; M19.90 Unspecified osteoarthritis, unspecified site; Z79.899 Other long term (current) drug therapy
CPT/HCPCS: 96360; 96372; 99283; J1100; J1885; J7030

== ENCOUNTER 2021-07-09 01:24 | Emergency (ER) | payer SELFPAY ==
[2021-07-09 01:30] VITALS: BP 144/98
[2021-07-09] MEDS ORDERED: ACETAMINOPHEN 500 MG TAB PO ONE (01:33)
--- NOTE | 2021-07-09 01:37 | Emergency Department Report ---
ED General Adult HPI - General Chief complaint: Pain General Stated complaint: ABD/RA PAIN PUI?: No Source: patient Mode of arrival: Ambulatory Limitations: No Limitations - History of Present Illness Initial comments: Patient 31-year-old female with history of RA presents for left flank pain radiating suprapubic and joint pain. Pain is rated at 5/7 achy sharp. There is no nausea, vomiting there is no lightheaded no dizziness. Last menstrual cycle 2 weeks ago. There is no fever or chills. Symptoms are exacerbated by movement and activity. Symptoms are relieved by nothing tried. Patient denies vaginal discharge, no abnormal vaginal bleeding, no frequency urgency or hematuria - Related Data Previous Rx's Medication Instructions Recorded Last Taken Type predniSONE [Prednisone] 10 mg PO DAILY #7 tab.ds.pk 12/25/18 09/01/19 Rx ALBUTEROL Inhaler(NF) [VENTOLIN 1 puff IH Q4HRT PRN #1 inha 02/06/19 09/01/19 Rx Inhaler(NF)] Benzonatate [Tessalon Perles] 100 mg PO Q8HR PRN #20 capsule 09/02/19 Unknown Rx Prednisone [predniSONE 10 mg 10 mg PO .TAPER #1 tab.ds.pk 09/02/19 Unknown Rx (6-Day Pack, 21 Tabs)] Acetaminophen [Non-Aspirin Extra 500 mg PO Q6HR PRN #30 tablet 12/26/20 Unknown Rx Strength] Ibuprofen [Motrin] 600 mg PO Q8H PRN #30 tablet 12/26/20 Unknown Rx Morphine Sulfate [Morphine Sulfate 7.5 mg PO Q6HR PRN #10 tablet 12/26/20 Unknown Rx IR] Ondansetron [Zofran Odt] 4 mg PO Q8HR PRN #20 tab.rapdis 12/26/20 Unknown Rx Naproxen [EC-Naprosyn] 500 mg PO Q12H PRN #30 tablet.dr 05/26/21 Unknown Rx hydrOXYzine PAMOATE [Vistaril] 50 mg PO Q8HR PRN #30 capsule 05/26/21 Unknown Rx predniSONE [Deltasone] 20 mg PO QDAY #30 tab 05/26/21 Unknown Rx traMADoL [Ultram] 50 mg PO Q6HR PRN #12 tablet 05/26/21 Unknown Rx cephALEXin [Keflex] 500 mg PO Q12HR 7 Days #14 cap 07/09/21 Unknown Rx traMADoL [Ultram] 50 mg PO Q8HR PRN #9 tablet 07/09/21 Unknown Rx Allergies Allergy/AdvReac Type Severity Reaction Status Date / Time No Known Allergies Allergy Verified 07/09/21 01:30 ED Review of Systems ROS: Stated complaint: ABD/RA PAIN Other details as noted in HPI Constitutional: denies: chills, fever Eyes: denies: eye pain, eye discharge, vision change ENT: denies: ear pain, throat pain Respiratory: denies: cough, shortness of breath, wheezing Cardiovascular: denies: chest pain, palpitations Endocrine: no symptoms reported Gastrointestinal: abdominal pain. denies: nausea, vomiting, diarrhea, c onstipation, melena Genitourinary: denies: urgency, dysuria, frequency, hematuria, discharge Musculoskeletal: back pain (left flank pain) Skin: denies: rash, lesions Neurological: denies: headache, weakness, paresthesias, vertigo Psychiatric: denies: anxiety, depression Hematological/Lymphatic: denies: easy bleeding, easy bruising ED Past Medical Hx - Past Medical History Hx Congestive Heart Failure: No Hx Diabetes: No Hx Arthritis: Yes (Rheumatoid) Hx Seizures: No Hx Asthma: No Hx COPD: No Additional medical history: RA, Morbid Obesity. Psoriasis, Pneumonia - Surgical History Past Surgical History?: No Additional Surgical History: Psoriasis - Social History Smoking Status: Light Tobacco Smoker Substance Use Type: None - Medications Home Medications: Home Medications Medication Instructions Recorded Confirmed Last Taken Type predniSONE [Prednisone] 10 mg PO DAILY #7 tab.ds.pk 12/25/18 09/02/19 09/01/19 Rx ALBUTEROL Inhaler(NF) [VENTOLIN 1 puff IH Q4HRT PRN #1 inha 02/06/19 09/02/19 09/01/19 Rx Inhaler(NF)] Benzonatate [Tessalon Perles] 100 mg PO Q8HR PRN #20 capsule 09/02/19 Unknown Rx Prednisone [predniSONE 10 mg 10 mg PO .TAPER #1 tab.ds.pk 09/02/19 Unknown Rx (6-Day Pack, 21 Tabs)] Acetaminophen [Non-Aspirin Extra 500 mg PO Q6HR PRN #30 tablet 12/26/20 Unknown Rx Strength] Ibuprofen [Motrin] 600 mg PO Q8H PRN #30 tablet 12/26/20 Unknown Rx Morphine Sulfate [Morphine Sulfate 7.5 mg PO Q6HR PRN #10 tablet 12/26/20 Unknown Rx IR] Ondansetron [Zofran Odt] 4 mg PO Q8HR PRN #20 tab.rapdis 12/26/20 Unknown Rx Naproxen [EC-Naprosyn] 500 mg PO Q12H PRN #30 tablet.dr 05/26/21 Unknown Rx hydrOXYzine PAMOATE [Vistaril] 50 mg PO Q8HR PRN #30 capsule 05/26/21 Unknown Rx predniSONE [Deltasone] 20 mg PO QDAY #30 tab 05/26/21 Unknown Rx traMADoL [Ultram] 50 mg PO Q6HR PRN #12 tablet 05/26/21 Unknown Rx cephALEXin [Keflex] 500 mg PO Q12HR 7 Days #14 cap 07/09/21 Unknown Rx traMADoL [Ultram] 50 mg PO Q8HR PRN #9 tablet 07/09/21 Unknown Rx ED Physical Exam - General Limitations: No Limitations General appearance: alert, in no apparent distress - Head Head exam: Present: atraumatic, normocephalic - Eye Eye exam: Present: normal appearance, EOMI Pupils: Present: normal accommodation - ENT ENT exam: Present: normal exam, mucous membranes moist - Neck Neck exam: Present: normal inspection, full ROM. Absent: tenderness - Respiratory Respiratory exam: Present: normal lung sounds bilaterally. Absent: respiratory distress, wheezes - Cardiovascular Cardiovascular Exam: Present: regular rate, normal rhythm, normal heart sounds. Absent: systolic murmur, diastolic murmur, rubs, gallop - GI/Abdominal GI/Abdominal exam: Present: soft, normal bowel sounds. Absent: distended, ten derness, guarding, rebound, rigid, bruit, hernia - Rectal Rectal exam: Present: deferred - Extremities Exam Extremities exam: Present: normal inspection. Absent: tenderness - Back Exam Back exam: Present: full ROM, CVA tenderness (L). Absent: CVA tenderness (R) - Neurological Exam Neurological exam: Present: alert, oriented X3, CN II-XII intact - Psychiatric Psychiatric exam: Present: normal affect, normal mood - Skin Skin exam: Present: warm, dry, intact, normal color. Absent: rash ED Course Vital Signs 07/09/21 01:25 Temperature 99.5 F Pulse Rate 89 Respiratory 18 Rate Blood Pressure 144/98 O2 Sat by Pulse 99 Oximetry ED Medical Decision Making - Lab Data Result diagrams: 07/09/21 01:55 07/09/21 01:55 Labs 07/09/21 07/09/21 07/09/21 01:55 01:55 Unknown WBC 9.2 RBC 4.16 Hgb 11.6 Hct 35.5 MCV 85 MCH 28 MCHC 33 RDW 15.7 H Plt Count 338 Lymph % (Auto) 18.7 [place] % (Auto) 7.7 H Eos % (Auto) 3.9 Baso % (Auto) 0.4 Lymph # (Auto) 1.7 [place] # (Auto) 0.7 Eos # (Auto) 0.4 Baso # (Auto) 0.0 Seg Neutrophils % 69.3 Seg Neutrophils # 6.4 Sodium 136 L Potassium 3.7 Chloride 103.9 Carbon Dioxide 22 Anion Gap 14 BUN 8 Creatinine 0.5 L Estimated GFR > 60 BUN/Creatinine Ratio 16 Glucose 107 H Calcium 9.0 Total Bilirubin 0.30 AST 16 ALT 15 Alkaline Phosphatase 65 Total Protein 7.0 Albumin 3.6 L Albumin/Globulin Ratio 1.1 Urine Color Yellow Urine Turbidity Turbid Urine pH 5.0 Ur Specific [place] 1.023 Urine Protein 30 mg/dl Urine Glucose (UA) Neg Urine Ketones Neg Urine Blood Sm Urine Nitrite Neg Urine Bilirubin Neg Urine Urobilinogen 4.0 Ur Leukocyte Esterase Neg Urine WBC (Auto) 27.0 H Urine RBC (Auto) 167.0 Urine WBC Clumps 3+ Urine Mucus 3+ Urine HCG, Qual Negative - Medical Decision Making CMP CBC are normal, UA noted for WBCs leukocytes and bacteria plan treat for UTI patient will be DC'd home with prescriptions, patient will follow up with primary care doctor in 2 to 3 days. Patient verbalized agreement and understanding discharge plan. Patient DC'd home stable condition at this time with decreased pain. States pain decreased to 3/10. Critical care attestation.: If time is entered above; I have spent that time in minutes in the direct care of this critically ill patient, excluding procedure time. ED Disposition Clinical Impression: UTI (urinary tract infection) Qualifiers: Urinary tract infection type: acute cystitis Hematuria presence: without hematuria Qualified Code(s): N30.00 - Acute cystitis without hematuria Disposition: 01 HOME / SELF CARE / HOMELESS Is pt being admited?: No Does the pt Need Aspirin: No Condition: Stable Instructions: Urinary Tract Infection, Adult Additional Instructions: Take medications as prescribed, follow-up with your primary care doctor in 2 to 3 days. Prescriptions: cephALEXin [Keflex] 500 mg PO Q12HR 7 Days #14 cap traMADoL [Ultram] 50 mg PO Q8HR PRN #9 tablet PRN Reason: Pain Referrals: TYLER SHEA MD [Staff Physician] - 3-5 Days Forms: Work/School Release Form(ED) Time of Disposition: 03:53
[2021-07-09 02:16] LABS: Basophils % (Auto) 0.4 % (0.0-1.8); Eosinophils # (Auto) 0.4 K/mm3 (0.0-0.4); Eosinophils % (Auto) 3.9 % (0.0-4.3); Hematocrit 35.5 % (30.3-42.9); Hemoglobin 11.6 gm/dl (10.1-14.3); Lymphocytes # (Auto) 1.7 K/mm3 (1.2-5.4); Lymphocytes % (Auto) 18.7 % (13.4-35.0); Mean Corpuscular HGB Conc 33 % (30-34); Mean Corpuscular Volume 85 fl (79-97); Monocytes # (Auto) 0.7 K/mm3 (0.0-0.8); Monocytes % (Auto) 7.7 % (0.0-7.3); Platelet Count 338 K/mm3 (140-440); Red Blood Count 4.16 M/mm3 (3.65-5.03); Red Cell Distribution Width 15.7 % (13.2-15.2)
[2021-07-09 02:39] LABS: Alanine Aminotransferase 15 units/L (7-56); Albumin 3.6 g/dL (3.9-5); Blood Urea Nitrogen 8 mg/dL (7-17); Hemolysis Index 1
[2021-07-09 02:41] LABS: BUN/Creatinine Ratio 16
[2021-07-09] MEDS ORDERED: traMADol 50 MG TAB PO ONE (02:50)
[2021-07-09 03:33] LABS: Bilirubin,Urine NEG (Negative); Blood,Urine SM (Negative); Color,Urine Yellow (Yellow); Mucus,Urine 3+ /HPF
[2021-07-09 03:34] LABS: HCG Qualitative,Urine Negative (Negative)
== END 2021-07-09 04:30 | disposition home or self-care (01) ==
LOC: ED 01:24
DX: N39.0 Urinary tract infection, site not specified (principal); F17.200 Nicotine dependence, unspecified, uncomplicated; Z79.899 Other long term (current) drug therapy
CPT/HCPCS: 36415; 80053; 81001; 81025; 85025; 87086; 99283

== ENCOUNTER 2021-07-12 16:43 | Emergency (ER) | payer MEDICAID ==
[2021-07-12] MEDS ORDERED: dexAMETHasone 20 MG/5 ML VIAL IM ONE (18:41)
[2021-07-12] MEDS ORDERED: KETOROLAC 60 MG/2 ML INJ IM ONE (18:41)
--- NOTE | 2021-07-12 19:04 | Emergency Department Report ---
ED General Adult HPI - General Chief complaint: Extremity Injury, Lower Stated complaint: RHUMATOID ARTHRITIS Time Seen by Provider: 07/12/21 18:23 Source: patient Mode of arrival: Ambulatory Limitations: No Limitations - History of Present Illness Initial comments: This is a 31-year-old female nontoxic, well nourished in appearance, no acute signs of distress presents to the ED with c/o of acute on chronic bilateral wrist, ankle, feet, and fingers pain. Patient stated has history of RA and stated symptoms has flared. Stated that she typically gets Decadron and Toradol shot which resolves and usually is discharged with prednisone. Patient otherwise denies any other complaints or symptoms. Patient stated this is her typical symptoms of RA flareup. Patient otherwise denies any chest pain, shortness of breath, fever, chills, nausea, vomiting, headache, stiff neck, abdominal pain or back pain. Patient denies any drug allergies. -: days(s) Radiation: non-radiation Severity scale (0 -10): 8 Quality: aching Consistency: constant Improves with: none Worsens with: none Associated Symptoms: denies other symptoms. denies: confusion, chest pain, cough, diaphoresis, fever/chills, headaches, loss of appetite, malaise, nausea/vomiting, rash, seizure, shortness of breath, syncope, weakness Treatments Prior to Arrival: none - Related Data Previous Rx's Medication Instructions Recorded Last Taken Type predniSONE [Prednisone] 10 mg PO DAILY #7 tab.ds.pk 12/25/18 09/01/19 Rx ALBUTEROL Inhaler(NF) [VENTOLIN 1 puff IH Q4HRT PRN #1 inha 02/06/19 09/01/19 Rx Inhaler(NF)] Benzonatate [Tessalon Perles] 100 mg PO Q8HR PRN #20 capsule 09/02/19 Unknown Rx Prednisone [predniSONE 10 mg 10 mg PO .TAPER #1 tab.ds.pk 09/02/19 Unknown Rx (6-Day Pack, 21 Tabs)] Acetaminophen [Non-Aspirin Extra 500 mg PO Q6HR PRN #30 tablet 12/26/20 Unknown Rx Strength] Ibuprofen [Motrin] 600 mg PO Q8H PRN #30 tablet 12/26/20 Unknown Rx Morphine Sulfate [Morphine Sulfate 7.5 mg PO Q6HR PRN #10 tablet 12/26/20 Unknown Rx IR] Ondansetron [Zofran Odt] 4 mg PO Q8HR PRN #20 tab.rapdis 12/26/20 Unknown Rx Naproxen [EC-Naprosyn] 500 mg PO Q12H PRN #30 tablet. 05/26/21 Unknown Rx hydrOXYzine PAMOATE [Vistaril] 50 mg PO Q8HR PRN #30 capsule 05/26/21 Unknown Rx predniSONE [Deltasone] 20 mg PO QDAY #30 tab 05/26/21 Unknown Rx traMADoL [Ultram] 50 mg PO Q6HR PRN #12 tablet 05/26/21 Unknown Rx cephALEXin [Keflex] 500 mg PO Q12HR 7 Days #14 cap 07/09/21 Unknown Rx predniSONE [Deltasone] 20 mg PO QDAY #5 tab 07/09/21 Unknown Rx traMADoL [Ultram] 50 mg PO Q8HR PRN #9 tablet 07/09/21 Unknown Rx Allergies Allergy/AdvReac Type Severity Reaction Status Date / Time No Known Allergies Allergy Verified 07/12/21 17:03 ED Review of Systems ROS: Stated complaint: RHUMATOID ARTHRITIS Other details as noted in HPI Comment: All other systems reviewed and negative Constitutional: denies: chills, fever Eyes: denies: eye pain, eye discharge, vision change ENT: denies: ear pain, throat pain Respiratory: denies: cough, shortness of breath, wheezing Cardiovascular: denies: chest pain, palpitations Endocrine: no symptoms reported Gastrointestinal: denies: abdominal pain, nausea, diarrhea Genitourinary: denies: urgency, dysuria, discharge Musculoskeletal: denies: back pain, joint swelling, arthralgia Skin: denies: rash, lesions Neurological: denies: headache, weakness, paresthesias Psychiatric: denies: anxiety, depression Hematological/Lymphatic: denies: easy bleeding, easy bruising ED Past Medical Hx - Past Medical History Hx Congestive Heart Failure: No Hx Diabetes: No Hx Arthritis: Yes (Rheumatoid) Hx Seizures: No Hx Asthma: No Hx COPD: No Additional medical history: RA, Morbid Obesity. Psoriasis, Pneumonia - Surgical History Additional Surgical History: Psoriasis - Social History Smoking Status: Light Tobacco Smoker Substance Use Type: None - Medications Home Medications: Home Medications Medication Instructions Recorded Confirmed Last Taken Type predniSONE [Prednisone] 10 mg PO DAILY #7 tab.ds.pk 12/25/18 09/02/19 09/01/19 Rx ALBUTEROL Inhaler(NF) [VENTOLIN 1 puff IH Q4HRT PRN #1 inha 02/06/19 09/02/19 09/01/19 Rx Inhaler(NF)] Benzonatate [Tessalon Perles] 100 mg PO Q8HR PRN #20 capsule 09/02/19 Unknown Rx Prednisone [predniSONE 10 mg 10 mg PO .TAPER #1 tab.ds.pk 09/02/19 Unknown Rx (6-Day Pack, 21 Tabs)] Acetaminophen [Non-Aspirin Extra 500 mg PO Q6HR PRN #30 tablet 12/26/20 Unknown Rx Strength] Ibuprofen [Motrin] 600 mg PO Q8H PRN #30 tablet 12/26/20 Unknown Rx Morphine Sulfate [Morphine Sulfate 7.5 mg PO Q6HR PRN #10 tablet 12/26/20 Unknown Rx IR] Ondansetron [Zofran Odt] 4 mg PO Q8HR PRN #20 tab.rapdis 12/26/20 Unknown Rx Naproxen [EC-Naprosyn] 500 mg PO Q12H PRN #30 tablet.dr 05/26/21 Unknown Rx hydrOXYzine PAMOATE [Vistaril] 50 mg PO Q8HR PRN #30 capsule 05/26/21 Unknown Rx predniSONE [Deltasone] 20 mg PO QDAY #30 tab 05/26/21 Unknown Rx traMADoL [Ultram] 50 mg PO Q6HR PRN #12 tablet 05/26/21 Unknown Rx cephALEXin [Keflex] 500 mg PO Q12HR 7 Days #14 cap 07/09/21 Unknown Rx predniSONE [Deltasone] 20 mg PO QDAY #5 tab 07/09/21 Unknown Rx traMADoL [Ultram] 50 mg PO Q8HR PRN #9 tablet 07/09/21 Unknown Rx ED Physical Exam - General Limitations: No Limitations General appearance: alert, in no apparent distress - Head Head exam: Present: atraumatic, normocephalic - Eye Eye exam: Present: normal appearance - Neck Neck exam: Present: normal inspection, full ROM. Absent: tenderness, meningismus, lymphadenopathy - Respiratory Respiratory exam: Absent: respiratory distress - Extremities Exam Extremities exam: Present: normal inspection, full ROM, normal capillary refill, other (Negative pulse deficits on all extremities. Neurovascular within normal limits). Absent: tenderness, pedal edema, joint swelling, calf tenderness - Back Exam Back exam: Present: normal inspection, full ROM. Absent: tenderness, CVA t enderness (R), CVA tenderness (L), muscle spasm, paraspinal tenderness, vertebral tenderness, rash noted - Neurological Exam Neurological exam: Present: alert, oriented X3, normal gait - Psychiatric Psychiatric exam: Present: normal affect, normal mood - Skin Skin exam: Present: warm, dry, intact, normal color. Absent: rash ED Course Vital Signs 07/12/21 07/12/21 17:01 19:56 Temperature 99.4 F Pulse Rate 117 H Respiratory 20 Rate Blood Pressure 152/103 158/94 [Left] O2 Sat by Pulse 97 Oximetry - Reevaluation(s) Reevaluation #1: 07/12/21 19:06 Patient is speaking in full sentences with no signs of distress noted. ED Medical Decision Making - Medical Decision Making 31-year-old female that presents with RA flare. Patient is stable and was examined by me. Patient received Toradol and Decadron which stated symptoms improved and subsided. Otherwise physical exam is unremarkable. After I had reassessment of the patient, patient was not found in the waiting room for discharge and repeat vitals. Patient ELOPED without telling anyone. Critical care attestation.: If time is entered above; I have spent that time in minutes in the direct care of this critically ill patient, excluding procedure time. ED Disposition Clinical Impression: Rheumatoid arthritis flare Disposition: 07 LEFT AWOL/ELOPED Is pt being admited?: No Condition: Undetermined Time of Disposition: 21:13
[2021-07-12 19:57] VITALS: BP 158/94
== END 2021-07-12 21:34 | disposition left against medical advice (07) ==
LOC: ED 16:43
DX: M25.571 Pain in right ankle and joints of right foot (principal); M06.832 Other specified rheumatoid arthritis, left wrist; M06.831 Other specified rheumatoid arthritis, right wrist; M06.872 Other specified rheumatoid arthritis, left ankle and foot; M06.871 Other specified rheumatoid arthritis, right ankle and foot; M06.842 Other specified rheumatoid arthritis, left hand; M06.841 Other specified rheumatoid arthritis, right hand; F17.200 Nicotine dependence, unspecified, uncomplicated; Z98.890 Other specified postprocedural states; Z79.899 Other long term (current) drug therapy
CPT/HCPCS: 96372; 99281; J1100; J1885

== ENCOUNTER 2021-08-05 01:38 | Emergency (ER) | payer MEDICAID ==
--- NOTE | 2021-08-05 03:06 | XRay Report ---
CHEST 2 VIEWS INDICATION / CLINICAL INFORMATION: chest pain. COMPARISON: 09/01/2019 FINDINGS: SUPPORT DEVICES: None. HEART / MEDIASTINUM: No significant abnormality. LUNGS / PLEURA: No significant pulmonary or pleural abnormality. No pneumothorax. ADDITIONAL FINDINGS: No significant additional findings. IMPRESSION: 1. No acute findings. Signer Name: Etienne Reaves DO Signed: 08/05/2021 3:02 AM Workstation Name: [id number]
[2021-08-05] MEDS ORDERED: oxyCODONE /ACETAMINOPHEN 5-325MG TAB PO ONE (03:21)
[2021-08-05] MEDS ORDERED: KETOROLAC 60 MG/2 ML INJ IM ONE (03:21)
--- NOTE | 2021-08-05 04:14 | Emergency Department Report ---
ED General Adult HPI - General Chief complaint: Chest Pain Stated complaint: CHEST PAIN/ANXIETY/BODY PAIN Source: patient Mode of arrival: Ambulatory Limitations: No Limitations - History of Present Illness Initial comments: 31-year-old female past medical history of lupus disorder presents emerged department complaining of a lupus flareup having diffuse aches and pains of an u nknown cause. States that medications have been waning and the effectiveness and feels that needs to adjust the current therapy reports no fever, chills, sweats no palpitations no nausea no vomiting patient requests her usual pain cocktails to control this flareup states she does have some prednisone at home and she can follow-up with her lupus doctor later this -: Gradual Location: chest Radiation: non-radiation Quality: aching, dull Consistency: constant Improves with: none Worsens with: none Associated Symptoms: chest pain. denies: malaise, nausea/vomiting Treatments Prior to Arrival: none - Related Data Previous Rx's Medication Instructions Recorded Last Taken Type predniSONE [Prednisone] 10 mg PO DAILY #7 tab.ds.pk 12/25/18 09/01/19 Rx ALBUTEROL Inhaler(NF) [VENTOLIN 1 puff IH Q4HRT PRN #1 inha 02/06/19 09/01/19 Rx Inhaler(NF)] Benzonatate [Tessalon Perles] 100 mg PO Q8HR PRN #20 capsule 09/02/19 Unknown Rx Prednisone [predniSONE 10 mg 10 mg PO .TAPER #1 tab.ds.pk 09/02/19 Unknown Rx (6-Day Pack, 21 Tabs)] Acetaminophen [Non-Aspirin Extra 500 mg PO Q6HR PRN #30 tablet 12/26/20 Unknown Rx Strength] Ibuprofen [Motrin] 600 mg PO Q8H PRN #30 tablet 12/26/20 Unknown Rx Morphine Sulfate [Morphine Sulfate 7.5 mg PO Q6HR PRN #10 tablet 12/26/20 Unknown Rx IR] Ondansetron [Zofran Odt] 4 mg PO Q8HR PRN #20 tab.rapdis 12/26/20 Unknown Rx Naproxen [EC-Naprosyn] 500 mg PO Q12H PRN #30 tablet. 05/26/21 Unknown Rx hydrOXYzine PAMOATE [Vistaril] 50 mg PO Q8HR PRN #30 capsule 05/26/21 Unknown Rx predniSONE [Deltasone] 20 mg PO QDAY #30 tab 05/26/21 Unknown Rx traMADoL [Ultram] 50 mg PO Q6HR PRN #12 tablet 05/26/21 Unknown Rx cephALEXin [Keflex] 500 mg PO Q12HR 7 Days #14 cap 07/09/21 Unknown Rx predniSONE [Deltasone] 20 mg PO QDAY #5 tab 07/09/21 Unknown Rx traMADoL [Ultram] 50 mg PO Q8HR PRN #9 tablet 07/09/21 Unknown Rx Allergies Allergy/AdvReac Type Severity Reaction Status Date / Time No Known Allergies Allergy Verified 07/12/21 17:03 ED Review of Systems ROS: Stated complaint: CHEST PAIN/ANXIETY/BODY PAIN Other details as noted in HPI Comment: All other systems reviewed and negative ED Past Medical Hx - Past Medical History Hx Congestive Heart Failure: No Hx Diabetes: No Hx Arthritis: Yes (Rheumatoid) Hx Seizures: No Hx Asthma: No Hx COPD: No Additional medical history: RA, Morbid Obesity. Psoriasis, Pneumonia - Surgical History Additional Surgical History: Psoriasis - Social History Smoking Status: Light Tobacco Smoker Substance Use Type: None - Medications Home Medications: Home Medications Medication Instructions Recorded Confirmed Last Taken Type predniSONE [Prednisone] 10 mg PO DAILY #7 tab.ds.pk 12/25/18 09/02/19 09/01/19 Rx ALBUTEROL Inhaler(NF) [VENTOLIN 1 puff IH Q4HRT PRN #1 inha 02/06/19 09/02/19 09/01/19 Rx Inhaler(NF)] Benzonatate [Tessalon Perles] 100 mg PO Q8HR PRN #20 capsule 09/02/19 Unknown Rx Prednisone [predniSONE 10 mg 10 mg PO .TAPER #1 tab.ds.pk 09/02/19 Unknown Rx (6-Day Pack, 21 Tabs)] Acetaminophen [Non-Aspirin Extra 500 mg PO Q6HR PRN #30 tablet 12/26/20 Unknown Rx Strength] Ibuprofen [Motrin] 600 mg PO Q8H PRN #30 tablet 12/26/20 Unknown Rx Morphine Sulfate [Morphine Sulfate 7.5 mg PO Q6HR PRN #10 tablet 12/26/20 Unknown Rx IR] Ondansetron [Zofran Odt] 4 mg PO Q8HR PRN #20 tab.rapdis 12/26/20 Unknown Rx Naproxen [EC-Naprosyn] 500 mg PO Q12H PRN #30 tablet.dr 05/26/21 Unknown Rx hydrOXYzine PAMOATE [Vistaril] 50 mg PO Q8HR PRN #30 capsule 05/26/21 Unknown Rx predniSONE [Deltasone] 20 mg PO QDAY #30 tab 05/26/21 Unknown Rx traMADoL [Ultram] 50 mg PO Q6HR PRN #12 tablet 05/26/21 Unknown Rx cephALEXin [Keflex] 500 mg PO Q12HR 7 Days #14 cap 07/09/21 Unknown Rx predniSONE [Deltasone] 20 mg PO QDAY #5 tab 07/09/21 Unknown Rx traMADoL [Ultram] 50 mg PO Q8HR PRN #9 tablet 07/09/21 Unknown Rx ED Physical Exam - General Limitations: No Limitations General appearance: alert, in no apparent distress - Head Head exam: Present: atraumatic, normocephalic - Eye Eye exam: Present: normal appearance, PERRL, EOMI Pupils: Present: normal accommodation - ENT ENT exam: Present: normal exam, normal orophraynx, mucous membranes moist, TM's normal bilaterally - Neck Neck exam: Present: normal inspection, full ROM - Respiratory Respiratory exam: Present: normal lung sounds bilaterally. Absent: respiratory distress, wheezes, rales - Cardiovascular Cardiovascular Exam: Present: regular rate, normal rhythm. Absent: systolic murmur, diastolic murmur, rubs, gallop - GI/Abdominal GI/Abdominal exam: Present: soft, normal bowel sounds - Extremities Exam Extremities exam: Present: normal inspection - Back Exam Back exam: Present: normal inspection - Neurological Exam Neurological exam: Present: alert, oriented X3 - Psychiatric Psychiatric exam: Present: normal affect, normal mood - Skin Skin exam: Present: warm, dry, intact, normal color. Absent: rash ED Course Vital Signs 08/05/21 01:47 Temperature 97.9 F Pulse Rate 84 Respiratory 18 Rate Blood Pressure 142/97 O2 Sat by Pulse 98 Oximetry ED Medical Decision Making - Radiology Data Radiology results: report reviewed [facility] [address] [place] [address] XRay Report Signed Patient: GILDA FRYE MR#: [id number] : 1990 Acct:[id number] Age/Sex: 31 / F ADM Date: 08/05/21 Loc: ED Attending Dr: Ordering Physician: TYRA GUERRERO Date of Service: 08/05/21 Procedure(s): XR chest routine 2V Accession Number(s): [id number] cc: TYRA GUERRERO Fluoro Time In Minutes: CHEST 2 VIEWS INDICATION / CLINICAL INFORMATION: chest pain. COMPARISON: 09/01/2019 FINDINGS: SUPPORT DEVICES: None. HEART / MEDIASTINUM: No significant abnormality. LUNGS / PLEURA: No significant pulmonary or pleural abnormality. No pneumothorax. ADDITIONAL FINDINGS: No significant additional findings. IMPRESSION: 1. No acute findings. Signer Name: Etienne Reaves DO Signed: 08/05/2021 3:02 AM Workstation Name: [id number] Transcribed By: JOEY Dictated By: ETIENNE REAVES DO Electronically Authenticated By: ETIENNE REAVES DO Signed Date/Time: 08/05/21301 DD/ 0 TD/TT: - Medical Decision Making This patient presents with chest pain that is very unlikely angina or acute coronary syndrome. The emergency department evaluation has not identified any cause for suspicion that this chest pain has a cardiac etiology. Based on their history, EKG (which showed no evidence of ischemia or infarction) and imaging, in addition to the patient's physical exam, I see no evidence at this time for a malignant etiology for the patient's chest pain. There is no acute evidence for pulmonary embolus, acute myocardial infarction, pneumothorax, Boerhaeve syndrome, cardiac tamponade, thoracic artery dissection, or any other emergent cardiac, pulmonary or aortic pathology. Given the low pre-test probability for cardiac etiology of chest pain and the absence of any sign of ischemia or infarction, discharge for outpatient follow-up and further evaluation is reasonable. I have explained to the patient that even though a cardiac problem is very unlikely, follow-up and further testing is required to reduce further the already small uncertainty that exists. Other life-threatening diagnoses have been considered. The patient understands the need to return immediately if their symptoms worsen or they develop any new symptoms, and not to engage in any sign ificant exertional activity until follow-up is obtained. Critical care attestation.: If time is entered above; I have spent that time in minutes in the direct care of this critically ill patient, excluding procedure time. ED Disposition Clinical Impression: Musculoskeletal chest pain, Morbid obesity Disposition: HOME / SELF CARE / HOMELESS Is pt being admited?: No Does the pt Need Aspirin: No Condition: Stable Instructions: Nonspecific Chest Pain, Adult
[2021-08-05 04:33] VITALS: BP 142/87
--- NOTE | 2021-08-05 11:56 | Electrocardiograph Report ---
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
== END 2021-08-05 04:33 | disposition home or self-care (01) ==
LOC: ED 01:38
DX: R07.89 Other chest pain (principal); M79.18 Myalgia, other site; E66.01 Morbid (severe) obesity due to excess calories; M19.90 Unspecified osteoarthritis, unspecified site; F17.200 Nicotine dependence, unspecified, uncomplicated; Z68.41 Body mass index [BMI] 40.0-44.9, adult; Z79.899 Other long term (current) drug therapy
CPT/HCPCS: 71046; 93005; 96372; 99283; J1885

== ENCOUNTER 2021-09-17 18:17 | Emergency (ER) | payer MEDICAID ==
[2021-09-17 18:42] VITALS: BP 148/75
== END 2021-09-17 19:20 | disposition left against medical advice (07) ==
LOC: ED 18:17
DX: M79.18 Myalgia, other site (principal); Z76.0 Encounter for issue of repeat prescription; Z53.21 Procedure and treatment not carried out due to patient leaving prior to being seen by health care provider

== ENCOUNTER 2021-09-19 07:37 | Emergency (ER) | payer MEDICAID ==
[2021-09-19 07:46] VITALS: BP 133/88
[2021-09-19] MEDS ORDERED: dexAMETHasone 20 MG/5 ML VIAL IM ONE (08:07)
[2021-09-19] MEDS ORDERED: KETOROLAC 30 MG/1 ML INJ IM ONE (08:07)
--- NOTE | 2021-09-19 08:23 | Emergency Department Report ---
ED General Adult HPI - General Chief complaint: Pain General Stated complaint: ARTHRITIS PAIN Time Seen by Provider: 09/19/21 08:04 Source: patient Mode of arrival: Ambulatory Limitations: No Limitations - History of Present Illness Initial comments: This is a 31-year-old female known to me nontoxic, well nourished in appearance, no acute signs of distress presents to the ED with c/o of acute on chronic generlized joint pains. 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 Stated that she typically gets Decadron and Toradol shot which resolves and usually is discharged with prednisone. Patient stated has history of RA and stated symptoms has flared. Patient otherwise denies any other complaints or symptoms. Patient stated this is her typical symptoms of RA flareup. Patient otherwise denies any chest pain, shortness of breath, fever, chills, nausea, vomiting, headache, stiff neck, abdominal pain or back pain. Patient denies any drug allergies. Radiation: non-radiation Severity scale (0 -10): 8 Quality: aching Consistency: constant Improves with: none Worsens with: none Associated Symptoms: denies other symptoms. denies: confusion, chest pain, cough, diaphoresis, fever/chills, headaches, loss of appetite, malaise, nausea/vomiting, rash, seizure, shortness of breath, syncope, weakness Treatments Prior to Arrival: none - Related Data Previous Rx's Medication Instructions Recorded Last Taken Type predniSONE [Prednisone] 10 mg PO DAILY #7 tab.ds.pk 12/25/18 09/01/19 Rx ALBUTEROL Inhaler(NF) [VENTOLIN 1 puff IH Q4HRT PRN #1 inha 02/06/19 09/01/19 Rx Inhaler(NF)] Benzonatate [Tessalon Perles] 100 mg PO Q8HR PRN #20 capsule 09/02/19 Unknown Rx Prednisone [predniSONE 10 mg 10 mg PO .TAPER #1 tab.ds.pk 09/02/19 Unknown Rx (6-Day Pack, 21 Tabs)] Acetaminophen [Non-Aspirin Extra 500 mg PO Q6HR PRN #30 tablet 12/26/20 Unknown Rx Strength] Ibuprofen [Motrin] 600 mg PO Q8H PRN #30 tablet 12/26/20 Unknown Rx Morphine Sulfate [Morphine Sulfate 7.5 mg PO Q6HR PRN #10 tablet 12/26/20 Unknown Rx IR] Ondansetron [Zofran Odt] 4 mg PO Q8HR PRN #20 tab.rapdis 12/26/20 Unknown Rx Naproxen [EC-Naprosyn] 500 mg PO Q12H PRN #30 tablet.dr 05/26/21 Unknown Rx hydrOXYzine PAMOATE [Vistaril] 50 mg PO Q8HR PRN #30 capsule 05/26/21 Unknown Rx predniSONE [Deltasone] 20 mg PO QDAY #30 tab 05/26/21 Unknown Rx traMADoL [Ultram] 50 mg PO Q6HR PRN #12 tablet 05/26/21 Unknown Rx cephALEXin [Keflex] 500 mg PO Q12HR 7 Days #14 cap 07/09/21 Unknown Rx predniSONE [Deltasone] 20 mg PO QDAY #5 tab 07/09/21 Unknown Rx traMADoL [Ultram] 50 mg PO Q8HR PRN #9 tablet 07/09/21 Unknown Rx Prednisone [predniSONE 10 mg 10 mg PO .TAPER #1 tab.ds.pk 09/19/21 Unknown Rx (6-Day Pack, 21 Tabs)] Allergies Allergy/AdvReac Type Severity Reaction Status Date / Time No Known Allergies Allergy Verified 09/17/21 18:34 ED Review of Systems ROS: Stated complaint: ARTHRITIS PAIN Other details as noted in HPI Comment: All other systems reviewed and negative Constitutional: denies: chills, fever Eyes: denies: eye pain, eye discharge, vision change ENT: denies: ear pain, throat pain Respiratory: denies: cough, shortness of breath, wheezing Cardiovascular: denies: chest pain, palpitations Endocrine: no symptoms reported Gastrointestinal: denies: abdominal pain, nausea, diarrhea Genitourinary: denies: urgency, dysuria, discharge Musculoskeletal: denies: back pain, joint swelling, arthralgia Skin: denies: rash, lesions Neurological: denies: headache, weakness, paresthesias Psychiatric: denies: anxiety, depression Hematological/Lymphatic: denies: easy bleeding, easy bruising ED Past Medical Hx - Past Medical History Hx Congestive Heart Failure: No Hx Diabetes: No Hx Arthritis: Yes (Rheumatoid) Hx Seizures: No Hx Asthma: No Hx COPD: No Additional medical history: RA, Morbid Obesity. Psoriasis, Pneumonia - Surgical History Additional Surgical History: Psoriasis - Social History Smoking Status: Light Tobacco Smoker Substance Use Type: None - Medications Home Medications: Home Medications Medication Instructions Recorded Confirmed Last Taken Type predniSONE [Prednisone] 10 mg PO DAILY #7 tab.ds.pk 12/25/18 09/02/19 09/01/19 Rx ALBUTEROL Inhaler(NF) [VENTOLIN 1 puff IH Q4HRT PRN #1 inha 02/06/19 09/02/19 09/01/19 Rx Inhaler(NF)] Benzonatate [Tessalon Perles] 100 mg PO Q8HR PRN #20 capsule 09/02/19 Unknown Rx Prednisone [predniSONE 10 mg 10 mg PO .TAPER #1 tab.ds.pk 09/02/19 Unknown Rx (6-Day Pack, 21 Tabs)] Acetaminophen [Non-Aspirin Extra 500 mg PO Q6HR PRN #30 tablet 12/26/20 Unknown Rx Strength] Ibuprofen [Motrin] 600 mg PO Q8H PRN #30 tablet 12/26/20 Unknown Rx Morphine Sulfate [Morphine Sulfate 7.5 mg PO Q6HR PRN #10 tablet 12/26/20 Unknown Rx IR] Ondansetron [Zofran Odt] 4 mg PO Q8HR PRN #20 tab.rapdis 12/26/20 Unknown Rx Naproxen [EC-Naprosyn] 500 mg PO Q12H PRN #30 tablet. 05/26/21 Unknown Rx hydrOXYzine PAMOATE [Vistaril] 50 mg PO Q8HR PRN #30 capsule 05/26/21 Unknown Rx predniSONE [Deltasone] 20 mg PO QDAY #30 tab 05/26/21 Unknown Rx traMADoL [Ultram] 50 mg PO Q6HR PRN #12 tablet 05/26/21 Unknown Rx cephALEXin [Keflex] 500 mg PO Q12HR 7 Days #14 cap 07/09/21 Unknown Rx predniSONE [Deltasone] 20 mg PO QDAY #5 tab 07/09/21 Unknown Rx traMADoL [Ultram] 50 mg PO Q8HR PRN #9 tablet 07/09/21 Unknown Rx Prednisone [predniSONE 10 mg 10 mg PO .TAPER #1 tab.ds.pk 09/19/21 Unknown Rx (6-Day Pack, 21 Tabs)] ED Physical Exam - General Limitations: No Limitations General appearance: alert, in no apparent distress - Head Head exam: Present: atraumatic, normocephalic - Eye Eye exam: Present: normal appearance - Neck Neck exam: Present: normal inspection, full ROM. Absent: lymphadenopathy - Respiratory Respiratory exam: Present: normal lung sounds bilaterally. Absent: respiratory distress, wheezes, rales, rhonchi, stridor, chest wall tenderness, accessory muscle use, decreased breath sounds, prolonged expiratory - Cardiovascular Cardiovascular Exam: Present: regular rate, normal rhythm, normal heart sounds. Absent: bradycardia, tachycardia, irregular rhythm, systolic murmur, diastolic murmur, rubs, gallop - GI/Abdominal GI/Abdominal exam: Present: soft, normal bowel sounds. Absent: distended, tenderness, guarding, rebound, rigid, diminished bowel sounds - Extremities Exam Extremities exam: Present: normal inspection, full ROM, normal capillary refill - Back Exam Back exam: Present: normal inspection, full ROM. Absent: tenderness, CVA tenderness (R), CVA tenderness (L), muscle spasm, paraspinal tenderness, vertebral tenderness, rash noted - Neurological Exam Neurological exam: Present: alert, oriented X3, normal gait - Psychiatric Psychiatric exam: Present: normal affect, normal mood - Skin Skin exam: Present: warm, dry, intact, normal color. Absent: rash ED Course Vital Signs 09/19/21 09/19/21 07:45 08:14 Temperature 98.4 F Pulse Rate 95 H Respiratory 20 16 Rate Blood Pressure 133/88 [Right] O2 Sat by Pulse 98 Oximetry - Reevaluation(s) Reevaluation #1: 09/19/21 08:26 Patient is speaking in full sentences with no signs of distress noted. ED Medical Decision Making - Medical Decision Making 4-year-old female that presents with RA flareup. Patient is stable and was examined by me. Patient did receive Toradol and prednisone which stated symptom s improved subsided. Patient requested for 10 mg prednisone Dosepak at discharge as she stated she has not been taking for a while and this would help sort with her flareup until she is gets into her knife machine operator appointment. Otherwise physical exam is remarkable. Vital signs are stable at discharge. Patient was instructed to follow-up with a primary care doctor in 3-5 days or if symptoms worsen and continue return to emergency room as soon as possible. At time of discharge, the patient does not seem toxic or ill in appearance. No acute signs of distress noted. Patient agrees to discharge treatment plan of care. No further questions noted by the patient. Critical care attestation.: If time is entered above; I have spent that time in minutes in the direct care of this critically ill patient, excluding procedure time. ED Disposition Clinical Impression: Rheumatoid arthritis Qualifiers: Rheumatoid arthritis location: unspecified site Rheumatoid factor presence: unspecified presence Qualified Code(s): M06.9 - Rheumatoid arthritis, uns pecified Disposition: 01 HOME / SELF CARE / HOMELESS Is pt being admited?: No Does the pt Need Aspirin: No Condition: Stable Instructions: Arthritis Additional Instructions: Follow-up with a primary care doctor in 3-5 days or if symptoms worsen and continue return to emergency room as soon as possible. Prescriptions: Prednisone [predniSONE 10 mg (6-Day Pack, 21 Tabs)] 10 mg PO .TAPER #1 tab.ds.pk Referrals: PRIMARY MD POOJA [Primary Care Provider] - 3-5 Days AMNA BURGOS MD [Staff Physician] - 3-5 Days Forms: Work/School Release Form(ED) Time of Disposition: 09:04
== END 2021-09-19 09:27 | disposition home or self-care (01) ==
LOC: ED 07:37
DX: M06.9 Rheumatoid arthritis, unspecified (principal); E66.01 Morbid (severe) obesity due to excess calories; L40.9 Psoriasis, unspecified; Z98.890 Other specified postprocedural states; Z72.0 Tobacco use
CPT/HCPCS: 96372; 99282; J1100; J1885

== ENCOUNTER 2022-03-08 15:58 | Emergency (ER) | payer OTHER ==
[2022-03-08] MEDS ORDERED: dexAMETHasone 20 MG/5 ML VIAL IM ONE (20:18)
[2022-03-08] MEDS ORDERED: ONDANSETRON 4 MG ODT TAB PO ONE (20:18)
[2022-03-08] MEDS ORDERED: KETOROLAC 60 MG/2 ML INJ IM ONE (20:18)
[2022-03-08] MEDS ORDERED: HYDROcodone/ACETAMINOPHEN 7.5-325MG TAB PO ONE (20:18)
--- NOTE | 2022-03-08 21:05 | Emergency Department Report ---
ED Extremity Problem HPI - General Chief complaint: Extremity Problem,Nontraumatic Stated complaint: JOINT PAIN Source: patient Mode of arrival: Ambulatory Limitations: No Limitations - History of Present Illness Initial comments: Patient is a 31-year-old -Iranian female with a history of morbid obesity and chronic pain due to chronic rheumatoid arthritis who presents to the ED with complaint of acute exacerbation of her chronic pain characterized by persistent diffuse polyarticular joint pains for the last 2 weeks, worse in the last 2 days. Patient states that she ran out of all her medications including steroids. Patient states that she usually goes to a pain clinic where she gets Jolo 5 mg - 325 mg for pain but has not followed up with her pain clinic in 2 months. Patient also states that she has not followed up with her branch credit counselor in the last 3 months. Patient denies dizziness, syncope, fever, chills, nausea and vomiting, traumatic injury, fall, heavy lifting, cough, shortness of breath, chest pain or palpitations and change in vision. MD Complaint: extremity pain (Bilateral knee and ankle pains), joint paint (diffuse joint pains) -: Sudden, week(s) (2) Location: lower extremity, bilateral lower extremity (Bilateral) History of Same: Yes (chronic) -: Yes arthralgia, No fever, No associated dyspnea, No associated chest pain Radiation: distal Severity scale (0 -10): 10 Quality: aching, sharp Consistency: constant Improves with: nothing Worsens with: nothing, weight bearing, walking, exertion, palpation Associated Symptoms: denies other symptoms, arthralgias (bilateral). denies: chest pain, shortness of breath, fever, myalgias, rash, other - Related Data Previous Rx's Medication Instructions Recorded Last Taken Type predniSONE [Prednisone] 10 mg PO DAILY #7 tab.ds.pk 12/25/18 09/01/19 Rx ALBUTEROL Inhaler(NF) [VENTOLIN 1 puff IH Q4HRT PRN #1 inha 02/06/19 09/01/19 Rx Inhaler(NF)] Benzonatate [Tessalon Perles] 100 mg PO Q8HR PRN #20 capsule 09/02/19 Unknown Rx Acetaminophen [Non-Aspirin Extra 500 mg PO Q6HR PRN #30 tablet 12/26/20 Unknown Rx Strength] Ibuprofen [Motrin] 600 mg PO Q8H PRN #30 tablet 12/26/20 Unknown Rx Morphine Sulfate [Morphine Sulfate 7.5 mg PO Q6HR PRN #10 tablet 12/26/20 Unknown Rx IR] Ondansetron [Zofran Odt] 4 mg PO Q8HR PRN #20 tab.rapdis 12/26/20 Unknown Rx hydrOXYzine PAMOATE [Vistaril] 50 mg PO Q8HR PRN #30 capsule 05/26/21 Unknown Rx cephALEXin [Keflex] 500 mg PO Q12HR 7 Days #14 cap 07/09/21 Unknown Rx predniSONE [Deltasone] 20 mg PO QDAY #5 tab 07/09/21 Unknown Rx traMADoL [Ultram] 50 mg PO Q8HR PRN #9 tablet 07/09/21 Unknown Rx Prednisone [predniSONE 10 mg 10 mg PO .TAPER #1 tab.ds.pk 09/19/21 Unknown Rx (6-Day Pack, 21 Tabs)] Naproxen [EC-Naprosyn] 500 mg PO Q12H PRN #30 tablet.dr 03/08/22 Unknown Rx Prednisone [predniSONE 10 mg 10 mg PO .TAPER #1 tab.ds.pk 03/08/22 Unknown Rx (6-Day Pack, 21 Tabs)] predniSONE [Deltasone] 20 mg PO QDAY #30 tab 03/08/22 Unknown Rx traMADoL [Ultram 50 MG tab] 50 mg PO Q6HR PRN #12 tablet 03/08/22 Unknown Rx Allergies Allergy/AdvReac Type Severity Reaction Status Date / Time No Known Allergies Allergy Verified 03/08/22 20:18 ED Review of Systems ROS: Stated complaint: JOINT PAIN Other details as noted in HPI Constitutional: denies: chills, fever Eyes: denies: eye pain, eye discharge, vision change ENT: denies: ear pain, throat pain Respiratory: denies: cough, shortness of breath, wheezing Cardiovascular: denies: chest pain, palpitations Endocrine: no symptoms reported Gastrointestinal: denies: abdominal pain, nausea, diarrhea Genitourinary: denies: urgency, dysuria, discharge Musculoskeletal: arthralgia (diffuse lower and upper extremity joint pains). denies: back pain, joint swelling Skin: denies: rash, lesions Neurological: denies: headache, weakness, paresthesias Psychiatric: denies: anxiety, depression Hematological/Lymphatic: denies: easy bleeding, easy bruising ED Past Medical Hx - Past Medical History Hx Congestive Heart Failure: No Hx Diabetes: No Hx Arthritis: Yes (Rheumatoid) Hx Seizures: No Hx Asthma: No Hx COPD: No Additional medical history: RA, Morbid Obesity. Psoriasis, Pneumonia - Surgical History Additional Surgical History: Psoriasis - Social History Smoking Status: Never Smoker Substance Use Type: None - Medications Home Medications: Home Medications Medication Instructions Recorded Confirmed Last Taken Type predniSONE [Prednisone] 10 mg PO DAILY #7 tab.ds.pk 12/25/18 03/08/22 09/01/19 Rx ALBUTEROL Inhaler(NF) [VENTOLIN 1 puff IH Q4HRT PRN #1 inha 02/06/19 03/08/22 09/01/19 Rx Inhaler(NF)] Benzonatate [Tessalon Perles] 100 mg PO Q8HR PRN #20 capsule 09/02/19 03/08/22 Unknown Rx Acetaminophen [Non-Aspirin Extra 500 mg PO Q6HR PRN #30 tablet 12/26/20 03/08/22 Unknown Rx Strength] Ibuprofen [Motrin] 600 mg PO Q8H PRN #30 tablet 12/26/20 03/08/22 Unknown Rx Morphine Sulfate [Morphine Sulfate 7.5 mg PO Q6HR PRN #10 tablet 12/26/20 03/08/22 Unknown Rx IR] Ondansetron [Zofran Odt] 4 mg PO Q8HR PRN #20 tab.rapdis 12/26/20 03/08/22 Unknown Rx hydrOXYzine PAMOATE [Vistaril] 50 mg PO Q8HR PRN #30 capsule 05/26/21 03/08/22 Unknown Rx cephALEXin [Keflex] 500 mg PO Q12HR 7 Days #14 cap 07/09/21 03/08/22 Unknown Rx predniSONE [Deltasone] 20 mg PO QDAY #5 tab 07/09/21 03/08/22 Unknown Rx traMADoL [Ultram] 50 mg PO Q8HR PRN #9 tablet 07/09/21 03/08/22 Unknown Rx Prednisone [predniSONE 10 mg 10 mg PO .TAPER #1 tab.ds.pk 09/19/21 03/08/22 Unknown Rx (6-Day Pack, 21 Tabs)] Naproxen [EC-Naprosyn] 500 mg PO Q12H PRN #30 tablet.dr 03/08/22 Unknown Rx Prednisone [predniSONE 10 mg 10 mg PO .TAPER #1 tab.ds.pk 03/08/22 Unknown Rx (6-Day Pack, 21 Tabs)] predniSONE [Deltasone] 20 mg PO QDAY #30 tab 03/08/22 Unknown Rx traMADoL [Ultram 50 MG tab] 50 mg PO Q6HR PRN #12 tablet 03/08/22 Unknown Rx ED Physical Exam - General Limitations: No Limitations General appearance: alert, in no apparent distress - Head Head exam: Present: atraumatic, normocephalic, normal inspection - Eye Eye exam: Present: normal appearance, PERRL, EOMI Pupils: Present: normal accommodation - ENT ENT exam: Present: normal exam, normal orophraynx, mucous membranes moist, TM's normal bilaterally, normal external ear exam - Neck Neck exam: Present: normal inspection, full ROM. Absent: tenderness - Respiratory Respiratory exam: Present: normal lung sounds bilaterally. Absent: respiratory distress, wheezes, chest wall tenderness, accessory muscle use, decreased breath sounds, prolonged expiratory - Cardiovascular Cardiovascular Exam: Present: normal rhythm, tachycardia, normal heart sounds. Absent: systolic murmur, diastolic murmur, rubs, gallop - GI/Abdominal GI/Abdominal exam: Present: soft, normal bowel sounds. Absent: tenderness, guarding, rigid, hyperactive bowel sounds, hypoactive bowel sounds, organomegaly - Extremities Exam Extremities exam: Present: normal inspection, full ROM, tenderness (Palpable diffuse polyupper and lower extremity join), normal capillary refill. Absent: pedal edema, joint swelling, calf tenderness - Back Exam Back exam: Present: normal inspection, full ROM. Absent: tenderness, CVA tenderness (R), CVA tenderness (L), muscle spasm, paraspinal tenderness, vertebral tenderness - Neurological Exam Neurological exam: Present: alert, oriented X3, CN II-XII intact, normal gait, reflexes normal - Psychiatric Psychiatric exam: Present: normal affect, normal mood - Skin Skin exam: Present: warm, dry, intact, normal color. Absent: rash ED Course Vital Signs 03/08/22 03/08/22 16:17 20:14 Temperature 97.7 F 97.9 F Pulse Rate 105 H 68 Respiratory 18 20 Rate Blood Pressure 171/107 127/80 [Right] O2 Sat by Pulse 97 100 Oximetry ED Medical Decision Making - Medical Decision Making This is a 31-year-old -Iranian female with a history of morbid obesity and chronic pain due to chronic rheumatoid arthritis who presents to the ED with complaint of acute exacerbation of her chronic pain characterized by persistent diffuse polyarticular joint pains for the last 2 weeks, worse in the last 2 days. Patient states that she ran out of all her medications including steroids. Patient states that she usually goes to a pain clinic where she gets Jolo 5 mg - 325 mg for pain but has not followed up with her pain clinic in 2 months. Patient also states that she has not followed up with her branch credit counselor in the last 3 months. In the ED, patient is alert and oriented x3 and is not in any distress. Patient was treated for pain in the ED. On reevaluation, patient's pain is well controlled medication. Patient will discharge home on pain medications and advised to follow-up with her branch credit counselor for further evaluation and also to follow-up with her pain clinic in the next 7 to 10 days for reevaluation. Patient was advised return to the ED immediately if symptoms get worse. - Differential Diagnosis Rheumatoid arthritis; osteoarthritis; muscle strain; chronic pain; Critical care attestation.: If time is entered above; I have spent that time in minutes in the direct care of this critically ill patient, excluding procedure time. ED Disposition Clinical Impression: Flare of rheumatoid arthritis, Chronic pain syndrome Disposition: 01 HOME / SELF CARE / HOMELESS Is pt being admited?: No Does the pt Need Aspirin: No Condition: Stable Instructions: Pain Medicine Instructions, [id number], Arthritis, [id number], Chronic Pain, Adult Additional Instructions: Take medications with food, drink plenty of fluids and follow-up with your primary care physician or branch credit counselor in 7 to 10 days for reevaluation. Consider following up with your pain clinic for further evaluation. Return to the ED immediately if symptoms get worse. Prescriptions: predniSONE [Deltasone] 20 mg PO QDAY #30 tab Naproxen [EC-Naprosyn] 500 mg PO Q12H PRN #30 tablet.dr TAPIA Reason: Pain , Severe (7-10) Prednisone [predniSONE 10 mg (6-Day Pack, 21 Tabs)] 10 mg PO .TAPER #1 tab.ds.pk traMADoL [Ultram 50 MG tab] 50 mg PO Q6HR PRN #12 tablet PRN Reason: Pain Referrals: [facility] [Provider Group] - 7-10 days Time of Disposition: 21:10 Print Language: ESTONIAN
[2022-03-08 21:42] VITALS: BP 138/92
== END 2022-03-08 21:41 | disposition home or self-care (01) ==
LOC: ED 15:58
DX: G89.4 Chronic pain syndrome (principal); M06.9 Rheumatoid arthritis, unspecified; E66.01 Morbid (severe) obesity due to excess calories; Z98.890 Other specified postprocedural states
CPT/HCPCS: 96372; 99282; J1100; J1885; J3490; Q0162

== ENCOUNTER 2022-03-20 17:24 | Emergency (ER) | payer MEDICAID, OTHER ==
[2022-03-21] MEDS ORDERED: ONDANSETRON 4 MG/2 ML INJ IV ONE (00:59)
[2022-03-21] MEDS ORDERED: fentaNYL 100 MCG/2 ML INJ IV ONE (00:59)
[2022-03-21] MEDS ORDERED: methylPREDNISolone Sod Succinate 125 MG/2 ML INJ IV ONE (01:00)
--- NOTE | 2022-03-21 01:06 | Emergency Department Report ---
HPI - General Chief Complaint: Pain General Time Seen by Provider: 03/21/22 00:50 - HPI HPI: Room 19 The patient is a 31-year-old female present with a chief complaint of "I am having a bad flareup of lupus." Patient complains of pain in every joint for the past 3 days stating his pain is consistent with her lupus flares rheumatoid arthritis. Patient also admits to intermittent anterior chest pain since last night associated with shortness of breath. Patient denies history of cough. Patient currently gives her joint pain a score of 10/10 ED Past Medical Hx - Past Medical History Previous Medical History?: Yes Hx Arthritis: Yes (Rheumatoid) Additional medical history: RA, Morbid Obesity. Psoriasis, lupus - Surgical History Past Surgical History?: No Additional Surgical History: Psoriasis - Family History Family history: no significant - Social History Smoking Status: Light Tobacco Smoker Substance Use Type: Alcohol (Occasional), Marijuana - Medications Home Medications: Home Medications Medication Instructions Recorded Confirmed Last Taken Type predniSONE [Prednisone] 10 mg PO DAILY #7 tab.ds.pk 12/25/18 03/08/22 09/01/19 Rx ALBUTEROL Inhaler(NF) [VENTOLIN 1 puff IH Q4HRT PRN #1 inha 02/06/19 03/08/22 09/01/19 Rx Inhaler(NF)] Benzonatate [Tessalon Perles] 100 mg PO Q8HR PRN #20 capsule 09/02/19 03/08/22 Unknown Rx Acetaminophen [Non-Aspirin Extra 500 mg PO Q6HR PRN #30 tablet 12/26/20 03/08/22 Unknown Rx Strength] Ibuprofen [Motrin] 600 mg PO Q8H PRN #30 tablet 12/26/20 03/08/22 Unknown Rx Morphine Sulfate [Morphine Sulfate 7.5 mg PO Q6HR PRN #10 tablet 12/26/20 Unknown Rx IR] Ondansetron [Zofran Odt] 4 mg PO Q8HR PRN #20 tab.rapdis 12/26/20 03/08/22 Unknown Rx hydrOXYzine PAMOATE [Vistaril] 50 mg PO Q8HR PRN #30 capsule 05/26/21 03/08/22 Unknown Rx cephALEXin [Keflex] 500 mg PO Q12HR 7 Days #14 cap 07/09/21 03/08/22 Unknown Rx predniSONE [Deltasone] 20 mg PO QDAY #5 tab 07/09/21 03/08/22 Unknown Rx traMADoL [Ultram] 50 mg PO Q8HR PRN #9 tablet 07/09/21 03/08/22 Unknown Rx Prednisone [predniSONE 10 mg 10 mg PO .TAPER #1 tab.ds.pk 09/19/21 03/08/22 Unknown Rx (6-Day Pack, 21 Tabs)] Naproxen [EC-Naprosyn] 500 mg PO Q12H PRN #30 tablet. 03/08/22 Unknown Rx Prednisone [predniSONE 10 mg 10 mg PO .TAPER #1 tab.ds.pk 03/08/22 Unknown Rx (6-Day Pack, 21 Tabs)] predniSONE [Deltasone] 20 mg PO QDAY #30 tab 03/08/22 Unknown Rx traMADoL [Ultram 50 MG tab] 50 mg PO Q6HR PRN #12 tablet 03/08/22 Unknown Rx Prednisone [predniSONE 10 mg 10 mg PO .TAPER #1 03/21/22 Unknown Rx (6-Day Pack, 21 Tabs)] oxyCODONE /ACETAMINOPHEN [Percocet 1 - 2 tab PO Q6HR PRN #14 tablet 03/21/22 Unknown Rx 5/325] ED Review of Systems ROS: Stated complaint: LUPUS FLARE UP Other details as noted in HPI Constitutional: fever (?) Eyes: denies: eye pain ENT: denies: throat pain Respiratory: shortness of breath. denies: cough Cardiovascular: chest pain Endocrine: no symptoms reported Gastrointestinal: denies: abdominal pain Genitourinary: denies: dysuria Musculoskeletal: arthralgia Neurological: denies: headache Physical Exam - Physical Exam Vital Signs: Vital Signs 03/20/22 18:43 Temperature 98.7 F Pulse Rate 90 Respiratory 20 Rate Blood Pressure 162/113 [Right] O2 Sat by Pulse 97 Oximetry Physical Exam: GENERAL: The patient is well-developed well-nourished female lying on stretcher not appearing to be in acute distress. [] HEENT: Normocephalic. Atraumatic. Extraocular motions are intact. Patient has moist mucous membranes. NECK: Supple. Trachea midline CHEST/LUNGS: Clear to auscultation. There is no respiratory distress noted. HEART/CARDIOVASCULAR: Regular. There is no tachycardia. There is no gallop rub or murmur. ABDOMEN: Abdomen is soft, nontender. Patient has normal bowel sounds. There is no abdominal distention. SKIN: There is no rash. There is no edema. There is no diaphoresis. NEURO: The patient is awake, alert, and oriented. The patient is cooperative. The patient has no focal neurologic deficits. The patient has normal speech. GCS 15 MUSCULOSKELETAL:There is no evidence of acute injury. ED Course Vital Signs 03/20/22 18:43 Temperature 98.7 F Pulse Rate 90 Respiratory 20 Rate Blood Pressure 162/113 [Right] O2 Sat by Pulse 97 Oximetry ED Medical Decision Making - Lab Data Result diagrams: 03/21/22 01:05 03/21/22 01:05 Laboratory Tests 03/21/22 03/21/22 03/21/22 01:05 01:05 01:05 WBC 20.6 H RBC 4.67 Hgb 11.8 Hct 36.9 MCV 79 MCH 25 L MCHC 32 RDW 16.4 H Plt Count 372 D-Dimer 220.87 Sodium 140 Potassium 3.6 Chloride 104.3 Carbon Dioxide 19 L Anion Gap 20 BUN 15 Creatinine 0.5 L Estimated GFR > 60 BUN/Creatinine Ratio 30 Glucose 86 Calcium 9.4 Total Creatine Kinase 38 CK-MB (CK-2) < 1.0 CK-MB (CK-2) Rel Index 2.6 Troponin T < 0.010 HCG, Qual 03/21/22 01:05 WBC RBC Hgb Hct MCV MCH MCHC RDW Plt Count D-Dimer Sodium Potassium Chloride Carbon Dioxide Anion Gap BUN Creatinine Estimated GFR BUN/Creatinine Ratio Glucose Calcium Total Creatine Kinase CK-MB (CK-2) CK-MB (CK-2) Rel Index Troponin T HCG, Qual Negative - EKG Data -: EKG Interpreted by Me EKG shows normal: sinus rhythm Rate: tachycardia (103 bpm) - EKG Data When compared to previous EKG there are: no significant change Interpretation: unchanged when compared t (08/05/2021) - Radiology Data Radiology results: report reviewed (Chest x-ray), image reviewed (Chest x-ray) interpreted by me: Chest x-ray-no definite focal infiltrates, no pneumothorax [facility] [address] [place] [address] XRay Report Signed Patient: GILDA FRYE MR#: [id number] : 1990 Acct:[id number] Age/Sex: 31 / F ADM Date: 03/20/22 Loc: ED Attending Dr: Ordering Physician: TONY IBRAHIM MD Date of Service: 03/21/22 Procedure(s): XR chest 1V ap Accession Number(s): [id number] cc: TONY IBRAHIM MD Fluoro Time In Minutes: CHEST 1 VIEW INDICATION / CLINICAL INFORMATION: chest pain. COMPARISON: 08/05/2021 FINDINGS: SUPPORT DEVICES: None. HEART / MEDIASTINUM: No significant abnormality. LUNGS / PLEURA: No significant pulmonary or pleural abnormality. No pneumothorax. ADDITIONAL FINDINGS: No significant additional findings. IMPRESSION: 1. No acute findings. Signer Name: Devyn Bill MD Signed: 03/21/2022 2:45 AM Workstation Name: [id number] Transcribed By: TL Dictated By: Devyn Bill MD Electronically Authenticated By: Devyn Bill MD Signed Date/Time: 03/21/22244 DD/ 4 TD/TT: - Differential Diagnosis Arthralgia, PE, ACS, costochondritis Critical care attestation.: If time is entered above; I have spent that time in minutes in the direct care of this critically ill patient, excluding procedure time. ED Disposition Clinical Impression: Lupus, Arthralgia Disposition: 01 HOME / SELF CARE / HOMELESS Is pt being admited?: No Does the pt Need Aspirin: No Condition: Stable Instructions: Joint Pain Additional Instructions: Return to the emergency department should you develop worsening symptoms, inability to tolerate food or liquids, high fever or any other concerns Prescriptions: oxyCODONE /ACETAMINOPHEN [Percocet 5/325] 1 - 2 tab PO Q6HR PRN #14 tablet PRN Reason: Pain Prednisone [predniSONE 10 mg (6-Day Pack, 21 Tabs)] 10 mg PO .TAPER #1 Referrals: AMNA BURGOS MD [Primary Care Provider] - 3-5 Days Your, tissue technician [Other] - 3-5 Days Time of Disposition: 03:50
[2022-03-21 01:21] LABS: Hematocrit 36.9 % (30.3-42.9); Hemoglobin 11.8 gm/dl (10.1-14.3); Mean Corpuscular HGB Conc 32 % (30-34); Mean Corpuscular Volume 79 fl (79-97); Platelet Count 372 K/mm3 (140-440); Red Blood Count 4.67 M/mm3 (3.65-5.03); Red Cell Distribution Width 16.4 % (13.2-15.2)
[2022-03-21 01:47] LABS: Blood Urea Nitrogen 15 mg/dL (7-17); Calcium 9.4 mg/dL (8.4-10.2); Hemolysis Index 1
[2022-03-21 01:55] LABS: BUN/Creatinine Ratio 30; Creatine Kinase MB < 1.0 ng/mL (0.0-4.0)
[2022-03-21] MEDS ORDERED: SODIUM CHLORIDE 0.9% 1000 ML 1,000 ML IV ONE (02:26)
--- NOTE | 2022-03-21 02:50 | XRay Report ---
CHEST 1 VIEW INDICATION / CLINICAL INFORMATION: chest pain. COMPARISON: 08/05/2021 FINDINGS: SUPPORT DEVICES: None. HEART / MEDIASTINUM: No significant abnormality. LUNGS / PLEURA: No significant pulmonary or pleural abnormality. No pneumothorax. ADDITIONAL FINDINGS: No significant additional findings. IMPRESSION: 1. No acute findings. Signer Name: Devyn Bill MD Signed: 03/21/2022 2:45 AM Workstation Name: [id number]
[2022-03-21 03:10] VITALS: BP 190/72
[2022-03-21] MEDS ORDERED: HYDROmorphone 1 MG/1 ML INJ IV ONE (03:48)
[2022-03-21] MEDS ORDERED: KETOROLAC 30 MG/1 ML INJ IV ONE (03:48)
[2022-03-21 04:56] LABS: Basophils % (Manual) 0 % (0.0-1.8); Eosinophils % (Manual) 0 % (0.0-4.3); Total Cells Counted 100
[2022-03-21 04:57] LABS: Hypochromasia 1+; Platelet Estimate Consistent w Auto
--- NOTE | 2022-03-22 12:20 | Electrocardiograph Report ---
[facility] Test Date: 2022-03-21 Test Time: 02:20:04 Pat Name: GILDA FRYE Department: Room: Gender: F Hand Tapper: SERENA : 1990 Requested By: TONY IBRAHIM Order Number: [id number] Reading MD: Curt Oliva Measurements Intervals [place] Rate: 103 P: 56 OK: 143 QRS: 35 QRSD: 75 T: 21 QT: 335 QTc: 440 Interpretive Statements Sinus tachycardia Compared to ECG 08/05/2021 01:55:33 No significant change Electronically Signed On 03-22-2022 12:20:28 EDT by Curt Oliva
== END 2022-03-21 05:09 | disposition home or self-care (01) ==
LOC: ED 17:24
DX: M32.8 Other forms of systemic lupus erythematosus (principal); M25.50 Pain in unspecified joint; M06.9 Rheumatoid arthritis, unspecified; E66.01 Morbid (severe) obesity due to excess calories; Z98.890 Other specified postprocedural states; F17.290 Nicotine dependence, other tobacco product, uncomplicated
CPT/HCPCS: 36415; 71045; 80048; 82550; 82553; 84484; 84703; 85007; 85025; 85379; 93005; 96361; 96374; 96375; 99284; J1170; J1885; J2405; J2930; J3010; J7030

== ENCOUNTER 2022-04-24 14:17 | Emergency (ER) | payer OTHER ==
[2022-04-24] MEDS ORDERED: oxyCODONE /ACETAMINOPHEN 5-325MG TAB PO ONE (21:52)
[2022-04-24] MEDS ORDERED: dexAMETHasone 20 MG/5 ML VIAL IM ONE (21:52)
[2022-04-24] MEDS ORDERED: ONDANSETRON 4 MG ODT TAB PO ONE (21:52)
[2022-04-24] MEDS ORDERED: KETOROLAC 30 MG/1 ML INJ IM ONE (21:52)
--- NOTE | 2022-04-24 22:11 | Emergency Department Report ---
ED General Adult HPI - General Chief complaint: Pain General Stated complaint: RA FLARE Source: patient Mode of arrival: Ambulatory Limitations: No Limitations - History of Present Illness Initial comments: Patient is a 32-year-old -[place] female with a history of SLE and chronic rheumatoid arthritis with chronic pain presents to the ED with complaint of acute exacerbation of her chronic pain characterized by nontraumatic left knee joint, left ankle and left foot joints for the last 1 week. Patient also states that she usually takes her prednisone 20 mg daily but ran out of the same medication 3 days ago. Patient states that she is unable to bear weight on the left leg because of worsening pain. Patient states that the pain is typical of her chronic pain due to rheumatoid arthritis and lupus. Patient denies fall, heavy lifting, fever, chills, low back pain, chest pain or shortness of breath, nausea and vomiting, dizziness, syncope, dysuria, urinary frequency and urgency, numbness or tingling or weakness of lower extremities bilaterally. MD Complaint: Left knee, left ankle and foot pain; flare up of rheumatoid arthritis -: week(s) (1) Location: lower extremity (left knee, ankle and foot) Radiation: extremity (left knee, left ankle and foot pain) Severity scale (0 -10): 8 Quality: aching, sharp Consistency: constant Improves with: none Worsens with: movement Associated Symptoms: denies other symptoms. denies: chest pain, cough, diaphoresis, fever/chills, loss of appetite, malaise, nausea/vomiting, rash, seizure, shortness of breath, syncope, weakness Treatments Prior to Arrival: none - Related Data Previous Rx's Medication Instructions Recorded Last Taken Type predniSONE [Prednisone] 10 mg PO DAILY #7 tab.ds.pk 12/25/18 09/01/19 Rx ALBUTEROL Inhaler(NF) [VENTOLIN 1 puff IH Q4HRT PRN #1 inha 02/06/19 09/01/19 Rx Inhaler(NF)] Benzonatate [Tessalon Perles] 100 mg PO Q8HR PRN #20 capsule 09/02/19 Unknown Rx Acetaminophen [Non-Aspirin Extra 500 mg PO Q6HR PRN #30 tablet 12/26/20 Unknown Rx Strength] Ibuprofen [Motrin] 600 mg PO Q8H PRN #30 tablet 12/26/20 Unknown Rx Morphine Sulfate [Morphine Sulfate 7.5 mg PO Q6HR PRN #10 tablet 12/26/20 Unknown Rx IR] Ondansetron [Zofran Odt] 4 mg PO Q8HR PRN #20 tab.rapdis 12/26/20 Unknown Rx hydrOXYzine PAMOATE [Vistaril] 50 mg PO Q8HR PRN #30 capsule 05/26/21 Unknown Rx cephALEXin [Keflex] 500 mg PO Q12HR 7 Days #14 cap 07/09/21 Unknown Rx predniSONE [Deltasone] 20 mg PO QDAY #5 tab 07/09/21 Unknown Rx Prednisone [predniSONE 10 mg 10 mg PO .TAPER #1 tab.ds.pk 03/08/22 Unknown Rx (6-Day Pack, 21 Tabs)] predniSONE [Deltasone] 20 mg PO QDAY #30 tab 03/08/22 Unknown Rx traMADoL [Ultram 50 MG tab] 50 mg PO Q6HR PRN #12 tablet 03/08/22 Unknown Rx Prednisone [predniSONE 10 mg 10 mg PO .TAPER #1 03/21/22 Unknown Rx (6-Day Pack, 21 Tabs)] oxyCODONE /ACETAMINOPHEN [Percocet 1 - 2 tab PO Q6HR PRN #14 tablet 03/21/22 Unknown Rx 5/325] Naproxen [EC-Naprosyn] 500 mg PO Q12H PRN #30 tablet.dr 04/24/22 Unknown Rx Prednisone [predniSONE 10 mg 10 mg PO .TAPER #1 tab.ds.pk 04/24/22 Unknown Rx (6-Day Pack, 21 Tabs)] traMADoL [Ultram 50 MG tab] 50 mg PO Q8HR PRN #12 tablet 04/24/22 Unknown Rx Allergies Allergy/AdvReac Type Severity Reaction Status Date / Time No Known Allergies Allergy Verified 03/08/22 20:18 ED Review of Systems ROS: Stated complaint: RA FLARE Other details as noted in HPI Constitutional: denies: chills, fever Eyes: denies: eye pain, eye discharge, vision change ENT: denies: ear pain, throat pain Respiratory: denies: cough, shortness of breath, wheezing Cardiovascular: denies: chest pain, palpitations Endocrine: no symptoms reported Gastrointestinal: denies: abdominal pain, nausea, diarrhea Genitourinary: denies: urgency, dysuria, discharge Musculoskeletal: joint swelling (left knee, ankle and foot pain and swelling), arthralgia (left knee, ankle and foot pain with swelling), myalgia. denies: back pain Skin: denies: rash, lesions Neurological: denies: headache, weakness, paresthesias Psychiatric: denies: anxiety, depression Hematological/Lymphatic: denies: easy bleeding, easy bruising ED Past Medical Hx - Past Medical History Hx Congestive Heart Failure: No Hx Diabetes: No Hx Arthritis: Yes (Rheumatoid) Hx Seizures: No Hx Asthma: No Hx COPD: No Additional medical history: RA, Morbid Obesity. Psoriasis, lupus - Surgical History Additional Surgical History: Psoriasis - Social History Smoking Status: Never Smoker - Medications Home Medications: Home Medications Medication Instructions Recorded Confirmed Last Taken Type predniSONE [Prednisone] 10 mg PO DAILY #7 tab.ds.pk 12/25/18 03/08/22 09/01/19 Rx ALBUTEROL Inhaler(NF) [VENTOLIN 1 puff IH Q4HRT PRN #1 inha 02/06/19 03/08/22 09/01/19 Rx Inhaler(NF)] Benzonatate [Tessalon Perles] 100 mg PO Q8HR PRN #20 capsule 09/02/19 03/08/22 Unknown Rx Acetaminophen [Non-Aspirin Extra 500 mg PO Q6HR PRN #30 tablet 12/26/20 03/08/22 Unknown Rx Strength] Ibuprofen [Motrin] 600 mg PO Q8H PRN #30 tablet 12/26/20 03/08/22 Unknown Rx Morphine Sulfate [Morphine Sulfate 7.5 mg PO Q6HR PRN #10 tablet 12/26/20 03/08/22 Unknown Rx IR] Ondansetron [Zofran Odt] 4 mg PO Q8HR PRN #20 tab.rapdis 12/26/20 03/08/22 Unknown Rx hydrOXYzine PAMOATE [Vistaril] 50 mg PO Q8HR PRN #30 capsule 05/26/21 03/08/22 Unknown Rx cephALEXin [Keflex] 500 mg PO Q12HR 7 Days #14 cap 07/09/21 03/08/22 Unknown Rx predniSONE [Deltasone] 20 mg PO QDAY #5 tab 07/09/21 03/08/22 Unknown Rx Prednisone [predniSONE 10 mg 10 mg PO .TAPER #1 tab.ds.pk 03/08/22 Unknown Rx (6-Day Pack, 21 Tabs)] predniSONE [Deltasone] 20 mg PO QDAY #30 tab 03/08/22 Unknown Rx traMADoL [Ultram 50 MG tab] 50 mg PO Q6HR PRN #12 tablet 03/08/22 Unknown Rx Prednisone [predniSONE 10 mg 10 mg PO .TAPER #1 03/21/22 Unknown Rx (6-Day Pack, 21 Tabs)] oxyCODONE /ACETAMINOPHEN [Percocet 1 - 2 tab PO Q6HR PRN #14 tablet 03/21/22 Unknown Rx 5/325] Naproxen [EC-Naprosyn] 500 mg PO Q12H PRN #30 tablet. 04/24/22 Unknown Rx Prednisone [predniSONE 10 mg 10 mg PO .TAPER #1 tab.ds.pk 04/24/22 Unknown Rx (6-Day Pack, 21 Tabs)] traMADoL [Ultram 50 MG tab] 50 mg PO Q8HR PRN #12 tablet 04/24/22 Unknown Rx ED Physical Exam - General Limitations: No Limitations General appearance: alert, in no apparent distress - Head Head exam: Present: atraumatic, normocephalic, normal inspection - Eye Eye exam: Present: normal appearance, PERRL, EOMI Pupils: Present: normal accommodation - ENT ENT exam: Present: normal exam, normal orophraynx, mucous membranes moist, TM's normal bilaterally, normal external ear exam - Neck Neck exam: Present: normal inspection, full ROM. Absent: tenderness, thyromegaly - Respiratory Respiratory exam: Present: normal lung sounds bilaterally. Absent: respiratory distress, wheezes, rhonchi, stridor, chest wall tenderness, decreased breath sounds, prolonged expiratory, other - Cardiovascular Cardiovascular Exam: Present: normal rhythm, tachycardia, normal heart sounds. Absent: systolic murmur, diastolic murmur, rubs, gallop - GI/Abdominal GI/Abdominal exam: Present: soft, normal bowel sounds. Absent: tenderness, guarding, rebound, hyperactive bowel sounds, hypoactive bowel sounds, organomegaly - Extremities Exam Extremities exam: Present: normal inspection, full ROM, tenderness (palpable left knee tenderness and swelling; palpable left ankle and foot tenderness), normal capillary refill, joint swelling. Absent: pedal edema, calf tenderness - Back Exam Back exam: Present: normal inspection, full ROM. Absent: tenderness, CVA tenderness (R), CVA tenderness (L), muscle spasm, paraspinal tenderness, vertebral tenderness - Neurological Exam Neurological exam: Present: alert, oriented X3, CN II-XII intact, normal gait, reflexes normal - Psychiatric Psychiatric exam: Present: normal affect, normal mood - Skin Skin exam: Present: warm, dry, intact, normal color. Absent: rash ED Course Vital Signs 04/24/22 15:23 Temperature 98.9 F Pulse Rate 108 H Respiratory 18 Rate Blood Pressure 145/90 O2 Sat by Pulse 100 Oximetry ED Medical Decision Making - Medical Decision Making This is a 32-year-old -[place] female with a history of SLE and chronic rheumatoid arthritis with chronic pain presents to the ED with complaint of acute exacerbation of her chronic pain characterized by nontraumatic left knee joint, left ankle and left foot joints for the last 1 week. Patient also states that she usually takes her prednisone 20 mg daily but ran out of the same medication 3 days ago. Patient states that she is unable to bear weight on the left leg because of worsening pain. Patient states that the pain is typical of her chronic pain due to rheumatoid arthritis and lupus. In the ED, patient is alert and oriented x3 and is not in any distress. Patient however appears to be in significant pain and is tachycardic but afebrile in triage. Patient was treated for pain in the ED and discharged home on pain medication and a refill on her prednisone tablets that she takes every day. Patient was advised to follow-up with her primary care physician in 7 to 10 days for reevaluation. Patient was advised to return to the ED immediately if symptoms get worse. - Differential Diagnosis Chronic pain; rheumatoid pain; SLE pain; muscle strain; gout Critical care attestation.: If time is entered above; I have spent that time in minutes in the direct care of this critically ill patient, excluding procedure time. ED Disposition Clinical Impression: Chronic pain syndrome, Chronic polyarticular juvenile rheumatoid arthritis Disposition: HOME / SELF CARE / HOMELESS Is pt being admited?: No Does the pt Need Aspirin: No Condition: Stable Instructions: Arthritis, [id number], Pain Medicine Instructions, [id number] Additional Instructions: Take medication with food, drink plenty of fluids, follow-up with your primary care physician in 5 to 7 days for reevaluation. Return to the ED immediately if symptoms get worse. Prescriptions: Naproxen [EC-Naprosyn] 500 mg PO Q12H PRN #30 tablet.dr PRN Reason: Pain , Severe (7-10) Prednisone [predniSONE 10 mg (6-Day Pack, 21 Tabs)] 10 mg PO .TAPER #1 tab.ds.pk traMADoL [Ultram 50 MG tab] 50 mg PO Q8HR PRN #12 tablet PRN Reason: Pain Referrals: [facility] [Provider Group] - 7-10 days Time of Disposition: 22:20 Print Language: URDU
[2022-04-24 23:45] VITALS: BP 142/85
== END 2022-04-24 23:33 | disposition home or self-care (01) ==
LOC: ED 14:17
DX: G89.4 Chronic pain syndrome (principal); M08.00 Unspecified juvenile rheumatoid arthritis of unspecified site; M19.90 Unspecified osteoarthritis, unspecified site
CPT/HCPCS: 96372; 99282; J1100; J1885; J3490; Q0162

== ENCOUNTER 2022-05-06 22:03 | Emergency (ER) | payer OTHER ==
--- NOTE | 2022-05-07 04:55 | Emergency Department Report ---
ED Extremity Problem HPI - General Chief complaint: Extremity Problem,Nontraumatic Stated complaint: RA FLARE& GERD Time Seen by Provider: 05/07/22 04:42 Source: patient Mode of arrival: Ambulatory Limitations: No Limitations - History of Present Illness Initial comments: Patient 32-year-old female with history of rheumatoid arthritis left knee who presents for pain and swelling . Patient is ambulatory to baseline for patient with crutches. Patient states she is out of prednisone p.o. Patient requesting refill of medication and NSAIDs. Patient denies fevers or chills has been no new fall or injury or trauma. Pain is described as 5/10 aching sharp exacerbated by weightbearing. Pain is relieved by offloading and rest. There has been no fever or chills. MD Complaint: other - Related Data Previous Rx's Medication Instructions Recorded Last Taken Type predniSONE [Prednisone] 10 mg PO DAILY #7 tab.ds.pk 12/25/18 09/01/19 Rx ALBUTEROL Inhaler(NF) [VENTOLIN 1 puff IH Q4HRT PRN #1 inha 02/06/19 09/01/19 Rx Inhaler(NF)] Benzonatate [Tessalon Perles] 100 mg PO Q8HR PRN #20 capsule 09/02/19 Unknown Rx Acetaminophen [Non-Aspirin Extra 500 mg PO Q6HR PRN #30 tablet 12/26/20 Unknown Rx Strength] Ibuprofen [Motrin] 600 mg PO Q8H PRN #30 tablet 12/26/20 Unknown Rx Morphine Sulfate [Morphine Sulfate 7.5 mg PO Q6HR PRN #10 tablet 12/26/20 Unknown Rx IR] Ondansetron [Zofran Odt] 4 mg PO Q8HR PRN #20 tab.rapdis 12/26/20 Unknown Rx hydrOXYzine PAMOATE [Vistaril] 50 mg PO Q8HR PRN #30 capsule 05/26/21 Unknown Rx cephALEXin [Keflex] 500 mg PO Q12HR 7 Days #14 cap 07/09/21 Unknown Rx Prednisone [predniSONE 10 mg 10 mg PO .TAPER #1 tab.ds.pk 03/08/22 Unknown Rx (6-Day Pack, 21 Tabs)] predniSONE [Deltasone] 20 mg PO QDAY #30 tab 03/08/22 Unknown Rx traMADoL [Ultram 50 MG tab] 50 mg PO Q6HR PRN #12 tablet 03/08/22 Unknown Rx Prednisone [predniSONE 10 mg 10 mg PO .TAPER #1 03/21/22 Unknown Rx (6-Day Pack, 21 Tabs)] oxyCODONE /ACETAMINOPHEN [Percocet 1 - 2 tab PO Q6HR PRN #14 tablet 03/21/22 Unknown Rx 5/325] Naproxen [EC-Naprosyn] 500 mg PO Q12H PRN #30 tablet. 04/24/22 Unknown Rx Prednisone [predniSONE 10 mg 10 mg PO .TAPER #1 tab.ds.pk 04/24/22 Unknown Rx (6-Day Pack, 21 Tabs)] traMADoL [Ultram 50 MG tab] 50 mg PO Q8HR PRN #12 tablet 04/24/22 Unknown Rx Indomethacin [Indomethacin ER] 75 mg PO Q8H PRN #90 tab 05/07/22 Unknown Rx predniSONE [Deltasone] 20 mg PO QDAY #30 tab 05/07/22 Unknown Rx Allergies Allergy/AdvReac Type Severity Reaction Status Date / Time No Known Allergies Allergy Verified 03/08/22 20:18 ED Review of Systems ROS: Stated complaint: RA FLARE& GERD Other details as noted in HPI Constitutional: denies: chills, fever Eyes: denies: eye pain, eye discharge, vision change ENT: denies: ear pain, throat pain Respiratory: denies: cough, shortness of breath, wheezing Cardiovascular: denies: chest pain, palpitations Endocrine: no symptoms reported Gastrointestinal: denies: abdominal pain, nausea, diarrhea Genitourinary: denies: urgency, dysuria, discharge Musculoskeletal: joint swelling (Left knee pain and swelling), arthralgia Skin: denies: rash, lesions Neurological: denies: headache, weakness, paresthesias Psychiatric: denies: anxiety, depression Hematological/Lymphatic: denies: easy bleeding, easy bruising ED Past Medical Hx - Past Medical History Hx Congestive Heart Failure: No Hx Diabetes: No Hx Arthritis: Yes (Rheumatoid) Hx Seizures: No Hx Asthma: No Hx COPD: No Additional medical history: RA, Morbid Obesity. Psoriasis, lupus - Surgical History Additional Surgical History: Psoriasis - Social History Smoking Status: Never Smoker - Medications Home Medications: Home Medications Medication Instructions Recorded Confirmed Last Taken Type predniSONE [Prednisone] 10 mg PO DAILY #7 tab.ds.pk 12/25/18 03/08/22 09/01/19 Rx ALBUTEROL Inhaler(NF) [VENTOLIN 1 puff IH Q4HRT PRN #1 inha 02/06/19 03/08/22 09/01/19 Rx Inhaler(NF)] Benzonatate [Tessalon Perles] 100 mg PO Q8HR PRN #20 capsule 09/02/19 03/08/22 Unknown Rx Acetaminophen [Non-Aspirin Extra 500 mg PO Q6HR PRN #30 tablet 12/26/20 03/08/22 Unknown Rx Strength] Ibuprofen [Motrin] 600 mg PO Q8H PRN #30 tablet 12/26/20 03/08/22 Unknown Rx Morphine Sulfate [Morphine Sulfate 7.5 mg PO Q6HR PRN #10 tablet 12/26/20 03/08/22 Unknown Rx IR] Ondansetron [Zofran Odt] 4 mg PO Q8HR PRN #20 tab.rapdis 12/26/20 03/08/22 Unknown Rx hydrOXYzine PAMOATE [Vistaril] 50 mg PO Q8HR PRN #30 capsule 05/26/21 03/08/22 Unknown Rx cephALEXin [Keflex] 500 mg PO Q12HR 7 Days #14 cap 07/09/21 03/08/22 Unknown Rx Prednisone [predniSONE 10 mg 10 mg PO .TAPER #1 tab.ds.pk 03/08/22 Unknown Rx (6-Day Pack, 21 Tabs)] predniSONE [Deltasone] 20 mg PO QDAY #30 tab 03/08/22 Unknown Rx traMADoL [Ultram 50 MG tab] 50 mg PO Q6HR PRN #12 tablet 03/08/22 Unknown Rx Prednisone [predniSONE 10 mg 10 mg PO .TAPER #1 03/21/22 Unknown Rx (6-Day Pack, 21 Tabs)] oxyCODONE /ACETAMINOPHEN [Percocet 1 - 2 tab PO Q6HR PRN #14 tablet 03/21/22 Unknown Rx 5/325] Naproxen [EC-Naprosyn] 500 mg PO Q12H PRN #30 tablet. 04/24/22 Unknown Rx Prednisone [predniSONE 10 mg 10 mg PO .TAPER #1 tab.ds.pk 04/24/22 Unknown Rx (6-Day Pack, 21 Tabs)] traMADoL [Ultram 50 MG tab] 50 mg PO Q8HR PRN #12 tablet 04/24/22 Unknown Rx Indomethacin [Indomethacin ER] 75 mg PO Q8H PRN #90 tab 05/07/22 Unknown Rx predniSONE [Deltasone] 20 mg PO QDAY #30 tab 05/07/22 Unknown Rx ED Physical Exam - General Limitations: No Limitations General appearance: alert, in no apparent distress - Head Head exam: Present: normocephalic, normal inspection - Eye Eye exam: Present: EOMI Pupils: Present: normal accommodation - ENT ENT exam: Present: normal orophraynx, mucous membranes moist - Neck Neck exam: Present: normal inspection, full ROM. Absent: tenderness, lymphadenopathy - Respiratory Respiratory exam: Present: normal lung sounds bilaterally. Absent: respiratory distress, wheezes - Cardiovascular Cardiovascular Exam: Present: regular rate, normal rhythm, normal heart sounds. Absent: systolic murmur, diastolic murmur, rubs, gallop - GI/Abdominal GI/Abdominal exam: Present: soft, normal bowel sounds - Rectal Rectal exam: Present: deferred - Extremities Exam Extremities exam: Present: normal inspection, full ROM, normal capillary refill - Expanded Lower Extremity Exam Left Knee exam: Present: full ROM, tenderness, swelling, pain w/ pronation/supination, pain/laxity with valgus, pain/laxity with varus, full knee extension. Absent: abrasion, laceration, ecchymosis, deformity, crepidus, dislocation, erythema, effusion, posterior draw sign Lower Leg exam: Present: full ROM. Absent: tenderness Ankle exam: Present: full ROM. Absent: tenderness Foot/Toe exam: Present: full ROM. Absent: tenderness Neuro vascular tendon exam: Absent: pulse deficit, motor deficit, sensory defi cit, tendon deficit Gait: Positive: observed and limited by pain ED Course Vital Signs 05/06/22 05/07/22 22:05 05:34 Temperature 99.7 F H Pulse Rate 117 H 102 H Respiratory 18 14 Rate Blood Pressure 142/87 Blood Pressure 136/82 [Left] O2 Sat by Pulse 91 98 Oximetry ED Medical Decision Making - Medical Decision Making Knee exam consistent with arthralgia there is no anterior drawer no crepitus no step-off no ecchymosis. Patient maintains full knee extension there is pain with rotation. Patient is amatory with crutches. Distal pulses intact +2. There is no known fall or injury or trauma. Plan refill prednisone as requested. Follow-up with orthopedics. Follow-up with rheumatology as directed. Return to emergency department should symptoms worsen. Patient verbalized agreement understanding Patient DC'd home in stable condition at this time. Critical care attestation.: If time is entered above; I have spent that time in minutes in the direct care of this critically ill patient, excluding procedure time. ED Disposition Clinical Impression: Rheumatoid arthritis involving knee Qualifiers: Rheumatoid factor presence: unspecified presence Laterality: right Qualified Code(s): M06.9 - Rheumatoid arthritis, unspecified Disposition: 01 HOME / SELF CARE / HOMELESS Is pt being admited?: No Does the pt Need Aspirin: No Instructions: Arthritis, [id number] Additional Instructions: Take medication as prescribed, follow-up with rheumatology, follow-up with orthopedics, and follow-up with your primary care doctor as scheduled. Return to emergency department should symptoms worsen Prescriptions: predniSONE [Deltasone] 20 mg PO QDAY #30 tab Indomethacin [Indomethacin ER] 75 mg PO Q8H PRN #90 tab PRN Reason: Pain Referrals: MAURI ELLIS MD [Staff Physician] - 3-5 Days JYOTI ALEXANDRE MD [Referring] - 3-5 Days JOLENE QIU MD [Staff Physician] - 3-5 Days Forms: Work/School Release Form(ED) Time of Disposition: 04:58
[2022-05-07] MEDS: predniSONE 20 MG TAB PO ONE ×2 (04:57→05:12)
[2022-05-07] MEDS: IBUPROFEN 800 MG TAB PO ONE ×2 (04:58→05:11)
[2022-05-07] MEDS: HYDROcodone/ACETAMINOPHEN 5-325 MG TAB PO ONE ×2 (04:58→05:11)
[2022-05-07] MEDS ORDERED: dexAMETHasone 20 MG/5 ML VIAL IM ONE (05:01)
[2022-05-07] MEDS ORDERED: KETOROLAC 30 MG/1 ML INJ IM ONE (05:01)
[2022-05-07] MEDS ORDERED: HYDROcodone/ACETAMINOPHEN 5-325 MG TAB PO ONE (05:03)
[2022-05-07 05:35] VITALS: BP 136/82
== END 2022-05-07 05:35 | disposition home or self-care (01) ==
LOC: ED 22:03
DX: M06.862 Other specified rheumatoid arthritis, left knee (principal); Z76.0 Encounter for issue of repeat prescription; Z79.899 Other long term (current) drug therapy
CPT/HCPCS: 96372; 99282; J1100; J1885

== ENCOUNTER 2022-07-01 12:43 | Emergency (ER) | payer SELFPAY ==
[2022-07-01 13:47] LABS: Basophils # (Auto) 0.1 K/mm3 (0.0-0.1); Basophils % (Auto) 0.4 % (0.0-1.8); Eosinophils # (Auto) 0.2 K/mm3 (0.0-0.4); Eosinophils % (Auto) 1.2 % (0.0-4.3); Hematocrit 37.1 % (30.3-42.9); Hemoglobin 11.5 gm/dl (10.1-14.3); Lymphocytes # (Auto) 4.2 K/mm3 (1.2-5.4); Lymphocytes % (Auto) 24.6 % (13.4-35.0); Mean Corpuscular HGB Conc 31 % (30-34); Mean Corpuscular Volume 81 fl (79-97); Monocytes # (Auto) 0.8 K/mm3 (0.0-0.8); Monocytes % (Auto) 4.5 % (0.0-7.3); Platelet Count 400 K/mm3 (140-440); Red Blood Count 4.61 M/mm3 (3.65-5.03); Red Cell Distribution Width 17.1 % (13.2-15.2)
[2022-07-01 14:04] LABS: Alanine Aminotransferase 14 units/L (7-56); Albumin 4.2 g/dL (3.9-5); Blood Urea Nitrogen 19 mg/dL (7-17); Hemolysis Index 0
[2022-07-01 14:25] LABS: BUN/Creatinine Ratio 32
[2022-07-01 20:15] LABS: Mucus,Urine 1+ /HPF; RBC,Urine < 1.0 /HPF (0.0-6.0)
[2022-07-01 20:16] LABS: Color,Urine Yellow (Yellow)
[2022-07-01 20:24] LABS: Ictotest,Urine Negative (Negative)
[2022-07-01] MEDS ORDERED: diphenhydrAMINE 50 MG/ML VIAL IV STA (21:23)
[2022-07-01] MEDS ORDERED: HYOSCYAMINE SUBL 0.125 MG TAB SL ONE (21:23)
[2022-07-01] MEDS ORDERED: dexAMETHasone 4 MG/ML VIAL IM ONE (21:23)
[2022-07-01] MEDS ORDERED: FAMOTIDINE 20 MG TAB PO ONE (21:23)
[2022-07-01] MEDS ORDERED: MORPHINE 4 MG/1 ML INJ IV STA (21:23)
[2022-07-01] MEDS ORDERED: ONDANSETRON 4 MG/2 ML INJ IV STA (21:23)
--- NOTE | 2022-07-01 21:25 | Emergency Department Report ---
ED General Adult HPI - General Chief complaint: Abdominal Pain Stated complaint: ABD PAIN/LUPUS FLARE UP Time Seen by Provider: 07/01/22 21:04 Source: patient Mode of arrival: Ambulatory Limitations: No Limitations - History of Present Illness Initial comments: 32-year-old female with elevated BMI presents emergency department complaining of having a lupus flareup as not responding to her usual home meds. Pain is dull and throbbing worse with palpation range of motion to her left knee and ankle and radiates up and down the which she states is typical for her lupus flares. No traumatic events to her knowledge. No fever, chills, sweats. No calf swelling or pain. No numbness or tingling. - Related Data Previous Rx's Medication Instructions Recorded Last Taken Type predniSONE [Prednisone] 10 mg PO DAILY #7 tab.ds.pk 12/25/18 09/01/19 Rx ALBUTEROL Inhaler(NF) [VENTOLIN 1 puff IH Q4HRT PRN #1 inha 02/06/19 09/01/19 Rx Inhaler(NF)] Benzonatate [Tessalon Perles] 100 mg PO Q8HR PRN #20 capsule 09/02/19 Unknown Rx Acetaminophen [Non-Aspirin Extra 500 mg PO Q6HR PRN #30 tablet 12/26/20 Unknown Rx Strength] Ibuprofen [Motrin] 600 mg PO Q8H PRN #30 tablet 12/26/20 Unknown Rx Morphine Sulfate [Morphine Sulfate 7.5 mg PO Q6HR PRN #10 tablet 12/26/20 Unknown Rx IR] Ondansetron [Zofran Odt] 4 mg PO Q8HR PRN #20 tab.rapdis 12/26/20 Unknown Rx hydrOXYzine PAMOATE [Vistaril] 50 mg PO Q8HR PRN #30 capsule 05/26/21 Unknown Rx cephALEXin [Keflex] 500 mg PO Q12HR 7 Days #14 cap 07/09/21 Unknown Rx Prednisone [predniSONE 10 mg 10 mg PO .TAPER #1 tab.ds.pk 03/08/22 Unknown Rx (6-Day Pack, 21 Tabs)] predniSONE [Deltasone] 20 mg PO QDAY #30 tab 03/08/22 Unknown Rx traMADoL [Ultram 50 MG tab] 50 mg PO Q6HR PRN #12 tablet 03/08/22 Unknown Rx Prednisone [predniSONE 10 mg 10 mg PO .TAPER #1 03/21/22 Unknown Rx (6-Day Pack, 21 Tabs)] oxyCODONE /ACETAMINOPHEN [Percocet 1 - 2 tab PO Q6HR PRN #14 tablet 03/21/22 Unknown Rx 5/325] Naproxen [EC-Naprosyn] 500 mg PO Q12H PRN #30 tablet. 04/24/22 Unknown Rx Prednisone [predniSONE 10 mg 10 mg PO .TAPER #1 tab.ds.pk 04/24/22 Unknown Rx (6-Day Pack, 21 Tabs)] traMADoL [Ultram 50 MG tab] 50 mg PO Q8HR PRN #12 tablet 04/24/22 Unknown Rx Indomethacin [Indomethacin ER] 75 mg PO Q8H PRN #90 tab 05/07/22 Unknown Rx predniSONE [Deltasone] 20 mg PO QDAY #30 tab 05/07/22 Unknown Rx Ketorolac [Toradol] 10 mg PO Q6H PRN #14 07/02/22 Unknown Rx Allergies Allergy/AdvReac Type Severity Reaction Status Date / Time No Known Allergies Allergy Verified 07/01/22 13:18 ED Review of Systems ROS: Stated complaint: ABD PAIN/LUPUS FLARE UP Other details as noted in HPI Comment: All other systems reviewed and negative ED Past Medical Hx - Past Medical History Hx Congestive Heart Failure: No Hx Diabetes: No Hx Arthritis: Yes (Rheumatoid) Hx Seizures: No Hx Asthma: No Hx COPD: No Additional medical history: RA, Morbid Obesity. Psoriasis, lupus - Surgical History Additional Surgical History: Psoriasis - Social History Smoking Status: Never Smoker - Medications Home Medications: Home Medications Medication Instructions Recorded Confirmed Last Taken Type predniSONE [Prednisone] 10 mg PO DAILY #7 tab.ds.pk 12/25/18 03/08/22 09/01/19 Rx ALBUTEROL Inhaler(NF) [VENTOLIN 1 puff IH Q4HRT PRN #1 inha 02/06/19 03/08/22 09/01/19 Rx Inhaler(NF)] Benzonatate [Tessalon Perles] 100 mg PO Q8HR PRN #20 capsule 09/02/19 03/08/22 Unknown Rx Acetaminophen [Non-Aspirin Extra 500 mg PO Q6HR PRN #30 tablet 12/26/20 03/08/22 Unknown Rx Strength] Ibuprofen [Motrin] 600 mg PO Q8H PRN #30 tablet 12/26/20 03/08/22 Unknown Rx Morphine Sulfate [Morphine Sulfate 7.5 mg PO Q6HR PRN #10 tablet 12/26/20 03/08/22 Unknown Rx IR] Ondansetron [Zofran Odt] 4 mg PO Q8HR PRN #20 tab.rapdis 12/26/20 03/08/22 Unknown Rx hydrOXYzine PAMOATE [Vistaril] 50 mg PO Q8HR PRN #30 capsule 05/26/21 03/08/22 Unknown Rx cephALEXin [Keflex] 500 mg PO Q12HR 7 Days #14 cap 07/09/21 03/08/22 Unknown Rx Prednisone [predniSONE 10 mg 10 mg PO .TAPER #1 tab.ds.pk 03/08/22 Unknown Rx (6-Day Pack, 21 Tabs)] predniSONE [Deltasone] 20 mg PO QDAY #30 tab 03/08/22 Unknown Rx traMADoL [Ultram 50 MG tab] 50 mg PO Q6HR PRN #12 tablet 03/08/22 Unknown Rx Prednisone [predniSONE 10 mg 10 mg PO .TAPER #1 03/21/22 Unknown Rx (6-Day Pack, 21 Tabs)] oxyCODONE /ACETAMINOPHEN [Percocet 1 - 2 tab PO Q6HR PRN #14 tablet 03/21/22 Unknown Rx 5/325] Naproxen [EC-Naprosyn] 500 mg PO Q12H PRN #30 tablet.dr 04/24/22 Unknown Rx Prednisone [predniSONE 10 mg 10 mg PO .TAPER #1 tab.ds.pk 04/24/22 Unknown Rx (6-Day Pack, 21 Tabs)] traMADoL [Ultram 50 MG tab] 50 mg PO Q8HR PRN #12 tablet 04/24/22 Unknown Rx Indomethacin [Indomethacin ER] 75 mg PO Q8H PRN #90 tab 05/07/22 Unknown Rx predniSONE [Deltasone] 20 mg PO QDAY #30 tab 05/07/22 Unknown Rx Ketorolac [Toradol] 10 mg PO Q6H PRN #14 07/02/22 Unknown Rx ED Physical Exam - General Limitations: No Limitations General appearance: alert, in no apparent distress - Head Head exam: Present: atraumatic, normocephalic - Eye Eye exam: Present: normal appearance - ENT ENT exam: Present: mucous membranes moist - Neck Neck exam: Present: normal inspection - Respiratory Respiratory exam: Present: normal lung sounds bilaterally. Absent: respiratory distress - Cardiovascular Cardiovascular Exam: Present: regular rate, normal rhythm. Absent: systolic murmur, diastolic murmur, rubs, gallop - GI/Abdominal GI/Abdominal exam: Present: soft, normal bowel sounds - Extremities Exam Extremities exam: Present: normal inspection, tenderness, normal capillary re fill, joint swelling. Absent: calf tenderness - Back Exam Back exam: Present: normal inspection. Absent: CVA tenderness (R), CVA tenderness (L) - Neurological Exam Neurological exam: Present: alert, oriented X3 - Psychiatric Psychiatric exam: Present: normal affect, normal mood - Skin Skin exam: Present: warm, dry, intact, normal color. Absent: rash ED Course Vital Signs 07/01/22 07/01/22 07/02/22 13:16 22:15 00:35 Temperature 98.4 F Pulse Rate 92 H Respiratory 18 16 16 Rate Blood Pressure 126/91 [Left] O2 Sat by Pulse 99 Oximetry 07/02/22 00:36 Temperature Pulse Rate Respiratory 16 Rate Blood Pressure [Left] O2 Sat by Pulse Oximetry ED Medical Decision Making - Lab Data Result diagrams: 07/01/22 13:25 07/01/22 13:25 Critical care attestation.: If time is entered above; I have spent that time in minutes in the direct care of this critically ill patient, excluding procedure time. ED Disposition Clinical Impression: Lupus, Chronic joint pain Disposition: 01 HOME / SELF CARE / HOMELESS Is pt being admited?: No Does the pt Need Aspirin: No Condition: Stable Instructions: Chronic Pain, Adult, Musculoskeletal Pain, How to Use Cold Therapy, Joint Pain, Pain Medicine Instructions, Abdominal Pain (ED) Prescriptions: Ketorolac [Toradol] 10 mg PO Q6H PRN #14 PRN Reason: Pain Referrals: PRIMARY CARE,MD [Primary Care Provider] - 3-5 Days
[2022-07-02] MEDS ORDERED: MORPHINE 4 MG/1 ML INJ IV STA (00:15)
[2022-07-02] MEDS ORDERED: KETOROLAC 30 MG/1 ML INJ IV STA (00:15)
[2022-07-02] MEDS ORDERED: oxyCODONE /ACETAMINOPHEN 5-325MG TAB PO ONE (00:17)
[2022-07-02 01:48] VITALS: BP 151/90
== END 2022-07-02 02:10 | disposition home or self-care (01) ==
LOC: ED 12:43
DX: L93.0 Discoid lupus erythematosus (principal); M25.50 Pain in unspecified joint
CPT/HCPCS: 36415; 80053; 81001; 84702; 85025; 96372; 96374; 96375; 96376; 99283; J1100; J1200; J1885; J2270; J2405